=== PATIENT | female | born 1965 | race Caucasian/White ===

== ENCOUNTER 2023-03-15 10:53 | Outpatient (OUT) | payer BC, SELFPAY ==
[2023-03-15 11:34] LABS: INR 2.97; Prothrombin Time 29.6 sec (9.0-11.6)
== END 2023-03-15 10:54 ==
LOC: LAB 10:59
PROVIDERS: PCP Internal Medicine; Visit Provider Internal Medicine
DX: M32.9 Systemic lupus erythematosus, unspecified (principal); Z79.01 Long term (current) use of anticoagulants
CPT/HCPCS: 36415; 85610

== ENCOUNTER 2023-06-10 02:16 | Emergency (ER) | payer BC, SELFPAY ==
[2023-06-10 02:18] VITALS: BP 150/87; PULSE 87; RESP 18; TEMP 36.7; O2SAT 99; BMI 34.3
--- NOTE | 2023-06-10 02:46 | CT_ITS ---
The [address] [address] Patient Name: DANIEL COLE MRN: [id number] date: 1965 Sex: F Assigned Patient Location: ER Current Patient Location: ER Accession/Order Number: [id number] Exam Date: 06/10/2023 02:56 Report Date: 06/10/2023 03:19 At the request of: MICHELLE STEPHEN Procedure: CT abdomen pelvis wo con EXAM: CT abdomen pelvis wo con HISTORY: abdominal pain COMPARISON: CT abdomen and pelvis examination dated 08/27/2022. TECHNIQUE: Noncontrast axial CT images through the abdomen and pelvis were obtained with coronal and sagittal reformats. Dose reduction techniques were achieved by using automated exposure control and/or adjustment of mA and/or kV according to patient size and/or use of iterative reconstruction technique. FINDINGS: The visualized portions of the lung bases are clear. Abdomen: Please note that the sensitivity for detection of focal lesions or vascular disease is markedly reduced without intravenous contrast. The liver and spleen are unremarkable. There is no intra or extrahepatic biliary duct dilatation. The gallbladder is unremarkable. The pancreas, adrenal glands, and kidney are unremarkable. The appendix is not seen. There is no mesenteric or retroperitoneal lymphadenopathy. There is diverticulosis with inflammatory changes about the distal descending colon. Surgical clips are seen within the retroperitoneum. Pelvis: The bladder and rectum are unremarkable. There is no iliac or inguinal lymphadenopathy. Surgical clips are seen within the pelvis. The patient is status post hysterectomy. Bone windows show no aggressive osseous lesions. CT/CT abdomen pelvis wo con IMPRESSION: 1. Acute diverticulitis of the distal descending colon. 2. Status post hysterectomy and suspected appendectomy as the appendix is not seen. Electronically authenticated by: Nataliia HERCULES Date: 06/10/2023 03:19
[2023-06-10 02:54] LABS: Basophils Absolute Auto 0.1 10^3/uL (0.0-0.1); Basophils Percent Auto 0.5 % (0.2-2.0); Eosinophils Absolute Auto 0.2 10^3/uL (0.0-0.7); Eosinophils Percent Auto 1.9 % (0.9-7.0); Hematocrit 36.5 % (36.0-48.0); Hemoglobin 11.8 g/dL (12.0-16.0); Immature Granulocytes Abs Auto 0.02 10^3/uL (0.00-0.03); Immature Granulocytes Pct Auto 0.2 % (0.0-0.5); Lymphocytes Absolute Auto 2.4 10^3/uL (1.2-3.8); Lymphocytes Percent Auto 25.2 % (20.5-60.0); Mean Corpuscular HGB Conc 32.3 g/dL (29.9-35.2); Mean Corpuscular Hemoglobin 28.7 pg (26.7-34.0); Mean Corpuscular Volume 88.8 fL (81.0-99.0); Mean Platelet Volume 11.8 fL (9.5-13.5); Monocytes Absolute Auto 0.6 10^3/uL (0.3-0.8); Monocytes Percent Auto 6.3 % (1.7-12.0); Neutrophils Absolute Auto 6.3 10^3/uL (1.4-6.5); Neutrophils Percent Auto 65.9 % (43.0-75.0); Platelet Count 196 10^3/uL (150-450); Red Blood Count 4.11 10^6/uL (4.20-5.40); Red Cell Distribution Width 14.8 % (11.0-15.0); White Blood Count 9.5 10^3/uL (4.0-11.0)
[2023-06-10 03:10] LABS: Alanine Aminotransferase 26 U/L (14-59); Albumin Globulin Ratio 0.9; Albumin Level 3.4 g/dL (3.4-5.0); Alkaline Phosphatase 105 U/L (46-116); Anion Gap 11.9; Aspartate Amino Transferase 15 U/L (15-37); BUN Creatinine Ratio 18.9; Bilirubin Total 0.2 mg/dL (0.2-1.0); Calcium 8.2 mg/dL (8.5-10.1); Chloride 106 mmol/L (98-107); Estimated GFR (African America >60 (>=60); Estimated GFR (Non-African Ame >60 (>=60); Globulin 3.9 g/dL; Glucose 112 mg/dL (74-106); Potassium 3.9 mmol/L (3.5-5.1); Sodium 141 mmol/L (136-145); Total Protein 7.3 g/dL (6.4-8.2)
[2023-06-10] MEDS: KETOROLAC TROMETHAMINE 30 MG/ML VIAL IVP (03:17)
[2023-06-10 03:38] LABS: Bilirubin Urine NEGATIVE (NEGATIVE); Blood Urine TRACE-I (NEGATIVE); Clarity Urine CLEAR (CLEAR); Color Urine LT. YELLOW (YELLOW); Glucose Urine UA NEGATIVE (NEGATIVE); Ketones Urine NEGATIVE (NEGATIVE); Leukocyte Esterase Urine NEGATIVE (NEGATIVE); Nitrite Urine NEGATIVE (NEGATIVE); Protein Urine NEGATIVE (NEG/TRACE); Urobilinogen Urine 0.2 EU/dL (0.2-1.0)
[2023-06-10 03:41] LABS: Urine Microscopic Indicated YES
[2023-06-10 03:45] LABS: Bacteria Urine TRACE #/HPF (NONE SEEN); Crystals Seen? None Seen #/HPF (None Seen); Mucus Urine NONE SEEN (NONE SEEN); RBC Urine 0-2 #/HPF (0-2); Squamous Epithelial Cell Urine MODERATE #/LPF (NONE/RARE); WBC Urine NONE SEEN #/HPF (NONE SEEN)
[2023-06-10 03:46] LABS: Cast Seen? NONE SEEN #/LPF (NONE SEEN); Urine Culture Indicated NO
--- NOTE | 2023-06-10 03:53 | ED_ITS ---
HPI - Abdominal Pain General Chief Complaint: Abdominal Pain Stated Complaint: left side pain Time Seen by Provider: 06/10/23 02:23 Source: patient Mode of arrival: walk-in Limitations: no limitations History of Present Illness HPI narrative: Patient with history of Crohn's disease present with left sided abdominal and flank pain that began a couple of days ago but dramatically worsened about an hour before arrival. Pain was initially mild and achy before becoming moderate and sharp tonight. No blood in urine or stool. No fever or chills. She takes coumadin daily and gets her levels checked regularly here at [facility]. She gets Entyvio infusions every 8 weeks. Related Data Home Medications Medication Instructions Recorded Confirmed doxepin 50 mg capsule mg 06/10/23 lisinopril 20 mg tablet mg 06/10/23 simvastatin 40 mg tablet mg 06/10/23 vedolizumab 300 mg intravenous IV .q 8 weeks 06/10/23 solution (Entyvio) warfarin 5 mg tablet mg 06/10/23 Previous Rx's Medication Instructions Recorded ciprofloxacin HCl 500 mg tablet 500 mg PO BID #14 tabs 06/10/23 (Cipro) metronidazole 500 mg tablet 500 mg PO TID 7 days #21 tabs 06/10/23 tramadol 50 mg tablet 50 mg PO Q6H PRN pain #20 tabs 06/10/23 Allergies Allergy/AdvReac Type Severity Reaction Status Date / Time codeine Allergy Mild Verified 06/10/23 02:23 Sulfa (Sulfonamide AdvReac Verified 06/10/23 02:23 Antibiotics) [facility] Social History Smoking status: Never smoker Exam Narrative Exam Narrative: Nurses notes and vital signs reviewed and patient is not hypoxic. afebrile General: Well-appearing and in no apparent distress. Skin: Warm, dry, no pallor noted. No rash. Head: Normocephalic, atraumatic. Eye: Pupils are equal, round and EOMI. No scleral icterus. Cardiovascular: Regular Rate and Rhythm without murmur, gallop or rub. Respiratory: No accessory muscle use or respiratory distress. Lungs are clear to auscultation, no wheezing, rales or rhonchi Back: No CVA tenderness Musculoskeletal: normal ROM GI: Abdomen is soft, non-distended. Normal bowel sounds. No masses appreciated. LLQ tenderness to palpation. No rebound, guarding, or rigidity noted. Neurological: A&O x4. No cranial nerve dysfunction observed. No truncal ataxia. Moves all extremities. Sensation intact. Psychiatric: Cooperative and interactive. Normal mood and affect. Constitutional Vital Signs, click to edit/add: Last Vital Signs Temp 98.1 F 06/10/23 02:18 Pulse 87 06/10/23 02:18 Resp 18 06/10/23 02:18 BP 150/87 H 06/10/23 02:18 Pulse Ox 99 06/10/23 02:18 O2 Del Method Room Air 06/10/23 02:48 Course Vital Signs Vital signs: Vital Signs Temperature 98.1 F 06/10/23 02:18 Pulse Rate 87 06/10/23 02:18 Respiratory Rate 18 06/10/23 02:18 Blood Pressure 150/87 H 06/10/23 02:18 Pulse Oximetry 99 06/10/23 02:18 Oxygen Delivery Method Room Air 06/10/23 02:18 Temperature 98.1 F 06/10/23 02:18 Pulse Rate 87 06/10/23 02:18 Respiratory Rate 18 06/10/23 02:18 Blood Pressure 150/87 H 06/10/23 02:18 Pulse Oximetry 99 06/10/23 02:18 Oxygen Delivery Method Room Air 06/10/23 02:48 MDM - Abdominal Pain MDM Narrative Medical decision making narrative: Peripheral IV established and blood drawn and sent for testing. Patient was ordered to receive NS IVF and given IV Toradol for pain. She was sent for CT abd/pelvis. Normal CBC including WBC. Unremarkable CMP and negative UA. CT revealed acute diverticulitis, per radiologist. Patient informed of results and diagnosis and treatment discussed. Her pain was decreased after ED treatment. She was prescribed cipro and flagyl. INR obtained to establish baseline and she will need to get INR recheck early next week as Cipro and Flagyl affect INR levels. She was made aware of that. Additionally she was prescribed Ultram for pain - she said that she tolerated that well. Patient instructed to return for GI bleeding, worsening abdominal pain, any new worrisome symptoms. Lab Data Attestation: I reviewed the patient's lab results. Labs: Lab Results 06/10/23 06/10/23 Range/Units 02:35 03:30 WBC 9.5 (4.0-11.0) 10^3/uL RBC 4.11 L (4.20-5.40) 10^6/uL Hgb 11.8 L (12.0-16.0) g/dL Hct 36.5 (36.0-48.0) % MCV 88.8 (81.0-99.0) fL MCH 28.7 (26.7-34.0) pg MCHC 32.3 (29.9-35.2) g/dL RDW 14.8 (11.0-15.0) % Plt Count 196 (150-450) 10^3/uL MPV 11.8 (9.5-13.5) fL Neut % (Auto) 65.9 (43.0-75.0) % Lymph % (Auto) 25.2 (20.5-60.0) % [place] % (Auto) 6.3 (1.7-12.0) % Eos % (Auto) 1.9 (0.9-7.0) % Baso % (Auto) 0.5 (0.2-2.0) % Neut # (Auto) 6.3 (1.4-6.5) 10^3/uL Lymph # (Auto) 2.4 (1.2-3.8) 10^3/uL [place] # (Auto) 0.6 (0.3-0.8) 10^3/uL Eos # (Auto) 0.2 (0.0-0.7) 10^3/uL Baso # (Auto) 0.1 (0.0-0.1) 10^3/uL Abs Immat Gran (auto) 0.02 (0.00-0.03) 10^3/uL Imm/Tot Granulo (auto) 0.2 (0.0-0.5) % Sodium 141 (136-145) mmol/L Potassium 3.9 (3.5-5.1) mmol/L Chloride 106 (98-107) mmol/L Carbon Dioxide 27.0 (21.0-32.0) mmol/L Anion Gap 11.9 BUN 18.0 (7.0-18.0) mg/dL Creatinine 0.95 (0.55-1.02) mg/dL Est GFR ( Amer) >60 (>=60) Est GFR (Non-Af Amer) >60 (>=60) BUN/Creatinine Ratio 18.9 Glucose 112 H (74-106) mg/dL Calcium 8.2 L (8.5-10.1) mg/dL Total Bilirubin 0.2 (0.2-1.0) mg/dL AST 15 (15-37) U/L ALT 26 (14-59) U/L Alkaline Phosphatase 105 (46-116) U/L Total Protein 7.3 (6.4-8.2) g/dL Albumin 3.4 (3.4-5.0) g/dL Globulin 3.9 g/dL Albumin/Globulin Ratio 0.9 Urine Color Lt. yellow (YELLOW) Urine Clarity Clear (CLEAR) Urine pH 6.0 (5.0-9.0) Ur Specific [place] 1.010 (1.005-1.025) Urine Protein Negative (NEG/TRACE) mg/dL Urine Glucose (UA) Negative (NEGATIVE) mg/dL Urine Ketones Negative (NEGATIVE) mg/dL Urine Occult Blood Trace-i (NEGATIVE) Urine Nitrite Negative (NEGATIVE) Urine Bilirubin Negative (NEGATIVE) Urine Urobilinogen 0.2 (0.2-1.0) EU/dL Ur Leukocyte Esterase Negative (NEGATIVE) Urine RBC 0-2 (0-2) #/HPF Urine WBC None seen (NONE SEEN) #/HPF Ur Squamous Epith Cells Moderate A (NONE/RARE) #/LPF Urine Crystals None seen (None Seen) #/HPF Urine Bacteria Trace A (NONE SEEN) #/HPF Urine Casts None seen (NONE SEEN) #/LPF Urine Mucus None seen (NONE SEEN) Ur Culture Indicated? No Imaging Data CT scan - abdomen: Attestation: I have reviewed the pertinent imaging results. Radiologist's impression: Patient Name: DANIEL COLE MRN: [id number] date: 1965 Sex: F Assigned Patient Location: ER Current Patient Location: ER Accession/Order Number: [id number] Exam Date: 06/10/2023 02:56 Report Date: 06/10/2023 03:19 At the request of: MICHELLE STEPHEN Procedure: CT abdomen pelvis wo con EXAM: CT abdomen pelvis wo con HISTORY: abdominal pain COMPARISON: CT abdomen and pelvis examination dated 08/27/2022. TECHNIQUE: Noncontrast axial CT images through the abdomen and pelvis were obtained with coronal and sagittal reformats. Dose reduction techniques were achieved by using automated exposure control and/or adjustment of mA and/or kV according to patient size and/or use of iterative reconstruction technique. FINDINGS: The visualized portions of the lung bases are clear. Abdomen: Please note that the sensitivity for detection of focal lesions or vascular disease is markedly reduced without intravenous contrast. The liver and spleen are unremarkable. There is no intra or extrahepatic biliary duct dilatation. The gallbladder is unremarkable. The pancreas, adrenal glands, and kidney are unremarkable. The appendix is not seen. There is no mesenteric or retroperitoneal lymphadenopathy. There is diverticulosis with inflammatory changes about the distal descending colon. Surgical clips are seen within the retroperitoneum. Pelvis: The bladder and rectum are unremarkable. There is no iliac or inguinal lymphadenopathy. Surgical clips are seen within the pelvis. The patient is status post hysterectomy. Bone windows show no aggressive osseous lesions. IMPRESSION: 1. Acute diverticulitis of the distal descending colon. 2. Status post hysterectomy and suspected appendectomy as the appendix is not seen. Electronically authenticated by: Nataliia HERCULES Date: 06/10/2023 03:19 Discharge Plan Discharge Chief Complaint: Abdominal Pain Clinical Impression: Diverticulitis Patient Disposition: Home, Self-Care Time of Disposition Decision: 03:56 Prescriptions / Home Meds: New ciprofloxacin HCl [Cipro] 500 mg tablet 500 mg PO BID Qty: 14 0RF metronidazole 500 mg tablet 500 mg PO TID 7 Days Qty: 21 0RF tramadol 50 mg tablet 50 mg PO Q6H PRN (Reason: pain) Qty: 20 0RF No Action doxepin 50 mg capsule lisinopril 20 mg tablet simvastatin 40 mg tablet warfarin 5 mg tablet Entyvio 300 mg recon soln IV .q 8 weeks Instructions: Diverticulitis (ED) Additional Instructions: The antibiotics can affect your coumadin (warfarin) use - it is important to see your PCP and have your coumadin level checked next week. Stand Alone Forms: Portal Instructions Referrals: ANA MARIANO [Primary Care Provider] - 1 week
[2023-06-10 04:44] LABS: INR 2.37; Prothrombin Time 23.9 sec (9.0-11.6)
[2023-06-10 04:46] LABS: Partial Thromboplastin Time 50.9 sec (22.3-36.2)
== END 2023-06-10 04:25 | disposition home or self-care (01) ==
PROVIDERS: Emergency Provider Emergency Medicine; PCP Internal Medicine
DX: K57.32 Diverticulitis of large intestine without perforation or abscess without bleeding (principal); Z79.01 Long term (current) use of anticoagulants; Z79.899 Other long term (current) drug therapy
CPT/HCPCS: 36415; 74176; 80053; 81001; 85025; 85610; 85730; 96374; 99285

== ENCOUNTER 2023-06-15 09:55 | Outpatient (OUT) | payer BC, SELFPAY ==
[2023-06-15 10:41] LABS: INR 2.47; Prothrombin Time 24.9 sec (9.0-11.6)
== END 2023-06-15 09:56 | disposition home or self-care (01) ==
LOC: LAB 09:56
PROVIDERS: PCP Internal Medicine; Visit Provider Internal Medicine
DX: M32.9 Systemic lupus erythematosus, unspecified (principal); Z79.01 Long term (current) use of anticoagulants
CPT/HCPCS: 36415; 85610

== ENCOUNTER 2023-10-06 13:30 | Outpatient (OUT) | payer BC, SELFPAY ==
[2023-10-06 14:28] LABS: Prothrombin Time 27.1 sec (9.0-11.6)
== END 2023-10-06 13:31 | disposition home or self-care (01) ==
LOC: LAB 13:30
PROVIDERS: PCP Internal Medicine
DX: M32.9 Systemic lupus erythematosus, unspecified (principal); Z79.01 Long term (current) use of anticoagulants
CPT/HCPCS: 36415; 85610

== ENCOUNTER 2023-12-12 12:17 | Outpatient (OUT) | payer BC, SELFPAY ==
[2023-12-12 12:50] LABS: Prothrombin Time 26.1 sec (9.0-11.6)
== END 2023-12-12 12:18 | disposition home or self-care (01) ==
LOC: LAB 12:18
PROVIDERS: PCP Internal Medicine; Visit Provider Internal Medicine
DX: M32.9 Systemic lupus erythematosus, unspecified (principal); Z79.01 Long term (current) use of anticoagulants
CPT/HCPCS: 36415; 85610

== ENCOUNTER 2024-02-13 10:31 | Outpatient (OUT) | payer BC, SELFPAY ==
[2024-02-13 11:06] LABS: INR 2.06; Prothrombin Time 20.3 sec (9.0-11.6)
== END 2024-02-13 10:32 | disposition home or self-care (01) ==
LOC: LAB 10:32
PROVIDERS: PCP Internal Medicine; Visit Provider Internal Medicine
DX: M32.9 Systemic lupus erythematosus, unspecified (principal); Z79.01 Long term (current) use of anticoagulants
CPT/HCPCS: 36415; 85610

== ENCOUNTER 2024-02-14 10:50 | Emergency (ER) | payer BC, SELFPAY ==
[2024-02-14 10:52] VITALS: BP 154/94; PULSE 80; TEMP 36.6; O2SAT 97; BMI 34.3
--- NOTE | 2024-02-14 11:02 | XR_ITS ---
The [address] [address] Patient Name: DANIEL COLE MRN: [id number] date: 1965 Sex: F Assigned Patient Location: ER Current Patient Location: ER Accession/Order Number: [id number] Exam Date: 02/14/2024 11:42 Report Date: 02/14/2024 12:11 At the request of: RIA ROSE Procedure: XR forearm RT 2V PROCEDURE: XR elbow RT min 3V, XR forearm RT 2V HISTORY: injury c/o pain COMPARISON: None. FINDINGS: BONES:No fracture, acute abnormality, or significant arthropathy. SOFT TISSUES:No visible soft tissue swelling. EFFUSION:None visible. OTHER: Negative. XR/XR forearm RT 2V IMPRESSION: 1. No acute bone abnormality or significant degenerative changes. Electronically authenticated by: KITTY GUNTER Date: 02/14/2024 12:11
--- NOTE | 2024-02-14 11:02 | XR_ITS ---
The [address] [address] Patient Name: DANIEL COLE MRN: [id number] date: 1965 Sex: F Assigned Patient Location: ER Current Patient Location: ER Accession/Order Number: [id number] Exam Date: 02/14/2024 11:42 Report Date: 02/14/2024 12:11 At the request of: RIA ROSE Procedure: XR elbow RT min 3V PROCEDURE: XR elbow RT min 3V, XR forearm RT 2V HISTORY: injury c/o pain COMPARISON: None. FINDINGS: BONES:No fracture, acute abnormality, or significant arthropathy. SOFT TISSUES:No visible soft tissue swelling. EFFUSION:None visible. OTHER: Negative. XR/XR elbow RT min 3V IMPRESSION: 1. No acute bone abnormality or significant degenerative changes. Electronically authenticated by: KITTY GUNTER Date: 02/14/2024 12:11
--- NOTE | 2024-02-14 13:34 | ED.UPPEXIN1 ---
HPI HPI - Extremity Injury (Upper) General Chief Complaint: Extremity Injury, Upper Stated Complaint: R ARM PAIN Time Seen by Provider: 02/14/24 13:22 Source: patient Mode of arrival: walk-in Limitations: no limitations History of Present Illness HPI narrative: 58-year-old female presents to the emergency department for pain in her right elbow. 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 She points to the lateral epicondyle to indicate the area of pain. It hurts more to move her elbow. She is right-handed. The pain is moderate. Related Data Home Medications ?Medication ?Instructions ?Recorded ?Confirmed doxepin 50 mg capsule mg 06/10/23 lisinopril 20 mg tablet mg 06/10/23 simvastatin 40 mg tablet mg 06/10/23 vedolizumab 300 mg intravenous IV .q 8 weeks 06/10/23 solution (Entyvio) warfarin 5 mg tablet mg 06/10/23 Previous Rx's ?Medication ?Instructions ?Recorded ciprofloxacin HCl 500 mg tablet 500 mg PO BID #14 tabs 06/10/23 (Cipro) metronidazole 500 mg tablet 500 mg PO TID 7 days #21 tabs 06/10/23 tramadol 50 mg tablet 50 mg PO Q6H PRN pain #20 tabs 06/10/23 tramadol 50 mg tablet 50 mg PO Q6H PRN pain 5 days #20 02/14/24 tabs Allergies Allergy/AdvReac Type Severity Reaction Status Date / Time codeine Allergy Mild Verified 06/10/23 02:23 Sulfa (Sulfonamide AdvReac Verified 06/10/23 02:23 Antibiotics) Opioid HPI Opioid Management Most Recent Pain and Opioid Data: Last Pain Scale 5 02/14/24 10:52 Review of Systems ROS Narrative A ten point review of systems is negative except as noted above. PFSH PFSH Social History Smoking status: Never smoker Exam Narrative Exam Narrative: Nurses note and vital signs reviewed and patient is not hypoxic. General: The patient appears well and in no apparent distress. Patient is resting comfortably on cart. Skin: Warm, dry, no pallor noted. There is no rash noted. Head: Normocephalic, atraumatic Eye: Normal conjunctiva, no drainage Ears, Nose, Mouth, and Throat: oral mucosa is moist. Nares patent. Cardiovascular: Regular Rate and Rhythm Respiratory: Patient is in no distress, no accessory muscle use Back: non-tender, GI: Soft and nontender Musculoskeletal: The right wrist and shoulder are nontender and have good range of motion. The right elbow is not swollen or erythematous or bruised. She has tenderness over the lateral epicondyle only. Neurological: A&O, normal speech Psychiatric: Cooperative Constitutional Vital Signs, click to edit/add: Last Vital Signs Temp 97.8 F 02/14/24 10:52 Pulse 80 02/14/24 10:52 Resp 20 02/14/24 10:52 BP 154/94 H 02/14/24 10:52 Pulse Ox 97 02/14/24 10:52 O2 Del Method Room Air 02/14/24 10:52 Course Vital Signs Vital signs: Vital Signs Temperature 97.8 F 02/14/24 10:52 Pulse Rate 80 02/14/24 10:52 Respiratory Rate 20 02/14/24 10:52 Blood Pressure 154/94 H 02/14/24 10:52 Pulse Oximetry 97 02/14/24 10:52 Oxygen Delivery Method Room Air 02/14/24 10:52 Temperature 97.8 F 02/14/24 10:52 Pulse Rate 80 02/14/24 10:52 Respiratory Rate 20 02/14/24 10:52 Blood Pressure 154/94 H 02/14/24 10:52 Pulse Oximetry 97 02/14/24 10:52 Oxygen Delivery Method Room Air 02/14/24 10:52 MDM - Extremity Injury (Upper) MDM Narrative Medical decision making narrative: My clinical impression is that she has lateral epicondylitis. Jairon wrap and sling applied, application of these were checked by me and found to be appropriate, she is neurovascularly intact. She was referred to orthopedics. Treatment diagnosis and follow-up were discussed with the patient. Differential Diagnosis Differential diagnosis: Likely other (Elbow sprain, elbow strain, fracture) Imaging Data Elbow and forearm x-rays: Radiologist's impression: ITS Impressions Elbow X-Ray 02/14/24 11:02 IMPRESSION: 1. No acute bone abnormality or significant degenerative changes. Electronically authenticated by: SANJEEV GUNTER Date: 02/14/2024 12:11 Forearm X-Ray 02/14/24 11:02 IMPRESSION: 1. No acute bone abnormality or significant degenerative changes. Electronically authenticated by: SANJEEV GUNTER Date: 02/14/2024 12:11 Discharge Plan Discharge Stand Alone Forms: Portal Instructions Chief Complaint: Extremity Injury, Upper Clinical Impression: Epicondylitis, lateral Patient Disposition: Home, Self-Care Time of Disposition Decision: 13:27 Condition: Good Mode of Transportation: Private Vehicle Prescriptions / Home Meds: New tramadol 50 mg tablet 50 mg PO Q6H PRN (Reason: pain) 5 Days Qty: 20 0RF No Action doxepin 50 mg capsule lisinopril 20 mg tablet simvastatin 40 mg tablet warfarin 5 mg tablet Entyvio 300 mg recon soln IV .q 8 weeks ciprofloxacin HCl [Cipro] 500 mg tablet 500 mg PO BID Qty: 14 0RF metronidazole 500 mg tablet 500 mg PO TID 7 Days Qty: 21 0RF tramadol 50 mg tablet 50 mg PO Q6H PRN (Reason: pain) Qty: 20 0RF Print Language: Sierra Leonean Instructions: Tennis Elbow (ED) Referrals: ANA MARIANO [Primary Care Provider] - 1 week Sanjeev Nolan MD [Physician] - 1 week
== END 2024-02-14 13:47 | disposition home or self-care (01) ==
PROVIDERS: Emergency Provider Emergency Medicine; PCP Internal Medicine
DX: M77.11 Lateral epicondylitis, right elbow (principal); Z79.01 Long term (current) use of anticoagulants; Z79.899 Other long term (current) drug therapy
CPT/HCPCS: 73080; 73090; 99284

== ENCOUNTER 2024-03-13 11:43 | Outpatient (OUT) | payer BC, SELFPAY ==
[2024-03-13 12:51] LABS: INR 2.31; Prothrombin Time 22.5 sec (9.0-11.6)
== END 2024-03-13 11:44 | disposition home or self-care (01) ==
LOC: LAB 11:45
PROVIDERS: PCP Internal Medicine; Visit Provider Internal Medicine
DX: M32.9 Systemic lupus erythematosus, unspecified (principal); Z79.01 Long term (current) use of anticoagulants
CPT/HCPCS: 36415; 85610

== ENCOUNTER 2024-04-19 10:41 | Outpatient (OUT) | payer BC, SELFPAY ==
[2024-04-19 11:14] LABS: INR 2.86; Prothrombin Time 27.3 sec (9.0-11.6)
== END 2024-04-19 10:42 | disposition home or self-care (01) ==
LOC: LAB 10:42
PROVIDERS: PCP Internal Medicine; Visit Provider Internal Medicine
DX: M32.9 Systemic lupus erythematosus, unspecified (principal); Z79.01 Long term (current) use of anticoagulants
CPT/HCPCS: 36415; 85610

== ENCOUNTER 2024-05-22 14:25 | Emergency (ER) | payer BC, SELFPAY ==
[2024-05-22 14:32] VITALS: BP 131/58; PULSE 93; TEMP 36.9; O2SAT 98; BMI 34.3
[2024-05-22 14:40] VITALS: O2SAT 97
[2024-05-22 14:53] LABS: Basophils Absolute Auto 0.1 10^3/uL (0.0-0.1); Basophils Percent Auto 0.5 % (0.2-2.0); Eosinophils Absolute Auto 0.1 10^3/uL (0.0-0.7); Hematocrit 37.3 % (36.0-48.0); Hemoglobin 12.5 g/dL (12.0-16.0); Immature Granulocytes Abs Auto 0.03 10^3/uL (0.00-0.03); Immature Granulocytes Pct Auto 0.3 % (0.0-0.5); Lymphocytes Absolute Auto 2.9 10^3/uL (1.2-3.8); Lymphocytes Percent Auto 25.1 % (20.5-60.0); Mean Corpuscular HGB Conc 33.5 g/dL (29.9-35.2); Mean Corpuscular Hemoglobin 29.1 pg (26.7-34.0); Mean Corpuscular Volume 86.9 fL (81.0-99.0); Mean Platelet Volume 12.1 fL (9.5-13.5); Monocytes Absolute Auto 0.7 10^3/uL (0.3-0.8); Neutrophils Absolute Auto 7.7 10^3/uL (1.4-6.5); Neutrophils Percent Auto 67.1 % (43.0-75.0); Platelet Count 215 10^3/uL (150-450); Red Blood Count 4.29 10^6/uL (4.20-5.40); Red Cell Distribution Width 14.3 % (11.0-15.0); White Blood Count 11.5 10^3/uL (4.0-11.0)
[2024-05-22] MEDS: PIPERACILLIN SODIUM/TAZOBACTAM 3.375 GM in 0.9 % SODIUM CHLORIDE 50 ML IV (14:54)
[2024-05-22] MEDS: 0.9 % SODIUM CHLORIDE 1,000 ML 999 ML IV (14:54)
[2024-05-22 15:00] VITALS: BP 124/76; O2SAT 97
[2024-05-22 15:08] LABS: Alanine Aminotransferase 21 U/L (14-59); Albumin Globulin Ratio 0.9; Albumin Level 3.5 g/dL (3.4-5.0); Alkaline Phosphatase 129 U/L (46-116); Anion Gap 13.1; Aspartate Amino Transferase 14 U/L (15-37); BUN Creatinine Ratio 14.1; Bilirubin Total 0.5 mg/dL (0.2-1.0); Calcium 9.3 mg/dL (8.5-10.1); Carbon Dioxide 27.9 mmol/L (21.0-32.0); Chloride 101 mmol/L (98-107); Estimated GFR (African America >60 (>=60); Estimated GFR (Non-African Ame >60 (>=60); Glucose 85 mg/dL (74-106); Sodium 138 mmol/L (136-145); Total Protein 7.5 g/dL (6.4-8.2)
--- NOTE | 2024-05-22 15:08 | ED_ITS ---
HPI - Abdominal Pain General Chief Complaint: Abdominal Pain Stated Complaint: ABDOMINAL PAIN Time Seen by Provider: 05/22/24 14:27 Source: patient Mode of arrival: walk-in Limitations: no limitations History of Present Illness HPI narrative: Patient presents to the ED complaining of left lower quadrant abdominal pain. She said it started last night and she had a lot of trouble sleeping throughout the night. She does report a history of Crohn's disease and diverticulitis. Nausea, no vomiting. No blood in the stool. No diarrhea or constipation. No fevers. She states that she sees a GI doctor in [place] and she goes about every year. No history of kidney stones no flank pain. Related Data Home Medications ?Medication ?Instructions ?Recorded ?Confirmed doxepin 50 mg capsule 100 mg PO BEDTIME 06/10/23 05/22/24 lisinopril 20 mg tablet 20 mg PO DAILY 06/10/23 05/22/24 simvastatin 40 mg tablet 40 mg PO DAILY 06/10/23 05/22/24 vedolizumab 300 mg intravenous IV .q 8 weeks 06/10/23 solution (Entyvio) warfarin 5 mg tablet 2.5 mg PO DAILY 06/10/23 05/22/24 Previous Rx's ?Medication ?Instructions ?Recorded amoxicillin 875 mg-potassium 1 tab PO BID 10 days #20 tabs 05/22/24 clavulanate 125 mg tablet tramadol 50 mg tablet 50 mg PO Q8H PRN pain #14 tabs 05/22/24 Allergies Allergy/AdvReac Type Severity Reaction Status Date / Time codeine Allergy Mild Verified 06/10/23 02:23 Sulfa (Sulfonamide AdvReac Verified 06/10/23 02:23 Antibiotics) Review of Systems ROS Status of ROS 10 or more systems reviewed and unremark able except as noted in h istory and below PFSH PFSH Social History Smoking status: Never smoker Exam Narrative Exam Narrative: Time Seen: [] Vital Signs: [Per nurse's notes.] General: [Alert] Skin: [Warm, dry, no rash.] Head: [Normocephalic, atraumatic.] Neck: [Supple, trachea midline.] Eye: [Pupils are equal, round and reactive to light, extraocular movements are intact, normal conjunctiva.] Ears, nose, mouth and throat: oral mucosa moist. Cardiovascular: [Regular rate and rhythm, no murmur.] Respiratory: [Lungs are clear to auscultation, respirations are non-labored, breath sounds are equal.] Chest wall: [No tenderness, no deformity.] Gastrointestinal: [Soft, Tender to palpation in the left lower quadrant. No peritoneal signs no rebound no guarding, non distended, normal bowel sounds.] MSK: 5 out of 5 muscle strength x 4 extremities no calf pain or edema Lymphatics: [No lymphadenopathy.] Psychiatric: [Cooperative, appropriate mood & affect.] Neurological: [Alert and oriented to person, place, time, and situation, no focal neurological deficit observed.] Constitutional Vital Signs, click to edit/add: Last Vital Signs Temp 98.4 F 05/22/24 14:32 Pulse 93 H 05/22/24 14:32 Resp 18 05/22/24 14:32 BP 120/71 05/22/24 15:30 Pulse Ox 98 05/22/24 15:30 O2 Del Method Room Air 05/22/24 14:32 Course Vital Signs Vital signs: Vital Signs Temperature 98.4 F 05/22/24 14:32 Pulse Rate 93 H 05/22/24 14:32 Respiratory Rate 18 05/22/24 14:32 Blood Pressure 131/58 05/22/24 14:32 Pulse Oximetry 98 05/22/24 14:32 Oxygen Delivery Method Room Air 05/22/24 14:32 Temperature 98.4 F 05/22/24 14:32 Pulse Rate 93 H 05/22/24 14:32 Respiratory Rate 18 05/22/24 14:32 Blood Pressure 120/71 05/22/24 15:30 Pulse Oximetry 98 05/22/24 15:30 Oxygen Delivery Method Room Air 05/22/24 14:32 MDM - Abdominal Pain MDM Narrative Medical decision making narrative: Patient is labs are relatively nonacute. Vital signs stable. History of diverticulitis and Crohn's. She is on warfarin therefore I prescribed her Augmentin. She was given Zosyn here in ED. She is feeling better after Toradol and Zofran. She does request some pain medication at home and states tramadol works well for her. Return to ED if worsening symptoms otherwise follow-up outpatient with your primary doctor and GI doctor. Patient is comfortable care plan for home Differential Diagnosis Differential diagnosis: Likely abdominal pain, constipation, diverticulitis, gastroenteritis and small bowel obstruction Medical Records Attestation: I reviewed the patient's medical records. Lab Data Attestation: I reviewed the patient's lab results. Labs: Lab Results 05/22/24 Range/Units 14:37 WBC 11.5 H (4.0-11.0) 10^3/uL RBC 4.29 (4.20-5.40) 10^6/uL Hgb 12.5 (12.0-16.0) g/dL Hct 37.3 (36.0-48.0) % MCV 86.9 (81.0-99.0) fL MCH 29.1 (26.7-34.0) pg MCHC 33.5 (29.9-35.2) g/dL RDW 14.3 (11.0-15.0) % Plt Count 215 (150-450) 10^3/uL MPV 12.1 (9.5-13.5) fL Neut % (Auto) 67.1 (43.0-75.0) % Lymph % (Auto) 25.1 (20.5-60.0) % [place] % (Auto) 6.0 (1.7-12.0) % Eos % (Auto) 1.0 (0.9-7.0) % Baso % (Auto) 0.5 (0.2-2.0) % Neut # (Auto) 7.7 H (1.4-6.5) 10^3/uL Lymph # (Auto) 2.9 (1.2-3.8) 10^3/uL [place] # (Auto) 0.7 (0.3-0.8) 10^3/uL Eos # (Auto) 0.1 (0.0-0.7) 10^3/uL Baso # (Auto) 0.1 (0.0-0.1) 10^3/uL Abs Immat Gran (auto) 0.03 (0.00-0.03) 10^3/uL Imm/Tot Granulo (auto) 0.3 (0.0-0.5) % Sodium 138 (136-145) mmol/L Potassium 4.0 (3.5-5.1) mmol/L Chloride 101 (98-107) mmol/L Carbon Dioxide 27.9 (21.0-32.0) mmol/L Anion Gap 13.1 BUN 12.0 (7.0-18.0) mg/dL Creatinine 0.85 (0.55-1.02) mg/dL Est GFR ( Amer) >60 (>=60) Est GFR (Non-Af Amer) >60 (>=60) BUN/Creatinine Ratio 14.1 Glucose 85 (74-106) mg/dL Calcium 9.3 (8.5-10.1) mg/dL Total Bilirubin 0.5 (0.2-1.0) mg/dL AST 14 L (15-37) U/L ALT 21 (14-59) U/L Alkaline Phosphatase 129 H (46-116) U/L Total Protein 7.5 (6.4-8.2) g/dL Albumin 3.5 (3.4-5.0) g/dL Globulin 4.0 g/dL Albumin/Globulin Ratio 0.9 Discharge Plan Discharge Stand Alone Forms: Work/School Release, Portal Instructions Chief Complaint: Abdominal Pain Clinical Impression: Diverticulitis Patient Disposition: Home, Self-Care Time of Disposition Decision: 16:18 Condition: Good Mode of Transportation: Private Vehicle Prescriptions / Home Meds: New amoxicillin-pot clavulanate 875-125 mg tablet 1 tab PO BID 10 Days Qty: 20 0RF tramadol 50 mg tablet 50 mg PO Q8H PRN (Reason: pain) Qty: 14 0RF No Action doxepin 50 mg capsule 100 mg PO BEDTIME lisinopril 20 mg tablet 20 mg PO DAILY simvastatin 40 mg tablet 40 mg PO DAILY warfarin 5 mg tablet 2.5 mg PO DAILY Entyvio 300 mg recon soln IV .q 8 weeks Print Language: Turkish Instructions: Diverticulitis (ED) Referrals: ANA MARIANO [Primary Care Provider] - 1 week Discharge Date/Time: 05/22/24 16:37
[2024-05-22 15:10] VITALS: O2SAT 97
[2024-05-22 15:20] VITALS: O2SAT 97
[2024-05-22 15:30] VITALS: BP 120/71; O2SAT 98
[2024-05-22] MEDS: KETOROLAC TROMETHAMINE 30 MG/ML VIAL 15 MG IVP (15:32)
[2024-05-22] MEDS: ONDANSETRON PF 4 MG/2 ML VIAL IV (15:32)
== END 2024-05-22 16:37 | disposition home or self-care (01) ==
PROVIDERS: Emergency Provider Emergency Medicine; PCP Internal Medicine
DX: K57.92 Diverticulitis of intestine, part unspecified, without perforation or abscess without bleeding (principal); Z79.01 Long term (current) use of anticoagulants; K50.90 Crohn's disease, unspecified, without complications
CPT/HCPCS: 36415; 80053; 85025; 96365; 96375; 99284; J1885; J2405; J2543

== ENCOUNTER 2024-06-05 10:28 | Outpatient (OUT) | payer BC, SELFPAY ==
[2024-06-05 11:15] LABS: INR 2.71
== END 2024-06-05 10:29 | disposition home or self-care (01) ==
PROVIDERS: PCP Internal Medicine; Visit Provider Internal Medicine
DX: M32.9 Systemic lupus erythematosus, unspecified (principal); Z79.01 Long term (current) use of anticoagulants
CPT/HCPCS: 36415; 85610

== ENCOUNTER 2024-08-09 11:18 | Outpatient (OUT) | payer BC, SELFPAY ==
[2024-08-09 11:51] LABS: Prothrombin Time 24.2 sec (9.0-11.6)
== END 2024-08-09 11:19 | disposition home or self-care (01) ==
LOC: LAB 11:19
PROVIDERS: PCP Internal Medicine; Visit Provider Internal Medicine
DX: M32.9 Systemic lupus erythematosus, unspecified (principal); Z79.01 Long term (current) use of anticoagulants
CPT/HCPCS: 36415; 85610

== ENCOUNTER 2024-10-22 11:43 | Outpatient (OUT) | payer BC, SELFPAY ==
[2024-10-22 12:27] LABS: INR 2.57; Prothrombin Time 24.8 sec (9.0-11.6)
== END 2024-10-22 11:44 | disposition home or self-care (01) ==
LOC: LAB 11:45
PROVIDERS: PCP Internal Medicine; Visit Provider Internal Medicine
DX: M32.9 Systemic lupus erythematosus, unspecified (principal); Z79.01 Long term (current) use of anticoagulants
CPT/HCPCS: 36415; 85610

== ENCOUNTER 2025-01-10 11:38 | Outpatient (OUT) | payer BC, SELFPAY ==
--- OUTSIDE RECORDS SUMMARY | 2025-01-10 11:48 | XMS_ITS | CCD ---
Author Organization [facility] ([facility] Care Team Providers Care Centrifugal Supervisor Name Role Phone Lelia Lr Primary Care Physician Unavailab le Ray, Lelia Wasserman Unavailable Unavailable Gustavo Aaron Primary Care Physician Unavaila ble Ray, Lelia Wasserman Primary Care Physician Unavailab le Ray, Lelia Wasserman Primary Care Physician Unavailab le Ray, Lelia Wasserman Primary Care Physician Unavailab le Ray, Lelia Wasserman Primary Care Physician Unavailab le Ray, Lelia Wasserman Primary Care Physician Unavailab le Ray, Lelia Wasserman Primary Care Physician Unavailab le Ray, Lelia Wasserman Primary Care Physician Unavailab le Ray, Lelia Wasserman Primary Care Physician Unavailab le Ray, Lelia Wasserman Primary Care Physician Unavailab le Ray, Lelia Wasserman Primary Care Physician Unavailab le Ray, Lelia Wasserman Unavailable Unavailable Ray, Lelia Wasserman Primary Care Physician Unavailab le Ray, Lelia Wasserman Primary Care Physician Unavailab le Ray, Lelia Wasserman Primary Care Physician Unavailab le Ray, Lelia Wasserman Primary Care Physician Unavailab le Ray, Lelia Wasserman Primary Care Physician Unavailab le Gianna Membreno Unavailable Lelia Lr Primary Care Physician Unavailab le Ray, Lelia Wasserman Primary Care Physician Unavailab le Unavailable Primary Care Provider Unavailabl e Unavailable Primary Care Provider Unavailabl e Unavailable Primary Care Provider Unavailabl e Nae Angulo Unavailable Javier TADEO, Joseph Silva Attending Red Lr MD, Lelia Hoyt Primary Care Unavailab Anupam TADEO, Joseph Silva Attending Red Lr MD, Lelia Hoyt Consulting Unavailab dafne Lr MD, Lelia Hoyt Primary Care Unavailab Jose Carlos Dominguez Consulting Winsome Lr MD, Lelia Hoyt Primary Care Unavailab Anupam TADEO, Joseph Silva Attending Red Lr MD, Lelia Hoyt Consulting Unavailab Anupam TADEO, Joseph Silva Attending Red Lr MD, Lelia Hoyt Primary Care Unavailab le Be TADEO, Lelia Hoyt Primary Care Unavailab Anupam TADEO, Joseph Silva Attending Red garza [facility] Consulting Unavailable MISC, DR RALPH Admitting Unavailable MISC, DR RALPH Attending Unavailable MISC, DR RALPH Consulting Unavailable MISC, DR RALPH Primary Care Unavailable RAY, DR LELIA Topete Admitting Unavailable MISC, DR RALPH Primary Care Unavailable RAY, DR LELIA Topete Attending Unavailable RAY, DR LELIA Topete Consulting Unavailable RAY, DR LELIA Topete Admitting Unavailable MISC, DR RALPH Primary Care Unavailable RAY, DR LELIA Topete Attending Unavailable RAY, DR LELIA Topete Consulting Unavailable RAY, DR LELIA Topete Admitting Unavailable MISC, DR RALPH Primary Care Unavailable RAY, DR LELIA Topete Attending Unavailable RAY, DR LELIA Topete Consulting Unavailable RAY, DR LELIA Topete Admitting Unavailable MISC, DR RALPH Primary Care Unavailable RAY, DR LELIA Topete Attending Unavailable RAY, DR LELIA Topete Consulting Unavailable MISC, DR RALPH Primary Care Unavailable NAM, YANIV Admitting Unavailable NAM, YANIV Attending Unavailable NAM, YANIV Consulting Unavailable AGJOHN Consulting Unavailable MISC, DR RALPH Primary Care Unavailable MISC, DR RALPH Admitting Unavailable MISC, DR RALPH Attending Unavailable MISC, DR RALPH Consulting Unavailable MISC, DR RALPH Admitting Unavailable MISC, DR RALPH Attending Unavailable MISC, DR RALPH Consulting Unavailable MISC, DR RALPH Primary Care Unavailable RayLelia Primary Care Physician Unavailab le RayLelia Primary Care Physician Unavailab le Ray, Lelia Wasserman Primary Care Physician Unavailab le ACHKAR, SAE REED Referring Unavailable ACHKAR, SAE REED Referring Unavailable ACHKAR, SAE REED Referring Unavailable ACHKAR, SAE REED Attending Unavailable ACHKAR, SAE REED Referring Unavailable ACHKAR, SAE REED Attending Unavailable ACHKAR, SAE REED Referring Unavailable ACHKAR, SAE REED Referring Unavailable RayLelia Primary Care Physician Unavailab le Unavailable Primary Care Provider Unavailabl e Ray, Lelia Wasserman Primary Care Physician Unavailab le Ray, Lelia Wasserman Primary Care Physician Unavailab le Allergies Allergy Classification Reported Allergen(s) Allergy Type Date of Onset Reaction(s) Facility Opioid Agonists (8 sources) Codeine; Translations: [Codeine Phosphate] Drug Allergy [facility] Sulfonamides (antibiotic) (8 sources) Sulfonamides (Antibiotic) Drug Allergy [place] [facility] (20 sources) Codeine; Translations: [Codeine Phosphate] Drug Allergy [place] [facility]X (20 sources) Sulfonamides (Antibiotic) Allergy to substance (disorder) [facility]ine[facility] (17 sources) Codeine; Translations: [codeine] Drug Allergy 04-24-20 13 Mental Status Change, Unknown, Vomiting [facility] (2 sources) Sulfacetamide / Sulfur Drug Allergy Unknown Accumulate Other (14 sources) Sulfonamides (Antibiotic); Translations: [SULFA (SULFONAMIDE ANTIBIOTICS)] Drug Allergy 04-24-20 13 Unknown [facility] (1 source) Sulfonamides (Antibiotic); Translations: [sulfa drugs] Propensity to adverse reactions to drug (disorder) [facility] (1 source) Codeine Drug Allergy 04-24-20 13 [facility] (1 source) Sulfonamides (Antibiotic) Drug allergy (disorder) 04-24-20 13 [facility] Medications Current Medications Medication Drug Class(es) Dates Sig (Normalized) Sig (Original) amoxicillin 500 mg oral capsule (20 sources) Penicillin-class Antibacterial Start: 07-29-2021 take 1 capsule by mouth every eight hours Amoxicillin 500 MG 1 capsule Orally tid for 10 day(s) Jul, Active End: 12-13-2017 take 1 tablet by mouth every twelve hours amoxicillin 875 mg oral tablet 12/13/2017 take 1 tablet (875 mg) by oral route every 12 hours take 1 tablet by inez th every twelve hours amoxicillin oral take 1 tablet by mouth every 12 hours budesonide 3 mg delayed release oral capsule (11 sources) Corticosteroid Start: 11-01-2022 End: 11-27-2022 budesonide, enteric coated (ENTOCORT EC) 3 mg 24 hr capsule Indications: Ileitis TAKE 2 CAPS DAILY FOR 1 MONTH, THEN 1 CAP DAILY FOR 1 MONTH 90 capsule 0 11/27/2022 Active Comment on above: Take 3 caps (9 mg) p o every day for 1 month, then 2 caps po daily for 1 month, then 1 cap po daily for 1 month TAKE 2 CAPS DAILY FO R 1 MONTH, THEN 1 CAP DAILY FOR 1 MONTH cholecalciferol, vitamin D3, (VITAMIN D3 ORAL) (13 sources) cholecalciferol, vitamin D3, (VITAMIN D3 ORAL) Take by mouth. 0 Active Comment on above: Take by mouth. cyanocobalamin, vitamin B-12, (VITAMIN B-12 ORAL) (13 sources) cyanocobalamin, vitamin B-12, (VITAMIN B-12 ORAL) Take by mouth. 0 Active Comment on above: Take by mouth. hydrocortisone 10 mg/ml / neomycin 3.5 mg/ml / polymyxin b [id number] unt/ml otic solution (1 source) Aminoglycoside Antibacterial, Polymyxin-class Antibacterial, Corticosteroid Start: 07-29-2021 Veokvpie-Wlppqppwl-W C 1 % 3 drops right ear Three times a day Jul, Active mv-min/iron/folic/calci um/vitK (WOMEN'S MULTIVITAMIN ORAL) (13 sources) mv-min/iron/foli c/ca lcium/vitK (WOMEN'S MULTIVITAMIN ORAL) Take by mouth. 0 Active Comment on above: Take by mouth. Completed/Discontinued Medications Medication Drug Class(es) Dates Sig (Normalized) Sig (Original) [id number] 200 actuat albuterol 0.09 mg/actuat metered dose inhaler (20 sources) beta2-Adrenergic Agonist Start: 09-11-2024 take 1 puff(s) by inhalation every six hours as needed albuterol sulfate HFA 90 mcg/actuation aerosol inhaler 09/11/2024 inhale 1 puff (90 mcg) by inhalation route every 6 hours as needed Start: 11-06-2020 take 1 puff(s) by in halation every six hours as needed ProAir HFA 90 mcg/actuation inhalation HFA aerosol inhaler 11/06/2020 inhale 1 puff (90 mcg) by inhalation route every 6 hours as needed Start: 11-06-2020 take 1 puff(s) by in halation every six hours as needed ProAir HFA 90 mcg/actuation inhalation HFA aerosol inhaler 11/06/2020 inhale 1 puff (90 mcg) by inhalation route every 6 hours as needed Start: 01-30-2020 take 1 puff(s) by in halation every six hours as needed ProAir HFA 90 mcg/actuation inhalation HFA aerosol inhaler 01/30/2020 inhale 1 puff (90 mcg) by inhalation route every 6 hours as needed Start: 11-08-2018 take 1 puff(s) by in halation every six hours as needed ProAir HFA 90 mcg/actuation inhalation HFA aerosol inhaler 11/08/2018 inhale 1 puff (90 mcg) by inhalation route every 6 hours as needed Start: 11-08-2018 take 1 puff(s) by in halation every six hours as needed ProAir HFA 90 mcg/actuation inhalation HFA aerosol inhaler 11/08/2018 inhale 1 puff (90 mcg) by inhalation route every 6 hours as needed amoxicillin 875 mg / clavulanate 125 mg oral tablet (20 sources) Penicillin-class Antibacterial take 1 tablet by mouth every twelve hours Augmentin 875-125 mg oral tablet take 1 tablet by oral route every 12 hours ciprofloxacin 500 mg oral tablet (20 sources) Quinolone Antimicrobial Start: 12-21-19 End: 12-28-19 take 1 tablet by mouth twice daily Cipro 500 mg tablet 12/21/2023 2023 take 1 tablet (500 mg) by oral route 2 times per day for 7 days Start: 12-26-2017 End: 10-16-2021 take 1 tablet by mouth twice daily Cipro 500 mg tablet 10/09/2021 10/16/2021 take 1 tablet (500 mg) by oral route 2 times per day for 7 days doxepin hydrochloride 50 mg oral capsule (20 sources) Tricyclic Antidepressant Start: 09-11-2024 take 2 capsules by mouth once daily at bedtime doxepin 50 mg capsule 09/11/2024 TAKE 2 CAPSULES BY MOUTH EVERY DAY AT BEDTIME Start: 08-20-2024 take 2 capsules by m outh once daily at bedtime doxepin 50 mg capsule 08/20/2024 TAKE 2 CAPSULES BY MOUTH EVERY DAY AT BEDTIME Start: 08-08-2023 take 2 capsules by m outh once daily at bedtime doxepin 50 mg capsule 08/08/2023 TAKE 2 CAPSULES BY MOUTH EVERY DAY AT BEDTIME Start: 05-02-2023 take 2 capsules by m outh once daily at bedtime doxepin 50 mg capsule 05/02/2023 TAKE 2 CAPSULES BY MOUTH EVERY DAY AT BEDTIME Start: 01-31-2023 take 2 capsules by m outh once daily at bedtime doxepin 50 mg capsule 01/31/2023 TAKE 2 CAPSULES BY MOUTH EVERY DAY AT BEDTIME Start: 05-01-2022 doxepin capsul e 50 mg Start: 01-26-2021 End: 01-27-2023 take 2 capsules by mouth once daily at bedtime doxepin 50 mg capsule 02/01/2022 01/27/2023 TAKE 2 CAPSULES BY MOUTH EVERY DAY AT BEDTIME Start: 11-06-2020 take 2 capsules by m outh at bedtime doxepin 50 mg oral capsule 11/06/2020 TAKE 2 CAPSULES BY MOUTH AT BEDTIME Start: 01-30-2020 take 2 capsules by m outh at bedtime doxepin 50 mg oral capsule 01/30/2020 TAKE 2 CAPSULES BY MOUTH AT BEDTIME Start: 11-08-2018 take 2 capsules by m outh at bedtime doxepin 50 mg oral capsule 11/08/2018 TAKE 2 CAPSULES BY MOUTH AT BEDTIME Doxepin HCl Acti ve 1 ml enoxaparin sodium 100 mg/ml prefilled syringe (20 sources) Low Molecular Weight Heparin Start: 06-11-2022 End: 05-17-2023 inject 1 mL by subcutaneous injection every twelve hours enoxaparin 100 mg/mL subcutaneous syringe 06/11/2022 05/17/2023 inject 1 milliliter (100 mg) by subcutaneous route every 12 hours Start: 05-18-2022 inject 1 mL by subcu taneous injection every twelve hours enoxaparin 100 mg/mL subcutaneous syringe 05/18/2022 inject 1 milliliter (100 mg) by subcutaneous route every 12 hours Start: 07-29-2021 End: 09-04-2021 enoxaparin 100 mg/mL subcuta neous syringe 07/29/2021 09/04/2021 Inject 1 syringe (100mg) twice daily into abdomen. Follow instructions provided by [facility] ergocalciferol 1.25 mg oral capsule (20 sources) Provitamin D2 Compound End: 08-20-2015 take 1 capsule by mouth every week Vitamin D2 50,000 unit oral capsule 08/20/2015 take 1 capsule (50,000 unit) by oral route once weekly fluticasone propionate 0.05 mg/actuat metered dose nasal spray (20 sources) Corticosteroid End: 12-13-2017 take 1 spray(s) nasal route once daily as needed fluticasone 50 mcg/actuation nasal spray,suspension 12/13/2017 spray 1 spray (50 mcg) in each nostril by intranasal route once daily prn hydroxychloroquine sulfate 200 mg oral tablet (20 sources) Antimalarial, Antirheumatic Agent Start: 08-19-2014 End: 10-25-2016 take 1 tablet by mouth once daily Plaquenil 200 mg oral tablet 08/19/2014 10/25/2016 take 1 tablet by oral route daily lisinopril 20 mg oral tablet (20 sources) Angiotensin Converting Enzyme Inhibitor Start: 09-11-2024 take 1 tablet by mouth once daily lisinopril 20 mg tablet 09/11/2024 TAKE 1 TABLET BY MOUTH EVERY DAY DIRECTED Start: 11-10-2023 take 1 tablet by inez once daily lisinopril 20 mg tablet 11/10/2023 TAKE 1 TABLET BY MOUTH EVERY DAY DIRECTED Start: 10-11-2022 End: 10-06-2023 take 1 tablet by mouth once daily lisinopril 20 mg tablet 10/11/2022 10/06/2023 TAKE 1 TABLET BY MOUTH EVERY DAY DIRECTED Start: 11-25-2021 LISINOPRIL ORA L Start: 09-04-2021 End: 09-04-2021 take 1 tablet by mouth once daily lisinopril 20 mg tablet 09/04/2021 09/04/2021 TAKE 1 TABLET BY MOUTH EVERY DAY DIRECTED Start: 09-04-2021 End: 09-04-2021 take 1 tablet by mouth once daily lisinopril 20 mg tablet 09/04/2021 09/04/2021 TAKE 1 TABLET BY MOUTH EVERY DAY DIRECTED Start: 09-04-2021 End: 09-04-2021 take 1 tablet by mouth once daily lisinopril 20 mg tablet 09/04/2021 09/04/2021 TAKE 1 TABLET BY MOUTH EVERY DAY DIRECTED Start: 09-04-2021 End: 09-04-2021 take 1 tablet by mouth once daily lisinopril 20 mg tablet 09/04/2021 09/04/2021 TAKE 1 TABLET BY MOUTH EVERY DAY DIRECTED Start: 09-04-2021 End: 09-04-2021 take 1 tablet by mouth once daily lisinopril 20 mg tablet 09/04/2021 09/04/2021 TAKE 1 TABLET BY MOUTH EVERY DAY DIRECTED Start: 09-04-2021 End: 09-04-2021 take 1 tablet by mouth once daily lisinopril 20 mg tablet 09/04/2021 09/04/2021 TAKE 1 TABLET BY MOUTH EVERY DAY DIRECTED Start: 09-04-2021 End: 09-04-2021 take 1 tablet by mouth once daily lisinopril 20 mg tablet 09/04/2021 09/04/2021 TAKE 1 TABLET BY MOUTH EVERY DAY DIRECTED Start: 09-04-2021 End: 09-04-2021 take 1 tablet by mouth once daily lisinopril 20 mg tablet 09/04/2021 09/04/2021 TAKE 1 TABLET BY MOUTH EVERY DAY DIRECTED Start: 09-04-2021 End: 09-04-2021 take 1 tablet by mouth once daily lisinopril 20 mg tablet 09/04/2021 09/04/2021 TAKE 1 TABLET BY MOUTH EVERY DAY DIRECTED Start: 09-04-2021 End: 09-04-2021 take 1 tablet by mouth once daily lisinopril 20 mg tablet 09/04/2021 09/04/2021 TAKE 1 TABLET BY MOUTH EVERY DAY DIRECTED Start: 09-04-2021 End: 09-04-2021 take 1 tablet by mouth once daily lisinopril 20 mg tablet 09/04/2021 09/04/2021 TAKE 1 TABLET BY MOUTH EVERY DAY DIRECTED Start: 09-04-2021 End: 09-04-2021 take 1 tablet by mouth once daily lisinopril 20 mg tablet 09/04/2021 09/04/2021 TAKE 1 TABLET BY MOUTH EVERY DAY DIRECTED Start: 09-04-2021 End: 09-04-2021 take 1 tablet by mouth once daily lisinopril 20 mg tablet 09/04/2021 09/04/2021 TAKE 1 TABLET BY MOUTH EVERY DAY DIRECTED Start: 09-04-2021 End: 09-04-2021 take 1 tablet by mouth once daily lisinopril 20 mg tablet 09/04/2021 09/04/2021 TAKE 1 TABLET BY MOUTH EVERY DAY DIRECTED Start: 09-04-2021 End: 09-04-2021 take 1 tablet by mouth once daily lisinopril 20 mg tablet 09/04/2021 09/04/2021 TAKE 1 TABLET BY MOUTH EVERY DAY DIRECTED Start: 09-04-2021 End: 09-04-2021 take 1 tablet by mouth once daily lisinopril 20 mg tablet 09/04/2021 09/04/2021 TAKE 1 TABLET BY MOUTH EVERY DAY DIRECTED Start: 09-04-2021 End: 09-04-2021 take 1 tablet by mouth once daily lisinopril 20 mg tablet 09/04/2021 09/04/2021 TAKE 1 TABLET BY MOUTH EVERY DAY DIRECTED Start: 09-04-2021 End: 09-04-2021 take 1 tablet by mouth once daily lisinopril 20 mg tablet 09/04/2021 09/04/2021 TAKE 1 TABLET BY MOUTH EVERY DAY DIRECTED Start: 09-04-2021 End: 09-04-2021 take 1 tablet by mouth once daily lisinopril 20 mg tablet 09/04/2021 09/04/2021 TAKE 1 TABLET BY MOUTH EVERY DAY DIRECTED Start: 09-04-2021 End: 09-04-2021 take 1 tablet by mouth once daily lisinopril 20 mg tablet 09/04/2021 09/04/2021 TAKE 1 TABLET BY MOUTH EVERY DAY DIRECTED Start: 09-04-2021 End: 09-04-2021 take 1 tablet by mouth once daily lisinopril 20 mg tablet 09/04/2021 09/04/2021 TAKE 1 TABLET BY MOUTH EVERY DAY DIRECTED Start: 09-04-2021 End: 09-04-2021 take 1 tablet by mouth once daily lisinopril 20 mg tablet 09/04/2021 09/04/2021 TAKE 1 TABLET BY MOUTH EVERY DAY DIRECTED Start: 09-04-2021 End: 09-04-2021 take 1 tablet by mouth once daily lisinopril 20 mg tablet 09/04/2021 09/04/2021 TAKE 1 TABLET BY MOUTH EVERY DAY DIRECTED Start: 09-04-2021 End: 09-04-2021 take 1 tablet by mouth once daily lisinopril 20 mg tablet 09/04/2021 09/04/2021 TAKE 1 TABLET BY MOUTH EVERY DAY DIRECTED Start: 09-04-2021 End: 09-04-2021 take 1 tablet by mouth once daily lisinopril 20 mg tablet 09/04/2021 09/04/2021 TAKE 1 TABLET BY MOUTH EVERY DAY DIRECTED Start: 09-04-2021 End: 09-04-2021 take 1 tablet by mouth once daily lisinopril 20 mg tablet 09/04/2021 09/04/2021 TAKE 1 TABLET BY MOUTH EVERY DAY DIRECTED Start: 08-05-2021 take 1 tablet by inez th once daily lisinopril 20 mg tablet 08/05/2021 take 1 tablet (20 mg) by oral route once daily Lisinopril Activ e methylPREDNISolone 4 mg oral tablet (20 sources) Corticosteroid take 1 tablet by mouth once daily at mealtime methylprednisolone 4 mg oral tablet take 1 tablet (4 mg) by oral route once daily with food metroNIDAZOLE 500 mg oral tablet (20 sources) Nitroimidazole Antimicrobial Start : 10-09 End: 10-16 take 1 capsule by mouth three times daily Flagyl 375 mg capsule 10/09/2021 10/16/2021 take 1 capsule by oral route 3 times a day for 7 days Start: 12-26-2017 End: 04-12-2022 take 1 tablet by mouth three times daily metronidazole 500 mg tablet 10/14/2021 04/12/2022 take 1 tablet (500 mg) by oral route 3 times per day take 1 tablet by inez th twice daily metronidazole 500 mg oral tablet take 1 tablet (500 mg) by oral route 2 times per day take 1 tablet by inez th every six hours metronidazole 250 mg oral tablet take 1 tablet by oral route every 6 hours ondansetron 4 mg disintegrating oral tablet (20 sources) Serotonin-3 Receptor Antagonist take 1 tablet by mouth every six hours as needed ondansetron 4 mg oral tablet,disintegrating dissolve 1 tablet by oral route every 6 hours as needed perflutren lipid microspheres 1.3 mL in NaCl (PF) 0.9% 10 mL injection (DEFINITY) (5 sources) Start: 022 End: 023 perflutren lipid microspheres 1.3 mL in NaCl (PF) 0.9% 10 mL injection (DEFINITY) Start: 05-03-2022 End: 08-02-2023 perflutren lipid microsphere s 1.3 mL in NaCl (PF) 0.9% 10 mL injection (DEFINITY) predniSONE 20 mg oral tablet (20 sources) Start: 04-15-2022 End: 04-20-2022 take 1 mg by mouth once daily prednisone 20 mg tablet 04/15/2022 04/20/2022 take 1 mg/kg by oral route once daily for 5 days Start: 03-11-2017 take 4 tablets by mo [facility] once daily, then take 3 tablets by mouth once daily, then take 2 tablets by mouth once daily, then take 1 tablet by mouth once daily prednisone 10 mg oral tablet 03/11/2017 take 4 tablets daily for 3 days, then 3 tablets daily for 3 days, then 2 tablets daily for 3 days, and 1 tablet daily for 3 days simvastatin 40 mg oral tablet (20 sources) HMG-CoA Reductase Inhibitor Start: 09-11-2024 take 1 tablet by mouth once daily simvastatin 40 mg tablet 09/11/2024 TAKE 1 TABLET BY MOUTH EVERY DAY Start: 08-20-2024 take 1 tablet by inez once daily simvastatin 40 mg tablet 08/20/2024 TAKE 1 TABLET BY MOUTH EVERY DAY Start: 08-08-2023 take 1 tablet by inez once daily simvastatin 40 mg tablet 08/08/2023 TAKE 1 TABLET BY MOUTH EVERY DAY Start: 01-26-2021 End: 01-27-2023 take 1 tablet by mouth once daily simvastatin 40 mg tablet 08/08/2023 TAKE 1 TABLET BY MOUTH EVERY DAY Start: 11-06-2020 take 1 tablet by inez once daily simvastatin 40 mg oral tablet 11/06/2020 TAKE 1 TABLET BY MOUTH ONCE A DAY Start: 01-30-2020 take 1 tablet by inez once daily simvastatin 40 mg oral tablet 01/30/2020 TAKE 1 TABLET BY MOUTH ONCE A DAY Start: 11-08-2018 take 1 tablet by inez once daily simvastatin 40 mg oral tablet 11/08/2018 TAKE 1 TABLET BY MOUTH ONCE A DAY Zocor Active 125 ml sodium chloride 9 mg/ml prefilled syringe (5 sources) Start: 05-03-2022 End: 08-02-2023 sodium chloride 0.9 % (flush) 10 mL (BD POSIFLUSH) traMADol hydrochloride 50 mg oral tablet (20 sources) Opioid Agonist Start: 10-25-2016 End: 12-13-2017 take 1 tablet by mouth twice daily as needed tramadol 50 mg Oral tablet 10/25/2016 12/13/2017 take 1 tablet by oral route 2 times a day as needed vedolizumab 300 mg injection (19 sources) Integrin Receptor Antagonist End: 09-11-2024 Entyvio 300 mg intravenous solution 09/11/2024 infuse 300 mg over 30 minute(s) by intravenous route every 8 weeks warfarin sodium 5 mg oral tablet (20 sources) Vitamin K Antagonist Start: 09-11-2024 take 0.5-1 tablets by mouth once daily WARFARIN SODIUM 5 MG TABLET 09/11/2024 TAKE 1/2-1 TABLET BY MOUTH ONCE A DAY DIRECTED INSTRUCTED PER DR. LR Start: 08-08-2023 take 0.5-1 tablets b y mouth once daily WARFARIN SODIUM 5 MG TABLET 08/08/2023 TAKE 1/2-1 TABLET BY MOUTH ONCE A DAY DIRECTED INSTRUCTED PER DR. LR Start: 01-26-2004 End: 01-27-2023 take 0.5-1 tablets by mouth once daily WARFARIN SODIUM 5 MG TABLET 02/01/2022 01/27/2023 TAKE 1/2-1 TABLET BY MOUTH ONCE A DAY DIRECTED INSTRUCTED PER DR. LR Warfarin Sodium Active Coumadin Active Comment on above: Take by mouth. Problems Active Problems Problem Classification Problem Date Documented Date Episodic/Chronic Cancer of ovary (20 sources) Malignant neoplasm of ovary; Translations: [Ovary Neoplasm, Malignant] Chronic Coagulation and hemorrhagic disorders (20 sources) Other and unspecified coagulation defects; Translations: [Primary hypercoagulable state] Onset: 05-23-2014 Chronic Disorders of lipid metabolism (20 sources) Other and unspecified hyperlipidemia; Translations: [Hyperlipidemia] Onset: 09-12-2013 Chronic Diverticulosis and diverticulitis (20 sources) Diverticulitis of colon (without mention of hemorrhage); Translations: [Diverticulitis] Onset: 04-24-2013 06-30-2022 Chronic Essential hypertension (20 sources) Hypertensive disorder; Translations: [Unspecified essential hypertension] Onset: 08-05-2021 Chronic Other aftercare (20 sources) 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; Translations: [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 CURRNT USE ANTICOAGULANTS] Onset: 07-14-2015 Episodic Other aftercare (1 source) Long-term current use of anticoagulant; Translations: [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] Episodic Other circulatory disease (1 source) History of cerebrovascular accident; Translations: [Personal history of transient ischemic attack (TIA), and cerebral infarction without residual deficits] Episodic Other inflammatory condition of skin (1 source) Discoid lupus erythematosus; Translations: [DISCOID LUPUS ERYTHEMATOSUS] Onset: 08-30-2022 Chronic Other non-traumatic joint disorders (1 source) Multiple joint pain; Translations: [Pain in unspecified joint] Episodic Regional enteritis and ulcerative colitis (20 sources) Crohn's disease of small intestine; Translations: [Crohn's disease of small intestine without complications] Onset: 02-17-2023 Chronic Residual codes; unclassified (1 source) H/O: anticoagulant therapy; Translations: [Personal history of other drug therapy] Episodic Systemic lupus erythematosus and connective tissue disorders (20 sources) Systemic lupus erythematosus; Translations: [Systemic lupus erythematosus] Onset: 05-10-2013 Chronic Transient cerebral ischemia (12 sources) Transient cerebral ischemia; Translations: [Transient cerebral ischemic attack, unspecified] Onset: 06-30-2022 06-30-2022 Chronic Past or Other Problems Problem Classification Problem Date Documented Date Episodic/Chronic Abdominal pain (20 sources) Abdominal pain, unspecified site; Translations: [Unspecified abdominal pain] Onset: 11-08-2018 Episodic Cancer of ovary (13 sources) History of malignant neoplasm of ovary; Translations: [Personal history of malignant neoplasm of ovary] Onset: 06-30-2022 06-30-2022 Episodic Fluid and electrolyte disorders (20 sources) Hypopotassemia; Translations: [Hypokalemia] Onset: 08-14-2018 Episodic Genitourinary symptoms and ill-defined conditions (20 sources) Hematuria, unspecified; Translations: [Blood in urine] Onset: 11-03-2020 Episodic Malaise and fatigue (20 sources) Other fatigue Onset: 04-12-2022 Episodic Noninfectious gastroenteritis (4 sources) Ileitis; Translations: [Noninfective gastroenteritis and colitis, unspecified] Onset: 11-01-2022 Episodic Other aftercare (20 sources) Long-term (current) use of anticoagulants Onset: 05-23-2014 Episodic Other aftercare (20 sources) Encounter for therapeutic drug level monitoring Onset: 01-17-2017 Episodic Other aftercare (1 source) 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; Translations: [OTH USP CURRENT DRUG THERAPY] Onset: 08-30-2022 Episodic Other circulatory disease (1 source) Elevated blood-pressure reading, without diagnosis of hypertension Onset: 07-29-2021 Resolved: 07-29-2021 Episodic Other ear and sense organ disorders (1 source) Unspecified acute noninfective otitis externa, right ear Onset: 07-29-2021 Resolved: 07-29-2021 Episodic Other lower respiratory disease (20 sources) Shortness of breath Onset: 03-09-2017 Episodic Other lower respiratory disease (20 sources) Wheezing Onset: 03-11-2017 Episodic Other lower respiratory disease (20 sources) Shortness of breath Onset: 03-09-2017 Episodic Other lower respiratory disease (20 sources) Wheezing Onset: 03-11-2017 Episodic Other non-traumatic joint disorders (20 sources) Pain in unspecified joint Onset: 04-12-2022 Episodic Other screening for suspected conditions (not mental disorders or infectious disease) (20 sources) Unspecified abnormal finding in specimens from other organs, systems and tissues Onset: 10-27-2016 Episodic Otitis media and related conditions (1 source) Otitis media, unspecified, right ear Onset: 07-29-2021 Resolved: 07-29-2021 Episodic Residual codes; unclassified (20 sources) Other abnormal clinical findings Onset: 10-27-2016 Episodic Unclassified (1 source) ref_[id number]_xbvdF llness_name_55 Onset: 05-30-2015 Unclassified (1 source) ref_[id number] [id number]_metkS llness_name_57 Onset: 06-20-2015 Unclassified (1 source) ref_[id number] [id number]_skgrB llness_name_53 Onset: 05-02-2015 Unclassified (1 source) ref_[id number] [id number]_cvswX llness_name_51 Onset: 04-07-2015 Unclassified (1 source) ref_[id number] [id number]_ywisF llness_name_49 Onset: 03-07-2015 Unclassified (1 source) ref_[id number] 3bdbc1cb4ebc0ad_pastI llness_name_55 Onset: 05-30-2015 Unclassified (1 source) ref_[id number] 3bdbc1cb4ebc0ad_pastI llness_name_57 Onset: 06-20-2015 Unclassified (1 source) ref_[id number] 3bdbc1cb4ebc0ad_pastI llness_name_53 Onset: 05-02-2015 Unclassified (1 source) ref_[id number] 3bdbc1cb4ebc0ad_pastI llness_name_51 Onset: 04-07-2015 Unclassified (1 source) ref_[id number] 3bdbc1cb4ebc0ad_pastI llness_name_49 Onset: 03-07-2015 Unclassified (1 source) ref_53d2dbb4647f4d4a9 85bfde8bb875303_pastI llness_name_55 Onset: 05-30-2015 Unclassified (1 source) ref_53d2dbb4647f4d4a9 85bfde8bb875303_pastI llness_name_57 Onset: 06-20-2015 Unclassified (1 source) ref_53d2dbb4647f4d4a9 85bfde8bb875303_pastI llness_name_53 Onset: 05-02-2015 Unclassified (1 source) ref_53d2dbb4647f4d4a9 85bfde8bb875303_pastI llness_name_51 Onset: 04-07-2015 Unclassified (1 source) ref_53d2dbb4647f4d4a9 85bfde8bb875303_pastI llness_name_49 Onset: 03-07-2015 Unclassified (1 source) ref_6af157b27de547c09 87979a0c12cb342_pastI llness_name_55 Onset: 05-30-2015 Unclassified (1 source) ref_6af157b27de547c09 87979a0c12cb342_pastI llness_name_57 Onset: 06-20-2015 Unclassified (1 source) ref_6af157b27de547c09 87979a0c12cb342_pastI llness_name_53 Onset: 05-02-2015 Unclassified (1 source) ref_6af157b27de547c09 87979a0c12cb342_pastI llness_name_51 Onset: 04-07-2015 Unclassified (1 source) ref_6af157b27de547c09 87979a0c12cb342_pastI llness_name_49 Onset: 03-07-2015 Unclassified (1 source) ref_c582aca2f796436ab 219b5725bab66a9_pastI llness_name_55 Onset: 05-30-2015 Unclassified (1 source) ref_c582aca2f796436ab 219b5725bab66a9_pastI llness_name_57 Onset: 06-20-2015 Unclassified (1 source) ref_c582aca2f796436ab 219b5725bab66a9_pastI llness_name_53 Onset: 05-02-2015 Unclassified (1 source) ref_c582aca2f796436ab 219b5725bab66a9_pastI llness_name_51 Onset: 04-07-2015 Unclassified (1 source) ref_c582aca2f796436ab 219b5725bab66a9_pastI llness_name_49 Onset: 03-07-2015 Unclassified (1 source) ref_b43a27b6b84a4a01b 5c068598eb9184d_pastI llness_name_55 Onset: 05-30-2015 Unclassified (1 source) ref_b43a27b6b84a4a01b 5c068598eb9184d_pastI llness_name_57 Onset: 06-20-2015 Unclassified (1 source) ref_b43a27b6b84a4a01b 5c068598eb9184d_pastI llness_name_53 Onset: 05-02-2015 Unclassified (1 source) ref_b43a27b6b84a4a01b 5c068598eb9184d_pastI llness_name_51 Onset: 04-07-2015 Unclassified (1 source) ref_b43a27b6b84a4a01b 5c068598eb9184d_pastI llness_name_49 Onset: 03-07-2015 Unclassified (1 source) ref_ec9ece6195ff422a9 04f05cc9eb89a04_pastI llness_name_55 Onset: 05-30-2015 Unclassified (1 source) ref_ec9ece6195ff422a9 04f05cc9eb89a04_pastI llness_name_57 Onset: 06-20-2015 Unclassified (1 source) ref_ec9ece6195ff422a9 04f05cc9eb89a04_pastI llness_name_53 Onset: 05-02-2015 Unclassified (1 source) ref_ec9ece6195ff422a9 04f05cc9eb89a04_pastI llness_name_51 Onset: 04-07-2015 Unclassified (1 source) ref_ec9ece6195ff422a9 04f05cc9eb89a04_pastI llness_name_49 Onset: 03-07-2015 Unclassified (1 source) ref_3eb2de8fa345493fb mg770f0119x112h_kpkdC llness_name_55 Onset: 05-30-2015 Unclassified (1 source) ref_3eb2de8fa345493fb wj428w1380l121v_niwaJ llness_name_57 Onset: 06-20-2015 Unclassified (1 source) ref_3eb2de8fa345493fb fm816s4504y496k_jgqfF llness_name_53 Onset: 05-02-2015 Unclassified (1 source) ref_3eb2de8fa345493fb xt366g2777h595p_gmztP llness_name_51 Onset: 04-07-2015 Unclassified (1 source) ref_3eb2de8fa345493fb rq049c9764e985q_kpcgN llness_name_49 Onset: 03-07-2015 Unclassified (1 source) ref_85bd4bd9582f47ad9 qca09g9u2326vk4_orovL llness_name_57 Onset: 06-20-2015 Unclassified (1 source) ref_85bd4bd9582f47ad9 trr67f6m0287np9_vftsI llness_name_55 Onset: 05-30-2015 Unclassified (1 source) ref_85bd4bd9582f47ad9 ftb64t3u1236ub4_kbqgZ llness_name_53 Onset: 05-02-2015 Unclassified (1 source) ref_85bd4bd9582f47ad9 hnc67k7w5053iq0_keuuA llness_name_51 Onset: 04-07-2015 Unclassified (1 source) ref_85bd4bd9582f47ad9 kxo62f0t4259ex5_vfmuA llness_name_49 Onset: 03-07-2015 Unclassified (1 source) ref_20f30d0879df423fa e0cc4e7b86a72cd_pastI llness_name_57 Onset: 06-20-2015 Unclassified (1 source) ref_20f30d0879df423fa e0cc4e7b86a72cd_pastI llness_name_55 Onset: 05-30-2015 Unclassified (1 source) ref_20f30d0879df423fa e0cc4e7b86a72cd_pastI llness_name_53 Onset: 05-02-2015 Unclassified (1 source) ref_20f30d0879df423fa e0cc4e7b86a72cd_pastI llness_name_51 Onset: 04-07-2015 Unclassified (1 source) ref_20f30d0879df423fa e0cc4e7b86a72cd_pastI llness_name_49 Onset: 03-07-2015 Unclassified (1 source) ref_0f94d6d03e9f4ad8a ac2db2290b721fa_pastI llness_name_57 Onset: 06-20-2015 Unclassified (1 source) ref_0f94d6d03e9f4ad8a ac2db2290b721fa_pastI llness_name_55 Onset: 05-30-2015 Unclassified (1 source) ref_0f94d6d03e9f4ad8a ac2db2290b721fa_pastI llness_name_53 Onset: 05-02-2015 Unclassified (1 source) ref_0f94d6d03e9f4ad8a ac2db2290b721fa_pastI llness_name_51 Onset: 04-07-2015 Unclassified (1 source) ref_0f94d6d03e9f4ad8a ac2db2290b721fa_pastI llness_name_49 Onset: 03-07-2015 Unclassified (1 source) ref_463d8525eac44569a aa6c57f385cd603_pastI llness_name_49 Onset: 03-07-2015 Unclassified (1 source) ref_463d8525eac44569a aa6c57f385cd603_pastI llness_name_51 Onset: 04-07-2015 Unclassified (1 source) ref_463d8525eac44569a aa6c57f385cd603_pastI llness_name_53 Onset: 05-02-2015 Unclassified (1 source) ref_463d8525eac44569a aa6c57f385cd603_pastI llness_name_55 Onset: 05-30-2015 Unclassified (1 source) ref_463d8525eac44569a aa6c57f385cd603_pastI llness_name_57 Onset: 06-20-2015 Unclassified (1 source) ref_9225d1b925584cb69 31c52ee909e9f6d_pastI llness_name_49 Onset: 03-07-2015 Unclassified (1 source) ref_9225d1b925584cb69 31c52ee909e9f6d_pastI llness_name_51 Onset: 04-07-2015 Unclassified (1 source) ref_9225d1b925584cb69 31c52ee909e9f6d_pastI llness_name_53 Onset: 05-02-2015 Unclassified (1 source) ref_9225d1b925584cb69 31c52ee909e9f6d_pastI llness_name_55 Onset: 05-30-2015 Unclassified (1 source) ref_9225d1b925584cb69 31c52ee909e9f6d_pastI llness_name_57 Onset: 06-20-2015 Unclassified (1 source) ref_32f1b60c7ac745289 1bc45aa4c22a791_pastI llness_name_49 Onset: 03-07-2015 Unclassified (1 source) ref_32f1b60c7ac745289 1bc45aa4c22a791_pastI llness_name_51 Onset: 04-07-2015 Unclassified (1 source) ref_32f1b60c7ac745289 1bc45aa4c22a791_pastI llness_name_53 Onset: 05-02-2015 Unclassified (1 source) ref_32f1b60c7ac745289 1bc45aa4c22a791_pastI llness_name_55 Onset: 05-30-2015 Unclassified (1 source) ref_32f1b60c7ac745289 1bc45aa4c22a791_pastI llness_name_57 Onset: 06-20-2015 Unclassified (1 source) ref_9ca7e74c01fd41d6b 34b0c39db02ca8f_pastI llness_name_49 Onset: 03-07-2015 Unclassified (1 source) ref_9ca7e74c01fd41d6b 34b0c39db02ca8f_pastI llness_name_51 Onset: 04-07-2015 Unclassified (1 source) ref_9ca7e74c01fd41d6b 34b0c39db02ca8f_pastI llness_name_53 Onset: 05-02-2015 Unclassified (1 source) ref_9ca7e74c01fd41d6b 34b0c39db02ca8f_pastI llness_name_55 Onset: 05-30-2015 Unclassified (1 source) ref_9ca7e74c01fd41d6b 34b0c39db02ca8f_pastI llness_name_57 Onset: 06-20-2015 Unclassified (1 source) ref_18bc8302826a40e7a 9ea4344e8fa6084_pastI llness_name_49 Onset: 03-07-2015 Unclassified (1 source) ref_18bc8302826a40e7a 9ea4344e8fa6084_pastI llness_name_51 Onset: 04-07-2015 Unclassified (1 source) ref_18bc8302826a40e7a 9ea4344e8fa6084_pastI llness_name_53 Onset: 05-02-2015 Unclassified (1 source) ref_18bc8302826a40e7a 9ea4344e8fa6084_pastI llness_name_55 Onset: 05-30-2015 Unclassified (1 source) ref_18bc8302826a40e7a 9ea4344e8fa6084_pastI llness_name_57 Onset: 06-20-2015 Unclassified (1 source) ref_395876229b674e6ea 814658630baf2f1_pastI llness_name_49 Onset: 03-07-2015 Unclassified (1 source) ref_395876229b674e6ea 814658630baf2f1_pastI llness_name_51 Onset: 04-07-2015 Unclassified (1 source) ref_395876229b674e6ea 814658630baf2f1_pastI llness_name_53 Onset: 05-02-2015 Unclassified (1 source) ref_395876229b674e6ea 814658630baf2f1_pastI llness_name_55 Onset: 05-30-2015 Unclassified (1 source) ref_395876229b674e6ea 814658630baf2f1_pastI llness_name_57 Onset: 06-20-2015 Unclassified (1 source) ref_f68af41df8434cf0a 9fad95b944deff2_pastI llness_name_49 Onset: 03-07-2015 Unclassified (1 source) ref_f68af41df8434cf0a 9fad95b944deff2_pastI llness_name_51 Onset: 04-07-2015 Unclassified (1 source) ref_f68af41df8434cf0a 9fad95b944deff2_pastI llness_name_53 Onset: 05-02-2015 Unclassified (1 source) ref_f68af41df8434cf0a 9fad95b944deff2_pastI llness_name_55 Onset: 05-30-2015 Unclassified (1 source) ref_f68af41df8434cf0a 9fad95b944deff2_pastI llness_name_57 Onset: 06-20-2015 Unclassified (1 source) ref_7be6f7d5fce646408 04743e98b7892e3_pastI llness_name_49 Onset: 03-07-2015 Unclassified (1 source) ref_7be6f7d5fce646408 04743e98b7892e3_pastI llness_name_51 Onset: 04-07-2015 Unclassified (1 source) ref_7be6f7d5fce646408 04743e98b7892e3_pastI llness_name_53 Onset: 05-02-2015 Unclassified (1 source) ref_7be6f7d5fce646408 04743e98b7892e3_pastI llness_name_55 Onset: 05-30-2015 Unclassified (1 source) ref_7be6f7d5fce646408 04743e98b7892e3_pastI llness_name_57 Onset: 06-20-2015 Unclassified (1 source) ref_40861b59641e48908 17565f587511e53_pastI llness_name_49 Onset: 03-07-2015 Unclassified (1 source) ref_40861b59641e48908 17565f587511e53_pastI llness_name_51 Onset: 04-07-2015 Unclassified (1 source) ref_40861b59641e48908 17565f587511e53_pastI llness_name_53 Onset: 05-02-2015 Unclassified (1 source) ref_40861b59641e48908 17565f587511e53_pastI llness_name_55 Onset: 05-30-2015 Unclassified (1 source) ref_40861b59641e48908 17565f587511e53_pastI llness_name_57 Onset: 06-20-2015 Unclassified (1 source) ref_4677084306934003a 9eaab6a0075efb0_pastI llness_name_49 Onset: 03-07-2015 Unclassified (1 source) ref_4677084306934003a 9eaab6a0075efb0_pastI llness_name_51 Onset: 04-07-2015 Unclassified (1 source) ref_4677084306934003a 9eaab6a0075efb0_pastI llness_name_53 Onset: 05-02-2015 Unclassified (1 source) ref_4677084306934003a 9eaab6a0075efb0_pastI llness_name_55 Onset: 05-30-2015 Unclassified (1 source) ref_4677084306934003a 9eaab6a0075efb0_pastI llness_name_57 Onset: 06-20-2015 Unclassified (1 source) ref_9203dc37d9bf4b21a b4ef36095f25666_pastI llness_name_49 Onset: 03-07-2015 Unclassified (1 source) ref_9203dc37d9bf4b21a b4ef36095f25666_pastI llness_name_51 Onset: 04-07-2015 Unclassified (1 source) ref_9203dc37d9bf4b21a b4ef36095f25666_pastI llness_name_53 Onset: 05-02-2015 Unclassified (1 source) ref_9203dc37d9bf4b21a b4ef36095f25666_pastI llness_name_55 Onset: 05-30-2015 Unclassified (1 source) ref_9203dc37d9bf4b21a b4ef36095f25666_pastI llness_name_57 Onset: 06-20-2015 Unclassified (1 source) ref_5c586010fc8042ccb 41e6128dede3b53_pastI llness_name_49 Onset: 03-07-2015 Unclassified (1 source) ref_5c586010fc8042ccb 41e6128dede3b53_pastI llness_name_51 Onset: 04-07-2015 Unclassified (1 source) ref_5c586010fc8042ccb 41e6128dede3b53_pastI llness_name_53 Onset: 05-02-2015 Unclassified (1 source) ref_5c586010fc8042ccb 41e6128dede3b53_pastI llness_name_55 Onset: 05-30-2015 Unclassified (1 source) ref_5c586010fc8042ccb 41e6128dede3b53_pastI llness_name_57 Onset: 06-20-2015 Unclassified (1 source) ref_9e4c4928454c46a0b 5029699fc244497_pastI llness_name_50 Onset: 03-07-2015 Unclassified (1 source) ref_9e4c4928454c46a0b 5029699fc244497_pastI llness_name_52 Onset: 04-07-2015 Unclassified (1 source) ref_9e4c4928454c46a0b 5029699fc244497_pastI llness_name_54 Onset: 05-02-2015 Unclassified (1 source) ref_9e4c4928454c46a0b 5029699fc244497_pastI llness_name_56 Onset: 05-30-2015 Unclassified (1 source) ref_9e4c4928454c46a0b 5029699fc244497_pastI llness_name_58 Onset: 06-20-2015 Unclassified (1 source) ref_b72d880a574f4037b 2530a11576325ae_pastI llness_name_50 Onset: 03-07-2015 Unclassified (1 source) ref_b72d880a574f4037b 2530a11576325ae_pastI llness_name_52 Onset: 04-07-2015 Unclassified (1 source) ref_b72d880a574f4037b 2530a11576325ae_pastI llness_name_54 Onset: 05-02-2015 Unclassified (1 source) ref_b72d880a574f4037b 2530a11576325ae_pastI llness_name_56 Onset: 05-30-2015 Unclassified (1 source) ref_b72d880a574f4037b 2530a11576325ae_pastI llness_name_58 Onset: 06-20-2015 Unclassified (1 source) ref_2acffbd538a04811a r40481s1r574489_utfiG llness_name_50 Onset: 03-07-2015 Unclassified (1 source) ref_2acffbd538a04811a a38854w0s713465_cakrP llness_name_52 Onset: 04-07-2015 Unclassified (1 source) ref_2acffbd538a04811a j26321v1r592513_nnprK llness_name_54 Onset: 05-02-2015 Unclassified (1 source) ref_2acffbd538a04811a l74076s2j573194_zcnqY llness_name_56 Onset: 05-30-2015 Unclassified (1 source) ref_2acffbd538a04811a t41723x2f784449_ffpdH llness_name_58 Onset: 06-20-2015 Unclassified (1 source) ref_73284c65bbc0499f9 4707bf30f766803_pastI llness_name_50 Onset: 03-07-2015 Unclassified (1 source) ref_73284c65bbc0499f9 4707bf30f766803_pastI llness_name_52 Onset: 04-07-2015 Unclassified (1 source) ref_73284c65bbc0499f9 4707bf30f766803_pastI llness_name_54 Onset: 05-02-2015 Unclassified (1 source) ref_73284c65bbc0499f9 4707bf30f766803_pastI llness_name_56 Onset: 05-30-2015 Unclassified (1 source) ref_73284c65bbc0499f9 4707bf30f766803_pastI llness_name_58 Onset: 06-20-2015 Unclassified (1 source) ref_d48f5202196d42fea 7ad43a82f535f93_pastI llness_name_50 Onset: 03-07-2015 Unclassified (1 source) ref_d48f5202196d42fea 7ad43a82f535f93_pastI llness_name_52 Onset: 04-07-2015 Unclassified (1 source) ref_d48f5202196d42fea 7ad43a82f535f93_pastI llness_name_54 Onset: 05-02-2015 Unclassified (1 source) ref_d48f5202196d42fea 7ad43a82f535f93_pastI llness_name_56 Onset: 05-30-2015 Unclassified (1 source) ref_d48f5202196d42fea 7ad43a82f535f93_pastI llness_name_58 Onset: 06-20-2015 Unclassified (1 source) ref_2ea08cb1e66e4cf79 d8fd316b818740b_pastI llness_name_50 Onset: 03-07-2015 Unclassified (1 source) ref_2ea08cb1e66e4cf79 d8fd316b818740b_pastI llness_name_52 Onset: 04-07-2015 Unclassified (1 source) ref_2ea08cb1e66e4cf79 d8fd316b818740b_pastI llness_name_54 Onset: 05-02-2015 Unclassified (1 source) ref_2ea08cb1e66e4cf79 d8fd316b818740b_pastI llness_name_56 Onset: 05-30-2015 Unclassified (1 source) ref_2ea08cb1e66e4cf79 d8fd316b818740b_pastI llness_name_58 Onset: 06-20-2015 Unclassified (1 source) ref_[id number] 235efa5a17a0099_pastI llness_name_50 Onset: 03-07-2015 Unclassified (1 source) ref_[id number] 235efa5a17a0099_pastI llness_name_52 Onset: 04-07-2015 Unclassified (1 source) ref_[id number] 235efa5a17a0099_pastI llness_name_54 Onset: 05-02-2015 Unclassified (1 source) ref_[id number] 235efa5a17a0099_pastI llness_name_56 Onset: 05-30-2015 Unclassified (1 source) ref_[id number] 235efa5a17a0099_pastI llness_name_58 Onset: 06-20-2015 Unclassified (1 source) ref_80ba483ea18f40b6b 812f18a52efb2ca_pastI llness_name_50 Onset: 03-07-2015 Unclassified (1 source) ref_80ba483ea18f40b6b 812f18a52efb2ca_pastI llness_name_52 Onset: 04-07-2015 Unclassified (1 source) ref_80ba483ea18f40b6b 812f18a52efb2ca_pastI llness_name_54 Onset: 05-02-2015 Unclassified (1 source) ref_80ba483ea18f40b6b 812f18a52efb2ca_pastI llness_name_56 Onset: 05-30-2015 Unclassified (1 source) ref_80ba483ea18f40b6b 812f18a52efb2ca_pastI llness_name_58 Onset: 06-20-2015 Unclassified (1 source) ref_86757f6b430e49c59 [id number]_eypjN llness_name_50 Onset: 03-07-2015 Unclassified (1 source) ref_86757f6b430e49c59 [id number]_euimQ llness_name_52 Onset: 04-07-2015 Unclassified (1 source) ref_86757f6b430e49c59 k76656f04717t69_yrsbA llness_name_54 Onset: 05-02-2015 Unclassified (1 source) ref_86757f6b430e49c59 r34825z07364l45_cckmJ llness_name_56 Onset: 05-30-2015 Unclassified (1 source) ref_86757f6b430e49c59 l82210c96659e90_kcjiK llness_name_58 Onset: 06-20-2015 Unclassified (1 source) ref_a719a089cbdb4c7da 67680403134cac9_pastI llness_name_50 Onset: 03-07-2015 Unclassified (1 source) ref_a719a089cbdb4c7da 67680403134cac9_pastI llness_name_52 Onset: 04-07-2015 Unclassified (1 source) ref_a719a089cbdb4c7da 67680403134cac9_pastI llness_name_54 Onset: 05-02-2015 Unclassified (1 source) ref_a719a089cbdb4c7da 67680403134cac9_pastI llness_name_56 Onset: 05-30-2015 Unclassified (1 source) ref_a719a089cbdb4c7da 67680403134cac9_pastI llness_name_58 Onset: 06-20-2015 Unclassified (1 source) ref_81083adc4fd74a898 ffdb8d6581f6242_pastI llness_name_50 Onset: 03-07-2015 Unclassified (1 source) ref_81083adc4fd74a898 ffdb8d6581f6242_pastI llness_name_52 Onset: 04-07-2015 Unclassified (1 source) ref_81083adc4fd74a898 ffdb8d6581f6242_pastI llness_name_54 Onset: 05-02-2015 Unclassified (1 source) ref_81083adc4fd74a898 ffdb8d6581f6242_pastI llness_name_56 Onset: 05-30-2015 Unclassified (1 source) ref_81083adc4fd74a898 ffdb8d6581f6242_pastI llness_name_58 Onset: 06-20-2015 Unclassified (1 source) ref_ea214c436dd841ffb kp278qi2y6069uy_usxbB llness_name_50 Onset: 03-07-2015 Unclassified (1 source) ref_[id number] [id number]_onwsR llness_name_52 Onset: 04-07-2015 Unclassified (1 source) ref_[id number] [id number]_hxskC llness_name_54 Onset: 05-02-2015 Unclassified (1 source) ref_[id number] [id number]_dsinJ llness_name_56 Onset: 05-30-2015 Unclassified (1 source) ref_[id number] [id number]_obshD llness_name_58 Onset: 06-20-2015 Unclassified (1 source) ref_[id number]_pastI llness_name_50 Onset: 03-07-2015 Unclassified (1 source) ref_[id number] 360f61f4964b234_pastI llness_name_52 Onset: 04-07-2015 Unclassified (1 source) ref_[id number] 360f61f4964b234_pastI llness_name_54 Onset: 05-02-2015 Unclassified (1 source) ref_[id number] 360f61f4964b234_pastI llness_name_56 Onset: 05-30-2015 Unclassified (1 source) ref_[id number] 360f61f4964b234_pastI llness_name_58 Onset: 06-20-2015 Unclassified (1 source) ref_[id number]_pastI llness_name_50 Onset: 03-07-2015 Unclassified (1 source) ref_[id number]_pastI llness_name_52 Onset: 04-07-2015 Unclassified (1 source) ref_[id number] [id number]_pastI llness_name_54 Onset: 05-02-2015 Unclassified (1 source) ref_[id number] bf0fd64374ab600_pastI llness_name_56 Onset: 05-30-2015 Unclassified (1 source) ref_[id number] bf0fd64374ab600_pastI llness_name_58 Onset: 06-20-2015 Unclassified (1 source) ref_[id number]_uztoY llness_name_50 Onset: 03-07-2015 Unclassified (1 source) ref_[id number]_reiyY llness_name_52 Onset: 04-07-2015 Unclassified (1 source) ref_[id number] [id number]_bamiF llness_name_54 Onset: 05-02-2015 Unclassified (1 source) ref_[id number] [id number]_qwahP llness_name_56 Onset: 05-30-2015 Unclassified (1 source) ref_[id number] [id number]_htyuT llness_name_58 Onset: 06-20-2015 Unclassified (1 source) ref_[id number] 8caac1ddc10f8c1_pastI llness_name_50 Onset: 03-07-2015 Unclassified (1 source) ref_[id number] 8caac1ddc10f8c1_pastI llness_name_52 Onset: 04-07-2015 Unclassified (1 source) ref_[id number] 8caac1ddc10f8c1_pastI llness_name_54 Onset: 05-02-2015 Unclassified (1 source) ref_[id number] 8caac1ddc10f8c1_pastI llness_name_56 Onset: 05-30-2015 Unclassified (1 source) ref_[id number] 8caac1ddc10f8c1_pastI llness_name_58 Onset: 06-20-2015 Unclassified (1 source) ref_[id number]_pastI llness_name_50 Onset: 03-07-2015 Unclassified (1 source) ref_[id number] 77a1daf34d28f77_pastI llness_name_52 Onset: 04-07-2015 Unclassified (1 source) ref_[id number] 77a1daf34d28f77_pastI llness_name_54 Onset: 05-02-2015 Unclassified (1 source) ref_[id number] 77a1daf34d28f77_pastI llness_name_56 Onset: 05-30-2015 Unclassified (1 source) ref_[id number] 77a1daf34d28f77_pastI llness_name_58 Onset: 06-20-2015 Unclassified (1 source) ref_[id number] f2f3f523fc286c7_pastI llness_name_50 Onset: 03-07-2015 Unclassified (1 source) ref_[id number] f2f3f523fc286c7_pastI llness_name_52 Onset: 04-07-2015 Unclassified (1 source) ref_[id number] f2f3f523fc286c7_pastI llness_name_54 Onset: 05-02-2015 Unclassified (1 source) ref_[id number] f2f3f523fc286c7_pastI llness_name_56 Onset: 05-30-2015 Unclassified (1 source) ref_[id number] f2f3f523fc286c7_pastI llness_name_58 Onset: 06-20-2015 Unclassified (1 source) ref_[id number] 1794af2f1a5a7d1_pastI llness_name_50 Onset: 03-07-2015 Unclassified (1 source) ref_[id number] 1794af2f1a5a7d1_pastI llness_name_52 Onset: 04-07-2015 Unclassified (1 source) ref_[id number] 1794af2f1a5a7d1_pastI llness_name_54 Onset: 05-02-2015 Unclassified (1 source) ref_[id number] 1794af2f1a5a7d1_pastI llness_name_56 Onset: 05-30-2015 Unclassified (1 source) ref_[id number] 1794af2f1a5a7d1_pastI llness_name_58 Onset: 06-20-2015 Unclassified (1 source) ref_[id number]_lwzsZ llness_name_50 Onset: 03-07-2015 Unclassified (1 source) ref_[id number]_kkbdW llness_name_52 Onset: 04-07-2015 Unclassified (1 source) ref_[id number]_htwjI llness_name_54 Onset: 05-02-2015 Unclassified (1 source) ref_[id number]_qheiZ llness_name_56 Onset: 05-30-2015 Unclassified (1 source) ref_[id number] [id number]_oaexC llness_name_58 Onset: 06-20-2015 Unclassified (1 source) ref_[id number]_pastI llness_name_50 Onset: 03-07-2015 Unclassified (1 source) ref_[id number] 1b5970ed84f10c5_pastI llness_name_52 Onset: 04-07-2015 Unclassified (1 source) ref_[id number]_pastI llness_name_54 Onset: 05-02-2015 Unclassified (1 source) ref_[id number]_pastI llness_name_56 Onset: 05-30-2015 Unclassified (1 source) ref_[id number] 1b5970ed84f10c5_pastI llness_name_58 Onset: 06-20-2015 Unclassified (1 source) ref_69ab11fbb15540b19 439c3210927e8ff_pastI llness_name_50 Onset: 03-07-2015 Unclassified (1 source) ref_69ab11fbb15540b19 439c3210927e8ff_pastI llness_name_52 Onset: 04-07-2015 Unclassified (1 source) ref_69ab11fbb15540b19 439c3210927e8ff_pastI llness_name_54 Onset: 05-02-2015 Unclassified (1 source) ref_69ab11fbb15540b19 439c3210927e8ff_pastI llness_name_56 Onset: 05-30-2015 Unclassified (1 source) ref_69ab11fbb15540b19 439c3210927e8ff_pastI llness_name_58 Onset: 06-20-2015 Unclassified (1 source) ref_9ce8a30d64d84ec19 6d319a0d8d0fd7b_pastI llness_name_50 Onset: 03-07-2015 Unclassified (1 source) ref_9ce8a30d64d84ec19 6d319a0d8d0fd7b_pastI llness_name_52 Onset: 04-07-2015 Unclassified (1 source) ref_9ce8a30d64d84ec19 6d319a0d8d0fd7b_pastI llness_name_54 Onset: 05-02-2015 Unclassified (1 source) ref_9ce8a30d64d84ec19 6d319a0d8d0fd7b_pastI llness_name_56 Onset: 05-30-2015 Unclassified (1 source) ref_9ce8a30d64d84ec19 6d319a0d8d0fd7b_pastI llness_name_58 Onset: 06-20-2015 Unclassified (1 source) ref_64c3a32f910044f1a 5194df1380e579a_pastI llness_name_50 Onset: 03-07-2015 Unclassified (1 source) ref_64c3a32f910044f1a 5194df1380e579a_pastI llness_name_52 Onset: 04-07-2015 Unclassified (1 source) ref_64c3a32f910044f1a 5194df1380e579a_pastI llness_name_54 Onset: 05-02-2015 Unclassified (1 source) ref_64c3a32f910044f1a 5194df1380e579a_pastI llness_name_56 Onset: 05-30-2015 Unclassified (1 source) ref_64c3a32f910044f1a 5194df1380e579a_pastI llness_name_58 Onset: 06-20-2015 Unclassified (1 source) ref_aa59fa4306ea411d8 5d6feddb5410ea6_pastI llness_name_50 Onset: 03-07-2015 Unclassified (1 source) ref_aa59fa4306ea411d8 5d6feddb5410ea6_pastI llness_name_52 Onset: 04-07-2015 Unclassified (1 source) ref_aa59fa4306ea411d8 5d6feddb5410ea6_pastI llness_name_54 Onset: 05-02-2015 Unclassified (1 source) ref_aa59fa4306ea411d8 5d6feddb5410ea6_pastI llness_name_56 Onset: 05-30-2015 Unclassified (1 source) ref_aa59fa4306ea411d8 5d6feddb5410ea6_pastI llness_name_58 Onset: 06-20-2015 Unclassified (1 source) ref_[id number] 18021ba82f4376b_pastI llness_name_50 Onset: 03-07-2015 Unclassified (1 source) ref_c053e91556284ec38 18021ba82f4376b_pastI llness_name_52 Onset: 04-07-2015 Unclassified (1 source) ref_c053e91556284ec38 18021ba82f4376b_pastI llness_name_54 Onset: 05-02-2015 Unclassified (1 source) ref_c053e91556284ec38 18021ba82f4376b_pastI llness_name_56 Onset: 05-30-2015 Unclassified (1 source) ref_c053e91556284ec38 18021ba82f4376b_pastI llness_name_58 Onset: 06-20-2015 Unclassified (1 source) ref_093379af36a746e09 7685357d5015954_pastI llness_name_50 Onset: 03-07-2015 Unclassified (1 source) ref_093379af36a746e09 7685357d5015954_pastI llness_name_52 Onset: 04-07-2015 Unclassified (1 source) ref_093379af36a746e09 7685357d5015954_pastI llness_name_54 Onset: 05-02-2015 Unclassified (1 source) ref_093379af36a746e09 7685357d5015954_pastI llness_name_56 Onset: 05-30-2015 Unclassified (1 source) ref_093379af36a746e09 7685357d5015954_pastI llness_name_58 Onset: 06-20-2015 Unclassified (1 source) ref_1bd0b6d465d345a0a 12ccf18ee1bedc3_pastI llness_name_50 Onset: 03-07-2015 Unclassified (1 source) ref_1bd0b6d465d345a0a 12ccf18ee1bedc3_pastI llness_name_52 Onset: 04-07-2015 Unclassified (1 source) ref_1bd0b6d465d345a0a 12ccf18ee1bedc3_pastI llness_name_54 Onset: 05-02-2015 Unclassified (1 source) ref_1bd0b6d465d345a0a 12ccf18ee1bedc3_pastI llness_name_56 Onset: 05-30-2015 Unclassified (1 source) ref_1bd0b6d465d345a0a 12ccf18ee1bedc3_pastI llness_name_58 Onset: 06-20-2015 Unclassified (1 source) ref_d1f007226ebe4193b d9f3dfdc8b486db_pastI llness_name_50 Onset: 03-07-2015 Unclassified (1 source) ref_d1f007226ebe4193b d9f3dfdc8b486db_pastI llness_name_52 Onset: 04-07-2015 Unclassified (1 source) ref_d1f007226ebe4193b d9f3dfdc8b486db_pastI llness_name_54 Onset: 05-02-2015 Unclassified (1 source) ref_d1f007226ebe4193b d9f3dfdc8b486db_pastI llness_name_56 Onset: 05-30-2015 Unclassified (1 source) ref_d1f007226ebe4193b d9f3dfdc8b486db_pastI llness_name_58 Onset: 06-20-2015 Unclassified (1 source) ref_c18b67ce9b3e4fe19 e7ee4a4ff7935d6_pastI llness_name_50 Onset: 03-07-2015 Unclassified (1 source) ref_c18b67ce9b3e4fe19 e7ee4a4ff7935d6_pastI llness_name_52 Onset: 04-07-2015 Unclassified (1 source) ref_c18b67ce9b3e4fe19 e7ee4a4ff7935d6_pastI llness_name_54 Onset: 05-02-2015 Unclassified (1 source) ref_c18b67ce9b3e4fe19 e7ee4a4ff7935d6_pastI llness_name_56 Onset: 05-30-2015 Unclassified (1 source) ref_c18b67ce9b3e4fe19 e7ee4a4ff7935d6_pastI llness_name_58 Onset: 06-20-2015 Unclassified (1 source) ref_84a519f48ff643d9b 7ac0fd52765f0d0_pastI llness_name_50 Onset: 03-07-2015 Unclassified (1 source) ref_84a519f48ff643d9b 7ac0fd52765f0d0_pastI llness_name_52 Onset: 04-07-2015 Unclassified (1 source) ref_84a519f48ff643d9b 7ac0fd52765f0d0_pastI llness_name_54 Onset: 05-02-2015 Unclassified (1 source) ref_84a519f48ff643d9b 7ac0fd52765f0d0_pastI llness_name_56 Onset: 05-30-2015 Unclassified (1 source) ref_84a519f48ff643d9b 7ac0fd52765f0d0_pastI llness_name_58 Onset: 06-20-2015 Unclassified (1 source) ref_a7db2d3dc8df4b688 14be420ca7bad06_pastI llness_name_50 Onset: 03-07-2015 Unclassified (1 source) ref_a7db2d3dc8df4b688 14be420ca7bad06_pastI llness_name_52 Onset: 04-07-2015 Unclassified (1 source) ref_a7db2d3dc8df4b688 14be420ca7bad06_pastI llness_name_54 Onset: 05-02-2015 Unclassified (1 source) ref_a7db2d3dc8df4b688 14be420ca7bad06_pastI llness_name_56 Onset: 05-30-2015 Unclassified (1 source) ref_a7db2d3dc8df4b688 14be420ca7bad06_pastI llness_name_58 Onset: 06-20-2015 Unclassified (1 source) ref_39ad25b8520c496ca bts152ywte6p20j_zoqgD llness_name_50 Onset: 03-07-2015 Unclassified (1 source) ref_39ad25b8520c496ca qkg550pijq9b55l_ifyxP llness_name_52 Onset: 04-07-2015 Unclassified (1 source) ref_39ad25b8520c496ca sfd884wbgr0z09p_mihvG llness_name_54 Onset: 05-02-2015 Unclassified (1 source) ref_39ad25b8520c496ca mwu232bjgz8t94l_xwyvF llness_name_56 Onset: 05-30-2015 Unclassified (1 source) ref_39ad25b8520c496ca ttd828gzgj9j72a_qmqoI llness_name_58 Onset: 06-20-2015 Unclassified (1 source) ref_7f0859dd023a4d36b 4c64144f4e8e458_pastI llness_name_50 Onset: 03-07-2015 Unclassified (1 source) ref_7f0859dd023a4d36b 4c64144f4e8e458_pastI llness_name_52 Onset: 04-07-2015 Unclassified (1 source) ref_7f0859dd023a4d36b 4c64144f4e8e458_pastI llness_name_54 Onset: 05-02-2015 Unclassified (1 source) ref_7f0859dd023a4d36b 4c64144f4e8e458_pastI llness_name_56 Onset: 05-30-2015 Unclassified (1 source) ref_7f0859dd023a4d36b 4c64144f4e8e458_pastI llness_name_58 Onset: 06-20-2015 Unclassified (1 source) ref_15cb8e8110f543358 u297hb4n160191x_awgiU llness_name_50 Onset: 03-07-2015 Unclassified (1 source) ref_15cb8e8110f543358 p506ah0y112321o_yykfH llness_name_52 Onset: 04-07-2015 Unclassified (1 source) ref_15cb8e8110f543358 s437vn3h212443f_sxwdY llness_name_54 Onset: 05-02-2015 Unclassified (1 source) ref_15cb8e8110f543358 i193am6q771035p_pxdrL llness_name_56 Onset: 05-30-2015 Unclassified (1 source) ref_15cb8e8110f543358 e394qd5z129529r_ndodW llness_name_58 Onset: 06-20-2015 Unclassified (1 source) ref_7b953843bc36411b8 1720d8d0cbdfced_pastI llness_name_51 Onset: 03-07-2015 Unclassified (1 source) ref_7b953843bc36411b8 1720d8d0cbdfced_pastI llness_name_53 Onset: 04-07-2015 Unclassified (1 source) ref_7b953843bc36411b8 1720d8d0cbdfced_pastI llness_name_55 Onset: 05-02-2015 Unclassified (1 source) ref_7b953843bc36411b8 1720d8d0cbdfced_pastI llness_name_57 Onset: 05-30-2015 Unclassified (1 source) ref_7b953843bc36411b8 1720d8d0cbdfced_pastI llness_name_59 Onset: 06-20-2015 Unclassified (1 source) ref_831ae9dca6c64f40a 4b42112edfcf0e8_pastI llness_name_51 Onset: 03-07-2015 Unclassified (1 source) ref_831ae9dca6c64f40a 4b42112edfcf0e8_pastI llness_name_53 Onset: 04-07-2015 Unclassified (1 source) ref_831ae9dca6c64f40a 4b42112edfcf0e8_pastI llness_name_55 Onset: 05-02-2015 Unclassified (1 source) ref_831ae9dca6c64f40a 4b42112edfcf0e8_pastI llness_name_57 Onset: 05-30-2015 Unclassified (1 source) ref_831ae9dca6c64f40a 4b42112edfcf0e8_pastI llness_name_59 Onset: 06-20-2015 Unclassified (1 source) ref_7187d281befb48328 q05ty3w46956597_tpodF llness_name_51 Onset: 03-07-2015 Unclassified (1 source) ref_7187d281befb48328 h54cf0o80441750_yoluI llness_name_53 Onset: 04-07-2015 Unclassified (1 source) ref_7187d281befb48328 o68su2m40521146_rsirH llness_name_55 Onset: 05-02-2015 Unclassified (1 source) ref_7187d281befb48328 o40nf2c40002706_iddaQ llness_name_57 Onset: 05-30-2015 Unclassified (1 source) ref_7187d281befb48328 w83uj3t46936111_vaffD llness_name_59 Onset: 06-20-2015 Unclassified (1 source) ref_3e92c357b7f9435ab 37fa126747a887b_pastI llness_name_51 Onset: 03-07-2015 Unclassified (1 source) ref_3e92c357b7f9435ab 37fa126747a887b_pastI llness_name_53 Onset: 04-07-2015 Unclassified (1 source) ref_3e92c357b7f9435ab 37fa126747a887b_pastI llness_name_55 Onset: 05-02-2015 Unclassified (1 source) ref_3e92c357b7f9435ab 37fa126747a887b_pastI llness_name_57 Onset: 05-30-2015 Unclassified (1 source) ref_3e92c357b7f9435ab 37fa126747a887b_pastI llness_name_59 Onset: 06-20-2015 Unclassified (1 source) ref_460203838bc04708a 4e07316ae0f88d3_pastI llness_name_51 Onset: 03-07-2015 Unclassified (1 source) ref_460203838bc04708a 4e07316ae0f88d3_pastI llness_name_53 Onset: 04-07-2015 Unclassified (1 source) ref_460203838bc04708a 4e07316ae0f88d3_pastI llness_name_55 Onset: 05-02-2015 Unclassified (1 source) ref_460203838bc04708a 4e07316ae0f88d3_pastI llness_name_57 Onset: 05-30-2015 Unclassified (1 source) ref_460203838bc04708a 4e07316ae0f88d3_pastI llness_name_59 Onset: 06-20-2015 Unclassified (1 source) ref_215369de9a8b4ef89 2baed51c1e284dc_pastI llness_name_51 Onset: 03-07-2015 Unclassified (1 source) ref_215369de9a8b4ef89 2baed51c1e284dc_pastI llness_name_53 Onset: 04-07-2015 Unclassified (1 source) ref_215369de9a8b4ef89 2baed51c1e284dc_pastI llness_name_55 Onset: 05-02-2015 Unclassified (1 source) ref_215369de9a8b4ef89 2baed51c1e284dc_pastI llness_name_57 Onset: 05-30-2015 Unclassified (1 source) ref_215369de9a8b4ef89 2baed51c1e284dc_pastI llness_name_59 Onset: 06-20-2015 Unclassified (1 source) ref_9b32f9f4c746432ca 1336508cd886676_pastI llness_name_51 Onset: 03-07-2015 Unclassified (1 source) ref_9b32f9f4c746432ca 1336508cd886676_pastI llness_name_53 Onset: 04-07-2015 Unclassified (1 source) ref_9b32f9f4c746432ca 1336508cd886676_pastI llness_name_55 Onset: 05-02-2015 Unclassified (1 source) ref_9b32f9f4c746432ca 1336508cd886676_pastI llness_name_57 Onset: 05-30-2015 Unclassified (1 source) ref_9b32f9f4c746432ca 1336508cd886676_pastI llness_name_59 Onset: 06-20-2015 Unclassified (1 source) ref_50a28555bb654ae89 e7f6e1c30ee8b33_pastI llness_name_51 Onset: 03-07-2015 Unclassified (1 source) ref_50a28555bb654ae89 e7f6e1c30ee8b33_pastI llness_name_53 Onset: 04-07-2015 Unclassified (1 source) ref_50a28555bb654ae89 e7f6e1c30ee8b33_pastI llness_name_55 Onset: 05-02-2015 Unclassified (1 source) ref_50a28555bb654ae89 e7f6e1c30ee8b33_pastI llness_name_57 Onset: 05-30-2015 Unclassified (1 source) ref_50a28555bb654ae89 e7f6e1c30ee8b33_pastI llness_name_59 Onset: 06-20-2015 Unclassified (1 source) ref_73fa514ccd7041278 z0326lh5fli0hmv_vomdK llness_name_51 Onset: 03-07-2015 Unclassified (1 source) ref_73fa514ccd7041278 x3419ut1crj4nfy_blhxB llness_name_53 Onset: 04-07-2015 Unclassified (1 source) ref_73fa514ccd7041278 y0246uv0rfo0csm_eculE llness_name_55 Onset: 05-02-2015 Unclassified (1 source) ref_73fa514ccd7041278 f0495xq3wsp4usy_rrniM llness_name_57 Onset: 05-30-2015 Unclassified (1 source) ref_73fa514ccd7041278 c0889xn4qrx8cfv_cexhF llness_name_59 Onset: 06-20-2015 Unclassified (1 source) ref_7ea42181d49a4e668 423f12c8088dcec_pastI llness_name_51 Onset: 03-07-2015 Unclassified (1 source) ref_7ea42181d49a4e668 423f12c8088dcec_pastI llness_name_53 Onset: 04-07-2015 Unclassified (1 source) ref_7ea42181d49a4e668 423f12c8088dcec_pastI llness_name_55 Onset: 05-02-2015 Unclassified (1 source) ref_7ea42181d49a4e668 423f12c8088dcec_pastI llness_name_57 Onset: 05-30-2015 Unclassified (1 source) ref_7ea42181d49a4e668 423f12c8088dcec_pastI llness_name_59 Onset: 06-20-2015 Unclassified (1 source) ref_957d298a50774920b fa044h40v800l10_rsviE llness_name_51 Onset: 03-07-2015 Unclassified (1 source) ref_957d298a50774920b bw977p31c671f87_tvpvP llness_name_53 Onset: 04-07-2015 Unclassified (1 source) ref_957d298a50774920b om233l52y747l60_vrseF llness_name_55 Onset: 05-02-2015 Unclassified (1 source) ref_957d298a50774920b xo001n46x057f07_mudtW llness_name_57 Onset: 05-30-2015 Unclassified (1 source) ref_957d298a50774920b xg482z82u958f98_aquoT llness_name_59 Onset: 06-20-2015 Unclassified (1 source) ref_e756887712db4f628 r95793j0341pqp6_paymD llness_name_51 Onset: 03-07-2015 Unclassified (1 source) ref_e756887712db4f628 w58028l6222dji7_uyvoC llness_name_53 Onset: 04-07-2015 Unclassified (1 source) ref_e756887712db4f628 y25542x5859wvu7_atjrH llness_name_55 Onset: 05-02-2015 Unclassified (1 source) ref_e756887712db4f628 p98126a3010omg1_mezfH llness_name_57 Onset: 05-30-2015 Unclassified (1 source) ref_e756887712db4f628 d47198s8933mwp3_xlnnC llness_name_59 Onset: 06-20-2015 Unclassified (1 source) ref_1a9002ca3a914a088 026cc3e62fdc310_pastI llness_name_51 Onset: 03-07-2015 Unclassified (1 source) ref_1a9002ca3a914a088 026cc3e62fdc310_pastI llness_name_53 Onset: 04-07-2015 Unclassified (1 source) ref_1a9002ca3a914a088 026cc3e62fdc310_pastI llness_name_55 Onset: 05-02-2015 Unclassified (1 source) ref_1a9002ca3a914a088 026cc3e62fdc310_pastI llness_name_57 Onset: 05-30-2015 Unclassified (1 source) ref_1a9002ca3a914a088 026cc3e62fdc310_pastI llness_name_59 Onset: 06-20-2015 Unclassified (1 source) ref_32cd1e7b8e4843458 rx5559jgkzx6eu0_msgoT llness_name_51 Onset: 03-07-2015 Unclassified (1 source) ref_32cd1e7b8e4843458 qi6026ftvfq1ex3_gdwbK llness_name_53 Onset: 04-07-2015 Unclassified (1 source) ref_32cd1e7b8e4843458 qh5152koddl4nu3_qgwbM llness_name_55 Onset: 05-02-2015 Unclassified (1 source) ref_32cd1e7b8e4843458 qd3310zkdag5hd7_zarzJ llness_name_57 Onset: 05-30-2015 Unclassified (1 source) ref_32cd1e7b8e4843458 ug6919plxts2jq3_frofX llness_name_59 Onset: 06-20-2015 Unclassified (1 source) ref_47ecf13ae0f24783a gu147gc2798kzn8_hoezX llness_name_51 Onset: 03-07-2015 Unclassified (1 source) ref_47ecf13ae0f24783a pc099qx6999swu9_swxoD llness_name_53 Onset: 04-07-2015 Unclassified (1 source) ref_47ecf13ae0f24783a rk662vs0934qul7_cvhrG llness_name_55 Onset: 05-02-2015 Unclassified (1 source) ref_47ecf13ae0f24783a fd950bn5922edb9_jcuoF llness_name_57 Onset: 05-30-2015 Unclassified (1 source) ref_47ecf13ae0f24783a ri160pk6707bnl6_snquI llness_name_59 Onset: 06-20-2015 Unclassified (1 source) ref_754c7f357c964abdb mq18s2563eqy86k_csbgC llness_name_50 Onset: 03-07-2015 Unclassified (1 source) ref_754c7f357c964abdb es58s4347fyt65n_bsnbT llness_name_52 Onset: 04-07-2015 Unclassified (1 source) ref_754c7f357c964abdb wz25a3263edh12j_kpkzB llness_name_54 Onset: 05-02-2015 Unclassified (1 source) ref_754c7f357c964abdb ot23d2641kqj18z_ixirQ llness_name_56 Onset: 05-30-2015 Unclassified (1 source) ref_754c7f357c964abdb vz24q1008wub64g_qapbC llness_name_58 Onset: 06-20-2015 Unclassified (1 source) ref_5219f3fb00f042e88 950116cc13cc651_pastI llness_name_50 Onset: 03-07-2015 Unclassified (1 source) ref_5219f3fb00f042e88 950116cc13cc651_pastI llness_name_52 Onset: 04-07-2015 Unclassified (1 source) ref_5219f3fb00f042e88 950116cc13cc651_pastI llness_name_54 Onset: 05-02-2015 Unclassified (1 source) ref_5219f3fb00f042e88 950116cc13cc651_pastI llness_name_56 Onset: 05-30-2015 Unclassified (1 source) ref_5219f3fb00f042e88 950116cc13cc651_pastI llness_name_58 Onset: 06-20-2015 Unclassified (1 source) ref_054445c22b2f48e1a 3452bbdc263aae1_pastI llness_name_50 Onset: 03-07-2015 Unclassified (1 source) ref_054445c22b2f48e1a 3452bbdc263aae1_pastI llness_name_52 Onset: 04-07-2015 Unclassified (1 source) ref_054445c22b2f48e1a 3452bbdc263aae1_pastI llness_name_54 Onset: 05-02-2015 Unclassified (1 source) ref_054445c22b2f48e1a 3452bbdc263aae1_pastI llness_name_56 Onset: 05-30-2015 Unclassified (1 source) ref_054445c22b2f48e1a 3452bbdc263aae1_pastI llness_name_58 Onset: 06-20-2015 Unclassified (1 source) ref_67879d8adef54bb19 88fd89581bc60c5_pastI llness_name_50 Onset: 03-07-2015 Unclassified (1 source) ref_67879d8adef54bb19 88fd89581bc60c5_pastI llness_name_52 Onset: 04-07-2015 Unclassified (1 source) ref_67879d8adef54bb19 88fd89581bc60c5_pastI llness_name_54 Onset: 05-02-2015 Unclassified (1 source) ref_67879d8adef54bb19 88fd89581bc60c5_pastI llness_name_56 Onset: 05-30-2015 Unclassified (1 source) ref_67879d8adef54bb19 88fd89581bc60c5_pastI llness_name_58 Onset: 06-20-2015 Results Test Name Value Interpretation Reference Range Facility Laboratory - Chemistry and C hemistry - challengeon 09-11-2024 Albumin [Mass/Vol] 4.0 g/dL Invalid Interpretation Code 3.7-5.0 [facility] Albumin/Globulin [Mass ratio] 1.3 {ratio} Invalid Interpretation Code 1.0-2.4 [facility] ALP [Catalytic activity/Vol] 124.0 U/L Invalid Interpretation Code 31-155 [facility] ALT [Catalytic activity/Vol] 13.0 U/L Invalid Interpretation Code 0-50 [facility] Anion gap [Moles/Vol] 14 mmol/L Invalid Interpretation Code 10-20 [facility] AST [Catalytic activity/Vol] 15.0 U/L Invalid Interpretation Code 0-40 [facility] Bilirubin [Mass/Vol] 0.40 mg/dL Invalid Interpretation Code 0.0-1.0 [facility] Bilirubin Ql (U) Negative Invalid Interpretation Code Negative [facility] Calcium [Mass/Vol] 8.90 mg/dL Invalid Interpretation Code 8.5-10.8 [facility] Chloride [Moles/Vol] 103.0 mmol/L Invalid Interpretation Code 100-112 [facility] Cholesterol [Mass/Vol] 200.0 mg/dL Invalid Interpretation Code 0-200 [facility] Cholesterol in HDL [Mass/Vol] 40.0 mg/dL Invalid Interpretation Code 50-100 [facility] Cholesterol in LDL [Mass/Vol] 99.0 mg/dL Invalid Interpretation Code 0-130 [facility] Cholesterol in VLDL [Mass/Vol] 61.0 mg/dL Invalid Interpretation Code 0-39 [facility] Cholesterol.total/ Cholesterol in HDL [Mass ratio] 5 {ratio} Invalid Interpretation Code [facility] CO2 [Moles/Vol] 28.0 mmol/L Invalid Interpretation Code 23-30 [facility] Creatinine [Mass/Vol] 0.80 mg/dL Invalid Interpretation Code 0.5-1.5 [facility] Glucose [Mass/Vol] 95.0 mg/dL Invalid Interpretation Code 80-117 [facility] Ketones Ql (U) Negative Invalid Interpretation Code Negative [facility] pH (U) 6 [pH] Invalid Interpretation Code 5.0-9.0 [facility] Potassium [Moles/Vol] 4.30 mmol/L Invalid Interpretation Code 3.5-5.3 [facility] Protein [Mass/Vol] 7.20 g/dL Invalid Interpretation Code 6.3-7.9 [facility] Sodium [Moles/Vol] 141.0 mmol/L Invalid Interpretation Code 135-148 [facility] Specific gravity (U) [Rel density] 1.010 Invalid Interpretation Code 1.003-1.030 [facility] Triglyceride [Mass/Vol] 304.0 mg/dL Invalid Interpretation Code 30-150 [facility] Urea nitrogen [Mass/Vol] 14.0 mg/dL Invalid Interpretation Code 7-25 [facility] Urea nitrogen/Creatinin e [Mass ratio] 18 mg/mg Invalid Interpretation Code 6-20 [facility] Urobilinogen (U) [Mass/Vol] normal Invalid Interpretation Code normal [facility] [facility] Laboratory - Cytologyon 08-26 Cytology report Cyto stain.thin prep Doc (Cvx/Vag) Total Hysterectomy Invalid Interpretation Code 21 - 64 [facility] Laboratory - Hematology and Cell countson 09-11-2024 Erythrocyte distribution width (RBC) [Ratio] 14.10 % Invalid Interpretation Code 11.5-15.5 [employer] [facility] Hematocrit (Bld) [Volume fraction] 39.10 % Invalid Interpretation Code 35.7-47.1 [employer] [facility] Hemoglobin (Bld) [Mass/Vol] 12.60 g/dL Invalid Interpretation Code 11.9-15.7 [employer] [facility] Hemoglobin Ql (U) Trace Invalid Interpretation Code Negative [employer] [facility] MCH (RBC) [Entitic mass] 28.40 pg Invalid Interpretation Code 23.2-33.3 [employer] [facility] MCHC (RBC) [Mass/Vol] 32.20 g/dL Invalid Interpretation Code 32.0-36.0 [employer] [facility] MCV (RBC) [Entitic vol] 88.10 fL Invalid Interpretation Code 83.4-101.4 [employer] [facility] Platelet mean volume (Bld) [Entitic vol] 11.70 fL Invalid Interpretation Code 8.3-11.5 [employer] [facility] Platelets (Bld) [#/Vol] 190.0 10*3/uL Invalid Interpretation Code 150-400 [employer] [facility] RBC (Bld) [#/Vol] 4.440 10*6/uL Invalid Interpretation Code 3.72-5.24 [employer] WBC (Bld) [#/Vol] 5.90 10*3/uL Invalid Interpretation Code 3.9-10.3 [facility] Clarity (U) clear Invalid Interpretation Code Clear [employer] [facility] Collection time (Varun) [Date/time] 9:05 am Invalid Interpretation Code [employer] [facility] Color (U) yellow Invalid Interpretation Code yellow [facility] Laboratory - Urinalysison Glucose Test strip (U) [Mass/Vol] Negative Invalid Interpretation Code Negative [employer] [facility] Leukocyte esterase Test strip Ql (U) 2+ Invalid Interpretation Code Negative [employer] [facility] Nitrite Ql (U) Negative Invalid Interpretation Code Negative [employer] [facility] Protein Ql (U) Negative Invalid Interpretation Code Negative [employer] [facility] No Panel Informationon 09-11 86 Invalid Interpretation Code [employer] [facility] 5-10 Invalid Interpretation Code 0-4 [employer] [facility] 0-4 Invalid Interpretation Code 0-4 [facility] 1+ Invalid Interpretation Code trace [employer] [facility] No Panel Informationon 12-01 Tobacco smoking status Non-Smoker Invalid Interpretation Code [employer] [facility] NURSING PROGon 08-02-2023 NURSING PROG HNO ID: [id number] Author: Natasha Walker RN Service: ? Author Type: Registered Nurse Type: Nursing Progress Note Filed: 08/02/2023 11:37 AM Note Text: AMBULATORY PATIENT EDUCATION NOTE TOPIC: entyvio READINESS TO LEARN INSTRUCTION PROVIDED TO: Patient, readness to learn accessed prior to procedure COGNITIVE ABILITY: Alert and oriented PTED MOTIVATION TO LEARN: Interested FAMILY SUPPORT: Moderate - Family present but overwhelmed IPATIENT LEARNS BEST BY: Individual Instruction FACTORS AFFECTING LEARNING: None PHYSICAL LIMITATIONS AFFECTING LEARNING: None LEARNING RESPONSE METHOD OF INSTRUCTION: Individual instruction PATIENT / FAMILY RESPONSE: Verbalizes understanding of: WORSENING CONDITION-Signs and symptoms of a worsening condition that warrant a call to the physician FOLLOW-UP PLAN: Patient instructed to call with any further issues Electronically Signed By: Natasha Walker RN Kimberly Cavazos Reason for therapy: IBD Ordering Physician: Supervising/Billing Physician: Pre-Medications Administered: No Medications Administered: Entyvio (See NOV) Dose #: 4 Start: 1049 AM / Stop: 1127AM Fevers in last 7 days: No / Rash: No Infusion tolerated well? Yes IV: See avatar Vital Signs: See Flow sheets Additional Notes if applicable: N/A Electronically Signed By: Natasha Walker RN [facility] NURSING PROGon 06-08-2023 NURSING PROG HNO ID: [id number] Author: Ria Reese RN Service: ? Author Type: Registered Nurse Type: Nursing Progress Note Filed: 06/08/2023 11:44 AM Note Text: AMBULATORY PATIENT EDUCATION NOTE TOPIC: IEntyvio READINESS TO LEARN INSTRUCTION PROVIDED TO: Patient, readness to learn accessed prior to procedure COGNITIVE ABILITY: Alert and oriented PTED MOTIVATION TO LEARN: Interested FAMILY SUPPORT: High - Very involved in pt care IPATIENT LEARNS BEST BY: Individual Instruction Verbal Instruction FACTORS AFFECTING LEARNING: None PHYSICAL LIMITATIONS AFFECTING LEARNING: None LEARNING RESPONSE METHOD OF INSTRUCTION: Individual instruction PATIENT / FAMILY RESPONSE: Verbalizes understanding of: WORSENING CONDITION-Signs and symptoms of a worsening condition that warrant a call to the physician FOLLOW-UP PLAN: Complete - No need for follow-up Electronically Signed By: Ria Reese RN [facility] NURSING PROG HNO ID: [id number] Author: Ria Reese RN Service: ? Author Type: Registered Nurse Type: Nursing Progress Note Filed: 06/08/2023 11:44 AM Note Text: Kimberly Cavazos Reason for therapy: IBD Ordering Physician: Darryl Supervising/Billing Physician: Cookie Pre-Medications Administered: No Medications Administered: Entyvio (See NOV) Dose #: 4 Start: 1056AM / Stop: 1130AM Fevers in last 7 days: No / Rash: No Infusion tolerated well? Yes IV: See avatar Vital Signs: See Flow sheets Additional Notes if applicable: N/A Electronically Signed By: Ria Reese RN [facility] - Chemistry and C hemistry - challengeon 05-17-2023 Albumin [Mass/Vol] 4.40 g/dL Invalid Interpretation Code 3.7-5.0 [employer] [facility] Albumin/Globulin [Mass ratio] 1.4 {ratio} Invalid Interpretation Code 1.0-2.4 [employer] [facility] ALP [Catalytic activity/Vol] 121.0 U/L Invalid Interpretation Code 31-155 [employer] [facility] ALT [Catalytic activity/Vol] 13.0 U/L Invalid Interpretation Code 0-50 [employer] [facility] Anion gap [Moles/Vol] 11 mmol/L Invalid Interpretation Code 10-20 [employer] [facility] AST [Catalytic activity/Vol] 14.0 U/L Invalid Interpretation Code 0-40 [employer] [facility] Bilirubin [Mass/Vol] 0.30 mg/dL Invalid Interpretation Code 0.0-1.0 [employer] [facility] Bilirubin Ql (U) Negative Invalid Interpretation Code Negative [employer] [facility] Calcium [Mass/Vol] 9.50 mg/dL Invalid Interpretation Code 8.5-10.8 [employer] [facility] Chloride [Moles/Vol] 105.0 mmol/L Invalid Interpretation Code 100-112 [employer] [facility] Cholesterol [Mass/Vol] 199.0 mg/dL Invalid Interpretation Code 0-200 [employer] [facility] Cholesterol in HDL [Mass/Vol] 38.0 mg/dL Invalid Interpretation Code 50-100 [employer] [facility] Cholesterol in LDL [Mass/Vol] 102.0 mg/dL Invalid Interpretation Code 0-130 [employer] [facility] Cholesterol in VLDL [Mass/Vol] 59.0 mg/dL Invalid Interpretation Code 0-39 [employer] Cholesterol.total/ Cholesterol in HDL [Mass ratio] 5 {ratio} Invalid Interpretation Code [employer] CO2 [Moles/Vol] 28.0 mmol/L Invalid Interpretation Code 23-30 [employer] Creatinine [Mass/Vol] 0.80 mg/dL Invalid Interpretation Code 0.5-1.5 [employer] Glucose [Mass/Vol] 103.0 mg/dL Invalid Interpretation Code 80-117 [employer] Ketones Ql (U) Negative Invalid Interpretation Code Negative [employer] pH (U) 6 [pH] Invalid Interpretation Code 5.0-9.0 [employer] Potassium [Moles/Vol] 4.40 mmol/L Invalid Interpretation Code 3.5-5.3 [employer] Protein [Mass/Vol] 7.60 g/dL Invalid Interpretation Code 6.3-7.9 [employer] Sodium [Moles/Vol] 140.0 mmol/L Invalid Interpretation Code 135-148 [employer] Specific gravity (U) [Rel density] 1.010 Invalid Interpretation Code 1.003-1.030 [employer] Triglyceride [Mass/Vol] 293.0 mg/dL Invalid Interpretation Code 30-150 [employer] [facility] Urea nitrogen [Mass/Vol] 18.0 mg/dL Invalid Interpretation Code 7-25 [employer] Urea nitrogen/Creatinin e [Mass ratio] 23 mg/mg Invalid Interpretation Code 6-20 [employer] [facility] Urobilinogen (U) [Mass/Vol] normal Invalid Interpretation Code normal [facility] Laboratory - Hematology and Cell countson 05-17-2023 Erythrocyte distribution width (RBC) [Ratio] 14.40 % Invalid Interpretation Code 11.5-15.5 [place] [employer] Hematocrit (Bld) [Volume fraction] 37.90 % Invalid Interpretation Code 35.7-47.1 [employer] Hemoglobin (Bld) [Mass/Vol] 12.20 g/dL Invalid Interpretation Code 11.9-15.7 [employer] Hemoglobin Ql (U) Negative Invalid Interpretation Code Negative [place] [employer] [facility] MCH (RBC) [Entitic mass] 27.70 pg Invalid Interpretation Code 23.2-33.3 [employer] MCHC (RBC) [Mass/Vol] 32.20 g/dL Invalid Interpretation Code 32.0-36.0 [employer] MCV (RBC) [Entitic vol] 86.10 fL Invalid Interpretation Code 83.4-101.4 [employer] Platelet mean volume (Bld) [Entitic vol] 11.60 fL Invalid Interpretation Code 8.3-11.5 [employer] Platelets (Bld) [#/Vol] 205.0 10*3/uL Invalid Interpretation Code 150-400 [employer] RBC (Bld) [#/Vol] 4.40 10*6/uL Invalid Interpretation Code 3.72-5.24 [employer] WBC (Bld) [#/Vol] 6.20 10*3/uL Invalid Interpretation Code 3.9-10.3 [employer] Laboratory - Specimen inform ationon 05-17-2023 Clarity (U) Clear Invalid Interpretation Code Clear [employer] [facility] Collection time (Varun) [Date/time] 10:30 am Invalid Interpretation Code [employer] [facility] Color (U) yellow Invalid Interpretation Code yellow [employer] [facility] Laboratory - Urinalysison Glucose Test strip (U) [Mass/Vol] Negative Invalid Interpretation Code Negative [employer] [facility] Leukocyte esterase Test strip Ql (U) Negative Invalid Interpretation Code Negative [employer] [facility] Nitrite Ql (U) Negative Invalid Interpretation Code Negative [employer] [facility] Protein Ql (U) Negative Invalid Interpretation Code Negative [employer] [facility] No Panel Informationon 05-17 87 Invalid Interpretation Code [employer] [facility] No Panel Informationon 05-02 Tobacco smoking status Non-Smoker Invalid Interpretation Code [employer] [facility] NURSING PROGon 04-13-2023 NURSING PROG HNO ID: [id number] Author: Ranjana Espinoza RN Service: ? Author Type: Registered Nurse Type: Nursing Progress Note Filed: 04/13/2023 11:24 AM Note Text: AMBULATORY PATIENT EDUCATION NOTE TOPIC: entyvio READINESS TO LEARN INSTRUCTION PROVIDED TO: Patient, readness to learn accessed prior to procedure COGNITIVE ABILITY: Alert and oriented PTED MOTIVATION TO LEARN: Interested FAMILY SUPPORT: Unable to assess - Family not present IPATIENT LEARNS BEST BY: Individual Instruction FACTORS AFFECTING LEARNING: None PHYSICAL LIMITATIONS AFFECTING LEARNING: None LEARNING RESPONSE METHOD OF INSTRUCTION: Individual instruction PATIENT / FAMILY RESPONSE: Verbalizes understanding of: WORSENING CONDITION-Signs and symptoms of a worsening condition that warrant a call to the physician FOLLOW-UP PLAN: Patient instructed to call with any further issues Electronically Signed By: Ranjana Espinoza RN Kimberly Cavazos Reason for therapy: IBD Ordering Physician: darryl Supervising/Billing Physician: achkar Pre-Medications Administered: No Medications Administered: Entyvio (See MAR) Dose #: 3 Start: 1025AM / Stop: 1104AM Fevers in last 7 days: No / Rash: No Infusion tolerated well? Yes IV: See avatar Vital Signs: See Flow sheets Additional Notes if applicable: N/A Electronically Signed By: Ranjana Espinoza RN [facility] NURSING PROGon 03-30-2023 NURSING PROG HNO ID: [id number] Author: Ann Cobos RN Service: ? Author Type: Registered Nurse Type: Nursing Progress Note Filed: 03/30/2023 3:37 PM Note Text: AMBULATORY PATIENT EDUCATION NOTE TOPIC: Entyvio infusion READINESS TO LEARN INSTRUCTION PROVIDED TO: Patient, readness to learn accessed prior to procedure COGNITIVE ABILITY: Alert and oriented PTED MOTIVATION TO LEARN: Interested FAMILY SUPPORT: Unable to assess - Family not present IPATIENT LEARNS BEST BY: Individual Instruction Verbal Instruction FACTORS AFFECTING LEARNING: None PHYSICAL LIMITATIONS AFFECTING LEARNING: None LEARNING RESPONSE METHOD OF INSTRUCTION: Individual instruction PATIENT / FAMILY RESPONSE: Verbalizes understanding of: WORSENING CONDITION-Signs and symptoms of a worsening condition that warrant a call to the physician FOLLOW-UP PLAN: Patient instructed to call with any further issues Recommend - Recommend continued instruction and follow up as directed Electronically Signed By: Ann Cobos RN Kimberly Cavazos Reason for therapy: IBD Ordering Physician: Dr. Sae Craven Supervising/Billing Physician: Dr. Idris Gary Pre-Medications Administered: No Medications Administered: Entyvio (See MAR) Dose #: 2 Start: 1341 PM / Stop: 1421 PM Fevers in last 7 days: No / Rash: No Infusion tolerated well? Yes IV: See avatar Vital Signs: See Flow sheets Additional Notes if applicable: N/A Electronically Signed By: Ann Cobos RN [facility] PROGon 03-14-2023 NURSING PROG HNO ID: [id number] Author: Verito Wright RN Service: ? Author Type: Registered Nurse Type: Nursing Progress Note Filed: 03/14/2023 8:35 AM Note Text: AMBULATORY PATIENT EDUCATION NOTE TOPIC: Entyvio READINESS TO LEARN INSTRUCTION PROVIDED TO: Patient, readness to learn accessed prior to procedure COGNITIVE ABILITY: Alert and oriented PTED MOTIVATION TO LEARN: Eager FAMILY SUPPORT: High - Very involved in pt care IPATIENT LEARNS BEST BY: Individual Instruction FACTORS AFFECTING LEARNING: None PHYSICAL LIMITATIONS AFFECTING LEARNING: None LEARNING RESPONSE METHOD OF INSTRUCTION: Individual instruction PATIENT / FAMILY RESPONSE: Verbalizes understanding of: WORSENING CONDITION-Signs and symptoms of a worsening condition that warrant a call to the physician FOLLOW-UP PLAN: Patient instructed to call with any further issues Electronically Signed By: Verito Wright RN Normal [facility] NURSING PROG HNO ID: [id number] Author: Verito Wright RN Service: ? Author Type: Registered Nurse Type: Nursing Progress Note Filed: 03/14/2023 8:34 AM Note Text: Kimberly Cavazos Reason for therapy: IBD Ordering Physician: Darryl Supervising/Billing Physician: Darryl Pre-Medications Administered: No Medications Administered: Entyvio (See MAR) Dose #: 1 Start: 0756AM / Stop: 0834 AM Fevers in last 7 days: No / Rash: No Infusion tolerated well? Yes IV: See avatar Vital Signs: See Flow sheets Additional Notes if applicable: N/A Electronically Signed By: Verito Wright RN Normal [facility] Calprotectin (Stl) [Mass/Mas s]on 02-24-2023 CALPROTECTIN, FECAL INTERP Elevated Abnormal Normal [facility] Comment on above: Order Comment: Speci men Type: STOOL SPECIMEN Ordering Facility: [facility] Address: [address] [place] [id number] Result Comment: On 2022, [facility] [employer] implemented a new fecal calprotectin method, the [employer] Calprotectin assay. For assistance with interpretation of results in patients undergoing serial monitoring, contact Client Services at [phone] or [phone] to discuss options, preferably within 7 days of issuing this report. Interpretation: <50.0 ug/g: Normal 50.0 ug/g - 120.0 ug/g: Borderline elevated. Re-evaluation in 4-6 weeks is recommended if clinically indicated. >120.0 ug/g: Elevated Performed By: #### 3 8445-3 #### [facility] CLIA [id number] [address] [place] [address] [place] CALPROTECTIN, FECAL QUANTITATIVE 319 ug/g High <50 [facility] Comment on above: Order Comment: Speci men Type: STOOL SPECIMEN Ordering Facility: [facility] Address: [address] [address] Performed By: #### 3 8445-3 #### [facility] CLIA [id number] [place] 25(OH)D3 SerPl-mCncon 2022 25-hydroxyvitamin D3 [Mass/Vol] 27.4 ng/mL Low 31.0-80.0 [facility] Comment on above: Order Comment: Speci men Type: BLOOD SPECIMENOrdering Facility: [facility] Address: [address] [place] [address] Result Comment: Clas sification of 25 [place] Vitamin D status: Deficiency/Insufficiency: < or = 30 ng/ml. Sufficiency/Optimal Levels: 31-80 ng/mL Toxicity: > 100 ng/mL. Test performed by chemiluminescent immunoassay. Performed By: #### 1 989-3 ####[facility] [id number] [address] BLOOD TB SCREENon 02-22-2023 M. tuberculosis tuberculin stim IFN-g Ql (Bld) Negative Normal [facility] Comment on above: Order Comment: Speci men Type: BLOOD SPECIMENOrdering Facility: [facility] Address: [address] Performed By: #### I NFTBP ####[facility] [id number] [place] [address] [place] MITOGEN MINUS NIL >9.20 Normal >=0.50 [facility] Comment on above: Order Comment: Speci men Type: BLOOD SPECIMENOrdering Facility: [facility] Address: [address] Performed By: #### I NFTBP ####[facility] [id number] [address] TB GAMMA INTERPRETATION Infection with M. tuberculosis complex is unlikely. If latent tuberculosis infection is highly suspected, a negative result does not rule out the infection. Specimens from immunocompromised patients and those <5 years of age may show false negative results. In case of a contact investigation, please repeat 8-12 weeks after a known exposure. Normal [facility] Comment on above: Order Comment: Speci men Type: BLOOD SPECIMENOrdering Facility: [facility] Address: [address] [place] [address] Performed By: #### I NFTBP ####[facility] [id number] [address] TB NIL 0.80 IU/mL Normal <=8.00 [facility] Comment on above: Order Comment: Speci men Type: BLOOD SPECIMENOrdering Facility: [facility] Address: [address] [place] [address] Performed By: #### I NFTBP ####[facility] [id number] [address] TB1 AG MINUS NIL 0.10 IU/mL Normal <0.35 [facility] Comment on above: Order Comment: Speci men Type: BLOOD SPECIMENOrdering Facility: [facility] Address: [address] Performed By: #### I NFTBP ####[facility] [id number] [address] TB2 AG MINUS NIL 0.17 IU/mL Normal <0.35 [facility] Comment on above: Order Comment: Speci men Type: BLOOD SPECIMENOrdering Facility: [facility] Address: [address] [place] [address] Performed By: #### I NFTBP ####[facility]IA [id number] [facility] [id number] [place] CBC panel Auto (Bld)on 02-22 Erythrocyte distribution width (RBC) [Ratio] 14.6 % Normal 11.5-15.0 [facility] Comment on above: Order Comment: Speci men Type: BLOOD SPECIMENOrdering Facility: [facility] Address: [address] [place] [address] Performed By: #### 5 8410-2 ####[facility] [id number] [place] [address] Hematocrit (Bld) [Volume fraction] 38.4 % Normal 36.0-46.0 [facility] Comment on above: Order Comment: Speci men Type: BLOOD SPECIMENOrdering Facility: [facility] Address: [address] [place] [address] Performed By: #### 5 8410-2 ####[facility] LABIA [id number] [place] [address] Hemoglobin (Bld) [Mass/Vol] 12.4 g/dL Normal 11.5-15.5 [facility] Comment on above: Order Comment: Speci men Type: BLOOD SPECIMENOrdering Facility: [facility] Address: [address] [place] [address] Performed By: #### 5 8410-2 ####[facility]CLIA [id number] [place] [address] MCH (RBC) [Entitic mass] 28.4 pg Normal 26.0-34.0 [facility] Comment on above: Order Comment: Speci men Type: BLOOD SPECIMENOrdering Facility: [facility] Address: [address] [place] [address] Performed By: #### 5 8410-2 ####[facility] LABIA [id number] [place] [address] MCHC (RBC) [Mass/Vol] 32.3 g/dL Normal 30.5-36.0 [facility] Comment on above: Order Comment: Speci men Type: BLOOD SPECIMENOrdering Facility: [facility] Address: [address] [place] [address] Performed By: #### 5 8410-2 ####[facility]CLIA [id number] [place] [address] MCV (RBC) [Entitic vol] 88.1 fL Normal 80.0-100.0 [facility] Comment on above: Order Comment: Speci men Type: BLOOD SPECIMENOrdering Facility: [facility] Address: [address] [place] [address] Performed By: #### 5 8410-2 ####[facility] [id number] [place] [address] Nucleated RBC (Bld) [#/Vol] 10*3/uL Normal <0.01 [facility] Comment on above: Order Comment: Speci men Type: BLOOD SPECIMENOrdering Facility: [facility] Address: [address] [place] [address] Performed By: #### 5 8410-2 ####[facility] LABCLIA [id number] [place] [address] Platelet mean volume (Bld) [Entitic vol] 12.2 fL Normal 9.0-12.7 [facility] Comment on above: Order Comment: Speci men Type: BLOOD SPECIMENOrdering Facility: [facility] Address: [address] [place] [address] Performed By: #### 5 8410-2 ####[facility] LABIA [id number] [place] [address] Platelets (Bld) [#/Vol] 196 10*3/uL Normal 150-400 [facility] Comment on above: Order Comment: Speci men Type: BLOOD SPECIMENOrdering Facility: [facility] Address: [address] [place] [address] Performed By: #### 5 8410-2 ####[facility] LABCLIA [id number] [place] [address] RBC (Bld) [#/Vol] 4.36 10*6/uL Normal 3.90-5.20 [facility] Comment on above: Order Comment: Speci men Type: BLOOD SPECIMENOrdering Facility: [facility] Address: [address] [address] Performed By: #### 5 8410-2 ####[facility] LABCLIA [id number] [place] [address] WBC (Bld) [#/Vol] 10.43 10*3/uL Normal 3.70-11.00 [facility] Comment on above: Order Comment: Speci men Type: BLOOD SPECIMENOrdering Facility: [facility] Address: [address] [place] [address] Performed By: #### 5 8410-2 ####[facility] LABIA [id number] [place] [address] Comprehensive metabolic 2000 panelon 02-22-2023 Albumin [Mass/Vol] 4.2 g/dL Normal 3.9-4.9 [facility] Comment on above: Order Comment: Speci men Type: BLOOD SPECIMENOrdering Facility: [facility] Address: [address] [place] [address] Performed By: #### 2 4323-8 ####[facility]CLIA [id number] [place] [address] ALP [Catalytic activity/Vol] 125 U/L High 34-123 [facility] Comment on above: Order Comment: Speci men Type: BLOOD SPECIMENOrdering Facility: [facility] Address: [address] [address] Performed By: #### 2 4323-8 ####[facility]CLIA [id number] [place] [address] ALT [Catalytic activity/Vol] 13 U/L Normal 7-38 [facility] Comment on above: Order Comment: Speci men Type: BLOOD SPECIMENOrdering Facility: [facility] Address: [address] [address] Performed By: #### 2 4323-8 ####[facility]CLIA [id number] [place] [address] Anion gap [Moles/Vol] 12 mmol/L Normal 9-18 [facility] Comment on above: Order Comment: Speci men Type: BLOOD SPECIMENOrdering Facility: [facility] Address: [address] [place] [address] Performed By: #### 2 4323-8 ####[facility]CLIA [id number] [place] [address] AST [Catalytic activity/Vol] 15 U/L Normal 13-35 [facility] Comment on above: Order Comment: Speci men Type: BLOOD SPECIMENOrdering Facility: [facility] Address: [address] [address] Performed By: #### 2 4323-8 ####[facility] LABCLIA [id number] [place] [address] Bilirubin [Mass/Vol] 0.3 mg/dL Normal 0.2-1.3 [facility] Comment on above: Order Comment: Speci men Type: BLOOD SPECIMENOrdering Facility: [facility] Address: [address] [address] Performed By: #### 2 4323-8 ####[facility]CLIA [id number] [place] [address] Calcium [Mass/Vol] 9.5 mg/dL Normal 8.5-10.2 [facility] Comment on above: Order Comment: Speci men Type: BLOOD SPECIMENOrdering Facility: [facility] Address: [address] [place] [address] Performed By: #### 2 4323-8 ####[facility]CL[facility] [id number] [place] [address] Chloride [Moles/Vol] 104 mmol/L Normal 97-105 [facility] Comment on above: Order Comment: Speci men Type: BLOOD SPECIMENOrdering Facility: [facility] Address: [address] [place] [address] Performed By: #### 2 4323-8 ####[facility]CL[facility] [id number] [place] [address] CO2 [Moles/Vol] 24 mmol/L Normal 22-30 [facility] Comment on above: Order Comment: Speci men Type: BLOOD SPECIMENOrdering Facility: [facility] Address: [address] [place] [address] Performed By: #### 2 4323-8 ####[facility] [id number] [place] [address] Creatinine [Mass/Vol] 0.82 mg/dL Normal 0.58-0.96 [facility] Comment on above: Order Comment: Speci men Type: BLOOD SPECIMENOrdering Facility: [facility] Address: [address] [place] [address] Performed By: #### 2 4323-8 ####[facility]CL[facility] [id number] [place] [address] ESTIMATED GLOMERULAR FILTRATION RATE 85 mL/min/1.73m??? Normal >=60 [facility] Comment on above: Order Comment: Speci men Type: BLOOD SPECIMENOrdering Facility: [facility] Address: [address] [place] [address] Result Comment: Jemma mated Glomerular Filtration Rate (eGFR) is calculated using the 2020 CKD-EPI creatinine equation. This equation utilizes serum creatinine, sex, and age as parameters. The creatinine assay has traceable calibration to isotope dilution-mass spectrometry. Refer to KDIGO guidelines for clinical interpretation. In patients with unstable renal function, e.g. those with acute kidney injury, the eGFR may not accurately reflect actual GFR. Performed By: #### 2 4323-8 ####[facility] [id number] [place] [address] Glucose [Mass/Vol] 106 mg/dL High 74-99 [facility] Comment on above: Order Comment: Speci men Type: BLOOD SPECIMENOrdering Facility: [facility] Address: [address] [place] [address] Result Comment: The [place] [employer] (ADA) provides guidance for cutoff values for fasting glucose and random glucose. The ADA defines fasting as no caloric intake for at least 8 hours. Fasting plasma glucose results between 100 to 125 mg/dL indicate increased risk for diabetes (prediabetes). Fasting plasma glucose results greater than or equal to 126 mg/dL meet the criteria for diagnosis of diabetes. In the absence of unequivocal hyperglycemia, results should be confirmed by repeat testing. In a patient with classic symptoms of hyperglycemia or hyperglycemic crisis, random plasma glucose results greater than or equal to 200 mg/dL meet the criteria for diagnosis of diabetes. Reference: Standards of Medical Care in Diabetes 2016, [place] [employer]. Diabetes Care. 2016.39(Suppl 1). Performed By: #### 2 4323-8 ####[facility] [id number] [place] [address] Potassium [Moles/Vol] 4.2 mmol/L Normal 3.7-5.1 [facility] Comment on above: Order Comment: Speci men Type: BLOOD SPECIMENOrdering Facility: [facility] Address: [address] [place] [address] Performed By: #### 2 4323-8 ####[facility] [id number] [place] [address] Protein [Mass/Vol] 7.4 g/dL Normal 6.3-8.0 [facility] Comment on above: Order Comment: Speci men Type: BLOOD SPECIMENOrdering Facility: [facility] Address: [address] [place] [address] Performed By: #### 2 4323-8 ####[facility] [id number] [place] [address] Sodium [Moles/Vol] 140 mmol/L Normal 136-144 [facility] Comment on above: Order Comment: Speci men Type: BLOOD SPECIMENOrdering Facility: [facility] Address: [address] [place] [address] Performed By: #### 2 4323-8 ####[facility] LABCLIA [id number] [place] [id number] Urea nitrogen [Mass/Vol] 15 mg/dL Normal 7-21 [facility] Comment on above: Order Comment: Speci men Type: BLOOD SPECIMENOrdering Facility: [facility] Address: [address] [place] [address] Performed By: #### 2 4323-8 ####[facility] LABCLIA [id number] [place] [address] PROTIMEon 02-22-2023 INR Coag (PPP) [Relative time] 3.01 {INR} Normal [facility] Comment on above: Performed By: #### P T #### [facility] [address] [address] [address] Kvng Chan INR GUIDELINES SEE BELOW Normal [facility] Comment on above: Result Comment: LIAN RED INR: 2.0 - 3.0 CONDITIONS NOT LISTED BELOW 2.5 - 3.5 FOR PROSTHETIC HEART VALVE REPLACEMENT 2.5 - 3.5 RECURRENT THROMBOSIS Performed By: #### P T #### [facility] [address] [address] [address] Kvng Chan PT Coag (PPP) [Time] 30.0 s Critically high 9.0-11.6 [facility] Comment on above: Performed By: #### P T #### [facility] [address] [address] [address] Kvng Chan Addendum Reporton 12-20-2022 Addendum Report Missing Attachment Chartable Reference Lab Reports Can be viewed in source system Addendum Discussion [facility], #[id number], Date Reported: 12/20/2022 Final Diagnosis: A. Terminal ileum biopsy: - Chronic, severely active enteritis; no granulomas or dysplasia. B. Ascending colon, biopsy: - Colonic mucosa with no significant pathologic abnormality. C. Descending colon, biopsy: - Colonic mucosa with no significant pathologic abnormality. [id number] IONAL [id number] IONAL [id number] TIONAL [id number] TIONAL [id number] IONAL [id number] IONAL [id number] IONAL Mason Burdick MD PhD (Electronically signed by) Verified: 12/20/22 14:22 ADD Non-Pathologist Requested Consult Comment by Dr. Mason Burdick: The above consultation report was reviewed, and there are no major discrepancies. Normal [facility] Comment on above: Performed By: #### A R #### [facility] (DEFAULT) [address] [place] [address] OUTSIDE SURG PATH SLIDE REVI EWon 12-16-2022 CASE REPORT Normal [facility] Comment on above: Order Comment: Specjose angel nagel Type: SLIDE Ordering Facility: [facility] Review Address: , , Result Comment: Surg ical Pathology Report Case: [id number] Authorizing Provider: Sae Craven MD Collected: 12/16/2022 09:06 AM Ordering Location: [facility] Received: 12/16/2022 09:07 AM Pathologist: Ramon Locke MD Specimen: SLIDE(S), 6 SLIDES, [id number] Performed By: #### L [id number] #### [facility] CLIA [id number] [address] [place] [address] [place] FINAL DIAGNOSIS Normal [facility] Comment on above: Order Comment: Thee nagel Type: SLIDE Ordering Facility: [facility] Review Address: , , Result Comment: A. T erminal ileum, biopsy: - Chronic, severely active enteritis; no granulomas or dysplasia. B. Ascending colon, biopsy: - Colonic mucosa with no significant pathologic abnormality. C. Descending colon, biopsy: - Colonic mucosa with no significant pathologic abnormality. Performed By: #### L [id number] #### [facility] CLIA [id number] [address] [place] [address] OF [facility] FINAL PERFORMING LAB Normal [facility] Comment on above: Order Comment: Speci men Type: SLIDE Ordering Facility: [facility] Review Address: , , Result Comment: Diag nostic interpretation performed at [facility], [address] [place] [address] CLIA# [id number] Mold Checker: Isaiah Hall M.D. Performed By: #### L [id number] #### [facility] CLIA [id number] [address] [place] [address] PROTIMEon 11-24-2022 INR Coag (PPP) [Relative time] 2.30 {INR} Normal [facility] Comment on above: Performed By: #### U RCX #### [facility] [address] [place] [address] Dr. Kvng Chan INR GUIDELINES SEE BELOW Normal [facility] Comment on above: Result Comment: LIAN RED INR: 2.0 - 3.0 CONDITIONS NOT LISTED BELOW 2.5 - 3.5 FOR PROSTHETIC HEART VALVE REPLACEMENT 2.5 - 3.5 RECURRENT THROMBOSIS Performed By: #### U RCX #### [facility] [address] [address] [address] Kvng Chan PT Coag (PPP) [Time] 23.3 s Critically high 9.0-11.6 [facility] Comment on above: Performed By: #### U RCX #### [facility] [address] [place] [address] Dr. Kvng Chan Laboratory - Chemistry and C hemistry - challengeon 11-05-2022 Calprotectin (Stl) [Mass/Mass] 173.5 mg/kg High 0 - 50 mg/kg [facility] Calprotectin Stl-mCnton 02-0 Calprotectin (Stl) [Mass/Mass] 173.5 mg/kg High 0-50 [facility] Comment on above: Order Comment: Speci men Type: STOOL SPECIMENOrdering Facility: [facility] Address: [address] [place] [address] Result Comment: INTE RPRETIVE INFORMATION: Calprotectin, Fecal <50.0 mg/kg : Normal 50.0-120.0 mg/kg: Borderline. Test should be re-evaluated in 4-6 wks. >120.0 mg/kg: Abnormal Performed By: #### 3 8445-3 ####[facility] LABCLIA [id number] [address] [place] 25(OH)D3 SerPl-mCncon 2022 25-hydroxyvitamin D3 [Mass/Vol] 20.5 ng/mL Low 31.0-80.0 [facility] Comment on above: Order Comment: Speci men Type: BLOOD SPECIMENOrdering Facility: [facility] Address: [address] [place] [address] Result Comment: Clas sification of 25 [place] Vitamin D status: Deficiency/Insufficiency: < or = 30 ng/ml. Sufficiency/Optimal Levels: 31-80 ng/mL Toxicity: > 100 ng/mL. Test performed by chemiluminescent immunoassay. Performed By: #### 1 989-3 ####[facility] LABCLIA [id number] [place] [address] [place] CBC panel Auto (Bld)on 11-01 Erythrocyte distribution width (RBC) [Ratio] 14.3 % 11.5 - 15.0 % [facility] Hematocrit (Bld) [Volume fraction] 39.1 % 36.0 - 46.0 % [facility] Hemoglobin (Bld) [Mass/Vol] 12.6 g/dL 11.5 - 15.5 g/dL [facility] MCH (RBC) [Entitic mass] 28.6 pg 26.0 - 34.0 pg [facility] MCHC (RBC) [Mass/Vol] 32.2 g/dL 30.5 - 36.0 g/dL [facility] MCV (RBC) [Entitic vol] 88.9 fL 80.0 - 100.0 fL [facility] Nucleated RBC (Bld) [#/Vol] <0.01 k/uL [facility] Platelet mean volume (Bld) [Entitic vol] 12.8 fL High 9.0 - 12.7 fL [facility] Platelets (Bld) [#/Vol] 233 10*3/uL 150 - 400 k/uL [facility] RBC (Bld) [#/Vol] 4.40 10*6/uL 3.90 - 5.2 0 m/uL [facility] WBC (Bld) [#/Vol] 6.56 10*3/uL 3.70 - 11. 00 k/uL [facility] Erythrocyte distribution width (RBC) [Ratio] 14.3 % Normal 11.5-15.0 [facility] Comment on above: Order Comment: Speci men Type: BLOOD SPECIMENOrdering Facility: [facility] Address: [address] [place] [address] Performed By: #### 5 8410-2 ####[facility] [id number] [place] [address] [place] [facility] Hematocrit (Bld) [Volume fraction] 39.1 % Normal 36.0-46.0 [facility] Comment on above: Order Comment: Speci men Type: BLOOD SPECIMENOrdering Facility: [facility] Address: [address] [place] [address] Performed By: #### 5 8410-2 ####[facility] LABIA [id number] [place] [address] [place] Hemoglobin (Bld) [Mass/Vol] 12.6 g/dL Normal 11.5-15.5 [facility] Comment on above: Order Comment: Speci men Type: BLOOD SPECIMENOrdering Facility: [facility] Address: [address] [place] [address] Performed By: #### 5 8410-2 ####[facility] LABIA [id number] [address] MCH (RBC) [Entitic mass] 28.6 pg Normal 26.0-34.0 [facility] Comment on above: Order Comment: Speci men Type: BLOOD SPECIMENOrdering Facility: [facility] Address: [address] [place] [address] Performed By: #### 5 8410-2 ####[facility] LABIA [id number] [address] STATES [facility] MCHC (RBC) [Mass/Vol] 32.2 g/dL Normal 30.5-36.0 [facility] Comment on above: Order Comment: Speci men Type: BLOOD SPECIMENOrdering Facility: [facility] Address: [address] [place] [address] Performed By: #### 5 8410-2 ####[facility] LABCLIA [id number] [address] [place] MCV (RBC) [Entitic vol] 88.9 fL Normal 80.0-100.0 [facility] Comment on above: Order Comment: Speci men Type: BLOOD SPECIMENOrdering Facility: [facility] Address: [address] [place] [address] Performed By: #### 5 8410-2 ####[facility] LABIA [id number] [address] [place] Nucleated RBC (Bld) [#/Vol] 10*3/uL Normal <0.01 [facility] Comment on above: Order Comment: Speci men Type: BLOOD SPECIMENOrdering Facility: [facility] Address: [address] [place], [place] [address] Performed By: #### 5 8410-2 ####[facility] LABCLIA [id number] [address] [place] Platelet mean volume (Bld) [Entitic vol] 12.8 fL High 9.0-12.7 [facility] Comment on above: Order Comment: Speci men Type: BLOOD SPECIMENOrdering Facility: [facility] Address: [address] [place], [place] [address] Performed By: #### 5 8410-2 ####[facility] LABIA [id number] [place] [address] [place] Platelets (Bld) [#/Vol] 233 10*3/uL Normal 150-400 [facility] Comment on above: Order Comment: Speci men Type: BLOOD SPECIMENOrdering Facility: [facility] Address: [address] [place], [place] [address] Performed By: #### 5 8410-2 ####[facility] LABIA [id number] [place] [address] [place] RBC (Bld) [#/Vol] 4.40 10*6/uL Normal 3.90-5.20 [facility] Comment on above: Order Comment: Speci men Type: BLOOD SPECIMENOrdering Facility: [facility] Address: [address] [place], [place] [address] Performed By: #### 5 8410-2 ####[facility] LABIA [id number] [address] [place] WBC (Bld) [#/Vol] 6.56 10*3/uL Normal 3.70-11.00 [facility] Comment on above: Order Comment: Speci men Type: BLOOD SPECIMENOrdering Facility: [facility] Address: [address] [place], [place] [address] Performed By: #### 5 8410-2 ####[facility] LABIA [id number] [place] [address] [place] Hepatic function 2000 panelo n 11-01-2022 Albumin [Mass/Vol] 4.4 g/dL 3.9 - 4.9 g/dL [facility] ALP [Catalytic activity/Vol] 120 U/L 34 - 123 U/L [facility] ALT [Catalytic activity/Vol] 17 U/L 7 - 38 U/L [facility] AST [Catalytic activity/Vol] 19 U/L 13 - 35 U/L [facility] Bilirubin [Mass/Vol] 0.3 mg/dL 0.2 - 1.3 mg/dL [facility] Bilirubin.conjugat ed [Mass/Vol] <0.2 mg/dL [facility] Protein [Mass/Vol] 7.5 g/dL 6.3 - 8.0 g/dL [facility] Albumin [Mass/Vol] 4.4 g/dL Normal 3.9-4.9 [facility] Comment on above: Order Comment: Speci men Type: BLOOD SPECIMENOrdering Facility: [facility] Address: [address] [place] [address] Performed By: #### 2 4323, 2132-05 ####[facility] LABCLIA [id number] [place] [address] [place] ALP [Catalytic activity/Vol] 120 U/L Normal 34-123 [facility] Comment on above: Order Comment: Speci men Type: BLOOD SPECIMENOrdering Facility: [facility] Address: [address] [place] [address] Performed By: #### 2 43253, 2132-05 ####[facility] LABCLIA [id number] [address] [place] ALT [Catalytic activity/Vol] 17 U/L Normal 7-38 [facility] Comment on above: Order Comment: Speci men Type: BLOOD SPECIMENOrdering Facility: [facility] Address: [address] Performed By: #### 2 4325-3, 2132-05 ####[facility] LABCLIA [id number] [place] [address] [place] AST [Catalytic activity/Vol] 19 U/L Normal 13-35 [facility] Comment on above: Order Comment: Speci men Type: BLOOD SPECIMENOrdering Facility: [facility] Address: [address] [place], [place] [address] Performed By: #### 2 4325-3, 2132-05 ####[facility] LABIA [id number] [place] [address] [place] Bilirubin [Mass/Vol] 0.3 mg/dL Normal 0.2-1.3 [facility] Comment on above: Order Comment: Speci men Type: BLOOD SPECIMENOrdering Facility: [facility] Address: [address] [place], [place] [address] Performed By: #### 2 4325-3, 2132-05 ####[facility] LABIA [id number] [address] [place] Bilirubin.conjugat ed [Mass/Vol] mg/dL Normal <0.2 [facility] Comment on above: Order Comment: Speci men Type: BLOOD SPECIMENOrdering Facility: [facility] Address: [address] [place] [address] Performed By: #### 2 4323, 2132-05 ####[facility] LABIA [id number] [place] [address] [place] Protein [Mass/Vol] 7.5 g/dL Normal 6.3-8.0 [facility] Comment on above: Order Comment: Speci men Type: BLOOD SPECIMENOrdering Facility: [facility] Address: [address] [place], [place] [address] Performed By: #### 2 43253, 2132-05 ####[facility] LABIA [id number] [place] [address] [place] Laboratory - Chemistry and C hemistry - challengeon 11-01-2022 25-hydroxyvitamin D3 [Mass/Vol] 20.5 ng/mL Low 31.0 - 80.0 ng/mL [facility] Cobalamin (Vitamin B12) [Mass/Vol] 380 pg/mL 232 - 1,245 pg/mL [facility] Vit B12 SerPl-mCncon 023 Cobalamin (Vitamin B12) [Mass/Vol] 380 pg/mL Normal 232-1245 [facility] Comment on above: Order Comment: Speci men Type: BLOOD SPECIMENOrdering Facility: [facility] Address: [address] [id number] Performed By: #### 2 4325-3, 2132-9 ####[facility] LABCLIA [id number] [facility] [id number] PROTIMEon 10-07-2022 INR Coag (PPP) [Relative time] 2.49 {INR} Normal [facility] Comment on above: Performed By: #### P T #### [facility] [address] [address] [address] Kvng Chan INR GUIDELINES SEE BELOW Normal [facility] Comment on above: Result Comment: LIAN RED INR: 2.0 - 3.0 CONDITIONS NOT LISTED BELOW 2.5 - 3.5 FOR PROSTHETIC HEART VALVE REPLACEMENT 2.5 - 3.5 RECURRENT THROMBOSIS Performed By: #### P T #### [facility] [address] [address] [address] Kvng Chan PT Coag (PPP) [Time] 25.1 s Critically high 9.0-11.6 [facility] Comment on above: Performed By: #### P T #### [facility] [address] [address] [address] Kvng Chan CULTURE URINEon 08-30-2022 CULTURE URINE Isolate 1 Staphylococcus haemolyticus 40,000 cfu/ml of ORGANISM 1 Staphylococcus haemolyticus ANTIBIOTIC M.I.C RX STATUS Beta-Lactamase Pos POS F Cefoxitin Screen Pos POS F Benzylpenicillin >=0.5 R F Gentamicin <=0.5 S F Ciprofloxacin <=0.5 S F Levofloxacin <=0.12 S F Inducible Clindamycin Resistance Neg NEG F Quinupristin/Dalfopri stin <=0.25 S F Linezolid 2 S F Vancomycin <=0.5 S F Tetracycline <=1 S F Nitrofurantoin <=16 S F Rifampicin <=0.5 S F Trimethoprim/Sulfamet hoxazole <=10 S F Oxacillin >=4 R F Normal [facility] Comment on above: Performed By: #### U RCX #### [facility] [address] [place] [address] Dr. Kvng Chan CBC AUTO DIFFon 08-27-2022 BASO # 0.1 103/ul Normal 0.0-0.1 [facility] Comment on above: Performed By: #### C BC #### [facility] [address] [place] [address] Dr. Kvng Chan Basophils/100 WBC (Bld) 0.6 % Normal 0.2-2.0 [facility] Comment on above: Performed By: #### C BC #### [facility] [address] [place] [address] Dr. Kvng Chan EO # 0.1 103/ul Normal 0.0-0.7 [facility] Comment on above: Performed By: #### C BC #### [facility] [address] [place] [address] Dr. Kvng Chan Eosinophils/100 WBC (Bld) 1.2 % Normal 0.9-7.0 [facility] Comment on above: Performed By: #### C BC #### [facility] [address] [place] [address] Dr. Kvng Chan Erythrocyte distribution width (RBC) [Ratio] 14.1 % Normal 11.0-15.0 [facility] Comment on above: Performed By: #### C BC #### [facility] [address] [place] [address] Dr. Kvng Chan Hematocrit (Bld) [Volume fraction] 37.0 % Normal 36.0-48.0 [facility] Comment on above: Performed By: #### C BC #### [facility] [address] [place] [address] Dr. Kvng Chan Hemoglobin (Bld) [Mass/Vol] 12.3 g/dL Normal 12.0-16.0 [facility] Comment on above: Performed By: #### C BC #### [facility] [address] [place] [address] Dr. Kvng Chan IG # 0.05 10e3/ul Critically high 0.00-0.03 [facility] Comment on above: Performed By: #### C BC #### [facility] [address] [place] [address] Dr. Kvng Chan IG % 0.4 % Normal 0.0-0.5 [facility] Comment on above: Performed By: #### C BC #### [facility] [address] [place] [address] Dr. Kvng Chan LYMPH # 2.8 103/ul Normal 1.2-3.8 [facility] Comment on above: Performed By: #### C BC #### [facility] [address] [place] [address] Dr. Kvng Chan Lymphocytes/100 WBC (Bld) 23.0 % Normal 20.5-60.0 [facility] Comment on above: Performed By: #### C BC #### [facility] [address] [place] [address] Dr. Kvng Chan MANUAL DIFF REQ NO Normal [facility] Comment on above: Performed By: #### C BC #### [facility] [address] [place] [address] Dr. Kvng Chan MCH (RBC) [Entitic mass] 28.6 pg Normal 26.7-34.0 [facility] Comment on above: Performed By: #### C BC #### [facility] [address] [place] [address] Dr. Kvng Chan MCHC (RBC) [Mass/Vol] 33.2 g/dL Normal 29.9-35.2 [facility] Comment on above: Performed By: #### C BC #### [facility] [address] [place] [address] Dr. Kvng Chan MCV (RBC) [Entitic vol] 86.0 fL Normal 81.0-99.0 [facility] Comment on above: Performed By: #### C BC #### [facility] [address] [place] [address] Dr. Kvng Chan MONO # 0.8 103/ul Normal 0.3-0.8 [facility] Comment on above: Performed By: #### C BC #### [facility] [address] [place] [address] Dr. Kvng Chan Monocytes/100 WBC (Bld) 6.7 % Normal 1.7-12.0 [facility] Comment on above: Performed By: #### C BC #### [facility] [address] [place] [address] Dr. Kvng Chan NEUT # 8.1 103/ul Critically high 1.4-6.5 [facility] Comment on above: Performed By: #### C BC #### [facility] [address] [place] [address] Dr. Kvng Chan Neutrophils/100 WBC (Bld) 68.1 % Normal 43.0-75.0 [facility] Comment on above: Performed By: #### C BC #### [facility] [address] [place] [address] Dr. Kvng Chan Platelet mean volume (Bld) [Entitic vol] 11.6 fL Normal 9.5-13.5 [facility] Comment on above: Performed By: #### C BC #### [facility] [address] [place] [address] Dr. Kvng Chan PLT 239 103/ul Normal 150-450 [facility] Comment on above: Performed By: #### C BC #### [facility] [address] [place] [address] Dr. Kvng Chan RBC 4.30 106/ul Normal 4.20-5.40 [facility] Comment on above: Performed By: #### C BC #### [facility] [address] [place] [address] Dr. Kvng Chan WBC 11.9 103/ul Critically high 4.0-11.0 [facility] Comment on above: Performed By: #### C BC #### [facility] [address] [place] [address] ABD/PELV W CONon 08-27-[address] ABD/PELV W CON Indication: Hematuria. Lower abdominal pain. Comparison: 11/24/2020 exam. Procedure: Axial images were made from the diaphragms through the symphysis pubis. No oral contrast was given prior to scanning. 100 mL Omnipaque 300 Intravenous contrast was given. Dose reduction techniques were achieved by using automated exposure control and/or adjustment of mA and/or kV according to patient size and/or use of iterative reconstruction technique. Findings: Liver/Biliary System: No liver masses. No intra or extrahepatic biliary dilatation. No gallstones or cholecystitis. Pancreas/Spleen: No pancreatic masses are seen. Pancreatic duct is not dilated. No evidence of acute pancreatitis. No splenomegaly or splenic lesions. Kidneys/Adrenals: No renal or ureteral stones are seen. No hydronephrosis or hydroureter bilaterally. Normal symmetrical nephrograms. No renal masses. No adrenal masses. Aorta/Vessels: No evidence of aortic aneurysm. Patent IVC, renal veins, hepatic veins and portal venous system. Bowel/Fluid/Nodes: No evidence of bowel obstruction. Colonic diverticulosis with no evidence of diverticulitis. Terminal ileum shows enhancing mucosal wall which suggests terminal ileitis (axial LOC: 306). No ascites or fluid collections. Stable 2.5 cm mesenteric lymph node in upper pelvis, probably benign (axial LOC: 255). Lung bases: Clear. Other findings: No aggressive osseous lesions are seen. Pelvis: No pelvic masses or adenopathy. No free fluid seen in the pelvis. Status post hysterectomy. Bladder is unremarkable. Other Findings: No aggressive osseous lesions are seen. Impression: 1. Terminal ileum shows enhancing mucosal wall which suggests terminal ileitis. No bowel dilatation. 2. Colonic diverticulosis with no evidence of diverticulitis. 3. No renal, ureteral or bladder stones or masses. No hydronephrosis or hydroureter bilaterally. Electronically authenticated by: JOHN LUONG Date: 2022-08-27 21:54 Normal [facility] ER URINE PROFILEon 2 Bilirubin Ql (U) Negative Normal NEGATIVE [facility] Comment on above: Performed By: #### U RCX #### [facility] [address] [place] [address] Dr. Kvng Chan Clarity (U) CLEAR Normal CLEAR [facility] Comment on above: Performed By: #### U RCX #### [facility] [address] [place] [address] [address] Kvng Chan Color (U) LT. YELLOW Normal YELLOW [facility] Comment on above: Performed By: #### U RCX #### [facility] [address] [place] [address] Dr. Kvng ZUNIGA A micrscopic examination will be performed if indicated. Normal [facility] Comment on above: Performed By: #### U RCX #### [facility] [address] [place] [address] [address] Kvng Chan Ketones Ql (U) Negative Normal NEGATIVE [facility] Comment on above: Performed By: #### U RCX #### [facility] [address] [place] [address] Dr. Kvng Chan LEUKOCYTES TRACE Abnormal NEGATIVE [facility] Comment on above: Performed By: #### U RCX #### [facility] [address] [place] [address] Dr. Kvng Chan SPEC GRAVITY 1.020 Normal 1.005-<=1.025 [facility] Comment on above: Performed By: #### U RCX #### [facility] [address] [place] [address] Dr. Kvng Chan UA PROTEIN TRACE Normal NEGATIVE/ TRACE [facility] Comment on above: Performed By: #### U RCX #### [facility] [address] [place] [address] Dr. Kvng Chan UR MICRO IND INDICATED Normal [facility] Comment on above: Performed By: #### U RCX #### [facility] [address] [place] [address] Dr. Kvng Chan Urobilinogen Qn (U) 0.2 {Sue'U}/dL Normal 0.2 - 1.0 [facility] Comment on above: Performed By: #### U RCX #### [facility] [address] [place] [address] Dr. Kvng Chan PROF CHEM 8 (BAS METB)on Anion gap [Moles/Vol] 9.8 mmol/L Normal [facility] Comment on above: Performed By: #### B MP #### [facility] [address] [place] [address] [address] Kvng Chan Calcium [Mass/Vol] 8.8 mg/dL Normal 8.5-10.1 [facility] Comment on above: Performed By: #### B MP #### [facility] [address] [place] [address] [address] Kvng Chan Chloride [Moles/Vol] 102 mmol/L Normal 98-107 [facility] Comment on above: Performed By: #### B MP #### [facility] [address] [place] [address] [address] Kvng Chan CO2 [Moles/Vol] 28.8 mmol/L Normal 21.0-32.0 [facility] Comment on above: Performed By: #### B MP #### [facility] [address] [place] [address] [address] Kvng Chan Creatinine [Mass/Vol] 0.77 mg/dL Normal 0.55-1.02 [facility] Comment on above: Performed By: #### B MP #### [facility] [address] [place] [address] [address] Kvng Chan EGFR-AF BAHRAINI >60 Normal >=60 [facility] Comment on above: Performed By: #### B MP #### [facility] [address] [place] [address] [address] Kvng Chan EGFR-NON AF BAHRAINI >60 Normal >=60 [facility] Comment on above: Performed By: #### B MP #### [facility] [address] [place] [address] [address] Kvng Chan Glucose [Mass/Vol] 96 mg/dL Normal 74-106 [facility] Comment on above: Performed By: #### B MP #### [facility] [address] [place] [address] [address] Kvng Chan Potassium [Moles/Vol] 3.6 mmol/L Normal 3.5-5.1 [facility] Comment on above: Performed By: #### B MP #### [facility] [address] [place] [address] Dr. Kvng Chan Sodium [Moles/Vol] 137 mmol/L Normal 136-145 [facility] Comment on above: Performed By: #### B MP #### [facility] [address] [place] [address] Dr. Kvng Chan Urea nitrogen [Mass/Vol] 16.0 mg/dL Normal 7.0-18.0 [facility] Comment on above: Performed By: #### B MP #### [facility] [address] [place] [address] Dr. Kvng Chan Urea nitrogen/Creatinin e [Mass ratio] 20.8 mg/mg Normal [facility] Comment on above: Performed By: #### B MP #### [facility] [address] [place] [address] Dr. Kvng Chan PROTIMEon 08-27-2022 INR Coag (PPP) [Relative time] 2.68 {INR} Normal [facility] Comment on above: Performed By: #### P T #### [facility] [address] [place] [address] Dr. Kvng Chan INR GUIDELINES SEE BELOW Normal [facility] Comment on above: Result Comment: LIAN RED INR: 2.0 - 3.0 CONDITIONS NOT LISTED BELOW 2.5 - 3.5 FOR PROSTHETIC HEART VALVE REPLACEMENT 2.5 - 3.5 RECURRENT THROMBOSIS Performed By: #### P T #### [facility] [address] [place] [address] Dr. Kvng Chan PT Coag (PPP) [Time] 27.1 s Critically high 9.0-11.6 [facility] Comment on above: Performed By: #### P T #### [facility] [address] [place] [address] Dr. Kvng Chan URINE MICROSCOPIC ONLYon BACTERIA TRACE Abnormal NONE SEEN [facility] Comment on above: Performed By: #### U RCX #### [facility] [address] [place] [address] Dr. Kvng Chan Bacteria identified Cx Nom (U) INDICATED Normal [facility] Comment on above: Performed By: #### U RCX #### [facility] [address] [place] [address] Dr. Kvng Chan CAST NONE SEEN Normal NONE SEEN [facility] Comment on above: Performed By: #### U RCX #### [facility] [address] [place] [address] Dr. Kvng Chan Crystals LM Nom (Urine sed) NONE SEEN Normal NONE SEEN [facility] Comment on above: Performed By: #### U RCX #### [facility] [address] [place] [address] Dr. Kvng Chan Epithelial cells LM Ql (Urine sed) RARE Normal NONE SEEN /RARE [facility] Comment on above: Performed By: #### U RCX #### [facility] [address] [place] [address] Dr. Kvng Chan MUCOUS NONE SEEN Normal NONE SEEN [facility] Comment on above: Performed By: #### U RCX #### [facility] [address] [place] [address] Dr. Kvng Chan RBC 20-50 Abnormal 0-2 [facility] Comment on above: Performed By: #### U RCX #### [facility] [address] [place] [address] Dr. Kvng Chan WBC 2-5 Abnormal NONE SEEN [facility] Comment on above: Performed By: #### U RCX #### [facility] [address] [place] [address] Dr. Kvng Chan Urinalysis - AUTOMATEDon Glucose Ql (U) Negative Normal NEGATIVE [employer] Other Comment on above: Performed By: #### U RCX #### [facility] [address] [place] [address] Dr. Kvng Chan Hemoglobin Ql (U) Large Abnormal NEGATIVE [employer] Other Comment on above: Performed By: #### U RCX #### [facility] [address] [place] [address] Dr. Kvng Chan Nitrite Ql (U) Negative Normal NEGATIVE [employer] Other Comment on above: Performed By: #### U RCX #### [facility] [address] [place] [address] [address] Kvng Chan pH (U) 5.5 [pH] Normal 5-9 [employer] Other Comment on above: Performed By: #### U RCX #### [facility] [address] [place] [address] [address] Kvng Chan Appearance (U) cloudy [employer] Other Bilirubin Ql (U) [employer] Other Color (U) red [employer] Other Ketones Ql (U) Trace [employer] Other Leukocyte esterase Test strip Ql (U) Negative [employer] Other Protein Ql (U) 100 [employer] Other Specific gravity (U) [Rel density] 1.030 [employer] Other Urobilinogen (U) [Mass/Vol] 0.20 mg/dL [employer] Other Urinalysis - AUTOMATED [employer] Other PROTIMEon 07-30-2022 INR Coag (PPP) [Relative time] 3.11 {INR} Normal [facility] Comment on above: Performed By: #### P T #### [facility] [address] [place] [address] Dr. Kvng Chan INR GUIDELINES SEE BELOW Normal [facility] Comment on above: Result Comment: LIAN RED INR: 2.0 - 3.0 CONDITIONS NOT LISTED BELOW 2.5 - 3.5 FOR PROSTHETIC HEART VALVE REPLACEMENT 2.5 - 3.5 RECURRENT THROMBOSIS Performed By: #### P T #### [facility] [address] [place] [address] [address] Kvng Chan PT Coag (PPP) [Time] 31.2 s Critically high 9.0-11.6 [facility] Comment on above: Performed By: #### P T #### [facility] [id number] Kvng Chan CT Abdomen Pelvis Enterograp hy w/ IV Conon 07-01-2022 CT Abdomen Pelvis Enterography w/ IV Con CT ENTEROGRAPHY: CLINICAL INFORMATION: Chronic abdominal pain. Diarrhea. Evaluate for Crohn's disease. COMPARISON: 06/01/2022 TECHNIQUE: Contiguous axial scans of 5.0 mm slice thicknesses were obtained through the abdomen and pelvis. This CT study was performed using one or more of the following dose reduction techniques: automated exposure control, adjustment of the mA and/or kV according to patient's size and/or use of iterative reconstruction technique. Sagittal and coronal reformatted images were created and reviewed. Intravenous contrast: Omnipaque 350, 150 mL intravenously. Oral contrast: Routine Enterography protocol. Findings: TECHNICAL QUALITY Image quality: Satisfactory. Small bowel distention: Adequate. BOWEL Bowel wall thickening: Absent. Fluid levels: Air-fluid levels are scattered throughout the small bowel and colon. Scattered lesions: None present. Vascularity: Normal. Enhancement: normal. Fistula: None. Abscess: None. OTHER FINDINGS Lymph nodes: Normal. Stomach: Distended with fluid left normal. Colon: Diverticula in the transverse, descending, and sigmoid. Liver: Unremarkable. Gallbladder: Normal. Pancreas: Normal. Spleen: Normal. Adrenal glands: Normal. Kidneys: Normal. Vascular structures: Unremarkable. Lung bases: Unremarkable. Abdominal wall: Small soft tissue nodules in the subcutaneous fat most likely from subcutaneous injections. Bones: Unremarkable. Other: Metallic surgical clip posterior to the urinary bladder probably related to previous hysterectomy. Phleboliths in the pelvis. CONCLUSIONS: 1. Scattered air-fluid levels in the small and large bowel. 2. No abnormal dilated segments of small bowel. 3. No strictures or fistulas. 4. Diverticulosis. 5. Other nonacute findings detailed above. Final Dictated by: South Patino MD Dictated DT/TM: 07.01.2022 7:19 am Signed by: South Patino MD Signed (Electronic Signature): 07.01.2022 7:33 am (If Report Is Signed, Electronically Signed in Other Vendor System) Normal [facility] PROTIMEon 06-15-2022 INR Coag (PPP) [Relative time] 3.19 {INR} Normal [facility] Comment on above: Performed By: #### P T #### [facility] [address] [place] [address] Dr. Kvng Chan INR GUIDELINES SEE BELOW Normal [facility] Comment on above: Result Comment: LIAN RED INR: 2.0 - 3.0 CONDITIONS NOT LISTED BELOW 2.5 - 3.5 FOR PROSTHETIC HEART VALVE REPLACEMENT 2.5 - 3.5 RECURRENT THROMBOSIS Performed By: #### P T #### [facility] [address] [place] [address] Dr. Kvng Chan PT Coag (PPP) [Time] 31.9 s Critically high 9.0-11.6 [facility] Comment on above: Performed By: #### P T #### [facility] [address] [place] [address] Dr. Kvng Chan PROTIMEon 06-11-2022 INR Coag (PPP) [Relative time] 1.71 {INR} Normal [facility] Comment on above: Performed By: #### P T #### [facility] [address] [place] [address] Dr. Kvng Chan INR GUIDELINES SEE BELOW Normal [facility] Comment on above: Result Comment: LIAN RED INR: 2.0 - 3.0 CONDITIONS NOT LISTED BELOW 2.5 - 3.5 FOR PROSTHETIC HEART VALVE REPLACEMENT 2.5 - 3.5 RECURRENT THROMBOSIS Performed By: #### P T #### [facility] [address] [place] [address] Dr. Kvng Chan PT Coag (PPP) [Time] 17.8 s Critically high 9.0-11.6 [facility] Comment on above: Performed By: #### P T #### [facility] [address] [place] [address] Dr. Kvng Chan No Panel Informationon 06-09 Colonoscopy Invalid Interpretation Code [facility] No Panel Informationon 06-07 Colonoscopy Invalid Interpretation Code [facility] .eGFRon 06-01-2022 GFR/1.73 sq M.predicted MDRD (S/P/Bld) [Vol rate/Area] mL/min/{1.73_m2} Normal >=60 [facility] Comment on above: Order Comment: Order added by Discern Rule. Result Comment: [facility] have implemented the eGFR calculation approach that does not have a coefficient for race and that conforms to the NKF-ASN Task Force Recommendations. Stages of Chronic Kidney Disease GFR Stage 3a Mild to moderate loss of kidney function 59 to 45 Stage 3b Moderate to severe loss of kidney function 44 to 33 Stage 4 Severe loss of kidney function 29 to 15 Stage 5 Kidney failure Less than 15 GFR calculated using the CKD-Epi Creatinine Equation (2020): eGFR = 142 X min(SCr/?, 1)? X max(SCr /?, 1)-1.200 X 0.9938Age X 1.012 [if female] Abbreviations/Units: eGFR (estimated glomerular filtration rate) = mL/min/1.73 m2 SCr (standardized serum creatinine) = mg/dL ? = 0.7 (females) or 0.9 (males) ? = -0.241 (females) or -0.302 (males) min = indicates the minimum of SCr/? or 1 max = indicates the maximum of SCr/? or 1 Age = years Performed By: #### E GFR #### [facility] [address] [place] [address] POC Creatinine Von 2 POC Crea iStat Venous 0.7 mg/dL Normal 0.6-1.3 [facility] Comment on above: Performed By: #### C [id number] #### [facility] [address] [place] [address] C-REACTIVE PROTEIN (CRP)on 0 05-03-2022 CRP [Mass/Vol] 1.5 mg/dL High <0.9 mg/dL [facility] C3 COMPLEMENT [facility] 05-03-20 22 Complement C3 [Mass/Vol] 172 mg/dL High 86 - 166 mg/dL [facility] C4 COMPLEMENT [facility] 05-03-20 22 Complement C4 [Mass/Vol] 40 mg/dL 13 - 46 mg/dL [facility] CBC W Auto Differential pane l (Bld)on 05-03-2022 Abs Immature Gran 0.03 k/uL <0.10 k/uL [facility] Basophils (Bld) [#/Vol] 0.04 10*3/uL <0.11 k/uL [facility] Basophils/100 WBC (Bld) 0.5 % [facility] Differential cell count method Nom (Bld) Auto [facility] Eosinophils (Bld) [#/Vol] 0.07 10*3/uL <0.46 k/uL [facility] Eosinophils/100 WBC (Bld) 0.8 % [facility] Erythrocyte distribution width (RBC) [Ratio] 14.1 % 11.5 - 15.0 % [facility] Hematocrit (Bld) [Volume fraction] 40.1 % 36.0 - 46.0 % [facility] Hemoglobin (Bld) [Mass/Vol] 12.7 g/dL 11.5 - 15.5 g/dL [facility] Immature Gran % 0.3 % [facility] Lymphocytes (Bld) [#/Vol] 1.77 10*3/uL 1.00 - 4.00 k/uL [facility] Lymphocytes/100 WBC (Bld) 20.5 % [facility] MCH (RBC) [Entitic mass] 28.3 pg 26.0 - 34.0 pg [facility] MCHC (RBC) [Mass/Vol] 31.7 g/dL 30.5 - 36.0 g/dL [facility] MCV (RBC) [Entitic vol] 89.5 fL 80.0 - 100.0 fL [facility] Monocytes (Bld) [#/Vol] 0.32 10*3/uL <0.87 k/uL [facility] Monocytes/100 WBC (Bld) 3.7 % [facility] Neutrophils (Bld) [#/Vol] 6.42 10*3/uL 1.45 - 7.50 k/uL [facility] Neutrophils/100 WBC (Bld) 74.2 % [facility] Nucleated RBC (Bld) [#/Vol] <0.01 k/uL [facility] Nucleated RBC/100 WBC (Bld) [Ratio] 0.0 /100 WBC [facility] Platelet mean volume (Bld) [Entitic vol] 12.4 fL 9.0 - 12.7 fL [facility] Platelets (Bld) [#/Vol] 218 10*3/uL 150 - 400 k/uL [facility] RBC (Bld) [#/Vol] 4.48 10*6/uL 3.90 - 5.2 0 m/uL [facility] WBC (Bld) [#/Vol] 8.65 10*3/uL 3.70 - 11. 00 k/uL [facility] Comprehensive metabolic 2000 panelon 05-03-2022 Albumin [Mass/Vol] 4.4 g/dL 3.9 - 4.9 g/dL [facility] ALP [Catalytic activity/Vol] 116 U/L 34 - 123 U/L [facility] ALT [Catalytic activity/Vol] 17 U/L 7 - 38 U/L [facility] Anion gap [Moles/Vol] 11 mmol/L 9 - 18 mmol/L [facility] AST [Catalytic activity/Vol] 19 U/L 13 - 35 U/L [facility] Bilirubin [Mass/Vol] 0.3 mg/dL 0.2 - 1.3 mg/dL [facility] Calcium [Mass/Vol] 9.7 mg/dL 8.5 - 10. 2 mg/dL [facility] Chloride [Moles/Vol] 105 mmol/L 97 - 105 mmol/L [facility] CO2 [Moles/Vol] 25 mmol/L 22 - 30 mmol/L [facility] Creatinine [Mass/Vol] 0.80 mg/dL 0.58 - 0.96 mg/dL [facility] Estimated Glomerular Filtration Rate 88 mL/min/1.73m >=60 mL/min/1.73m [facility] Glucose [Mass/Vol] 99 mg/dL 74 - 99 mg/dL [facility] Potassium [Moles/Vol] 4.6 mmol/L 3.7 - 5.1 mmol/L [facility] Protein [Mass/Vol] 7.5 g/dL 6.3 - 8.0 g/dL [facility] Sodium [Moles/Vol] 141 mmol/L 136 - 144 mmol/L [facility] Urea nitrogen [Mass/Vol] 11 mg/dL 7 - 21 mg/dL [facility] RHEUMATOID FACTOR BLon 05-03 Rheumatoid factor Qn 13 [IU]/mL <16 IU/mL [facility] XR HAND GENERAL 3V PA/LAT/OB L BILATERALon 05-03-2022 [facility] Laboratory - Chemistry and C hemistry - challengeon 04-12-2022 25-hydroxyvitamin D3 [Mass/Vol] 20.9 ng/mL Invalid Interpretation Code 30.0-100.0 [facility] Albumin [Mass/Vol] 4.30 g/dL Invalid Interpretation Code 3.7-5.0 [facility] Albumin/Globulin [Mass ratio] 1.3 {ratio} Invalid Interpretation Code 1.0-2.4 [facility] ALP [Catalytic activity/Vol] 136.0 U/L Invalid Interpretation Code 31-155 [employer] [facility] ALT [Catalytic activity/Vol] 15.0 U/L Invalid Interpretation Code 0-50 [employer] [facility] Anion gap [Moles/Vol] 12 mmol/L Invalid Interpretation Code 10-20 [facility] [facility] AST [Catalytic activity/Vol] 16.0 U/L Invalid Interpretation Code 0-40 [facility] Bilirubin [Mass/Vol] 0.30 mg/dL Invalid Interpretation Code 0.0-1.0 [facility] Bilirubin Ql (U) Negative Invalid Interpretation Code Negative [facility] [facility] Calcium [Mass/Vol] 9.70 mg/dL Invalid Interpretation Code 8.5-10.8 [facility] Chloride [Moles/Vol] 104.0 mmol/L Invalid Interpretation Code 100-112 [employer] [facility] Cholesterol [Mass/Vol] 219.0 mg/dL Invalid Interpretation Code 0-200 [facility] [facility] Cholesterol in HDL [Mass/Vol] 42.0 mg/dL Invalid Interpretation Code 50-100 [facility] Cholesterol in LDL [Mass/Vol] 111.0 mg/dL Invalid Interpretation Code 0-130 [facility] Cholesterol in VLDL [Mass/Vol] 66.0 mg/dL Invalid Interpretation Code 0-39 [facility] Cholesterol.total/ Cholesterol in HDL [Mass ratio] 5 {ratio} Invalid Interpretation Code [facility] CO2 [Moles/Vol] 28.0 mmol/L Invalid Interpretation Code 23-30 [facility] Creatinine [Mass/Vol] 0.80 mg/dL Invalid Interpretation Code 0.5-1.5 [facility] GFR/1.73 sq M.predicted among non-blacks MDRD (S/P/Bld) [Vol rate/Area] 75 mL/min/{1.73_m2} Invalid Interpretation Code [facility] Glucose [Mass/Vol] 90.0 mg/dL Invalid Interpretation Code 80-117 [facility] Ketones Ql (U) Negative Invalid Interpretation Code Negative [facility] pH (U) 6 [pH] Invalid Interpretation Code 5.0-9.0 [facility] Potassium [Moles/Vol] 4.30 mmol/L Invalid Interpretation Code 3.5-5.3 [employer] [facility] Protein [Mass/Vol] 7.60 g/dL Invalid Interpretation Code 6.3-7.9 [facility] [facility] Sodium [Moles/Vol] 140.0 mmol/L Invalid Interpretation Code 135-148 [employer] [facility] Specific gravity (U) [Rel density] 1.010 Invalid Interpretation Code 1.003-1.030 [facility] Triglyceride [Mass/Vol] 328.0 mg/dL Invalid Interpretation Code 30-150 [facility] TSH Qn 1.29 m[IU]/L Invalid Interpretation Code 0.50-4.00 [facility] Urea nitrogen [Mass/Vol] 14.0 mg/dL Invalid Interpretation Code 7-25 [facility] Urea nitrogen/Creatinin e [Mass ratio] 18 mg/mg Invalid Interpretation Code 6-20 [facility] Urobilinogen (U) [Mass/Vol] normal Invalid Interpretation Code normal [facility] - Hematology and Cell countson 04-12-2022 Erythrocyte distribution width (RBC) [Ratio] 13.80 % Invalid Interpretation Code 11.5-15.5 [facility] Hematocrit (Bld) [Volume fraction] 41.40 % Invalid Interpretation Code 35.7-47.1 [facility] Hemoglobin (Bld) [Mass/Vol] 13.30 g/dL Invalid Interpretation Code 11.9-15.7 [facility] Hemoglobin Ql (U) Negative Invalid Interpretation Code Negative [facility] MCH (RBC) [Entitic mass] 28.40 pg Invalid Interpretation Code 23.2-33.3 [employer] [facility] MCHC (RBC) [Mass/Vol] 32.10 g/dL Invalid Interpretation Code 32.0-36.0 [facility] MCV (RBC) [Entitic vol] 88.50 fL Invalid Interpretation Code 83.4-101.4 [facility] [facility] Platelet mean volume (Bld) [Entitic vol] 11.30 fL Invalid Interpretation Code 8.3-11.5 [facility] [facility] Platelets (Bld) [#/Vol] 244.0 10*3/uL Invalid Interpretation Code 150-400 [facility] [facility] RBC (Bld) [#/Vol] 4.680 10*6/uL Invalid Interpretation Code 3.72-5.24 [facility] WBC (Bld) [#/Vol] 8.70 10*3/uL Invalid Interpretation Code 3.9-10.3 [facility] Laboratory - Specimen inform ationon 04-12-2022 Clarity (U) clear Invalid Interpretation Code Clear [facility] Collection time (Varun) [Date/time] 3:35 pm Invalid Interpretation Code [facility] [facility] Color (U) yellow Invalid Interpretation Code yellow [facility] Laboratory - Urinalysison Glucose Test strip (U) [Mass/Vol] Negative Invalid Interpretation Code Negative [employer] [facility] Leukocyte esterase Test strip Ql (U) Negative Invalid Interpretation Code Negative [facility] [facility] Nitrite Ql (U) Negative Invalid Interpretation Code Negative [facility] [facility] Protein Ql (U) Negative Invalid Interpretation Code Negative [employer] [facility] No Panel Informationon 04-12 386 Invalid Interpretation Code 243-911 [facility] 14.0 Invalid Interpretation Code >5.4 [employer] 45.0 mm/h Invalid Interpretation Code 0-30 [facility] 2.3 Invalid Interpretation Code 0.9-1.2 [facility] 24.5 Invalid Interpretation Code 9.1-12.0 [facility] PROTIMEon 03-08-2022 INR Coag (PPP) [Relative time] 2.59 {INR} Normal [facility] Comment on above: Performed By: #### P T #### [facility] [address] [place] [address] Dr. Kvng Chan INR GUIDELINES SEE BELOW Normal [facility] Comment on above: Result Comment: LIAN RED INR: 2.0 - 3.0 CONDITIONS NOT LISTED BELOW 2.5 - 3.5 FOR PROSTHETIC HEART VALVE REPLACEMENT 2.5 - 3.5 RECURRENT THROMBOSIS Performed By: #### P T #### [facility] [address] [place] [address] Dr. Kvng Chan PT Coag (PPP) [Time] 26.3 s Critically high 9.0-11.6 [facility] Comment on above: Performed By: #### P T #### [facility] [address] [place] [address] Dr. Kvng Chan No Panel Informationon 09-04 25.7 Invalid Interpretation Code 9.4-12.1 [facility] 2.7 Invalid Interpretation Code <=3.5 [facility] Mani 08-10-2021 L - -------- Specimen: [id number] Received: 08/10/21 Status: RK Castaneda Num: [id number] Spec Type: Surgical Subm Dr: Brian Jasso,DO Tissues: A Lipoma (BACK MASS) Procedures: HE Stain/5, Gross/Micro L3 -------- Patient Age/Sex Location Account Attending Physician -------- Kimberly Cavazos 55/F [place] [id number] Brian Jasso DO -------- SPEC NUM: [id number] RECD: 08/10/21 STATUS: RK CASTANEDA NUM: [id number] TR: 08/10/21- [facility] DR: Brian Jasso DO ENTERED: 08/10/21 [facility] DR: ELIU TYPE: Surgical DEPT: S ENTERED BY: [id number] RECV BY: [id number] ORDERED: HE Stain/5, Gross/Micro L3 ORDERED: HE Stain/5, Gross/Micro L3 Pathological Diagnosis Soft tissue mass, back, excision: - Lobulated mature adipose tissue, consistent with lipoma. Clinical Information Back mass Gross Description Received in formalin labeled with the patient's name, number and back mass is a 66.6 g, 10.3 x 6.6 x 2.4 cm yellow lobulated adipose tissue fragment (inked blue). Sectioning reveals predominantly yellow, lobulated to smooth cut surfaces with intervening jessica-pink, hyperemic fat. Night Monitor sections are submitted in five cassettes labeled A1-A5. (SM/YJ) Microscopic Description Five glass slides with H E stained material have been examined. The microscopic findings support the above pathologic diagnosis. CPT Codes 99320 -------- -------- Specimen: [id number] Received: 08/10/21 Status: RK Castaneda Num: [id number] Spec Type: Surgical Subm Dr: Brian Jasso DO Tissues: A Lipoma (BACK MASS) Procedures: HE Stain/5, Gross/Micro L3 -------- Patient: Kimberly Cavazos [place] [id number] (Continued) -------- Signed (signature on file) Krish Naranjo MD 08/11/21 1405 Normal [facility] COVID[place]19 [facility] [place] SARS-CoV-2 (COVID-19) RNA HAROON+probe Ql (Unsp spec) Negative Normal Negative [facility] Comment on above: Order Comment: Healt hcare Worker?: N Result Comment: Testing for SARS-CoV-2 by RT-PCR This test was developed and its performance characteristics determined by [employer] and validated at the [facility]. This test has not been FDA cleared or approved. This test has been authorized by FDA under an Emergency Use Authorization (EUA). This test has been validated in accordance with the FDA's Guidance Document (Policy for Diagnostics Testing in Laboratories Certified to Perform High Complexity Testing under CLIA prior to Emergency Use Authorization for Coronavirus Disease-2019 during the Public Health Emergency) issued on December 27, 2019. This test is only authorized for the duration of time the declaration that circumstances exist justifying the authorization of the emergency use of in vitro diagnostic tests for detection of SARS-CoV-2 virus and/or diagnosis of COVID-19 infection under section 564(b)(1) of the Act, 21 U.S.C. 360bbb-3(b)(1), unless the authorization is terminated or revoked sooner. PERFORMED BY: [place] [address] PATHOLOGIST SALESPERSON M[employer] HATS YA GARCIA M.D. Performed By: #### C OVID 19 [facility] [place] [place] #### [address] [address] [facility] Basic Metabolic Panelon Calcium [Mass/Vol] 8.8 mg/dL Normal 8.2-10.[address] [facility] Comment on above: Result Comment: PERF ORMED BY: [address] [address] PATHOLOGIST SALESPERSON [employer] YA GARCIA M.D. Performed By: #### B MP, CBC #### [facility] [address] Chloride [Moles/Vol] 104 mmol/L Normal 95-114 [facility] Comment on above: Performed By: #### B MP, CBC #### [facility] [address] CO2 [Moles/Vol] 29.0 mmol/L Normal 22.0-30.0 [facility] Comment on above: Performed By: #### B MP, CBC #### [address] Creatinine [Mass/Vol] 0.70 mg/dL Normal 0.44-1.03 [facility] Comment on above: Performed By: #### B MP, CBC #### [address] Estimated GFR ( Denae > 60 Normal [facility] Comment on above: Result Comment: GFR estimated reference range: According to KDOQI guidelines, <60 ml/min/1.73m2 is sufficient to diagnose a patient with chronic kidney disease. Performed By: #### B MP, CBC #### [address] Estimated GFR (Non- Am > 60 [facility] Comment on above: Performed By: #### B MP, CBC #### [address] Glucose [Mass/Vol] 92 mg/dL Normal 70-[address] [facility] Comment on above: Result Comment: [place] om Glucose Reference Range is dependent on time and content of last meal. Glucose of more than 200 mg/dL in a nonstressed, ambulatory subject supports the diagnosis of Diabetes Mellitus. ADA recommended reference range Performed By: #### B MP, CBC #### [facility] [address] [place] [address] [place] Potassium [Moles/Vol] 3.7 mmol/L Normal 3.5-5.1 [facility] Comment on above: Performed By: #### B MP, CBC #### [place] [address] [place] Sodium [Moles/Vol] 141 mmol/L Normal 136-[address] [facility] Comment on above: Performed By: #### B MP, CBC #### [facility] [address] Urea nitrogen [Mass/Vol] 8 mg/dL Low 06-18 [facility] Comment on above: Performed By: #### B MP, CBC #### [facility] [address] Complete Blood Count Auto Di ffon 07-28-2021 Basophils (Bld) [#/Vol] 0.0 10*3/uL Normal 0.0-0.2 [facility] Comment on above: Result Comment: PERF ORMED BY: [place] [address] PATHOLOGIST SALESPERSON [employer] YA GARCIA M.D. Performed By: #### B MP, CBC #### [address] Basophils/100 WBC (Bld) 0.7 % Normal . [facility] Comment on above: Performed By: #### B MP, CBC #### [facility] [address] Eosinophils (Bld) [#/Vol] 0.1 10*3/uL Normal 0.0-0.45 [facility] Comment on above: Performed By: #### B MP, CBC #### [address] Eosinophils/100 WBC (Bld) 2.2 % Normal . [facility] Comment on above: Performed By: #### B MP, CBC #### [facility] [address] Erythrocyte distribution width (RBC) [Ratio] 14.9 % Normal 11.9-15.3 [facility] Comment on above: Performed By: #### B MP, CBC #### [address] Hematocrit (Bld) [Volume fraction] 39.5 % Normal 34.0-46.4 [facility] Comment on above: Performed By: #### B MP, CBC #### [facility] [address] Hemoglobin (Bld) [Mass/Vol] 13.1 g/dL Normal 11.8-15.4 [facility] Comment on above: Performed By: #### B MP, CBC #### [facility] [address] Lymphocytes (Bld) [#/Vol] 1.5 10*3/uL Normal 1.00-4.8 [facility] Comment on above: Performed By: #### B MP, CBC #### [facility] [address] Lymphocytes/100 WBC (Bld) 26.5 % Normal . [facility] Comment on above: Performed By: #### B MP, CBC #### [address] MCH (RBC) [Entitic mass] 28.3 pg Normal 24.7-34.3 [facility] Comment on above: Performed By: #### B MP, CBC #### [address] MCV (RBC) [Entitic vol] 85.3 fL Normal 80-100 [facility] Comment on above: Performed By: #### B MP, CBC #### [address] Mean Corpuscular HGB Conc 33.2 g/dL Normal 32.0-35.0 [facility] Comment on above: Performed By: #### B MP, CBC #### [place] [address] [place] Monocytes (Bld) [#/Vol] 0.3 10*3/uL Normal 0.0-0.8 [facility] Comment on above: Performed By: #### B MP, CBC #### [place] [address] [place] Monocytes/100 WBC (Bld) 5.5 % Normal . [facility] Comment on above: Performed By: #### B MP, CBC #### [facility] [address] [place] [id number] [place] Neutrophils (Bld) [#/Vol] 3.7 10*3/uL Normal 1.8-7.7 [facility] Comment on above: Performed By: #### B MP, CBC #### [facility] [address] [place] [id number] [place] Neutrophils/100 WBC (Bld) 65.1 % Normal . [facility] Comment on above: Performed By: #### B MP, CBC #### [facility] [address] [place] [address] [place] Nucleated RBC/100 WBC (Bld) [Ratio] 0.1 % Normal 0-0.5 [facility] Comment on above: Performed By: #### B MP, CBC #### [facility] [address] [place] [address] [place] Platelet mean volume (Bld) [Entitic vol] 10.4 fL Normal 6.3-10.7 [facility] Comment on above: Performed By: #### B MP, CBC #### [facility] [address] [place] [address] [place] Platelets (Bld) [#/Vol] 202 10*3/uL Normal 150-450 [facility] Comment on above: Performed By: #### B MP, CBC #### [facility] [address] [place] [address] [place] RBC (Bld) [#/Vol] 4.63 10*6/uL Normal 3.60-5.00 [facility] Comment on above: Performed By: #### B MP, CBC #### [facility] [address] [place] [address] [place] WBC (Bld) [#/Vol] 5.7 10*3/uL Normal 4.5-11.[address] [facility] Comment on above: Performed By: #### B MP, CBC #### [facility] [address] [place] [phone] [place] ECG 12 lead ECGon 07-28-2021 ECG 12 lead ECG [facility] [place] [address] [place] [address] Electrocardiograph Report Signed Patient: Kimberly Cavazos MR#: [id number] [birth year] : 1965 Acct:[id number] Age/Sex: 55 / F ADM Date: 07/28/21 Loc: PS Room: Type: [facility] Attending Dr: Brian Jasso DO Ordering Provider: Brian Jasso DO Date of Service: 07/28/2111/16/854 ECG/ECG 12 lead ECG: surgery 08/10/21 Copies to: Test Reason : Blood Pressure : / mmHG Vent. Rate : 083 BPM Atrial Rate : 083 BPM P-R Int : 154 ms QRS Dur : 110 ms QT Int : 442 ms P-R-T Axes : 051 022 025 degrees QTc Int : 519 ms Normal sinus rhythm Incomplete right bundle branch block Prolonged QT Abnormal ECG No previous ECGs available Confirmed by REX WORKMAN MD ([id number]) on 07/28/2021 11:13:23 AM Referred By: MARLEN Electronically Signed By:REX WORKMAN MD Transcribed By: MUS Signed By Rex Workman MD 1 09/27/20 1113 [facility]acon 11-06-2020 Cholesterol [Mass/Vol] 190.0 mg/dL Invalid Interpretation Code 0-200 [employer] [facility] Cholesterol in HDL [Mass/Vol] 45.0 mg/dL Invalid Interpretation Code 50-100 [employer] [facility] Cholesterol in LDL [Mass/Vol] 103.0 mg/dL Invalid Interpretation Code 0-130 [employer] [facility] Triglyceride [Mass/Vol] 210.0 mg/dL Invalid Interpretation Code 30-150 [employer] [facility] Hematologyon 11-06-2020 Basophils (Bld) [#/Vol] 0.0 10*3/uL Invalid Interpretation Code 0.0-0.1 [employer] Basophils/100 WBC (Bld) 0.30 % Invalid Interpretation Code 0.0-1.0 [facility] Eosinophils (Bld) [#/Vol] 0.10 10*3/uL Invalid Interpretation Code 0.0-0.5 [employer] Eosinophils/100 WBC (Bld) 1.90 % Invalid Interpretation Code 0.0-7.0 [employer] Hematocrit (Bld) [Volume fraction] 40.90 % Invalid Interpretation Code 35.7-47.1 [employer] Hemoglobin (Bld) [Mass/Vol] 13.10 g/dL Invalid Interpretation Code 11.9-15.7 [employer] Lymphocytes (Bld) [#/Vol] 1.90 10*3/uL Invalid Interpretation Code 0.9-3.1 [employer] Lymphocytes/100 WBC (Bld) 29.10 % Invalid Interpretation Code 15.0-46.0 [employer] MCH (RBC) [Entitic mass] 27.90 pg Invalid Interpretation Code 23.2-33.3 [employer] MCV (RBC) [Entitic vol] 87.0 fL Invalid Interpretation Code 83.4-101.4 [employer] Monocytes (Bld) [#/Vol] 0.30 10*3/uL Invalid Interpretation Code 0.3-1.0 [employer] Monocytes/100 WBC (Bld) 5.30 % Invalid Interpretation Code 4.0-12.0 [employer] Neutrophils (Bld) [#/Vol] 4.10 10*3/uL Invalid Interpretation Code 1.8-7.9 [employer] Neutrophils/100 WBC (Bld) 63.20 % Invalid Interpretation Code 43.0-76.0 [employer] Platelets (Bld) [#/Vol] 231.0 10*3/uL Invalid Interpretation Code 150-400 [employer] RBC (Bld) [#/Vol] 4.70 10*6/uL Invalid Interpretation Code 3.72-5.24 [employer] WBC (Bld) [#/Vol] 6.50 10*3/uL Invalid Interpretation Code 3.9-10.3 [facility] Laboratory - Chemistry and C hemistry - challengeon 11-06-2020 Albumin/Globulin [Mass ratio] 1.2 {ratio} Invalid Interpretation Code 1.0-2.4 [employer] Bilirubin Ql (U) Negative Invalid Interpretation Code Negative [employer] Cholesterol.total/ Cholesterol in HDL [Mass ratio] 4 {ratio} Invalid Interpretation Code [facility] Ketones Ql (U) Negative Invalid Interpretation Code Negative [facility] Urobilinogen (U) [Mass/Vol] normal Invalid Interpretation Code normal [facility] Laboratory - Hematology and Cell countson 11-06-2020 Hemoglobin Ql (U) Negative Invalid Interpretation Code Negative [facility] Laboratory - Urinalysison Glucose Test strip (U) [Mass/Vol] Negative Invalid Interpretation Code Negative [facility] Leukocyte esterase Test strip Ql (U) Negative Invalid Interpretation Code Negative [employer] Nitrite Ql (U) Negative Invalid Interpretation Code Negative [employer] Protein Ql (U) Negative Invalid Interpretation Code Negative [facility] Metabolic Panelon 11-06-2020 Albumin [Mass/Vol] 4.20 g/dL Invalid Interpretation Code 3.7-4.5 [employer] ALP [Catalytic activity/Vol] 132.0 U/L Invalid Interpretation Code 31-155 [employer] [facility] ALT [Catalytic activity/Vol] 15.0 U/L Invalid Interpretation Code 0-50 [employer] [facility] Anion gap [Moles/Vol] 14 mmol/L Invalid Interpretation Code 10-20 [employer] [facility] AST [Catalytic activity/Vol] 16.0 U/L Invalid Interpretation Code 0-40 [employer] [facility] Bilirubin [Mass/Vol] 0.40 mg/dL Invalid Interpretation Code 0.0-1.0 [employer] Calcium [Mass/Vol] 9.60 mg/dL Invalid Interpretation Code 8.5-10.8 [employer] [facility] Chloride [Moles/Vol] 104.0 mmol/L Invalid Interpretation Code 100-112 [employer] [facility] CO2 [Moles/Vol] 29.0 mmol/L Invalid Interpretation Code 23-30 [employer] [facility] Creatinine [Mass/Vol] 0.70 mg/dL Invalid Interpretation Code 0.5-1.5 [employer] [facility] GFR/1.73 sq M predicted among non-blacks MDRD (S/P/Bld) [Vol rate/Area] 88 mL/min/{1.73_m2} Invalid Interpretation Code [employer] Glucose [Mass/Vol] 98.0 mg/dL Invalid Interpretation Code 80-117 [employer] Potassium [Moles/Vol] 4.20 mmol/L Invalid Interpretation Code 3.5-5.3 [employer] Protein [Mass/Vol] 7.70 g/dL Invalid Interpretation Code 6.3-7.9 [facility] Sodium [Moles/Vol] 143.0 mmol/L Invalid Interpretation Code 135-148 [facility] Urea nitrogen [Mass/Vol] 12.0 mg/dL Invalid Interpretation Code 7-25 [facility] Urea nitrogen/Creatinin e [Mass ratio] 17 mg/mg Invalid Interpretation Code 6-20 [facility] Otheron 11-06-2020 Albumin/Globulin [Mass ratio] 1.2 (calc) 1.0-2.4 [facility] Bilirubin Ql (U) Negative Negative [facility] Cholesterol in VLDL [Mass/Vol] 42.0 mg/dL Invalid Interpretation Code 0-39 [facility] Cholesterol.total/ Cholesterol in HDL [Mass ratio] 4 (calc) [facility] Collection time (Varun) [Date/time] 1005 Invalid Interpretation Code [facility] Erythrocyte distribution width (RBC) [Ratio] 14.40 % Invalid Interpretation Code 11.5-15.5 [facility] Glucose Test strip (U) [Mass/Vol] Negative Negative [facility] Hemoglobin Ql (U) Negative Negative [facility] Immature granulocytes (Bld) [#/Vol] 0.010 10*3/uL Invalid Interpretation Code 0.00-0.06 [facility] Immature granulocytes/100 WBC (Bld) 0.20 % Invalid Interpretation Code 0.0-0.5 [employer] [facility] MCHC (RBC) [Mass/Vol] 32.0 g/dL Invalid Interpretation Code 32.0-36.0 [employer] [facility] Nitrite Ql (U) Negative Negative [employer] [facility] pH (U) 7 [pH] Invalid Interpretation Code 5.0-9.0 [employer] [facility] Platelet mean volume (Bld) [Entitic vol] 12.10 fL Invalid Interpretation Code 8.3-11.5 [employer] Protein Ql (U) Negative Negative [employer] [facility] Urobilinogen Test strip (U) [Mass/Vol] normal normal [employer] [facility] Urinalysison 11-06-2020 Clarity (U) Clear Invalid Interpretation Code Clear [employer] [facility] Color (U) yellow Invalid Interpretation Code yellow [employer] Ketones Ql (U) Negative Negative [employer] [facility] Leukocyte esterase Test strip Ql (U) Negative Negative [employer] [facility] Specific gravity (U) [Rel density] 1.010 Invalid Interpretation Code 1.003-1.030 [employer] [facility] Cardiacon 01-30-2020 Cholesterol [Mass/Vol] 245.0 mg/dL Invalid Interpretation Code 0-200 [employer] [facility] Cholesterol in HDL [Mass/Vol] 44.0 mg/dL Invalid Interpretation Code 50-100 [employer] [facility] Cholesterol in LDL [Mass/Vol] 144.0 mg/dL Invalid Interpretation Code 0-130 [employer] [facility] Triglyceride [Mass/Vol] 286.0 mg/dL Invalid Interpretation Code 30-150 [facility] Hematologyon 01-30-2020 Hematocrit (Bld) [Volume fraction] 40.20 % Invalid Interpretation Code 35.7-47.1 [facility] Hemoglobin (Bld) [Mass/Vol] 13.20 g/dL Invalid Interpretation Code 11.9-15.7 [facility] MCH (RBC) [Entitic mass] 28.10 pg Invalid Interpretation Code 23.2-33.3 [employer] MCV (RBC) [Entitic vol] 85.50 fL Invalid Interpretation Code 83.4-101.4 [employer] Platelets (Bld) [#/Vol] 242.0 10*3/uL Invalid Interpretation Code 150-400 [employer] RBC (Bld) [#/Vol] 4.70 10*6/uL Invalid Interpretation Code 3.72-5.24 [employer] WBC (Bld) [#/Vol] 5.60 10*3/uL Invalid Interpretation Code 3.9-10.3 [facility] Laboratory - Chemistry and C hemistry - challengeon 01-30-2020 Bilirubin Ql (U) Negative Invalid Interpretation Code Negative [facility] Ketones Ql (U) Negative Invalid Interpretation Code Negative [employer] Urobilinogen (U) [Mass/Vol] normal Invalid Interpretation Code normal [facility] Laboratory - Hematology and Cell countson 01-30-2020 Hemoglobin Ql (U) Negative Invalid Interpretation Code Negative [facility] Laboratory - Urinalysison Glucose Test strip (U) [Mass/Vol] Negative Invalid Interpretation Code Negative [employer] Leukocyte esterase Test strip Ql (U) Negative Invalid Interpretation Code Negative [employer] Nitrite Ql (U) Negative Invalid Interpretation Code Negative [employer] Protein Ql (U) Negative Invalid Interpretation Code Negative [employer] [facility] Metabolic Panelon 01-30-2020 Albumin [Mass/Vol] 4.20 g/dL Invalid Interpretation Code 3.7-4.5 [employer] ALP [Catalytic activity/Vol] 122.0 U/L Invalid Interpretation Code 31-155 [employer] [facility] ALT [Catalytic activity/Vol] 13.0 U/L Invalid Interpretation Code 0-50 [employer] [facility] Anion gap [Moles/Vol] 16 mmol/L Invalid Interpretation Code 10-20 [employer] [facility] AST [Catalytic activity/Vol] 14.0 U/L Invalid Interpretation Code 0-40 [employer] [facility] Bilirubin [Mass/Vol] 0.30 mg/dL Invalid Interpretation Code 0.0-1.0 [employer] [facility] Calcium [Mass/Vol] 9.0 mg/dL Invalid Interpretation Code 8.5-10.8 [employer] Chloride [Moles/Vol] 103.0 mmol/L Invalid Interpretation Code 100-112 [employer] [facility] CO2 [Moles/Vol] 28.0 mmol/L Invalid Interpretation Code 23-30 [employer] [facility] Creatinine [Mass/Vol] 0.70 mg/dL Invalid Interpretation Code 0.5-1.5 [employer] [facility] GFR/1.73 sq M predicted among non-blacks MDRD (S/P/Bld) [Vol rate/Area] 88 mL/min/{1.73_m2} Invalid Interpretation Code [facility] Glucose [Mass/Vol] 101.0 mg/dL Invalid Interpretation Code 80-117 [facility] Potassium [Moles/Vol] 3.80 mmol/L Invalid Interpretation Code 3.5-5.3 [facility] Protein [Mass/Vol] 7.90 g/dL Invalid Interpretation Code 6.3-7.9 [facility] Sodium [Moles/Vol] 143.0 mmol/L Invalid Interpretation Code 135-148 [facility] Urea nitrogen [Mass/Vol] 13.0 mg/dL Invalid Interpretation Code 7-25 [facility] Urea nitrogen/Creatinin e [Mass ratio] 19 mg/mg Invalid Interpretation Code 6-20 [facility] Otheron 01-30-2020 Albumin/Globulin [Mass ratio] 1.1 {ratio} Invalid Interpretation Code 1.0-2.4 [facility] Bilirubin Ql (U) Negative Negative [facility] Cholesterol in VLDL [Mass/Vol] 57.0 mg/dL Invalid Interpretation Code 0-39 [facility] Cholesterol.total/ Cholesterol in HDL [Mass ratio] 6 {ratio} Invalid Interpretation Code [facility] Collection time (Varun) [Date/time] 9:20 am Invalid Interpretation Code [facility] Erythrocyte distribution width (RBC) [Ratio] 14.40 % Invalid Interpretation Code 11.5-15.5 [facility] Glucose Test strip (U) [Mass/Vol] Negative Negative [facility] Hemoglobin Ql (U) Negative Negative [employer] MCHC (RBC) [Mass/Vol] 32.80 g/dL Invalid Interpretation Code 32.0-36.0 [facility] Nitrite Ql (U) Negative Negative [facility] pH (U) 6 [pH] Invalid Interpretation Code 5.0-9.0 [employer] Platelet mean volume (Bld) [Entitic vol] 11.60 fL Invalid Interpretation Code 8.3-11.5 [employer] [facility] Protein Ql (U) Negative Negative [facility] Urobilinogen Test strip (U) [Mass/Vol] normal normal [facility] Urinalysison 01-30-2020 Clarity (U) Clear Invalid Interpretation Code Clear [facility] Color (U) yellow Invalid Interpretation Code yellow [employer] Ketones Ql (U) Negative Negative [facility] Leukocyte esterase Test strip Ql (U) Negative Negative [employer] [facility] Specific gravity (U) [Rel density] 1.005 Invalid Interpretation Code 1.003-1.030 [facility] Cardiacon 11-08-2018 Cholesterol in HDL mass conc 45.0 mg/dL Invalid Interpretation Code 50-100 [employer] [facility] Cholesterol in LDL mass conc 83.0 mg/dL Invalid Interpretation Code 0-130 [employer] [facility] Cholesterol mass conc 184.0 mg/dL Invalid Interpretation Code 0-200 [employer] [facility] Triglyceride mass conc 281.0 mg/dL Invalid Interpretation Code 30-150 [employer] [facility] Hematologyon 11-08-2018 INR Coag RelTime (Bld) 2.8 {INR} 0.8-1.2 [employer] [facility] Metabolic Panelon 11-08-2018 Albumin mass conc 4.20 g/dL Invalid Interpretation Code 3.7-4.5 [employer] ALP enzyme act/vol 127.0 U/L Invalid Interpretation Code 31-155 [employer] [facility] ALT enzyme act/vol 14.0 U/L Invalid Interpretation Code 0-50 [employer] [facility] Anion gap molar conc 17 mmol/L Invalid Interpretation Code 10-20 [employer] [facility] AST enzyme act/vol 15.0 U/L Invalid Interpretation Code 0-40 [employer] [facility] Bilirubin mass conc 0.30 mg/dL Invalid Interpretation Code 0.0-1.0 [employer] [facility] Calcium mass conc 9.40 mg/dL Invalid Interpretation Code 8.5-10.8 [employer] [facility] Chloride molar conc 103 mmol/L Invalid Interpretation Code 100-112 [employer] CO2 molar conc 27 mmol/L Invalid Interpretation Code 23-30 [employer] [facility] Creatinine mass conc 0.70 mg/dL Invalid Interpretation Code 0.5-1.5 [employer] GFR/1.73 sq M predicted among non-blacks MDRD vol rate/area (S/P/Bld) 88 mL/min/{1.73_m2} Invalid Interpretation Code [employer] [facility] Glucose mass conc 85.0 mg/dL Invalid Interpretation Code 80-117 [employer] [facility] Potassium molar conc 4.4 mmol/L Invalid Interpretation Code 3.5-5.3 [facility] Protein mass conc 28.0 g/dL 9.1-12.0 [facility] Protein mass conc 8.0 g/dL Invalid Interpretation Code 6.3-7.9 [facility] Sodium molar conc 143 mmol/L Invalid Interpretation Code 135-148 [facility] Urea nitrogen mass conc 13.0 mg/dL Invalid Interpretation Code 7-25 [facility] Urea nitrogen/Creatinin e mass ratio 19 mg/mg Invalid Interpretation Code 6-20 [facility] No Panel Informationon 11-08 2.8 Invalid Interpretation Code 0.8-1.2 [facility] Otheron 11-08-2018 Albumin/Globulin mass ratio 1.1 {ratio} Invalid Interpretation Code 1.0-2.4 [facility] Cholesterol in VLDL mass conc 56.0 mg/dL Invalid Interpretation Code 0-39 [facility] Cholesterol.total/ Cholesterol in HDL mass ratio 4 {ratio} Invalid Interpretation Code [facility] 28.0 Invalid Interpretation Code 9.1-12.0 [facility] Metabolic Panelon 08-30-2018 Anion gap molar conc 14 mmol/L Invalid Interpretation Code 10-20 [facility] Calcium mass conc 9.70 mg/dL Invalid Interpretation Code 8.5-10.8 [facility] Chloride molar conc 102 mmol/L Invalid Interpretation Code 100-112 [facility] CO2 molar conc 30 mmol/L Invalid Interpretation Code 23-30 [employer] [facility] Creatinine mass conc 0.70 mg/dL Invalid Interpretation Code 0.5-1.5 [employer] [facility] GFR/1.73 sq M predicted among non-blacks MDRD vol rate/area (S/P/Bld) 88 mL/min/{1.73_m2} Invalid Interpretation Code [employer] [facility] Glucose mass conc 92.0 mg/dL Invalid Interpretation Code 80-117 [employer] [facility] Potassium molar conc 4.1 mmol/L Invalid Interpretation Code 3.5-5.3 [employer] [facility] Sodium molar conc 142 mmol/L Invalid Interpretation Code 135-148 [employer] [facility] Urea nitrogen mass conc 8.0 mg/dL Invalid Interpretation Code 7-25 [employer] [facility] Urea nitrogen/Creatinin e mass ratio 11 mg/mg Invalid Interpretation Code 6-20 [employer] [facility] 12-13-2017 Cholesterol in HDL mass conc 44.0 mg/dL Invalid Interpretation Code 50-100 [employer] [facility] Cholesterol in LDL mass conc 142.0 mg/dL Invalid Interpretation Code 0-130 [employer] [facility] Cholesterol mass conc 237.0 mg/dL Invalid Interpretation Code 0-200 [employer] [facility] Triglyceride mass conc 257.0 mg/dL Invalid Interpretation Code 30-150 [employer] [facility] Hematologyon 12-13-2017 INR Coag RelTime (Bld) 2.1 {INR} 0.8-1.2 [employer] [facility] Metabolic Panelon 12-13-2017 Albumin mass conc 4.40 g/dL Invalid Interpretation Code 3.7-4.5 [employer] [facility] ALP enzyme act/vol 90.0 U/L Invalid Interpretation Code 31-155 [facility] ALT enzyme act/vol 18.0 U/L Invalid Interpretation Code 0-50 [facility] Anion gap molar conc 18 mmol/L Invalid Interpretation Code 10-20 [facility] AST enzyme act/vol 15.0 U/L Invalid Interpretation Code 0-40 [facility] Bilirubin mass conc 0.30 mg/dL Invalid Interpretation Code 0.0-1.0 [facility] Calcium mass conc 9.40 mg/dL Invalid Interpretation Code 8.5-10.8 [facility] Chloride molar conc 103 mmol/L Invalid Interpretation Code 100-112 [facility] CO2 molar conc 27 mmol/L Invalid Interpretation Code 23-30 [facility] Creatinine mass conc 0.60 mg/dL Invalid Interpretation Code 0.5-1.5 [facility] GFR/1.73 sq M predicted among non-blacks MDRD vol rate/area (S/P/Bld) 106 mL/min/{1.73_m2} Invalid Interpretation Code [facility] Glucose mass conc 98.0 mg/dL Invalid Interpretation Code 80-117 [facility] Potassium molar conc 4.4 mmol/L Invalid Interpretation Code 3.5-5.3 [facility] Protein mass conc 7.90 g/dL Invalid Interpretation Code 6.3-7.9 [facility] Protein mass conc 20.7 g/dL 9.1-12.0 [facility] Sodium molar conc 144 mmol/L Invalid Interpretation Code 135-148 [employer] [facility] Urea nitrogen mass conc 17.0 mg/dL Invalid Interpretation Code 7-25 [employer] [facility] Urea nitrogen/Creatinin e mass ratio 28 mg/mg Invalid Interpretation Code 6-20 [employer] [facility] No Panel Informationon 12-13 2.1 Invalid Interpretation Code 0.8-1.2 [employer] [facility] Otheron 12-13-2017 Albumin/Globulin mass ratio 1.3 {ratio} Invalid Interpretation Code 1.0-2.4 [employer] [facility] Cholesterol in VLDL mass conc 51.0 mg/dL Invalid Interpretation Code 0-39 [employer] [facility] Cholesterol.total/ Cholesterol in HDL mass ratio 5 {ratio} Invalid Interpretation Code [employer] [facility] 20.7 Invalid Interpretation Code 9.1-12.0 [employer] [facility] Hematologyon 03-09-2017 Basophils #/vol (Bld) 0.10 10*3/uL Invalid Interpretation Code 0.0-0.1 [employer] [facility] Basophils/100 WBC (Bld) 0.60 % Invalid Interpretation Code 0.0-1.0 [employer] [facility] Eosinophils #/vol (Bld) 0.10 10*3/uL Invalid Interpretation Code 0.0-0.5 [employer] [facility] Eosinophils/100 WBC (Bld) 0.50 % Invalid Interpretation Code 0.0-7.0 [employer] [facility] Hematocrit Volume Fraction (Bld) 39.20 % Invalid Interpretation Code 35.7-47.1 [employer] [facility] Hemoglobin mass conc (Bld) 13.30 g/dL Invalid Interpretation Code 11.9-15.7 [facility] INR Coag RelTime (Bld) 2.8 {INR} 0.8-1.2 [facility] Lymphocytes #/vol (Bld) 2.80 10*3/uL Invalid Interpretation Code 0.9-3.1 [facility] Lymphocytes/100 WBC (Bld) 21.30 % Invalid Interpretation Code 15.0-46.0 [facility] MCH Entitic mass (RBC) 28.10 pg Invalid Interpretation Code 23.2-33.3 [facility] MCV Entitic volume (RBC) 82.70 fL Invalid Interpretation Code 82.0-98.4 [facility] Monocytes #/vol (Bld) 0.60 10*3/uL Invalid Interpretation Code 0.3-1.0 [facility] Monocytes/100 WBC (Bld) 4.70 % Invalid Interpretation Code 4.0-12.0 [facility] Neutrophils #/vol (Bld) 9.50 10*3/uL Invalid Interpretation Code 1.8-7.9 [facility] Neutrophils/100 WBC (Bld) 72.90 % Invalid Interpretation Code 43.0-76.0 [facility] Platelets #/vol (Bld) 228.0 10*3/uL Invalid Interpretation Code 150-400 [facility] RBC #/vol (Bld) 4.740 10*6/uL Invalid Interpretation Code 3.72-5.24 [facility] WBC #/vol (Bld) 13.10 10*3/uL Invalid Interpretation Code 3.9-10.3 [facility] Metabolic Panelon 03-09-2017 Albumin mass conc 4.10 g/dL Invalid Interpretation Code 3.7-4.5 [facility] ALP enzyme act/vol 115.0 U/L Invalid Interpretation Code 31-155 [employer] [facility] ALT enzyme act/vol 26.0 U/L Invalid Interpretation Code 0-50 [employer] [facility] Anion gap molar conc 15 mmol/L Invalid Interpretation Code 10-20 [employer] [facility] AST enzyme act/vol 23.0 U/L Invalid Interpretation Code 0-40 [facility] Bilirubin mass conc 0.20 mg/dL Invalid Interpretation Code 0.0-1.0 [employer] [facility] Calcium mass conc 9.20 mg/dL Invalid Interpretation Code 8.5-10.8 [employer] [facility] Chloride molar conc 101 mmol/L Invalid Interpretation Code 100-112 [employer] [facility] CO2 molar conc 31 mmol/L Invalid Interpretation Code 23-30 [employer] [facility] Creatinine mass conc 0.80 mg/dL Invalid Interpretation Code 0.5-1.5 [employer] [facility] GFR/1.73 sq M predicted among non-blacks MDRD vol rate/area (S/P/Bld) 76 mL/min/{1.73_m2} Invalid Interpretation Code [employer] [facility] Glucose mass conc 90.0 mg/dL Invalid Interpretation Code 80-117 [employer] [facility] Potassium molar conc 3.5 mmol/L Invalid Interpretation Code 3.5-5.3 [employer] [facility] Protein mass conc 28.7 g/dL 9.1-12.0 [facility] Protein mass conc 7.70 g/dL Invalid Interpretation Code 6.3-7.9 [facility] Sodium molar conc 143 mmol/L Invalid Interpretation Code 135-148 [facility] Urea nitrogen mass conc 23.0 mg/dL Invalid Interpretation Code 7-25 [facility] Urea nitrogen/Creatinin e mass ratio 29 mg/mg Invalid Interpretation Code 6-20 [facility] No Panel Informationon 03-09 2.8 Invalid Interpretation Code 0.8-1.2 [facility] Otheron 03-09-2017 Albumin/Globulin mass ratio 1.1 {ratio} Invalid Interpretation Code 1.0-2.4 [facility] Erythrocyte distribution width Ratio (RBC) 14.30 % Invalid Interpretation Code 11.5-15.5 [facility] MCHC mass conc (RBC) 34.0 g/dL Invalid Interpretation Code 32.0-36.0 [facility] Platelet mean volume Entitic volume (Bld) 9.80 fL Invalid Interpretation Code 7.4-10.4 [facility] 28.7 Invalid Interpretation Code 9.1-12.0 [facility] 10-25-2016 Cholesterol in HDL mass conc 49.0 mg/dL Invalid Interpretation Code 50-100 [employer] [facility] Cholesterol in LDL mass conc 180.0 mg/dL Invalid Interpretation Code 0-130 [facility] Cholesterol mass conc 275.0 mg/dL Invalid Interpretation Code 0-200 [employer] [facility] Triglyceride mass conc 229.0 mg/dL Invalid Interpretation Code 30-150 [employer] [facility] Hematologyon 10-25-2016 INR Coag RelTime (Bld) 2.0 {INR} 0.8-1.2 [employer] [facility] Metabolic Panelon 10-25-2016 Albumin mass conc 4.20 g/dL Invalid Interpretation Code 3.7-4.5 [employer] [facility] ALP enzyme act/vol 121.0 U/L Invalid Interpretation Code 31-155 [employer] [facility] ALT enzyme act/vol 14.0 U/L Invalid Interpretation Code 0-50 [employer] [facility] Anion gap molar conc 16 mmol/L Invalid Interpretation Code 10-20 [employer] [facility] AST enzyme act/vol 15.0 U/L Invalid Interpretation Code 0-40 [employer] [facility] Bilirubin mass conc 0.40 mg/dL Invalid Interpretation Code 0.0-1.0 [employer] [facility] Calcium mass conc 9.60 mg/dL Invalid Interpretation Code 8.5-10.8 [employer] [facility] Chloride molar conc 99 mmol/L Invalid Interpretation Code 100-112 [employer] [facility] CO2 molar conc 29 mmol/L Invalid Interpretation Code 23-30 [employer] [facility] Creatinine mass conc 0.60 mg/dL Invalid Interpretation Code 0.5-1.5 [employer] [facility] GFR/1.73 sq M predicted among non-blacks MDRD vol rate/area (S/P/Bld) 106 mL/min/{1.73_m2} Invalid Interpretation Code [employer] [facility] Glucose mass conc 99.0 mg/dL Invalid Interpretation Code 80-117 [employer] [facility] Potassium molar conc 4.1 mmol/L Invalid Interpretation Code 3.5-5.3 [facility] Protein mass conc 20.6 g/dL 9.1-12.0 [facility] Protein mass conc 7.90 g/dL Invalid Interpretation Code 6.3-7.9 [facility] Sodium molar conc 140 mmol/L Invalid Interpretation Code 135-148 [facility] Urea nitrogen mass conc 11.0 mg/dL Invalid Interpretation Code 7-25 [facility] Urea nitrogen/Creatinin e mass ratio 18 mg/mg Invalid Interpretation Code 6-20 [facility] No Panel Informationon 10-25 2.0 Invalid Interpretation Code 0.8-1.2 [facility] Otheron 10-25-2016 Albumin/Globulin mass ratio 1.1 {ratio} Invalid Interpretation Code 1.0-2.4 [facility] Cholesterol in VLDL mass conc 46.0 mg/dL Invalid Interpretation Code 0-39 [facility] Cholesterol.total/ Cholesterol in HDL mass ratio 6 {ratio} Invalid Interpretation Code [facility] 20.6 Invalid Interpretation Code 9.1-12.0 [facility] 08-20-2015 Cholesterol in HDL mass conc 49.0 mg/dL Invalid Interpretation Code 50-100 [facility] Cholesterol in LDL mass conc 60.0 mg/dL Invalid Interpretation Code 0-130 [facility] Cholesterol mass conc 157.0 mg/dL Invalid Interpretation Code 0-200 [employer] [facility] Triglyceride mass conc 239.0 mg/dL Invalid Interpretation Code 30-150 [facility] Metabolic Panelon 08-20-2015 Albumin mass conc 4.20 g/dL Invalid Interpretation Code 3.7-4.5 [facility] ALP enzyme act/vol 109.0 U/L Invalid Interpretation Code 31-155 [employer] [facility] ALT enzyme act/vol 13.0 U/L Invalid Interpretation Code 0-50 [employer] [facility] Anion gap molar conc 14 mmol/L Invalid Interpretation Code 10-20 [employer] [facility] AST enzyme act/vol 17.0 U/L Invalid Interpretation Code 0-40 [employer] [facility] Bilirubin mass conc 0.20 mg/dL Invalid Interpretation Code 0.0-1.0 [employer] [facility] Calcium mass conc 8.90 mg/dL Invalid Interpretation Code 8.5-10.8 [employer] [facility] Chloride molar conc 104 mmol/L Invalid Interpretation Code 100-112 [employer] [facility] CO2 molar conc 29 mmol/L Invalid Interpretation Code 23-30 [employer] [facility] Creatinine mass conc 0.70 mg/dL Invalid Interpretation Code 0.5-1.5 [employer] [facility] GFR/1.73 sq M predicted among non-blacks MDRD vol rate/area (S/P/Bld) 89 mL/min/{1.73_m2} Invalid Interpretation Code [employer] [facility] Glucose mass conc 100.0 mg/dL Invalid Interpretation Code 80-117 [employer] [facility] Potassium molar conc 4.1 mmol/L Invalid Interpretation Code 3.5-5.3 [employer] [facility] Protein mass conc 7.60 g/dL Invalid Interpretation Code 6.3-7.9 [facility] Sodium molar conc 143 mmol/L Invalid Interpretation Code 135-148 [facility] Urea nitrogen mass conc 12.0 mg/dL Invalid Interpretation Code 7-25 [facility] Urea nitrogen/Creatinin e mass ratio 17 mg/mg Invalid Interpretation Code 6-20 [facility] Otheron 08-20-2015 Albumin/Globulin mass ratio 1.2 {ratio} Invalid Interpretation Code 1.0-2.4 [facility] Cholesterol in VLDL mass conc 48.0 mg/dL Invalid Interpretation Code 0-39 [facility] Cholesterol.total/ Cholesterol in HDL mass ratio 3 {ratio} Invalid Interpretation Code [facility] Thyroidon 08-20-2015 Thyrotropin Qn 2.05 m[IU]/L Invalid Interpretation Code 0.50-4.00 [facility] Hematologyon 11-20-2014 INR Coag RelTime (PPP) 1.9 {INR} Invalid Interpretation Code 0.8-1.2 [facility] Prothrombin time (PT) Coag time (PPP) 15.70 s Invalid Interpretation Code 10.2-12.2 [facility] Otheron 11-20-2014 1mg daily Invalid Interpretation Code [employer] [facility] 08-19-2014 Cholesterol in HDL mass conc 70.0 mg/dL Invalid Interpretation Code 50-100 [facility] Cholesterol in LDL mass conc 63.0 mg/dL Invalid Interpretation Code 0-130 [facility] Cholesterol mass conc 162.0 mg/dL Invalid Interpretation Code 0-200 [employer] [facility] Triglyceride mass conc 147.0 mg/dL Invalid Interpretation Code 30-150 [employer] [facility] Metabolic Panelon 08-19-2014 Albumin mass conc 4.40 g/dL Invalid Interpretation Code 3.7-4.5 [employer] [facility] ALP enzyme act/vol 96.0 U/L Invalid Interpretation Code 31-155 [employer] [facility] ALT enzyme act/vol 13.0 U/L Invalid Interpretation Code 0-50 [employer] [facility] Anion gap molar conc 15 mmol/L Invalid Interpretation Code 10-20 [employer] [facility] AST enzyme act/vol 18.0 U/L Invalid Interpretation Code 0-40 [employer] [facility] Bilirubin mass conc 0.30 mg/dL Invalid Interpretation Code 0.0-1.0 [employer] [facility] Calcium mass conc 9.60 mg/dL Invalid Interpretation Code 8.5-10.8 [employer] [facility] Chloride molar conc 103 mmol/L Invalid Interpretation Code 100-112 [employer] [facility] CO2 molar conc 29 mmol/L Invalid Interpretation Code 23-30 [employer] [facility] Creatinine mass conc 0.80 mg/dL Invalid Interpretation Code 0.5-1.5 [employer] [facility] GFR/1.73 sq M predicted among non-blacks MDRD vol rate/area (S/P/Bld) 77 mL/min/{1.73_m2} Invalid Interpretation Code [employer] [facility] Glucose mass conc 89.0 mg/dL Invalid Interpretation Code 80-117 [employer] [facility] Potassium molar conc 4.3 mmol/L Invalid Interpretation Code 3.5-5.3 [employer] [facility] Protein mass conc 8.10 g/dL Invalid Interpretation Code 6.3-7.9 [employer] [facility] Sodium molar conc 143 mmol/L Invalid Interpretation Code 135-148 [employer] [facility] Urea nitrogen mass conc 10.0 mg/dL Invalid Interpretation Code 7-25 [employer] [facility] Urea nitrogen/Creatinin e mass ratio 13 mg/mg Invalid Interpretation Code 6-20 [employer] [facility] Otheron 08-19-2014 Albumin/Globulin mass ratio 1.2 {ratio} Invalid Interpretation Code 1.0-2.4 [employer] [facility] Cholesterol in VLDL mass conc 29.0 mg/dL Invalid Interpretation Code 0-39 [employer] [facility] Cholesterol.total/ Cholesterol in HDL mass ratio 2 {ratio} Invalid Interpretation Code [employer] [facility] Thyroidon 08-19-2014 Thyrotropin Qn 1.01 m[IU]/L Invalid Interpretation Code 0.50-4.00 [employer] [facility] Hematologyon 07-09-2013 INR Coag RelTime (PPP) 2.02 {INR} Invalid Interpretation Code [employer] [facility] Otheron 07-09-2013 4 weeks Invalid Interpretation Code [employer] [facility] Continue present dose Invalid Interpretation Code [employer] [facility] Hematologyon 05-23-2013 INR Coag RelTime (PPP) 3.31 {INR} Invalid Interpretation Code [employer] [facility] Otheron 05-23-2013 3 weeks Invalid Interpretation Code [employer] [facility] Continue present dose Invalid Interpretation Code [employer] [facility] Hematologyon 05-10-2013 Basophils #/vol (Bld) 0.0 10*3/uL Invalid Interpretation Code 0.0-0.1 [facility] Basophils/100 WBC (Bld) 1.0 % Invalid Interpretation Code 0.2-1.0 [facility] Eosinophils #/vol (Bld) 0.10 10*3/uL Invalid Interpretation Code 0.0-0.2 [facility] Eosinophils/100 WBC (Bld) 2.20 % Invalid Interpretation Code 0.9-2.9 [facility] Hematocrit Volume Fraction (Bld) 34.80 % Invalid Interpretation Code 35.7-47.1 [facility] Hemoglobin mass conc (Bld) 12.0 g/dL Invalid Interpretation Code 11.9-15.7 [facility] INR Coag RelTime (PPP) 2.8 {INR} Invalid Interpretation Code 0.8-1.2 [facility] Lymphocytes #/vol (Bld) 1.20 10*3/uL Invalid Interpretation Code 1.3-2.9 [facility] Lymphocytes/100 WBC (Bld) 27.0 % Invalid Interpretation Code 20.5-45.5 [facility] MCH Entitic mass (RBC) 29.60 pg Invalid Interpretation Code 23.2-33.3 [employer] [facility] MCV Entitic volume (RBC) 85.80 fL Invalid Interpretation Code 82.0-98.4 [employer] [facility] Monocytes #/vol (Bld) 0.30 10*3/uL Invalid Interpretation Code 0.3-0.8 [employer] [facility] Monocytes/100 WBC (Bld) 7.40 % Invalid Interpretation Code 5.5-11.7 [employer] [facility] Neutrophils #/vol (Bld) 3.0 10*3/uL Invalid Interpretation Code 2.2-4.8 [employer] [facility] Neutrophils/100 WBC (Bld) 62.40 % Invalid Interpretation Code 43.0-65.0 [employer] [facility] Platelets #/vol (Bld) 198.0 10*3/uL Invalid Interpretation Code 139-350 [employer] [facility] Prothrombin time (PT) Coag time (PPP) 19.60 s Invalid Interpretation Code 10.2-12.2 [facility] RBC #/vol (Bld) 4.060 10*6/uL Invalid Interpretation Code 3.72-5.24 [employer] [facility] WBC #/vol (Bld) 4.60 10*3/uL Invalid Interpretation Code 3.9-10.3 [employer] [facility] Metabolic Panelon 05-10-2013 Albumin mass conc 4.10 g/dL Invalid Interpretation Code 3.7-4.5 [employer] [facility] ALP enzyme act/vol 73.0 U/L Invalid Interpretation Code 31-155 [employer] [facility] ALT enzyme act/vol 18.0 U/L Invalid Interpretation Code 0-50 [employer] [facility] Anion gap molar conc 13 mmol/L Invalid Interpretation Code 10-20 [employer] [facility] AST enzyme act/vol 24.0 U/L Invalid Interpretation Code 0-40 [employer] [facility] Bilirubin mass conc 0.20 mg/dL Invalid Interpretation Code 0.0-1.0 [employer] [facility] Calcium mass conc 9.0 mg/dL Invalid Interpretation Code 8.5-10.8 [employer] [facility] Chloride molar conc 102 mmol/L Invalid Interpretation Code 100-112 [employer] [facility] CO2 molar conc 29 mmol/L Invalid Interpretation Code 23-30 [employer] [facility] Creatinine mass conc 0.60 mg/dL Invalid Interpretation Code 0.5-1.5 [facility] GFR/1.73 sq M predicted among non-blacks MDRD vol rate/area (S/P/Bld) 108 mL/min/{1.73_m2} Invalid Interpretation Code [employer] [facility] Glucose mass conc 92.0 mg/dL Invalid Interpretation Code 80-117 [employer] [facility] Potassium molar conc 3.7 mmol/L Invalid Interpretation Code 3.5-5.3 [employer] [facility] Protein mass conc 7.40 g/dL Invalid Interpretation Code 6.3-7.9 [employer] [facility] Sodium molar conc 140 mmol/L Invalid Interpretation Code 135-148 [employer] [facility] Urea nitrogen mass conc 10.0 mg/dL Invalid Interpretation Code 7-25 [employer] [facility] Urea nitrogen/Creatinin e mass ratio 17 mg/mg Invalid Interpretation Code 6-20 [employer] [facility] Otheron 05-10-2013 Continue present dose Invalid Interpretation Code [employer] [facility] 2 weeks Invalid Interpretation Code [employer] [facility] Albumin/Globulin mass ratio 1.2 {ratio} Invalid Interpretation Code 1.0-2.4 [employer] [facility] Erythrocyte distribution width Ratio (RBC) 13.90 % Invalid Interpretation Code 11.5-15.5 [employer] [facility] MCHC mass conc (RBC) 34.50 g/dL Invalid Interpretation Code 32.0-36.0 [employer] [facility] Platelet mean volume Entitic volume (Bld) 11.0 fL Invalid Interpretation Code 7.4-10.4 [employer] [facility] 2.5 mg daily Invalid Interpretation Code [employer] [facility] Vital Signs Date Time Vital Sign Value Performing Clinician Facility 09-11-2024 10:58-0500 Body height 161.29 cm Lelia Lr [facility] 09-11-2024 10:58-0500 Body mass index (BMI) [Ratio] 35.57 kg/m2 [facility] 09-11-2024 10:58-0500 Body surface area Derived from formula 2.04 m2 [facility] 09-11-2024 10:58-0500 Body weight 92.53 kg Lelia Be [facility] 09-11-2024 10:58-0500 Diastolic blood pressure 74 mm[Hg] [facility] 09-11-2024 10:58-0500 Heart rate 80 /min [facility] 09-11-2024 10:58-0500 Systolic blood pressure 118 mm[Hg] [facility] 08-02-2023 11:20-0500 Diastolic blood pressure 82 mm[Hg] Nurse 4 Work Phone: [facility] 08-02-2023 11:20-0500 Heart rate 89 /min Nurse 4 Work Phone: [facility] 08-02-2023 11:20-0500 SaO2% (BldA) [Mass fraction] 95 % Nurse 4 Work Phone: [facility] 08-02-2023 11:20-0500 Systolic blood pressure 141 mm[Hg] Nurse 4 Work Phone: [facility] 08-02-2023 10:20-0500 Body temperature 98.1 [degF] Nurse 4 Work Phone: [facility] 08-02-2023 10:20-0500 Respiratory rate 18 /min Nurse 4 Work Phone: [facility] 06-08-2023 11:40-0400 Heart rate 92 /min Nurse 4 Work Phone: [facility] 06-08-2023 11:40-0400 SaO2% (BldA) [Mass fraction] 97 % Nurse 4 Work Phone: [facility] 06-08-2023 11:30-0400 Diastolic blood pressure 76 mm[Hg] Nurse 4 Work Phone: [facility] 06-08-2023 11:30-0400 Systolic blood pressure 133 mm[Hg] Nurse 4 Work Phone: [facility] 06-08-2023 10:40-0400 Respiratory rate 16 /min Nurse 4 Work Phone: [facility] 06-08-2023 10:00-0400 Body temperature 97.9 [degF] Nurse 4 Work Phone: [facility] 05-17-2023 12:18-0400 Body height 162.56 cm [facility] 05-17-2023 12:18-0400 Body mass index (BMI) [Ratio] 36.73 kg[facility]m2 [facility] 05-17-2023 12:18-0400 Body surface area Derived from formula 2.09 m2 [facility] 05-17-2023 12:18-0400 Body weight 97.07 kg [facility] 05-17-2023 12:18-0400 Diastolic blood pressure 82 mm[Hg] [facility] 05-17-2023 12:18-0400 Heart rate 82 /min [facility] 05-17-2023 12:18-0400 Systolic blood pressure 128 mm[Hg] [facility] 04-13-2023 11:00-0400 Diastolic blood pressure 70 mm[Hg] Nurse 1 Work Phone: [facility] 04-13-2023 11:00-0400 Heart rate 84 /min Nurse 1 Work Phone: [facility] 04-13-2023 11:00-0400 Respiratory rate 16 /min Nurse 1 Work Phone: [facility] 04-13-2023 11:00-0400 SaO2% (BldA) [Mass fraction] 97 % Nurse 1 Work Phone: [facility] 04-13-2023 11:00-0400 Systolic blood pressure 126 mm[Hg] Nurse 1 Work Phone: [facility] 04-13-2023 09:40-0400 Body temperature 97.9 [degF] Nurse 1 Work Phone: [facility] 03-30-2023 14:20-0400 Diastolic blood pressure 73 mm[Hg] Nurse 3 Work Phone: [facility] 03-30-2023 14:20-0400 Heart rate 83 /min Nurse 3 Work Phone: [facility] 03-30-2023 14:20-0400 Respiratory rate 16 /min Nurse 3 Work Phone: [facility] 03-30-2023 14:20-0400 SaO2% (BldA) [Mass fraction] 97 % Nurse 3 Work Phone: [facility] 03-30-2023 14:20-0400 Systolic blood pressure 125 mm[Hg] Nurse 3 Work Phone: [facility] 03-30-2023 13:10-0400 Body temperature 97.9 [degF] Nurse 3 Work Phone: [facility] 03-14-2023 08:40-0400 Diastolic blood pressure 79 mm[Hg] Nurse 1 Work Phone: [facility] 03-14-2023 08:40-0400 Heart rate 79 /min Nurse 1 Work Phone: [facility] 03-14-2023 08:40-0400 Respiratory rate 16 /min Nurse 1 Work Phone: [facility] 03-14-2023 08:40-0400 SaO2% (BldA) [Mass fraction] 99 % Nurse 1 Work Phone: [facility] 03-14-2023 08:40-0400 Systolic blood pressure 138 mm[Hg] Nurse 1 Work Phone: [facility] 03-14-2023 07:50-0400 Body temperature 98.4 [degF] Nurse 1 Work Phone: [facility] 11-01-2022 08:28-0500 Body height 162.6 cm Sae Craven MD Work Phone: [facility] 11-01-2022 08:28-0500 Body temperature 96.69 [degF] Sae Craven MD Work Phone: [facility] 11-01-2022 08:28-0500 Body weight 96.16 kg Sae Craven MD Work Phone: [facility] 11-01-2022 08:28-0500 Diastolic blood pressure 83 mm[Hg] Sae Craven MD Work Phone: [facility] 11-01-2022 08:28-0500 Heart rate 89 /min Sae Craven MD Work Phone: [facility] 11-01-2022 08:28-0500 SaO2% (BldA) [Mass fraction] 99 % Sae Craven MD Work Phone: [facility] 11-01-2022 08:28-0500 Systolic blood pressure 143 mm[Hg] Sae Craven MD Work Phone: [facility] 08-27-2022 19:40-0500 Body height 162.56 cm Nae Angulo Other [employer] Other 08-27-2022 19:40-0500 Body mass index (BMI) [Ratio] 34.33 kg/m2 Nae Angulo Other [facility] Other 08-27-2022 19:40-0500 Body temperature 97.6 [degF] Nae Angulo Other [facility] Other 08-27-2022 19:40-0500 Body weight 90.72 kg Nae Angulo Other [facility] Other 08-27-2022 19:40-0500 Respiratory rate 18 /min Nae Angulo Other [facility] Other 08-27-2022 19:40-0500 SaO2% (BldA) [Mass fraction] 96 % Nae Angulo Other [facility] Other 06-30-2022 13:00-0400 Body weight 92.99 kg Bandar Eddy MD Work Phone: [facility] 06-30-2022 13:00-0400 Diastolic blood pressure 72 mm[Hg] Bandar Eddy MD Work Phone: [facility] 06-30-2022 13:00-0400 Heart rate 84 /min Bandar Eddy MD Work Phone: [facility] 06-30-2022 13:00-0400 Systolic blood pressure 147 mm[Hg] Bandar Eddy MD Work Phone: [facility] 05-03-2022 12:02-0400 Body height 162.6 cm Kelsie Zuniga MD Work Phone: [facility] 05-03-2022 12:02-0400 Body temperature 98.01 [degF] Kelsie Zuniga MD Work Phone: [facility] 05-03-2022 12:02-0400 Body weight 92.99 kg Kelsie Zuniga MD Work Phone: [facility] 05-03-2022 12:02-0400 Diastolic blood pressure 87 mm[Hg] Kelsie Zuniga MD Work Phone: [facility] 05-03-2022 12:02-0400 Heart rate 97 /min Kelsie Zuniga MD Work Phone: [facility] 05-03-2022 12:02-0400 Systolic blood pressure 136 mm[Hg] Kelsie Zuniga MD Work Phone: [facility] 04-12-2022 16:57-0400 Body height 162.81 cm [facility] 04-12-2022 16:57-0400 Body mass index (BMI) [Ratio] 35.59 kg/m2 [facility] 04-12-2022 16:57-0400 Body surface area Derived from formula 2.07 m2 [facility] 04-12-2022 16:57-0400 Body weight 94.35 kg [facility] 04-12-2022 16:57-0400 Diastolic blood pressure 84 mm[Hg] [facility] 04-12-2022 16:57-0400 Heart rate 68 /min Lelia Be [employer] [facility] 04-12-2022 16:57-0400 Systolic blood pressure 142 mm[Hg] [facility] 09-04-2021 16:40-0500 Body height 163.83 cm [facility] 09-04-2021 16:40-0500 Body mass index (BMI) [Ratio] 35.24 kg/m2 [facility] 09-04-2021 16:40-0500 Body surface area Derived from formula 2.07 m2 [facility] 09-04-2021 16:40-0500 Body weight 94.58 kg [facility] 09-04-2021 16:40-0500 Diastolic blood pressure 88 mm[Hg] [facility] 09-04-2021 16:40-0500 Heart rate 84 /min [facility] 09-04-2021 16:40-0500 Systolic blood pressure 140 mm[Hg] [facility] 08-05-2021 17:12-0500 Body height 163.83 cm [facility] 08-05-2021 17:12-0500 Body mass index (BMI) [Ratio] 35.57 kg/m2 [facility] 08-05-2021 17:12-0500 Body surface area Derived from formula 2.08 m2 [facility] 11-10-2021 17:12-0500 Body weight 95.48 kg [facility] 08-05-2021 17:12-0500 Diastolic blood pressure 110 mm[Hg] [facility] 08-05-2021 17:12-0500 Heart rate 96 /min [facility] 08-05-2021 17:12-0500 Systolic blood pressure 168 mm[Hg] [facility] 07-29-2021 19:10-0400 Body height 162.56 cm Gianna Temi Other [facility] Other 07-29-2021 19:10-0400 Body mass index (BMI) [Ratio] 36.56 kg/m2 Gianna Temi Other [facility] Other 07-29-2021 19:10-0400 Body temperature 97.7 [degF] Gianna Temi Other [facility] Other 07-29-2021 19:10-0400 Body weight 96.62 kg Gianna Sommersmond Other [facility] Other 07-29-2021 19:10-0400 Diastolic blood pressure 88 mm[Hg] Gianna Temi Other [facility] Other 07-29-2021 19:10-0400 Respiratory rate 18 /min Gianna Temi Other [facility] Other 07-29-2021 19:10-0400 SaO2% (BldA) [Mass fraction] 99 % Gianna Temi Other [facility] Other 07-29-2021 19:10-0400 Systolic blood pressure 160 mm[Hg] Gianna Membreno Other [facility] Other 11-06-2020 11:26-0500 BMI (Body Mass Index) 35.74 kg/m2 [facility] 11-06-2020 11:050 Body weight 95.94 kg [facility] 11-06-2020 11:26-0500 BP Diastolic 80 mm[Hg] [facility] 11-06-2020 11:26-0500 BP Systolic 130 mm[Hg] [facility] 11-06-2020 11:260500 BSA (Body Surface Area) 2.09 m2 [facility] 11-06-2020 11:260500 Height 163.83 cm [facility] 11-06-2020 11:26-0500 Pulse (Heart Rate) 92 /min Lelia Be Hyatthard Jaqueline [employer] 01-30-2020 11:29-0400 BMI (Body Mass Index) 34.67 kg/m2 [facility] 01-30-2020 11:29-0400 Body Temperature 97.7 [degF] [employer] 01-30-2020 11:29-0400 Body weight 91.63 kg [facility] 01-30-2020 11:29-0400 BP Diastolic 84 mm[Hg] [facility] 01-30-2020 11:29-0400 BP Systolic 122 mm[Hg] Lelia [facility] 01-30-2020 11:290400 BSA (Body Surface Area) 2.03 m2 Lelia [employer] 01-30-2020 11:290400 Height 162.56 cm Lelia [employer] 01-30-2020 11:290400 Pulse (Heart Rate) 80 /min Lelia Parsons [employer] 11-08-2018 10:46-0500 BMI (Body Mass Index) 33.81 kg/m2 Lelia [employer] 11-08-2018 10:46-0500 Body weight 90.04 kg Lelia [employer] 11-08-2018 10:46-0500 BP Diastolic 94 mm[Hg] Lelia Be [employer] [facility] 11-08-2018 10:46-0500 BP Systolic 144 mm[Hg] Lelia [employer] 11-08-2018 10:46-0500 BSA (Body Surface Area) 2.02 m2 Lelia [employer] 11-08-2018 10:46-0500 Height 163.19 cm Lelia Lr [employer] [facility] 11-08-2018 10:46-0500 Pulse (Heart Rate) 84 /min Lelia Parsons [employer] 11-08-2018 10:46-0500 Weight 90.04 kg Lelia Lr [employer] [facility] 12-13-2017 11:48-0400 BMI (Body Mass Index) 31.1 kg/m2 Lelia Be [employer] [facility] 12-13-2017 11:48-0400 Body Temperature 98.6 [degF] Lelia Hyatthard Melinda romero [facility] 12-13-2017 11:48-0400 Body weight 83.46 kg Lelia Brito [employer] 12-13-2017 11:48-0400 BP Diastolic 80 mm[Hg] [facility] [employer] 12-13-2017 11:48-0400 BP Systolic 144 mm[Hg] [facility] 12-13-2017 11:48-0400 BSA (Body Surface Area) 1.95 m2 [facility] 12-13-2017 11:48-0400 Height 163.83 cm [facility] 12-13-2017 11:48-0400 Pulse (Heart Rate) 80 /min Lelia Hyatthard Jaqueline askew [facility] 12-13-2017 11:48-0400 Weight 83.46 kg [facility] 03-11-2017 11:55-0400 BMI (Body Mass Index) 34.74 kg/m2 [facility] 03-11-2017 11:55-0400 Body weight 92.53 kg [facility] 03-11-2017 11:55-0400 BP Diastolic 82 mm[Hg] [facility] 03-11-2017 11:55-0400 BP Systolic 140 mm[Hg] [facility] 03-11-2017 11:55-0400 BSA (Body Surface Area) 2.05 m2 [facility] 03-11-2017 11:55-0400 Height 163.19 cm Lelia [employer] 03-11-2017 11:55-0400 Pulse (Heart Rate) 80 /min Lelia Parsons [employer] 03-11-2017 11:55-0400 Weight 92.53 kg Lelia [employer] 03-09-2017 17:15-0400 BMI (Body Mass Index) 34.74 kg/m2 Lelia Lr [employer] [facility] 03-09-2017 17:15-0400 Body weight 92.53 kg Lelia Lr [employer] [facility] 03-09-2017 17:15-0400 BP Diastolic 84 mm[Hg] Lelia Be [employer] 03-09-2017 17:15-0400 BP Systolic 130 mm[Hg] Lelia Be [employer] [facility] 03-09-2017 17:15-0400 BSA (Body Surface Area) 2.05 m2 Lelia Be [employer] [facility] 03-09-2017 17:15-0400 Height 163.19 cm Lelia Lr [employer] [facility] 03-09-2017 17:15-0400 Pulse (Heart Rate) 72 /min Lelia Parsons [employer] 03-09-2017 17:15-0400 Weight 92.53 kg [facility] 10-25-2016 12:21-0500 BMI (Body Mass Index) 35.26 kg/m2 [employer] 10-25-2016 12:21-0500 Body weight 93.9 kg [facility] 10-25-2016 12:21-0500 BP Diastolic 76 mm[Hg] Lelia Brito [employer] 10-25-2016 12:21-0500 BP Systolic 134 mm[Hg] Lelia Brito [employer] 10-25-2016 12:21-0500 BSA (Body Surface Area) 2.06 m2 Lelia Brito [employer] 10-25-2016 12:21-0500 Height 163.19 cm Lelia [employer] 10-25-2016 12:21-0500 Pulse (Heart Rate) 76 /min Lelia [employer] 10-25-2016 12:21-0500 Weight 93.9 kg Lelia [employer] 08-20-2015 10:49-0500 BMI (Body Mass Index) 21.01 kg/m2 Lelia [employer] 08-20-2015 10:49-0500 Body Temperature 98.2 [degF] Lelia Brito Lawrence [employer] 08-20-2015 10:49-0500 Body weight 54.66 kg Lelia [employer] 08-20-2015 10:49-0500 BP Diastolic 88 mm[Hg] Lelia Be [employer] 08-20-2015 10:49-0500 BP Systolic 126 mm[Hg] [facility] 08-20-2015 10:49-0500 BSA (Body Surface Area) 1.56 m2 [employer] [employer] 08-20-2015 10:49-0500 Height 161.29 cm [facility] 08-20-2015 10:49-0500 Pulse (Heart Rate) 82 /min Lelia Parsons [employer] 08-20-2015 10:49-0500 Weight 54.66 kg Lelia [employer] 11-20-2014 12:38-0500 BMI (Body Mass Index) 33.18 kg/m2 Lelia [employer] 11-20-2014 12:38-0500 Body weight 86.33 kg Lelia [employer] 11-20-2014 12:38-0500 BP Diastolic 70 mm[Hg] Lelia [employer] 11-20-2014 12:38-0500 BP Systolic 128 mm[Hg] Lelia [employer] 11-20-2014 12:38-0500 BSA (Body Surface Area) 1.97 m2 Lelia [employer] 11-20-2014 12:38-0500 Height 161.29 cm Lelia [employer] 11-20-2014 12:38-0500 Pulse (Heart Rate) 100 /min Lelia Parsons [employer] 11-20-2014 12:38-0500 Weight 86.33 kg Lelia Be [employer] [facility] 08-19-2014 13:24-0500 BMI (Body Mass Index) 34.7 kg/m2 Lelia Be [employer] [facility] 08-19-2014 13:24-0500 Body weight 90.27 kg Lelia Be [employer] [facility] 08-19-2014 13:24-0500 BP Diastolic 70 mm[Hg] [facility] 08-19-2014 13:24-0500 BP Systolic 132 mm[Hg] [facility] 08-19-2014 13:24-0500 BSA (Body Surface Area) 2.01 m2 Lelia Be [employer] [facility] 08-19-2014 13:24-0500 Height 161.29 cm [facility] 08-19-2014 13:24-0500 Pulse (Heart Rate) 72 /min Lelia Be [facility] 08-19-2014 13:24-0500 Weight 90.27 kg [facility] 05-10-2013 13:53-0400 BMI (Body Mass Index) 33.83 kg/m2 [facility] 05-10-2013 13:53-0400 Body weight 88 kg [facility] 05-10-2013 13:53-0400 BP Diastolic 62 mm[Hg] [facility] 05-10-2013 13:53-0400 BP Systolic 130 mm[Hg] [facility] 05-10-2013 13:53-0400 BSA (Body Surface Area) 1.99 m2 [facility] 05-10-2013 13:53-0400 Height 161.29 cm [facility] 05-10-2013 13:53-0400 Pulse (Heart Rate) 76 /min Lelia Be [facility] 05-10-2013 13:53-0400 Weight 88 kg Lelia Ray [employer] [facility] Encounters Encounter Date Encounter Type Care Provider Facility Start: 09-11-2024 Patient encounter procedure Lelia Brito [facility] Start: 09-11-2024 Office Services Lelia Lr Other [facility] Start: 09-11-2024 Periodic preventive med est patient 40-64yrs Lelia Lr Other [facility] Start: 09-03-2024 Encounter for genera l adult medical examination without abnormal findings Lelia Lr [employer] [facility] Start: 02-18-2024 E-mail encounter fro m caregiver Sae Craven MD Work Phone: Gastroenterology Start: 02-18-2024 Follow-up encounter Sae Craven MD Work Phone: Gastroenterology Comment on above: Follow up needed Start: 12-21-2023 Office outpatient vi sit 15 minutes Lelia Lr Other [facility] Start: 08-02-2023 End: 08-02-2023 ambulatory SAE CRAVEN Facility:[facility] Start: 08-02-2023 End: 08-02-2023 Subsequent hospital visit by physician Nurse Gi Proc 4 Work Phone: Gastroenterology Start: 07-01-2023 Telephone encounter Ann Marie del valle RN Gastroenterology Comment on above: FMLA Paperwork Start: 06-08-2023 End: 06-08-2023 ambulatory SAE CRAVEN Facility:[facility] Start: 06-08-2023 End: 06-08-2023 Subsequent hospital visit by physician Nurse Gi Proc 4 Work Phone: Gastroenterology Start: 05-17-2023 Patient encounter procedure Lelia [facility] Start: 05-17-2023 Lab Lelia Lr Other [facility] Start: 05-17-2023 Periodic preventive med est patient 40-64yrs Lelia Lr Other [facility] Start: 04-13-2023 End: 04-13-2023 ambulatory SAE CRAVEN Facility:[facility] Start: 04-13-2023 End: 04-13-2023 Subsequent hospital visit by physician Nurse Gi Proc 1 Work Phone: Gastroenterology Start: 03-30-2023 End: 03-30-2023 ambulatory SAE CRAVEN Facility:[facility] Start: 03-30-2023 End: 03-30-2023 Subsequent hospital visit by physician Nurse Gi Proc 3 Work Phone: Gastroenterology Start: 03-14-2023 End: 03-14-2023 ambulatory SAE CRAVEN Facility:[facility] Start: 03-14-2023 End: 03-14-2023 Subsequent hospital visit by physician Nurse Gi Proc 1 Work Phone: Gastroenterology Start: 02-24-2023 End: 02-24-2023 ambulatory SAE CRAVEN Facility:[facility] Start: 02-22-2023 End: 02-23-[address] LELIA LR Facility:[facility] Start: 02-17-2023 Office Services Lelia Lr Other [facility] Office Start: 02-17-2023 End: 02-17-2023 ambulatory SAE CRAVEN Facility:[facility] Start: 02-03-2023 Encounter for genera l adult medical examination without abnormal findings Lelia Lr [facility] Start: 11-26-2022 Refill Sae kaur MD Work Phone: Gastroenterology Comment on above: Refill Request Start: 11-24-2022 End: 11-25-[address] LELIA LR Facility:[facility] Start: 11-04-2022 End: 11-04-2022 ambulatory SAE CRAVEN Facility:[facility] Start: 11-01-2022 End: 11-02-2022 ambulatory SAE CRAVEN Facility:[facility] Start: 11-01-2022 End: 11-01-2022 ambulatory SAE CRAVEN Facility:[facility] Start: 11-01-2022 End: 11-01-2022 Patient encounter procedure Sae Craven MD Work Phone: Gastroenterology Comment on above: Ileitis (Primary Dx) Start: 10-29-2022 Telephone encounter Ann Marie del valle RN Gastroenterology Comment on above: [employer] - [facility] ther Start: 10-07-2022 End: 10-08-[address] DOCTOR TORRES Facility:[facility] Start: 08-27-2022 End: 08-28-[address] DOCTOR TORRES [facility] Other Start: 08-27-2022 Office outpatient vi sit 15 minutes Nae [facility] Start: 07-30-2022 End: 07-31-[address] DOCTOR TORRES Facility:[facility] Start: 06-30-2022 End: 06-30-2022 Patient encounter procedure Bandar Eddy MD Work Phone: Vascular Medicine Comment on above: Antiphospholipid syn drome (HCC) (Primary Dx); History of arterial ischemic stroke; Anticoagulant long-term use Start: 06-23-2022 End: 06-24-2022 ambulatory Lelia Lr MD Facility:[facility] Start: 06-15-2022 End: 06-16-[address] DOCTOR TORRES Facility:[facility] Start: 06-11-2022 End: 06-12-[address] LELIA LR Facility:[facility] Start: 06-07-2022 End: 06-08-2022 ambulatory Lelia Lr MD Facility:[facility] Start: 06-01-2022 End: 06-02-2022 ambulatory Joseph Herrera MD Facility:[facility] Start: 05-12-2022 End: 05-13-2022 ambulatory Joseph Herrera MD Facility:[facility] Start: 05-03-2022 End: 05-03-2022 Patient encounter procedure Kelsie Zuniga MD Work Phone: Rheumatology Comment on above: Pain in joint, multi ple sites (Primary Dx); History of Coumadin therapy Start: 04-12-2022 Patient encounter procedure Lelia Lr [employer] [facility] Start: 04-12-2022 Periodic preventive med est patient 40-64yrs Lelia Lr Other [facility] Office Start: 03-08-2022 Office Services Lelia Lr Other [facility] Office Start: 03-08-2022 End: 03-09-[address] LELIA LR Facility: Start: 10-09-2021 Office outpatient vi sit 15 minutes Lelia Lr Other [facility] Office Start: 09-04-2021 Encounter for genera l adult medical examination without abnormal findings Lelia Lr [employer] [facility] Start: 09-04-2021 Office outpatient vi sit 15 minutes Lelia Lr Other [facility] Office Start: 08-05-2021 Office outpatient vi sit 15 minutes Lelia Lr Other [facility] Office Start: 07-29-2021 End: 07-29-2021 ambulatory Gianna Membreno Other [facility] Other Start: 07-29-2021 Office outpatient vi sit 15 minutes Gianna Membreno [facility] Start: 11-06-2020 Office outpatient vi sit 15 minutes Lelia Lr Other [facility] Office Start: 01-30-2020 Encounter for genera l adult medical examination without abnormal findings Lelia Lr [employer] [facility] Start: 01-30-2020 Routine general medi susana examination at a health care facility Lelia Lr [employer] [facility] Start: 01-30-2020 Patient encounter procedure Lelia Lr [employer] Start: 01-30-2020 Lab Lelia Lr Other [facility] Office Start: 01-30-2020 Periodic preventive med est patient 40-64yrs Lelia Wasserman Ray Other [facility] Start: 01-21-2020 Encounter for genera l adult medical examination without abnormal findings Lelia Lr [employer] Start: 01-21-2020 Routine general medi susana examination at a health care facility Lelia Lr [employer] Start: 12-05-2019 Office Services Lelia J Ray Other [facility] Start: 11-20-2019 Office Services Lelia J Ray Other [facility] Start: 10-29-2019 Office Services Lelia J Ray Other [facility] Start: 09-27-2019 Office Services Lelia J Ray Other [facility] Start: 08-22-2019 Office Services Gustavo paula Other [facility] Start: 05-24-2019 Office Services Lelia J Ray Other [facility] Start: 04-26-2019 Office Services Lelia J Ray Other [facility] Start: 04-12-2019 Office Services Lelia J Ray Other [facility] Start: 03-19-2019 Office Services Lelia J Ray Other [facility] Start: 02-16-2019 Office Services Carolee Leroy Other [facility] Start: 01-03-2019 Office Services Lelia J Ray Other [facility] Start: 12-20-2018 Office Services Lelia J Ray Other [facility] Start: 11-09-2018 Office Services Lelia J Ray Other [facility] Start: 11-08-2018 Office outpatient vi sit 15 minutes Lelia J Ray Other [facility] Start: 10-11-2018 Office Services Lelia J Ray Other [facility] Start: 08-30-2018 Lab Lelia Wasserman Ray Other [facility] Start: 08-14-2018 Office Services Lelia Wasserman Ray Other [facility] Start: 07-24-2018 Office Services Lelia J Ray Other [facility] Start: 06-26-2018 Office Services Lelia Wasserman Ray Other [facility] Start: 05-31-2018 Office Services Lelia Wasserman Ray Other [facility] Start: 05-16-2018 Office Services Lelia Wasserman Ray Other [facility] Start: 04-11-2018 Office Services Lelia Wsaserman Ray Other [facility] Office Start: 02-02-2018 Office Services Lelia Lux Ray Other [facility] Start: 01-11-2018 Office Services Lelia Wasserman Ray Other [facility] Office Start: 12-13-2017 Office outpatient vi sit 15 minutes Lelia Wasserman Ray Other [facility] Office Start: 10-17-2017 Office Services Lelia Wasserman Ray Other [facility] Office Start: 03-11-2017 Office outpatient vi sit 15 minutes Lelia Wasserman Ray Other [facility] Office Start: 03-11-2017 Office Services Lelia Wasserman Ray Other [facility] Office Start: 03-09-2017 Office outpatient vi sit 15 minutes Lelia Wasserman Ray Other [facility] Office Start: 10-25-2016 Office outpatient vi sit 15 minutes Lelia J Ray Other [facility] Office Start: 08-20-2015 [facility] Start: 08-20-2015 Periodic preventive med est patient 40-64yrs Lelia Wasserman Ray Other [facility] Office Start: 08-20-2015 Office Services Lelia Wasserman Ray Other [facility] Office Start: 11-20-2014 Office outpatient vi sit 15 minutes Lelia J Ray Other [facility] Office Start: 08-19-2014 Office Services Lelia J Ray Other [facility] Office Start: 05-23-2014 Office Services Lelia J Ray Other [facility] Office Start: 05-10-2013 Office Services Lelia J Ray Other [facility] Office Start: 09-15-2012 Office Services Lelia J Ray Other [facility] Office Procedures Date Procedure Procedure Detail Performing Clinician Start: 10-22-2024 Prothrombin time Lelia Ray Start: 09-11-2024 Comprehensive metabolic panel Lelia Ray Start: 09-11-2024 Erythrocyte mean corpuscular volume determination Lelia Ray Start: 09-11-2024 Lipid panel Lelia Ray Start: 09-11-2024 Urinalysis, automated Lelia Ray Start: 10-06-2023 Prothrombin time Lelia Ray Start: 05-17-2023 Comprehensive metabolic panel Lelia Ray Start: 05-17-2023 Erythrocyte mean corpuscular volume determination Lelia Ray Start: 05-17-2023 Lipid panel Lelia Ray Start: 05-17-2023 Most recent diastolic blood pressure < 80 mm hg Lelia Ray Start: 05-17-2023 Most recent systolic blood pressure <130 mm hg Lelia Ray Start: 05-17-2023 Urinalysis, automated Lelia Ray Start: 11-04-2022 Assay of calprotectin fecal Sae shah MD Work Phone: Start: 04-29-2022 Adult depression screening assessment Kelsie Zuniga MD Work Phone: Start: 04-12-2022 Comprehensive metabolic panel Lelia Ray Start: 04-12-2022 Docrev cur meds by lj clin Lelia Ray Start: 04-12-2022 Erythrocyte mean corpuscular volume determination Lelia Ray Start: 04-12-2022 Erythrocyte sedimentation rate, non-automated Lelia Ray Start: 04-12-2022 Lipid panel Lelia Ray Start: 04-12-2022 Prothrombin time Lelia Ray Start: 04-12-2022 Thyroid stimulating hormone measurement Lelia Ray Start: 04-12-2022 Urinalysis, automated Lelia Ray Start: 04-12-2022 Vitamin B12 and Folate Lelia Ray Start: 04-12-2022 Vitamin D, 25-hydroxy measurement Lelia Ray Start: 04-05-2022 Comprehensive metabolic panel Lelia Ray Start: 04-05-2022 Erythrocyte mean corpuscular volume determination Lelia Ray Start: 04-05-2022 Lipid panel Lleia Ray Start: 04-05-2022 Urinalysis, automated Lelia Ray Start: 03-08-2022 Prothrombin time Lelia Ray Start: 03-05-2022 Comprehensive metabolic panel Lelia Ray Start: 03-05-2022 Lipid panel Lelia Ray Start: 09-04-2021 Docrev cur meds by elig clin Lelia Ray Start: 09-04-2021 Prothrombin time Lelia Ray Start: 08-17-2021 Prothrombin time Lelia Ray Start: 08-13-2021 Prothrombin time Lelia Ray Start: 08-05-2021 Docrev cur meds by thonyg clin Lelia Ray Start: 02-24-2021 Prothrombin time Lelia Ray Start: 01-29-2021 Comprehensive metabolic panel Lelia Ray Start: 01-29-2021 Erythrocyte mean corpuscular volume determination Lelia Ray Start: 01-29-2021 Lipid panel Lelia Ray Start: 01-29-2021 Urinalysis, automated Lelia Ray Start: 11-08-2020 Ct abdomen & pelvis w/o contrst 1/> body re Lelia Ray Start: 11-06-2020 Blood count complete auto&auto difrntl wbc Lelia Ray Start: 11-06-2020 Complete blood count Lelia Ray Start: 11-06-2020 Comprehensive metabolic panel Lelia Ray Start: 11-06-2020 Doc meds verified w/pt or re Lelia Ray Start: 11-06-2020 Lipid panel Lelia Ray Start: 11-06-2020 Lipid panel Lelia Ray Start: 11-06-2020 Urinalysis, automated Lelia Ray Start: 11-06-2020 Urnls dip stick/tablet rgnt auto w/o microscopy Lelia Ray Start: 11-06-2020 Ct abdomen & pelvis w/o contrst 1/> body re Lelia Ray Start: 11-03-2020 Culture bacterial quanttative colony count urine Lelia Ray Start: 11-03-2020 Urinalysis Lelia Ray Start: 03-05-2020 Prothrombin time Lelia Ray Start: 01-30-2020 Blood count complete automated Lelia Ra y Start: 01-30-2020 Comprehensive metabolic panel Lelia Ray Start: 01-30-2020 Doc meds verified w/pt or re Lelia Ray Start: 01-30-2020 Erythrocyte mean corpuscular volume determination Lelia Ray Start: 01-30-2020 Lipid panel Lelia Ray Start: 01-30-2020 Lipid panel Lelia Ray Start: 01-30-2020 Urinalysis, automated Lelia Ray Start: 01-30-2020 Urnls dip stick/tablet rgnt auto w/o microscopy Lelia Ray Start: 11-08-2019 Comprehensive metabolic panel Lelia Ray Start: 11-08-2019 Lipid panel Lelia Ray Start: 11-08-2019 Lipid panel Lelia Ray Start: 02-26-2019 Prothrombin time Lelia Ray Start: 02-26-2019 Prothrombin time Lelia Ray Start: 11-08-2018 Comprehensive metabolic panel Lelia Ray Start: 11-08-2018 Doc meds verified w/pt or re Lelia Ray Start: 11-08-2018 Lipid panel Lelia Ray Start: 11-08-2018 Lipid panel Lelia Ray Start: 11-08-2018 Prothrombin time Lelia Ray Start: 11-08-2018 Prothrombin time Lelia Ray Start: 08-30-2018 Basic metabolic panel calcium total Lelia Ray Start: 06-15-2018 Alanine aminotransferase measurement Lelia Ray Start: 06-15-2018 Aspartate aminotransferase measurement Lelia Ray Start: 06-15-2018 Basic metabolic panel calcium ionized Lelia Ray Start: 06-15-2018 Blood chemistry Lelia Ray Start: 06-15-2018 Lipid panel Lelia Ray Start: 06-15-2018 Lipid panel Lelia Ray Start: 06-15-2018 Transferase alanine amino alt sgpt Lelia Ray Start: 06-15-2018 Transferase aspartate amino ast sgot Lelia Ray Start: 02-24-2018 Prothrombin time Lelia Ray Start: 02-24-2018 Prothrombin time Lelia Ray Start: 12-13-2017 Comprehensive metabolic panel Lelia Ray Start: 12-13-2017 Doc meds verified w/pt or re Lelia Ray Start: 12-13-2017 Lipid panel Lelia Ray Start: 12-13-2017 Lipid panel Lelia Ray Start: 12-13-2017 Prothrombin time Lelia Ray Start: 12-13-2017 Prothrombin time Lelia Ray Start: 10-25-2017 Comprehensive metabolic panel Lelia Ray Start: 10-25-2017 Lipid panel Lelia Ray Start: 10-25-2017 Lipid panel Lelia Ray Start: 03-11-2017 Brncdilat rspse spmtry pre&post-brncdilat admn Lelia Ray Start: 03-11-2017 Methylprednisolone 80 MG inj Lelia Ray Start: 03-11-2017 Therapeutic prophylactic/dx injection subq/im Lelia Ray Start: 03-11-2017 Triamcinolone acet inj NOS Lelia Ray Start: 03-09-2017 Blood count complete auto&auto difrntl wbc Leila Ray Start: 03-09-2017 Complete blood count Lelia Ray Start: 03-09-2017 Comprehensive metabolic panel Lelia Ray Start: 03-09-2017 End: 03-09-2017 Ct angiography chest w/contrast/noncontrast Lelia Ray Start: 03-09-2017 CT angiography of chest with contrast Lelia Ray Start: 03-09-2017 Prothrombin time Lelia Ray Start: 03-09-2017 Prothrombin time Lelia Ray Start: 01-27-2017 Lipid panel Lelia Ray Start: 01-27-2017 Lipid panel Lelia Ray Start: 01-17-2017 Prothrombin time Lelia Ray Start: 01-17-2017 Prothrombin time Lelia Ray Start: 10-25-2016 Comprehensive metabolic panel Lelia Ray Start: 10-25-2016 Lipid panel Lelia Ray Start: 10-25-2016 Lipid panel Lelia Ray Start: 10-25-2016 Prothrombin time Lelia Ray Start: 10-25-2016 Prothrombin time Lelia Ray Start: 08-20-2016 Assay of thyroid stimulating hormone tsh Lelia Ray Start: 08-20-2016 Blood count complete automated Lelia Ra y Start: 08-20-2016 Comprehensive metabolic panel Lelia Ray Start: 08-20-2016 Erythrocyte mean corpuscular volume determination Lelia Ray Start: 08-20-2016 Lipid panel Lelia Ray Start: 08-20-2016 Lipid panel Lelia Ray Start: 08-20-2016 Thyroid stimulating hormone measurement Lelia Ray Start: 12-15-2015 Prothrombin time Lelia Ray Start: 12-15-2015 Prothrombin time Lelia Ray Start: 08-19-2015 Assay of thyroid stimulating hormone tsh Ellia Ray Start: 08-19-2015 Comprehensive metabolic panel Lelia Ray Start: 08-19-2015 Lipid panel Lelia Ray Start: 08-19-2015 Lipid panel Lelia Ray Start: 08-19-2015 Thyroid stimulating hormone measurement Lelia Ray Start: 12-16-2014 Prothrombin time Lelia Ray Start: 12-16-2014 Prothrombin time Lelia Ray Start: 11-20-2014 Doc meds verified w/pt or re Lelia Ray Start: 11-20-2014 Flu immunize order/admin Lelia Ray Start: 11-20-2014 Prothrombin time Lelia Ray Start: 11-20-2014 Prothrombin time Lelia Ray Start: 11-20-2014 TOBACCO NON-USER Lelia Ray Start: 08-19-2014 Assay of thyroid stimulating hormone tsh Lelia Ray Start: 08-19-2014 Combined hepatitis A and B vaccination Lelia Ray Start: 08-19-2014 Comprehensive metabolic panel Lelia Ray Start: 08-19-2014 Lipid panel Lelia Ray Start: 08-19-2014 Lipid panel Lelia Ray Start: 08-19-2014 Thyroid stimulating hormone measurement Lelia Ray Start: 05-07-2014 Coumadin Flow Sheet Lelia Ray Start: 09-21-2013 Assay of thyroid stimulating hormone tsh Lelia Ray Start: 09-21-2013 Blood count complete automated Lelia Ra y Start: 09-21-2013 Calculation of international normalized ratio Lelia Ray Start: 09-21-2013 Comprehensive metabolic panel Lelia Ray Start: 09-21-2013 Erythrocyte mean corpuscular volume determination Lelia Ray Start: 09-21-2013 Lipid panel Lelia Ray Start: 09-21-2013 Lipid panel Lelia Ray Start: 09-21-2013 Prothrombin time Lelia Ray Start: 09-21-2013 Thyroid stimulating hormone measurement Lelia Ray Start: 05-10-2013 Blood count complete auto&auto difrntl wbc Lelia Ray Start: 05-10-2013 Calculation of international normalized ratio Lelia Ray Start: 05-10-2013 Complete blood count Lelia Ray Start: 05-10-2013 Comprehensive metabolic panel Lelia Ray Start: 05-10-2013 Prothrombin time Lelia Ray Plan of Treatment Date Care Activity Detail Author Start: 2027 HEPATITIS B (1 of 3 - Risk 3-dose series) HEPATITIS B (1 of 3 - Risk 3-dose series) [facility] Start: 2027 Hepatitis B Vaccine (1 of 3 - Risk 3-dose series) Hepatitis B Vaccine (1 of 3 - Risk 3-dose series) [facility] Start: 02-22-2026 DIABETES SCREEN DIABETES SCREEN [facility] Start: 02-22-2026 Diabetes Screening Diabetes Screenin g [facility] Start: 09-11-2025 Blood count complete automated CBC & PLATELET COUNT; AUTOMATED [employer] [facility] Start: 09-11-2025 Comprehensive metabo lic panel CMP [employer] [facility] Start: 09-11-2025 Lipid panel Lipid panel [employer] [facility] Start: 09-11-2025 Urnls dip stick/tabl et rgnt auto w/o microscopy Urinalysis auto [employer] [facility] Start: 05-03-2025 DIABETES SCREEN DIABETES SCREEN [facility] Start: 10-22-2024 Prothrombin time PROTIME/INR [[id number] ] [employer] [facility] Start: 09-11-2024 Blood count complete automated CBC and PLATELET COUNT; AUTOMATED [employer] [facility] Start: 09-11-2024 Comprehensive metabo lic panel Comprehensive metabolic panel [employer] [facility] Start: 09-11-2024 Lipid panel Lipid panel [employer] [facility] Start: 09-11-2024 Urnls dip stick/tabl et rgnt auto w/o microscopy UA [employer] [facility] Start: 05-27-2024 Influenza vaccination Influenz a Vaccine (Season Ended) [facility] Start: 02-18-2024 End: 05-19-2024 CBC panel - Blood by Automated count COMPLETE BLOOD COUNT Lab Routine Crohn's disease of small intestine without complication (HCC) Expected: 02/18/2024, Expires: 05/19/2024 [facility] Comment on above: Expected: 02/18/2024 , Expires: 05/19/2024 Start: 02-18-2024 End: 05-19-2024 Comprehensive metabolic 2000 panel - Serum or Plasma COMPREHENSIVE METABOLIC PANEL Lab Routine Crohn's disease of small intestine without complication (HCC) Expected: 02/18/2024, Expires: 05/19/2024 [facility] Work Phone: Comment on above: Expected: 02/18/2024 , Expires: 05/19/2024 Start: 09-26-2023 Behavioral Health Screening Behavioral Health Screening [facility] Start: 05-27-2023 Covid-19 Vaccine () Covid-19 Vaccine () [facility] Start: 05-27-2023 Influenza vaccination [facility] Start: 05-17-2023 Blood count complete automated CBC & PLATELET COUNT; AUTOMATED [employer] [facility] Start: 05-17-2023 Comprehensive metabo lic panel [facility] [employer] [facility] Start: 05-17-2023 Lipid panel Lipid panel [employer] [facility] Start: 05-17-2023 Urnls dip stick/tabl et rgnt auto w/o microscopy Urinalysis auto [employer] [facility] Start: 04-29-2023 Adult depression [facility] assessment DEPRESSION SCREENING [facility] Start: 04-14-2023 Shingrix Vaccine (2 of 2) Evans grix Vaccine (2 of 2) [facility] Start: 02-03-2023 Blood count complete automated CBC & PLATELET COUNT; AUTOMATED [employer] [facility] Start: 02-03-2023 Comprehensive metabo lic panel [facility] [employer] [facility] Start: 02-03-2023 Lipid panel Lipid panel [employer] [facility] Start: 02-03-2023 Urnls dip stick/tabl et rgnt auto w/o microscopy Urinalysis auto [employer] [facility] Start: 09-26-2022 DEPRESSION ASSESSMENT DEPRESSION ASS ESSMENT [facility] Start: 05-27-2022 Influenza vaccination INFLUENZA (#1) [facility] Start: 05-03-2022 End: 07-03-2022 CARRIE BY IFA WITH REFLEX [facility] Work Phone: Comment on above: Expected: 05/03/2022 , Expires: 07/03/2022 Start: 05-03-2022 End: 07-03-2022 BLOOD TB SCREEN [facility] Work Phone: Comment on above: Expected: 05/03/2022 , Expires: 07/03/2022 Start: 05-03-2022 End: 07-03-2022 Chronic hepatitis differentiation between hepatitis B and C virus panel - Serum or Plasma [facility] Work Phone: Comment on above: Expected: 05/03/2022 , Expires: 07/03/2022 Start: 05-03-2022 End: 07-03-2022 Cyclic citrullinated peptide IgG Ab [Units/volume] in Serum or Plasma [facility] Work Phone: Comment on above: Expected: 05/03/2022 , Expires: 07/03/2022 Start: 05-03-2022 End: 07-03-2022 Erythrocyte sedimentation rate [facility] Work Phone: Comment on above: Expected: 05/03/2022 , Expires: 07/03/2022 Start: 05-03-2022 End: 07-03-[address] [facility] Work Phone: Comment on above: Expected: 05/03/2022 , Expires: 07/03/2022 Start: 04-12-2022 25 hydroxy includes fractions if performed Vitamin d 25 hydroxy panel [employer] [facility] Start: 04-12-2022 Assay of thyroid stimulating hormone tsh TSH [employer] [facility] Start: 04-12-2022 Blood count complete automated CBC & PLATELET COUNT; AUTOMATED [facility] Start: 04-12-2022 Comprehensive metabo lic panel CMP [facility] Start: 04-12-2022 Lipid panel Lipid panel [facility] Start: 04-12-2022 Prothrombin time Protime [facility] [employer] [facility] Start: 04-12-2022 Sedimentation rate r bc non-automated ESR non-auto [facility] [employer] [facility] Start: 04-12-2022 Urnls dip stick/tabl et rgnt auto w/o microscopy Urinalysis auto [facility] [employer] [facility] Start: 04-05-2022 Blood count complete automated CBC & PLATELET COUNT; AUTOMATED [facility] [employer] [facility] Start: 04-05-2022 Comprehensive metabo lic panel Comprehensive metabolic panel [facility] [employer] [facility] Start: 04-05-2022 Lipid panel Lipid panel [facility] Start: 04-05-2022 Urnls dip stick/tabl et rgnt auto w/o microscopy UA [facility] Start: 03-08-2022 Prothrombin time PROTIME/INR [[id number] ] [facility] Start: 03-05-2022 Blood count complete automated CBC & PLATELET COUNT; AUTOMATED [facility] Start: 03-05-2022 Comprehensive metabo lic panel [facility] Start: 03-05-2022 Lipid panel Lipid panel [facility] Start: 03-05-2022 Urnls dip stick/tabl et rgnt auto w/o microscopy [facility] Start: 01-13-2022 COVID-19 VACCINE (4 - Booster for Pfizer series) COVID-19 VACCINE (4 - Booster for Pfizer series) [facility] Start: 11-09-2021 COVID-19 VACCINE (4 - Booster for Pfizer series) COVID-19 VACCINE (4 - Booster for Pfizer series) [facility] Start: 11-09-2021 COVID-19 VACCINE (4 - Pfizer series) COVID-19 VACCINE (4 - Pfizer series) [facility] Start: 09-26-2021 DEPRESSION ASSESSMENT DEPRESSION ASS ESSMENT [facility] Start: 09-04-2021 Prothrombin time PROTIME/INR [[id number] ] [employer] [facility] Start: 08-17-2021 Prothrombin time PROTIME/INR [[id number] ] [employer] [facility] Start: 08-13-2021 Prothrombin time PROTIME/INR [[id number] ] [employer] [facility] Start: 02-24-2021 Prothrombin time PROTIME/INR [[id number] ] [employer] [facility] Start: 01-29-2021 Blood count complete automated CBC & PLATELET COUNT; AUTOMATED [employer] Start: 01-29-2021 Comprehensive metabo lic panel Comprehensive metabolic panel [facility] Start: 01-29-2021 Lipid panel Lipid panel [employer] Start: 01-29-2021 Urnls dip stick/tabl et rgnt auto w/o microscopy UA [employer] [facility] Start: 11-08-2020 CT abdomen and pelvis; with and w/o contrast [employer] Start: 11-06-2020 Blood count complete auto&auto difrntl wbc CBC, PLATELET, DIFFERENTIAL, AUTOMATED [employer] Start: 11-06-2020 Comprehensive metabo lic panel Comprehensive metabolic panel [employer] Start: 11-06-2020 Lipid panel Lipid panel [employer] Start: 11-06-2020 Urnls dip stick/tabl et rgnt auto w/o microscopy Urinalysis auto [employer] [facility] Start: 11-03-2020 Culture bacterial quanttative colony count urine UA + culture [employer] Start: 03-05-2020 Prothrombin time PROTIME/INR [[id number] ] [employer] [facility] Start: 03-05-2020 PT Coag (PPP) [Time] PROTIME/INR [[id number]] [employer] [facility] Start: 01-30-2020 Blood count complete automated CBC & PLATELET COUNT; AUTOMATED [employer] Start: 01-30-2020 Comprehensive metabo lic panel CMP [employer] [facility] Start: 01-30-2020 Lipid panel Lipid panel [employer] Start: 01-30-2020 Urnls dip stick/tabl et rgnt auto w/o microscopy Urinalysis auto [employer] Start: 11-08-2019 Comprehensive metabo lic panel Comp [employer] [facility] Start: 11-08-2019 Lipid panel Lipid panel [employer] [facility] Start: 02-26-2019 Prothrombin time (PT ) Coag time (PPP) PROTIME/INR [[id number]] [employer] [facility] Start: 06-15-2018 ALT enzyme act/vol SGPT/ALT [facility] Start: 09-20-2018 Basic metabolic pane l calcium ionized CHEM 8 PANEL [employer] [facility] Start: 06-15-2018 Lipid panel Lipid profile [employer] [facility] Start: 06-15-2018 Protein mass conc Lipid profile [facility] Start: 06-15-2018 Transferase aspartat e amino ast sgot SGOT/AST [employer] [facility] Start: 02-24-2018 Prothrombin time (PT ) Coag time (PPP) PROTIME/INR [[id number]] [employer] [facility] Start: 12-27-2017 SHINGRIX VACCINE (1 of 2) EVANS GRIX VACCINE (1 of 2) [facility] Start: 12-02-2014 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 [facility] Start: 09-16-2014 Hepatitis A Vaccine (2 of 3 - Hep A Twinrix risk 3-dose series) Hepatitis A Vaccine (2 of 3 - Hep A Twinrix risk 3-dose series) [facility] Start: 09-16-2014 Hepatitis B Vaccine (2 of 3 - Hep B Twinrix risk 3-dose series) Hepatitis B Vaccine (2 of 3 - Hep B Twinrix risk 3-dose series) [facility] Start: 12-27-2012 COLOGUARD (FIT-DNA) COLOGUARD (FIT-D NA) [facility] Start: 12-27-2012 Colonoscopy COLONOSCOPY [facility] Start: 12-27-2012 COLORECTAL CANCER SCREENING COLORECTAL CANCER SCREENING [facility] Start: 12-27-[address] COLONOGRAPHY [facility] Start: 12-27-2012 DIABETES SCREEN DIABETES SCREEN [facility] Start: 12-27-2012 FECAL OCCULT BLOOD FECAL OCCULT BLOO D [facility] Start: 12-27-2012 Lipid 1996 panel - S smiley or Plasma Lipid Screening [facility] Start: 12-27-2012 Lipid panel Lipid Screening [facility] Start: 12-27-2012 LIPID SCREEN LIPID SCREEN [facility] Start: 12-27-2012 Screening for malign ant neoplasm of colon [facility] Start: 12-27-2012 SIGMOIDOSCOPY SIGMOIDOSCOPY [facility] Start: 2007 Mammography [facility] Start: 2007 Screening for malign ant neoplasm of breast Mammogram Screening [facility] Start: 12-27-1997 HPV TESTING HPV TESTING [facility] Start: 12-27-1997 Screening for malign ant neoplasm of cervix HPV Testing [facility] Start: 12-27-1988 PAP TESTING PAP TESTING [facility] Start: 12-27-1988 Screening for malign ant neoplasm of cervix Pap Testing [facility] Start: 12-27-1986 HEPATITIS A (1 of 2 - Risk 2-dose series) HEPATITIS A (1 of 2 - Risk 2-dose series) [facility] Start: 12-27-1986 Hepatitis A Vaccine (1 of 2 - Risk 2-dose series) Hepatitis A Vaccine (1 of 2 - Risk 2-dose series) [facility] Start: 12-27-1986 Urine microalbumin profile [facility] Start: 12-27-1985 HEPATITIS C SCREENING HEPATITIS C SC REENING [facility] Start: 12-27-1985 HIV SCREENING HIV SCREENING [facility] Start: 12-27-1985 HIV screening HIV Screening [facility] Start: 12-27-1985 MMR (1 of 2 - Risk 2 -dose series) MMR (1 of 2 - Risk 2-dose series) [facility] Start: 12-27-1985 MMR Vaccine (1 of 2 - Risk 2-dose series) MMR Vaccine (1 of 2 - Risk 2-dose series) [facility] Start: 12-27-1977 Meningococcal B Vacc ine: Consider Based On Risk (1 of 4 - Increased Risk) Meningococcal B Vaccine: Consider Based On Risk (1 of 4 - Increased Risk) [facility] Start: 12-27-1977 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: 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 based on risk (1 of 4 - Increased Risk Bexsero 2-dose series) 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: Consider based on risk (1 of 4 - Increased Risk Bexsero 2-dose series) [facility] Start: 12-27-1977 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: 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 based 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 (1 of 4 - Increased Risk) 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: Consider based on risk (1 of 4 - Increased Risk) [facility] Start: 12-27-1968 HEPATITIS A (1 of 2 - Risk 2-dose series) HEPATITIS A (1 of 2 - Risk 2-dose series) [facility] Start: 1967 HEPATITIS B (1 of 3 - 3-dose series) HEPATITIS B (1 of 3 - 3-dose series) [facility] End: 05-03-2023 CBC W Auto Differential panel - Blood CBC + DIFF Lab Routine Pain in joint, multiple sites History of Coumadin therapy Every 3 months for 24 Occurrences starting 05/03/2022 until 05/03/2023, 1 completed [facility] Work Phone: Comment on above: Every 3 months for 2 4 Occurrences starting 05/03/2022 until 05/03/2023, 1 completed End: 05-03-2023 Complement C3 [Mass/volume] in Serum or Plasma C3 COMPLEMENT BLD Lab Routine Pain in joint, multiple sites History of Coumadin therapy Every 3 months for 24 Occurrences starting 05/03/2022 until 05/03/2023, 1 completed [facility] Work Phone: Comment on above: Every 3 months for 2 4 Occurrences starting 05/03/2022 until 05/03/2023, 1 completed End: 05-03-2023 Complement C4 [Mass/volume] in Serum or Plasma C4 COMPLEMENT BLD Lab Routine Pain in joint, multiple sites History of Coumadin therapy Every 3 months for 24 Occurrences starting 05/03/2022 until 05/03/2023, 1 completed [facility] Work Phone: Comment on above: Every 3 months for 2 4 Occurrences starting 05/03/2022 until 05/03/2023, 1 completed End: 02-16-2023 Comprehensive metabolic 2000 panel - Serum or Plasma COMP METABOLIC PANEL Lab Routine Pain in joint, multiple sites History of Coumadin therapy 24 Occurrences starting 05/03/2022 until 02/16/2023, 1 completed [facility] Work Phone: Comment on above: 24 Occurrences start ing 05/03/2022 until 02/16/2023, 1 completed End: 05-03-2023 DNA double strand Ab [Units/volume] in Serum by Immunoassay DNA AB DS + CONF BLD Lab Routine Pain in joint, multiple sites History of Coumadin therapy Every 3 months for 24 Occurrences starting 05/03/2022 until 05/03/2023 [facility] Work Phone: Comment on above: Every 3 months for 2 4 Occurrences starting 05/03/2022 until 05/03/2023 DNA double strand Ab [Units/volume] in Serum by Immunoassay DNA AB DS + CONF BLD Lab Routine Pain in joint, multiple sites History of Coumadin therapy 05/03/2022 2:03 PM EDT [facility] Work Phone: End: 05-03-2023 Echocardiography ECHO Cardiology Routine Pain in joint, multiple sites History of Coumadin therapy 1 Occurrences starting 05/03/2022 until 05/03/2023 [facility] Work Phone: Comment on above: 1 Occurrences starti ng 05/03/2022 until 05/03/2023 End: 06-02-2023 Radiologic exam chest 2 views XR CHEST 2V FRONTAL/LAT Radiology Routine Pain in joint, multiple sites History of Coumadin therapy 1 Occurrences starting 05/03/2022 until 06/02/2023 [facility] Work Phone: Comment on above: 1 Occurrences starti ng 05/03/2022 until 06/02/2023 End: 05-03-2023 Urinalysis complete panel - Urine URINALYSIS, WITH MICROSCOPIC Lab Routine Pain in joint, multiple sites History of Coumadin therapy Every 3 months for 24 Occurrences starting 05/03/2022 until 05/03/2023 [facility] Work Phone: Comment on above: Every 3 months for 2 4 Occurrences starting 05/03/2022 until 05/03/2023 Urinalysis complete panel - Urine URINALYSIS, WITH MICROSCOPIC Lab Routine Pain in joint, multiple sites History of Coumadin therapy 05/03/2022 2:03 PM EDT [facility] Work Phone: abdominal pain, ?need colonoscopy [facility] Immunizations Immunization Date Immunization Notes Care Provider Jeronimo [facility] 02-17-2023 pneumococcal polysaccharide vaccine, 23 valent [facility] 02-17-2023 zoster vaccine recombinant [facility] 09-14-2021 COVID-19, Pfizer, 30mcg/0.3ml [facility] 01-06-2021 COVID-19, Pfizer, 30mcg/0.3ml [facility] 12-15-2020 COVID-19, Pfizer, 30mcg/0.3ml [facility] 08-20-2015 influenza, seasonal, injectable; Translations: [FLU VACCINE 3 YRS & > IM] [facility] 08-20-2015 IMMUNIZATION ADMIN; Translations: [IMMUNIZATION ADMIN] [facility] 08-20-2015 influenza virus vacc ine, unspecified formulation Nurse 4 Work Phone: [facility] 08-19-2014 hepatitis A and hepatitis B vaccine; Translations: [IMMUNIZATION ADMIN] [facility] 08-19-2014 influenza virus vacc ine, unspecified formulation; Translations: [FLU VACCINE 3 YRS & > IM] [facility] 08-19-2014 influenza, seasonal, injectable; Translations: [FLU VACCINE 3 YRS & > IM] [facility] Payers Date Payer Category Payer Unknown [id number] 2019 Unknown [id number] 2. [id number] 1967 Unknown [id number] 2.16. [id number] 1967 Unknown [id number] 2.16. [id number] 1967 Unknown [id number] 2.16. [id number] 1967 Unknown [id number] 2.16 [id number] 1967 Unknown [id number] 2. [id number] 1967 Unknown [id number] 2. [id number] 1967 Unknown [id number] 2.16.84 [id number] 1967 Unknown [id number] 2.16.84 [id number] 1967 Unknown [id number] 2.16.84 0.1.295734.3.579.2.593 1967 Unknown [id number] 2.16.84 [id number] 1967 Unknown [id number] 2.16.84 [id number] 1967 Unknown [id number] 2.16.84 [id number] 1967 Unknown [id number] 2.16.84 [id number] 1967 Unknown [id number] .16.84 [id number] 1959 Unknown [id number] . [id number] Unknown [id number] Unknown [id number] Social History Date Type Detail Facility Start: Unknown if ever smoked [employer] [facility] Start: Never smoker [facility] Start: 1 cup a day [employer] [facility] Start: 1 beer a week [employer] [facility] Start: 11-01-2022 End: 02-17-2023 Sex Assigned At [facility] Start: 05-03-2022 Tobacco use and exposure Smokeless tobacco non-user [facility] Start: 1965 Sex Assigned At Not on file [facility] Start: 04-23-2022 End: 05-03-2022 Exposure to SARS-CoV-2 (event) Not sure [facility] Start: 06-20-2022 End: 06-30-2022 Exposure to SARS-CoV-2 (event) Unable to assess [facility] Start: 11-01-2022 End: 02-17-2023 History of Social function [facility] Adult Depression Screening Assessment 6 [facility] Clinical Notes 07-29-2021 to 08-02-2023 Natasha Walker RN - 08/02/2023 11:35 AM ESTTelephone Encounter - Ann Marie Byrd RN - 07/01/2023 12:18 PM Ria Milton RN - 06/08/2023 11:44 AM Andi Cobos RN - 03/30/2023 2:25 PM EDT Note Date & Type Note Facility 08-02-2023 Nurse Note AMBULATORY PATIENT EDUCATION NOTE TOPIC: entyvio READINESS TO LEARN INSTRUCTION PROVIDED TO: Patient, readness to learn accessed prior to procedure COGNITIVE ABILITY: Alert and oriented PTED MOTIVATION TO LEARN: Interested FAMILY SUPPORT: Moderate - Family present but overwhelmed IPATIENT LEARNS BEST BY: Individual Instruction FACTORS AFFECTING LEARNING: None PHYSICAL LIMITATIONS AFFECTING LEARNING: None LEARNING RESPONSE METHOD OF INSTRUCTION: Individual instruction PATIENT / FAMILY RESPONSE: Verbalizes understanding of: WORSENING CONDITION-Signs and symptoms of a worsening condition that warrant a call to the physician FOLLOW-UP PLAN: Patient instructed to call with any further issues Electronically Signed By: Natasha Walker RN Kimberly Cavazos Reason for therapy: IBD Ordering Physician: Supervising/Billing Physician: Pre-Medications Administered: No Medications Administered: Entyvio (See NOV) Dose #: 4 Start: 1049 AM / Stop: 1127AM Fevers in last 7 days: No / Rash: No Infusion tolerated well? Yes IV: See avatar Vital Signs: See Flow sheets Additional Notes if applicable: N/A documented in this encounter [facility] 07-01-2023 Miscellaneous Notes Received patient FMLA paper work. It has been faxed back successfully to her employer. Ann Marie Byrd RN documented in this encounter [facility] 06-08-2023 Nurse Note AMBULATORY PATIENT EDUCATION NOTE TOPIC: IEntyvio READINESS TO LEARN INSTRUCTION PROVIDED TO: Patient, readness to learn accessed prior to procedure COGNITIVE ABILITY: Alert and oriented PTED MOTIVATION TO LEARN: Interested FAMILY SUPPORT: High - Very involved in pt care IPATIENT LEARNS BEST BY: Individual Instruction Verbal Instruction FACTORS AFFECTING LEARNING: None PHYSICAL LIMITATIONS AFFECTING LEARNING: None LEARNING RESPONSE METHOD OF INSTRUCTION: Individual instruction PATIENT / FAMILY RESPONSE: Verbalizes understanding of: WORSENING CONDITION-Signs and symptoms of a worsening condition that warrant a call to the physician FOLLOW-UP PLAN: Complete - No need for follow-up Kimberly Cavazos Reason for therapy: IBD Ordering Physician: Darryl Supervising/Billing Physician: Cookie Pre-Medications Administered: No Medications Administered: Entyvio (See NOV) Dose #: 4 Start: 1056AM / Stop: 1130AM Fevers in last 7 days: No / Rash: No Infusion tolerated well? Yes IV: See avatar Vital Signs: See Flow sheets Additional Notes if applicable: N/A documented in this encounter [facility] 04-13-2023 Nurse Note AMBULATORY PATIENT EDUCATION NOTE TOPIC: entyvio READINESS TO LEARN INSTRUCTION PROVIDED TO: Patient, readness to learn accessed prior to procedure COGNITIVE ABILITY: Alert and oriented PTED MOTIVATION TO LEARN: Interested FAMILY SUPPORT: Unable to assess - Family not present IPATIENT LEARNS BEST BY: Individual Instruction FACTORS AFFECTING LEARNING: None PHYSICAL LIMITATIONS AFFECTING LEARNING: None LEARNING RESPONSE METHOD OF INSTRUCTION: Individual instruction PATIENT / FAMILY RESPONSE: Verbalizes understanding of: WORSENING CONDITION-Signs and symptoms of a worsening condition that warrant a call to the physician FOLLOW-UP PLAN: Patient instructed to call with any further issues Electronically Signed By: Ranjana Espinoza RN Kimberly Cavazos Reason for therapy: IBD Ordering Physician: darryl Supervising/Billing Physician: darryl Pre-Medications Administered: No Medications Administered: Entyvio (See MAR) Dose #: 3 Start: 1025AM / Stop: 1104AM Fevers in last 7 days: No / Rash: No Infusion tolerated well? Yes IV: See avatar Vital Signs: See Flow sheets Additional Notes if applicable: N/A Electronically Signed By: Ranjana Espinoza RN documented in this encounter [facility] 03-30-2023 Nurse Note AMBULATORY PATIENT EDUCATION NOTE TOPIC: Entyvio infusion READINESS TO LEARN INSTRUCTION PROVIDED TO: Patient, readness to learn accessed prior to procedure COGNITIVE ABILITY: Alert and oriented PTED MOTIVATION TO LEARN: Interested FAMILY SUPPORT: Unable to assess - Family not present IPATIENT LEARNS BEST BY: Individual Instruction Verbal Instruction FACTORS AFFECTING LEARNING: None PHYSICAL LIMITATIONS AFFECTING LEARNING: None LEARNING RESPONSE METHOD OF INSTRUCTION: Individual instruction PATIENT / FAMILY RESPONSE: Verbalizes understanding of: WORSENING CONDITION-Signs and symptoms of a worsening condition that warrant a call to the physician FOLLOW-UP PLAN: Patient instructed to call with any further issues Recommend - Recommend continued instruction and follow up as directed Electronically Signed By: Ann Cobos RN Kimberly Cavazos Reason for therapy: IBD Ordering Physician: Dr. Sae Craven Supervising/Billing Physician: Dr. Idris Gary Pre-Medications Administered: No Medications Administered: Entyvio (See MAR) Dose #: 2 Start: 1341 PM / Stop: 1421 PM Fevers in last 7 days: No / Rash: No Infusion tolerated well? Yes IV: See avatar Vital Signs: See Flow sheets Additional Notes if applicable: N/A documented in this encounter [facility] 03-14-2023 Nurse Note AMBULATORY PATIENT EDUCATION NOTE TOPIC: Entyvio READINESS TO LEARN INSTRUCTION PROVIDED TO: Patient, readness to learn accessed prior to procedure COGNITIVE ABILITY: Alert and oriented PTED MOTIVATION TO LEARN: Eager FAMILY SUPPORT: High - Very involved in pt care IPATIENT LEARNS BEST BY: Individual Instruction FACTORS AFFECTING LEARNING: None PHYSICAL LIMITATIONS AFFECTING LEARNING: None LEARNING RESPONSE METHOD OF INSTRUCTION: Individual instruction PATIENT / FAMILY RESPONSE: Verbalizes understanding of: WORSENING CONDITION-Signs and symptoms of a worsening condition that warrant a call to the physician FOLLOW-UP PLAN: Patient instructed to call with any further issues Kimberly Cavazos Reason for therapy: IBD Ordering Physician: Darryl Supervising/Billing Physician: Darryl Pre-Medications Administered: No Medications Administered: Entyvio (See MAR) Dose #: 1 Start: 0756AM / Stop: 0834 AM Fevers in last 7 days: No / Rash: No Infusion tolerated well? Yes IV: See avatar Vital Signs: See Flow sheets Additional Notes if applicable: N/A documented in this encounter [facility] 02-17-2023 Note HNO ID: [id number] Author: Sae Craven MD Service: ? Author Type: Physician Type: Progress Notes Filed: 02/17/2023 10:28 AM Note Text: VIRTUAL VISIT FOLLOW UP Kimberly Cavazos [id number] has requested a video telemedicine for follow up of Crohn's disease. I have communicated my name and active licensure. The patient's identity and physical location were verified at the time of this visit. The patient has been informed of the risks and benefits of -- and alternatives to -- treatment through a remote evaluation and consents to proceed with the evaluation remotely. UPDATED HISTORY: After 10/2022 visit, she went on 3 month course of Entocort- noted less abdominal pain and more stool form. Has been off it for 2 weeks and symptoms have been stable. Current symptoms are: 6 bowel movements per day which are watery to soft; has intermittent episodes of straining. Mild rectal urgency and 1 episode of incontinence last month. No rectal bleeding. Intermittent abdominal pain that is located in the right lower quadrant. Appetite is fair. Reported weight is 212 pounds, which is up by 12 pounds after going on Entocort- down 6 pounds since stopping. Patient denies eye or skin EIMs but has joint pain/ issues- sees rheumatology Denies NSAIDs PAST MEDICAL HISTORY Diagnosis Date Antiphospholipid syndrome (HCC) Ovarian cancer in remission Social History Tobacco Use Smoking status: Never Smokeless tobacco: Never Current Outpatient Medications Medication Sig Dispense Refill budesonide, enteric coated (ENTOCORT EC) 3 mg 24 hr capsule TAKE 2 CAPS DAILY FOR 1 MONTH, THEN 1 CAP DAILY FOR 1 MONTH 90 capsule 0 warfarin (COUMADIN) 5 mg tablet Take by mouth. simvastatin (ZOCOR) 40 mg tablet LISINOPRIL ORAL doxepin capsule 50 mg cyanocobalamin, vitamin B-12, (VITAMIN B-12 ORAL) Take by mouth. cholecalciferol, vitamin D3, (VITAMIN D3 ORAL) Take by mouth. mv-min/iron/folic/calcium/vitK (WOMEN'S MULTIVITAMIN ORAL) Take by mouth. No current facility-administered medications for this visit. ALLERGIES Allergen Reactions Codeine Mental Status Change, Unknown, Vomiting Sulfa (Sulfonamide * Unknown Review of test results: Review of OSH PATH from 2021: SLIDE(S), 6 SLIDES, [id number] A. Terminal ileum, biopsy: - Chronic, severely active enteritis; no granulomas or dysplasia. B. Ascending colon, biopsy: - Colonic mucosa with no significant pathologic abnormality. C. Descending colon, biopsy: - Colonic mucosa with no significant pathologic abnormality. Labs: Component Latest Ref Rng AND Units 11/01/2022 WBC 3.70 - 11.00 k/uL 6.56 RBC 3.90 - 5.20 m/uL 4.40 Hemoglobin 11.5 - 15.5 g/dL 12.6 Hematocrit 36.0 - 46.0 % 39.1 MCV 80.0 - 100.0 fL 88.9 MCH 26.0 - 34.0 pg 28.6 MCHC 30.5 - 36.0 g/dL 32.2 RDW-CV 11.5 - 15.0 % 14.3 Platelet Count 150 - 400 k/uL 233 MPV 9.0 - 12.7 fL 12.8 (H) Absolute nRBC <0.01 k/uL <0.01 Albumin 3.9 - 4.9 g/dL 4.4 Bilirubin, Total 0.2 - 1.3 mg/dL 0.3 Bilirubin, Conjug <0.2 mg/dL <0.2 Alkaline Phosphatase 34 - 123 U/L 120 AST 13 - 35 U/L 19 ALT 7 - 38 U/L 17 Protein, Total 6.3 - 8.0 g/dL 7.5 Vitamin B12 232 - 1,245 pg/mL 380 Vitamin D 25 Hydroxy 31.0 - 80.0 ng/mL 20.5 (L) Component Latest Ref Rng AND Units 11/04/2022 Calprotectin, Fecal 0 - 50 mg/kg 173.5 (H) IMPRESSION (as copied and updated from my 10/2022 note and reflects medical decision making today): 57 year old female with chronic GI symptoms including diarrhea alternating with constipation since childhood and then abdominal pain, abdominal bloating, nausea, more frequent diarrhea and joint pains several years ago but worse over the past year. Colonoscopies in 2014 and 05/2022 showed ileal inflammation with stricture; Abd CT 08/2022 showed TI inflammation. Recent trial of budesonide helped with some of these symptoms. She has several medical problems including SLE with antiphospholipid syndrome and CVA (on coumadin) and ovarian CA in her 20s. Based on all this, we discussed trying a biologic agent to see if we can better manage the ileal inflammation and her symptoms- after reviewing options, will try Entyvio to start. Health Maintenance: - Vaccines- gets annual flu shot and had COVID + boosters, HAV AND HBV (07/2014). I recommended [id number] and Shingrix- order sent - Skin- I recommended annual mole checks - Bones- Had low vit D level of 20.5 in 10/2022- has since starting taking 2000 international unit(s) - Women's Health- up to date. PLAN Submit therapy plan for Entyvio Labs and repeat fecal calprotectin HM issues as above F/U with Elizabeth Covarrubias in 3 months I spent a total of 35 minutes on the date of the service which included preparing to see the patient, [id number] patient care, completing clinical documentation, obtaining and/or reviewing separately obtained history, counseling and educating the patient/family/caregiver, and ordering med (more content not included)... [facility] 11-27-2022 Miscellaneous Notes Rx sent via e-script Sae Craven MD Requested Prescriptions Pending Prescriptions Disp Refills budesonide, enteric coated (ENTOCORT EC) 3 mg 24 hr capsule [Pharmacy Med Name: BUDESONIDE EC 3 MG CAPSULE] 90 capsule 1 Sig: TAKE 3 CAPS DAILYFOR 1 MONTH, THEN 2 CAPS DAILY FOR 1 MONTH, THEN 1 CAP DAILY FOR 1 MONTH Last visit: 10/2022 Last lab: 10/2022 Upcoming visit: 01/2023 Ann Marie Byrd RN documented in this encounter [facility] 11-01-2022 Note HNO ID: [id number] Author: Sae Craven MD Service: ? Author Type: Physician Type: Progress Notes Filed: 11/13/2022 3:27 PM Note Text: NAME: Kimberly [facility] NO: [id number] REASON FOR VISIT 56 year old female with PMHx of HLD, HTN, obesity (BMI 35), SLE, ?Antiphospholipid syndrome, history of mini stroke on warfarin, diverticulitis, ovarian cancer 1989 s/p BL oophorectomy and hysterectomy, and Raynaud's, here today for possible Crohn's disease. Per note from 06/2022: Had recent colonoscopy at OSH for bloating, concern for Crohn's disease per patient. Labs from 04/2022 with normal CBC/CMP. CRP 1.5, ESR 30. CARRIE negative. C3 elevated, C4 normal. RF/DsDNA negative. OSH records: Note 04/2022: Last colonoscopy was performed 12/10/2014. Findings include diverticulosis in the transverse to sigmoid colon, ulcers/inflammation in the terminal ileum, and colitis in the hepatic flexure, transverse colon, descending, and sigmoid colon. Pathology of biopsies showed slight chronic and focal slight acute inflammation. Family history includes Crohn's disease with her mother and colon cancer with her paternal grandfather. Colonoscopy 05/2022 showed terminal ileal ulceration at the very distal aspect near the valve, and stricture in distal TI, traversable with PCF. 8-12 inches of TI examined. TI path with ulcerative, active chronic ileitis with no granulomas. Colonic path normal. CTE 06/2022 showed scattered air-fluid levels in the small and large bowel, no abnormal dilated segments of small bowel, no strictures or fistulas and diverticulosis. CT A/P W IV con 08/2022 for lower abd pain showed terminal ileitis (enhancing terminal ileal mucosal wall). Ms. Cavazos is here from [place], [place]. She reports GI issues all of her life, although worsened this past year. Symptoms are chronic diarrhea up to 6 BMs a day, with rare small amounts of dark blood, alternating with several days of constipation. No hx of obstruction. Also notes chronic dull LLQ abd pain, worsens with eating and radiates to right side/entire abdomen. Has occasional nausea but no emesis. Also has bloating unrelated to diet. Also notes that this past year, her joints pain worsened, all peripheral joints, therefore she sought Rheumatology here in 04/2022, was told SLE is not active. Prior to her colonoscopy 05/2022, she was given a short course of steroids by her PCP which improved her symptoms significantly. Notably, she was never told she may have CD prior to 05/2022, despite findings of the 2015 colonoscopy. She also has another colonoscopy in her 20s which she reports was unremarkable. No smoking or ETOH. Denies NSAIDs. Uses motrin rarely (SOFIA) Has FHx of CD in her mother and colon CA in paternal grandfather. Current Clinical Symptoms # of bowel movements daily: 2 # of liquid stools daily: sometimes one Consistency: formed Bloody bowel movements: yes sometimes Urgency: yes Abdominal pain: yes Abdominal distention: yes Nausea/vomiting: yes nausea Weight loss over last 3 months: no General well-being: slightly below average No oral ulcers, eye or skin symptoms. Patient-Entered Data SIBDQ Scores 10/25/2022 Bowel Score 4 Emotional Score 3.33 Systemic Score 2.5 Social Score 3.5 Total Score 3.4 PRO-2 Crohn's Score 10/25/2022 Crohn's Disease Score 80 PROMIS Global Health - (T-Scores - the mean of general population = 50. Five points is a clinically meaningful difference.) 04/29/2022 10/25/2022 Physical T-Score 32.4 34.9 Mental T-Score 33.8 38.8 PROMIS Global Health Scale 04/29/2022 10/25/2022 Physical Health Percentile 4 % 7 % Mental Health Percentile 5 % 13 % PAST SURGICAL HISTORY Procedure Laterality Date TOTAL ABDOM HYSTERECTOMY PAST MEDICAL HISTORY Diagnosis Date Antiphospholipid syndrome (HCC) Ovarian cancer in remission Current Outpatient Medications Medication Sig Dispense Refill warfarin (COUMADIN) 5 mg tablet Take by mouth. simvastatin (ZOCOR) 40 mg tablet LISINOPRIL ORAL doxepin capsule 50 mg cyanocobalamin, vitamin B-12, (VITAMIN B-12 ORAL) Take by mouth. cholecalciferol, vitamin D3, (VITAMIN D3 ORAL) Take by mouth. mv-min/iron/folic/calcium/vitK (WOMEN'S MULTIVITAMIN ORAL) Take by mouth. No current facility-administered medications for this visit. Codeine and Sulfa (Sulfonamide Antibiotics) Social History Tobacco Use Smoking status: Never Smokeless tobacco: Never PERSONAL HABITS Tobacco: No Alcohol: No PAST MEDICAL HISTORY Colon polyps:Yes Colon cancer: No Other cancer:Yes, Ovarian Radiation / Chemotherapy:No Crohn's disease / Ulcerative colitis:Yes, crohns High cholesterol or triglycerides:Yes Ulcers: Yes Gallstones:No Hepatitis / jaundice: No Heart Disease: No Lung Disease:No Liver problems:No Thyroid disease: No Kidney stones:No Pancreatitis:No Diabetes:No Arthritis:No Rheumatic fever:No Gastrointestinal bleeding: (more content not included)... [facility] 11-01-2022 History of Presen t illness Narrative NAME: Kimberly Cavazos [facility] NO: [id number] REASON FOR VISIT 56 year old female with PMHx of HLD, HTN, obesity (BMI 35), SLE, ?Antiphospholipid syndrome, history of mini stroke on warfarin, diverticulitis, ovarian cancer 1989 s/p BL oophorectomy and hysterectomy, and Raynaud's, here today for possible Crohn's disease. Per note from 06/2022: Had recent colonoscopy at OSH for bloating, concern for Crohn's disease per patient. Labs from 04/2022 with normal CBC/CMP. CRP 1.5, ESR 30. CARRIE negative. C3 elevated, C4 normal. RF/DsDNA negative. OSH records: Note 04/2022: Last colonoscopy was performed 12/10/2014. Findings include diverticulosis in the transverse to sigmoid colon, ulcers/inflammation in the terminal ileum, and colitis in the hepatic flexure, transverse colon, descending, and sigmoid colon. Pathology of biopsies showed slight chronic and focal slight acute inflammation. Family history includes Crohn's disease with her mother and colon cancer with her paternal grandfather. Colonoscopy 05/2022 showed terminal ileal ulceration at the very distal aspect near the valve, and stricture in distal TI, traversable with PCF. 8-12 inches of TI examined. TI path with ulcerative, active chronic ileitis with no granulomas. Colonic path normal. CTE 06/2022 showed scattered air-fluid levels in the small and large bowel, no abnormal dilated segments of small bowel, no strictures or fistulas and diverticulosis. CT A/P W IV con 08/2022 for lower abd pain showed terminal ileitis (enhancing terminal ileal mucosal wall). Ms. Cavazos is here from [place], [place]. She reports GI issues all of her life, although worsened this past year. Symptoms are chronic diarrhea up to 6 BMs a day, with rare small amounts of dark blood, alternating with several days of constipation. No hx of obstruction. Also notes chronic dull LLQ abd pain, worsens with eating and radiates to right side/entire abdomen. Has occasional nausea but no emesis. Also has bloating unrelated to diet. Also notes that this past year, her joints pain worsened, all peripheral joints, therefore she sought Rheumatology here in 04/2022, was told SLE is not active. Prior to her colonoscopy 05/2022, she was given a short course of steroids by her PCP which improved her symptoms significantly. Notably, she was never told she may have CD prior to 05/2022, despite findings of the 2014 colonoscopy. She also has another colonoscopy in her 20s which she reports was unremarkable. No smoking or ETOH. Denies NSAIDs. Uses motrin rarely (JPAlexsander) Has FHx of CD in her mother and colon CA in paternal grandfather. Current Clinical Symptoms # of bowel movements daily: 2 # of liquid stools daily: sometimes one Consistency: formed Bloody bowel movements: yes sometimes Urgency: yes Abdominal pain: yes Abdominal distention: yes Nausea/vomiting: yes nausea Weight loss over last 3 months: no General well-being: slightly below average No oral ulcers, eye or skin symptoms. Patient-Entered Data SIBDQ Scores 10/25/2022 Bowel Score 4 Emotional Score 3.33 Systemic Score 2.5 Social Score 3.5 Total Score 3.4 PRO-2 Crohn's Score 10/25/2022 Crohn's Disease Score 80 PROMIS Global Health - (T-Scores - the mean of general population = 50. Five points is a clinically meaningful difference.) 04/29/2022 10/25/2022 Physical T-Score 32.4 34.9 Mental T-Score 33.8 38.8 PROMIS Global Health Scale 04/29/2022 10/25/2022 Physical Health Percentile 4 % 7 % Mental Health Percentile 5 % 13 % PAST SURGICAL HISTORY Procedure Laterality Date TOTAL ABDOM HYSTERECTOMY PAST MEDICAL HISTORY Diagnosis Date Antiphospholipid syndrome (HCC) Ovarian cancer in remission Current Outpatient Medications Medication Sig Dispense Refill warfarin (COUMADIN) 5 mg tablet Take by mouth. simvastatin (ZOCOR) 40 mg tablet LISINOPRIL ORAL doxepin capsule 50 mg cyanocobalamin, vitamin B-12, (VITAMIN B-12 ORAL) Take by mouth. cholecalciferol, vitamin D3, (VITAMIN D3 ORAL) Take by mouth. mv-min/iron/folic/calcium/vitK (WOMEN'S MULTIVITAMIN ORAL) Take by mouth. No current facility-administered medications for this visit. Codeine and Sulfa (Sulfonamide Antibiotics) Social History Tobacco Use Smoking status: Never Smokeless tobacco: Never PERSONAL HABITS Tobacco: No Alcohol: No PAST MEDICAL HISTORY Colon polyps:Yes Colon cancer: No Other cancer:Yes, Ovarian Radiation / Chemotherapy:No Crohn's disease / Ulcerative colitis:Yes, crohns High cholesterol or triglycerides:Yes Ulcers: Yes Gallstones:No Hepatitis / jaundice: No Heart Disease: No Lung Disease:No Liver problems:No Thyroid disease: No Kidney stones:No Pancreatitis:No Diabetes:No Arthritis:No Rheumatic fever:No Gastrointestinal bleeding:Yes Depression or other mental illness:Yes, depression GI SPECIFIC ROS Difficulty swallowing / foods sticking in throat:Yes, sometimes Heartburn:No Hoarseness:No Chronic cough:Yes Regurgitation:Yes Chest pain:No Filling up quickly at meals:Yes Loss of appetite:No Nausea:Yes Vomiting: No Abdominal pain:Yes Recent change in bowel movements: No Bloody or black, bowel movements:Yes, blood Constipation: Yes Diarrhea: Yes, sometimes Loss of control of bowel movements:No Night sweats, fever, chills: No Thought or memory problems: No Fluid in abdomen (ascites): No Prominent leg swelling: No Vomiting blood: No Recent change in weight:No FAMILY HISTORY Has anyone in your family (grandparents, parents, brothers, sisters, aunts, or uncles) had: Liver problems: No Colitis: Yes, mother Colon cancer:Yes, paternal grandfather FAMILY HISTORY Problem Relation Age of Onset Stroke Father Leukemia Father PHYSICAL EXAMINATION General Appearance: alert, oriented x 3, pleasant and in no acute distress Eyes: No icterus or conjunctival pallor.. Oropharynx: Lips, tongue, and oral mucosa normal. There is no thrush or oral ulcers. Lungs: breath sounds clear to auscultation bilaterally Heart: regular rate and rhythm, no murmurs or gallops. Abdomen: Not distended. Normal bowel sounds. Soft with mild diffuse TTP L > R. No masses or organomegaly. Surgical scars noted Extremities: no cyanosis or edema. Skin: no rashes or lesions Assessment IMPRESSION 56 year old female with PMHx of HLD, HTN, obesity (BMI 35), SLE, ?Antiphospholipid syndrome, history of mini stroke on warfarin, diverticulitis, ovarian cancer 1989 s/p BL oophorectomy and hysterectomy, and Raynaud's, here today for possible Crohn's disease. Ms. Cavazos reports GI symptoms all of her life however worsened past year. Reports chronic LLQ pain, radiates to entire abdomen after eating, alternating diarrhea and constipation, nausea, low grade fevers attributed to SLE and peripheral arthralgia. No weight loss. She has a FHx of CD in her mother. She had a colonoscopy performed in 2014 which showed ulcers/inflammation in the terminal ileum, and colitis in the hepatic flexure, transverse colon, descending, and sigmoid colon. Pathology of biopsies showed slight chronic and focal slight acute inflammation. Was not told she may have CD till repeat colonoscopy 05/2022 which showed terminal ileal ulceration at the very distal aspect near the valve, and stricture in distal TI, traversable with PCF. 8-12 inches of TI examined. TI path with ulcerative, active chronic ileitis with no granulomas. Colonic path normal. She had a CTE 06/2022 which was unremarkable, although CT A/P 08/2022 showed terminal ileitis. She notes significant improvement in symptoms with 1 week of steroids prescribed by PCP last fall. 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, however we need to confirm the diagnosis by obtaining OSH work-up - Obtain path slides and CTE images from [facility], consider repeat colonoscopy/imaging here if non-diagnostic - Trial of 3 months of Budesonide for symptoms, will check fecal calpro prior - Referral to industrial security analyst - RTC in 3 months virtually, may discuss biologic tt then Zayda Bravo MD November 01, 2022 3:11 PM Gastroenterology, IBD Fellow, PGY- VII GI STAFF I reviewed the history and physical obtained and documented by the fellow and I personally participated in the boswell components. The following comments revise or confirm relevant boswell elements of the fellow's note: 56 yo female with several medical problems here for evaluation of possible Crohn's. She notes chronic GI symptoms including diarrhea alternating with constipation since childhood, LLQ abdominal pain, abdominal bloating and nausea since childhood. Colonoscopies in 2014 and 05/2022 showed ileal inflammation She has several medical problems including SLE and dx of ovarian CA in her 20s as listed in Dr. Bravo's note. Physical Exam: As documented by Dr. Bravo. Has mild right-sided abdominal tenderness I discussed the case and the plans with the fellow with the following comments: ASSESSMENT Overall if appears that she has had chronic TI inflammation since at least 2014 that may be slowly progressing. Presentation suggestive of mild TI Crohn's disease but would be helpful to get prior testing results for review here. PLAN: Get OSH path and imaging for review here Fecal calprotectin as baseline Trial of Entocort to see if helps with symptoms Refer to IBD dietitian F/U after above to discuss option of escalation of medical therapy I have confirmed and edited as necessary, the PFSH and ROS obtained by others. Sae Craven MD documented in this encounter [facility] 10-29-2022 Miscellaneous Notes Called patient in an attempt to retrieve outside records. Called both numbers listed in Yext, unable to leave a message. Ann Marie Byrd RN documented in this encounter [facility] 08-27-2022 Evaluation note Encounter Date Diagnosis Assessment Notes Aug, Hematuria, unspecified type (ICD-10 - R31.9) I have concern today for kidney infection/ston e, referred to ER for higher level of care [facility] Other 10-05-2022 History of Present illness Narrative* Bandar Eddy MD - 06/30/2022 1:02 PM EDT [facility] Department of Cardiovascular Medicine SECTION OF VASCULAR MEDICINE OUTPATIENT VISIT DATE June 30, 2022 OUTPATIENT VISIT TYPE CONSULTATION Consult regarding: antiphospholipid syndrome Consult requested by: Kelsie Zuniga My final recommendations will be communicated back to the requesting physician by way of the sharedmedical record or by letter. Primary care physician: No primary care provider on file. History of present illness: Kimberly Cavazos is a 56 year old year-old female with PMH notable for HLD, Lupus?, Antiphospholipid syndrome, history of mini stroke on warfarin, diverticulitis, being worked up for Crohn's disease, ovarian cancer 1989 s/p BL oophorectomy and hysterectomy, Felecia who presents to establish care forantiphospholipid syndrome per rheumatology recommendation. Patient was diagnosed with lupus and antiphospholipid syndrome after a syncopal episode in 2003. Patient reports having a mini stroke from a blood clot in my brain and was placed on warfarin. Happened at [facility] in [facility], do not have records of this. Has been on warfarin ever since. No other history of blood clots, heart attack or stroke. No familyhistory of clotting disorders, father of stroke while on chemotherapy with leukemia in his 50s. Two pregnancies, c sections with no major complications. No miscarriages. No hormonal control. Not up to date on mammogram, is up to date on colonoscopy. No hx tobacco use. Had recent colonoscopy at OSH for bloating, concern for Crohn's disease per patient. Denies chest pain, SOB, leg pain or swelling. No issues with bleeding with warfarin, compliant. They keep her at INR range 2.5-3.5. Allergies: is allergic to codeine and sulfa (sulfonamide antibiotics). Medications: warfarin (COUMADIN) 5 mg tablet^Take by mouth.^Disp: ^Rfl: simvastatin (ZOCOR) 40 mg tablet^^Disp: ^Rfl: LISINOPRIL ORAL^^Disp: ^Rfl: doxepin capsule 50 mg^^Disp: ^Rfl: cyanocobalamin, vitamin B-12, (VITAMIN B-12 ORAL)^Take by mouth.^Disp: ^Rfl: cholecalciferol, vitamin D3, (VITAMIN D3 ORAL)^Take by mouth.^Disp: ^Rfl: mv-min/iron/folic/calcium/vitK (WOMEN'S MULTIVITAMIN ORAL)^Take by mouth.^Disp: ^Rfl: Past medical history: has a past medical history of Antiphospholipid syndrome (HCC) and Ovarian cancer in remission. Past surgical history: has a past surgical history that includes total abdom hysterectomy. Family history: family history is not on file. Social history: reports that she has never smoked. She has never used smokeless tobacco. REVIEW OF SYSTEMS: Review of systems: General Fever or chills - No Night sweats - No Change in weight - No Lumps in groin, underarms - No Neurological Headaches - No Seizures - No Passing out - No Dizziness/light headedness - yes Numbness, tingling, pins or needles - No Weakness in arms or legs - No Head, eyes, ears, nose and throat Changes in hearing - No Changes in vision - No Nose bleeds - No Difficulty or pain with swallowing - No Cardiovascular Chest pain or pressure - No Palpitations - No Irregular heartbeat - No Shortness of breath - No Respiratory Cough - No Wheezing - No Shortness of breath at rest - No Shortness of breath with exertion - yes Coughing up blood - No Sleep apnea - No Gastrointestinal Abdominal pain - yes Nausea/vomiting - yes Diarrhea/Constipation - yes Stomach pain after eating - No Blood in stool - No Black stool - No Genitourinary Pain with urination - No Blood in urine - No Gynecology - No Abnormal vaginal bleeding - No History of loss - No Extremity Bulging veins - No Swelling in arms or legs - No Redness of extremities - No Pain with walking - No Color change of hands/feet/digits - No Musculoskeletal Joint pain - YES Joint swelling - No Back pain - No Muscle pain or ache - No Skin Rash - No Lesions - No Slow healing sores - No Tight or thickened skin - No Hematology Low blood counts - No Easy bruising - yes Blood transfusions - No Psychology Depressed mood - yes Anxiety or history of panic attacks - No History of recreational drug use - No Cancer screening (up to date?): Colonoscopy: YES Pap smear: YES Mammogram: No Prostate: N/A Smoking history: -Current or past smoker? No -If current smoker, are you interested in help with quitting? N/A Physical exam: BP 147/72 (BP Site: Right Arm, BP Position: Sitting, BP Cuff Size: Large Adult) Pulse 84 Wt 93 kg (205 lb) LMP (LMP Unknown) BMI 35.19 kg/m General: Alert and oriented, in no acute distress, pleasant mood. Skin: Healthy, intact, no ulcerations, no rashes. HEENT: Head normocephalic, extraocular muscles intact, sclera anicteric, nasal and oral mucosa moist and pink, neck supple, no JVD, no carotid bruit. Cardiovascular: Heart has a regular rate and rhythm without murmur. Respiratory: Lungs clear auscultation bilaterally. Gastrointestinal: Abdomen soft and nontender. No abdominal bruit or palpable mass. Musculoskeletal: No cyanosis or clubbing. Peripheral vascular: Dorsalis pedis and posterior tibial pulses 2+/2 bilaterally. Feet and toes warm pink and well perfused. Lower extremities: No LE edema, warmth or tenderness to palpation Imaging None Labs 05/03/22: Lupus panel Interpretation: Abnormal - see comment below. SIGNIFICANT FINDINGS: 1. Warfarin drug effect 2. Lupus anticoagulant: NEGATIVE Laboratory testing was performed to evaluate the presence of a lupus anticoagulant and antiphospholipid antibodies. Both the PT and APTT were elevated. The elevated PT is consistent with a history ofwarfarin therapy. An elevated APTT may be seen during warfarin therapy, especially when the INR is greater than 1.5. After a 1:1 mix of patient:normal plasma, the APTT corrects to within the reference range. An inhibitor of the intrinsic and/or common pathway is unlikely. 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 LUPUS ANTICOAGULANT STUDIES: There is no evidence for a lupus anticoagulant or other coagulation inhibitor at this time. The criteria for the diagnosis of a Lupus Anticoagulant, as detailed by the Subcommittee on Lupus Anticoagulants and Anti-Phospholipid Antibodies of the Scientific and Standardization Committee of the International Society on Thrombosis and Haemostasis (ISTH), are the following: (1) A prolonged phospholipid-dependent clotting test (screening test); (2) Evidence for an inhibitor (1:1 mix of patient:normal plasma); (3) Evidence that the inhibitor is phospholipid dependent and (4) Exclusion of specific inhibitors (ie, fVIII inhibitors, direct thrombin inhibitors, or heparin). Thromb. Haemost. 74:1185(1995). ANTIPHOSPHOLIPID ANTIBODY STUDIES: The IgG, IgM and IgA anticardiolipin antibody titers were all negative. Both the IgG and IgM Beta-2 Glycoprotein I antibody titers were negative. Nathaniel Cavazos is a 56 year old year-old female with PMH notable for HLD, Lupus?, Antiphospholipid syndrome, history of mini stroke on warfarin, diverticulitis, being worked up for Crohn's disease, ovarian cancer 1990 s/p BL oophorectomy and hysterectomy, Raynauds who presents to establish care forantiphospholipid syndrome per rheumatology recommendation. Antiphospholipid syndrome was diagnosed back in 2003 at OSH with no records available, so unable toconfirm or deny the accuracy of the diagnosis at this time. Recent antiphospholipid testing being negative is still possible with a confirmed diagnosis as the levels can vary over time. Would not recommend coming off of Warfarin until diagnostic testing from 2003 could be reviewed properly. Would aim for INR 2-3 for this patient and counseled on that. Recommendations: -continue warfarin INR goal 2-3 for presumed antiphospholipid syndrome indefinitely -cannot confirm or deny diagnosis antiphospholipid syndrome without records from 2003 at OSH so will assume she does carry this diagnosis at this time, patient will attempt to obtain records Follow up as needed. Eva Montanez MD STAFF NOTE I have reviewed the boswell findings of the clinical history, review of systems and physical examination as documented above by Dr. Montanez. I have personally interviewed and examined the patient. Shewas diagnosed with APS by a Roll Finisher in 2003, following an episode of stroke. There are no records available from that time. She has been on warfarin ever since (target 2.5-3.5). She has had noserious or major bleeding complications on warfarin over the last 18 years. recent APLA assays negative, but these do not rule-out her diagnosis as antibodies may fluctuate over time. I cannot independently confirm nor rule- out her diagnosis of APS which seems to have been made by a specialist who would be expected to know about international APS criteria. Nevertheless, I have suggested that she forward any records she might have from that time to my office at her convenience. If I ever receivesuch records, I will review them and let her know my [id number]). Until then, she should remain on warfarin. I did tell her that the usual INR target for warfarin therapy in APS patients is 2.0-3.0(higher targets not recommended unless there is concern of warfarin failure , which she never had). Clinical management issues were thoroughly discussed with the resident. The final assessment and plan have been formulated in discussion with Dr. Montanez and are outlined above BANDAR EDDY M.D. [facility] NoteProcedure: CT of the abdomen and pelvis with contrast. Contrast: 100 mL Omnipaque 300 intravenously. Oral contrast. Phase of contrast-enhancement: Portal venous. Reconstructed images: 5 mm axial, 3 mm coronal, and 3 mm sagittal. Clinical information: 56-year-old female with abdominal pain. Prior section x2. Comparison: None. Findings: Liver: Normal. Gallbladder: No radiopaque stones or pericholecystic fluid. Biliary tree: No dilatation. Pancreas: Normal. Spleen: Normal. Adrenal glands: Normal. Kidneys/ureters: Normal. Symmetric renal enhancement. Bladder: No radiopaque stones. Reproductive organs: Surgically absent uterus. Bowel: Colonic diverticulosis without diverticulitis. No dilatation. Normal appendix. Peritoneum/retroperitoneum: Surgical clips within the retroperitoneum and right pelvic sidewall. No ascites, pneumoperitoneum, or pathologic lymph node enlargement. Aortoiliac arteries: Mild atherosclerotic calcifications without aneurysm. Bones: No acute fracture or destructive abnormality. Abdominal wall: No mass or loculated fluid collection. Lower thorax: Unremarkable. IMPRESSION: 1. No acute abnormality of the abdomen and pelvis. 2. Colonic diverticulosis. 3. Mild atherosclerotic calcifications. Radiation Dose Estimate: CTDI(mGy):0.617993 / / / kVp:130.933370 / mAs:0.834437 / / / DLP(mGy- cm):4.394941Bjnd Part: Abdomen CTDI(mGy):0.896229 / / / kVp:130.090679 / mAs:0.293214 / / / DLP(mGy- cm):5.340334Ulbu Part: Abdomen CTDI(mGy):17.793332 / / / kVp:130.484685 / mAs:88.092977 / / / DLP(mGy- cm):911.596663Xacy Part: Abdomen Final Dictated by: Parth Garnica MD Dictated DT/TM: 06.07.2022 3:19 pm Signed by: Parth Garnica MD Signed (Electronic Signature): 06.07.2022 3:23 pm (If Report Is Signed, Electronically Signed in Other Vendor System)[facility] HospitalComment on above:Order Comment: CT 30 ml contrast picked up 05-12-2022 at 9:15 [id number] NoteFinCanton-In[facility] Procedure Note FSC ID: [id number] Indication for procedure: Patient is a 56-year-old female here for colonoscopy due to abdominal pain. Pre-operative Dx: Abdominal pain Post-operative Dx: Sigmoid diverticulosis Terminal ileal ulceration and stricture Operation: Colonoscopy with cold biopsies Surgeon: Javier Anesthesia: Syedpgary [place] [facility] [place] Findings: Sigmoid diverticulosis Terminal ileal ulceration and stricture Specimens: Terminal ileal biopsies Ascending colon biopsies Descending colon biopsies Complications: none Technique: Patient was brought to the endoscopy suite and attached to appropriate hemodynamic monitors. Time-out was performed and the patient was turned into left lateral decubitus position. Sedation was givenand digital rectal exam was performed. Sphincter tone was normal. No anal canal or perianal lesionswere appreciated. There are no features of perianal Crohn's disease. Pediatric colonoscope was inserted and advanced easily into the cecum as identified by the appendiceal orifice and the ileocecal valve. Preparation was excellent with a [place] Prep score of 9. On insertion, a lipoma was seen in the ascending colon. Multiple diverticula were identified in the sigmoid region on insertion. We entered into the ileocecal valve. There was a stricture in the distal ileum. We were able to pass throughit with the endoscope. Ulceration was present at this location. We assessed the distal 8 to 12 inches of terminal ileum. Ulceration was present at the very distal aspect right near the valve. Cold biopsies were taken from the region. Cold biopsies were also taken from the ascending colon and separately from the descending colon. Diverticula were again identified in the sigmoid on withdrawal. There is no evidence of colitis. The instrument was withdrawn into the rectum and this appeared normal. Retroflex view of the top of the anal canal also appeared normal. The colonoscope was straightened, rectal air was evacuated and the colonoscope was removed concluding the procedure. Total colonoscopy time: 8 minutes Withdrawal time: 7 minutes Impression: Sigmoid diverticulosis Terminal ileal ulceration and stricture Recommendation: Check biopsies CT enterography Electronically signed by Joseph Herrera MD 06/07/22 10:37 [facility] 06-07-2022 NoteClinical Information Procedure: Colonoscopy Pre-operative diagnosis: Abdominal Pain SP Specimen A Terminal ileum biopsies B Ascending colon biopsies C Descending colon biopsies Gross Description Part A: Received in formalin labeled 'terminal ileum biopsies' are multiple pieces of white-jessica tissue measuring 0.1-0.3 cm in greatest dimension. The specimen is entirely submitted in cassette A1. Part B: Received in formalin labeled 'ascending colon biopsies' are four pieces of light jessica tissuemeasuring 0.1-0.3 cm in greatest dimension. The specimen is entirely submitted in cassette B1. Part C: Received in formalin labeled 'descending colon biopsies' are two pieces of light jessica tissuemeasuring 0.3 and 0.5 cm in greatest dimension. The specimen is entirely submitted in cassette C1. Microscopic Description Part A: Multiple levels of the terminal ileum biopsies show ulcer debris and granulation tissue. The ileum mucosa shows shortening and broadening of the villi with increased inflammation composed of lymphocytes, plasma cells, eosinophils and a mild neutrophilic infiltrate. No granulomas are identified. There is no evidence of dysplasia or malignancy. Parts B/C: Sections examined at multiple levels show fragments of colonic mucosa showing distended lamina propria with slightly increased lymphocytes, plasma cells and scattered eosinophils. There isno evidence of acute inflammation or granulomatous disease. There is no evidence of thickening of the subepithelial basement membrane collagen layer. There is no evidence of increased intraepitheliallymphocytes. There is no evidence of dysplasia or malignancy. Diagnosis Part A: Terminal ileum biopsies: Ulcerative, active chronic ileitis. Parts B/C: Ascending and descending colon biopsies: Normal colonic mucosa. [id number] [id number] Ricardo Limon MD (Electronically signed by) Verified: 06/09/22 14:42[facility] HospitalComment on above:Performed By: #### SPR #### [facility] (DEFAULT) [address], [place] [id number] NoteChief Complaint Patient presents for evaluation of abdominal pain. History of Present Illness 56 year old female, referred by Dr. Lr Patient c/o abdominal pain. The pain is located in the diffuse. The pain is constant, described as pressure, ache. She states that she feels her entire intestinal wall is inflamed. This has been ongoing x2-3 weeks. Specific triggers include: alcohol. Pertinent findings include nausea and diarrheathat alternates with constipation. Denies vomiting or rectal bleeding. Last colonoscopy was performed 12/10/2014. Findings include diverticulosis in the transverse to sigmoid colon, ulcers/inflammation in the terminal ileum, and colitis in the hepatic flexure, transverse colon, descending, and sigmoid colon. Pathology of biopsies showed slight chronic and focal slight acute inflammation. Family history includes Crohn's disease with her mother and colon cancer with her paternal grandfather. She has history of a hyperplastic polyp in 2000. Review of Systems Constitutional: No fevers, chills, sweats, weight loss or weight gain Respiratory: No shortness of breath, cough Cardiovascular: +HTN Gastrointestinal: +See HPI Liver: No jaundice, hepatitis Genitourinary: No hematuria, no kidney problems Hematologic: Never been transfused, no bleeding disorders Neuro: Denies strokes, TIA, seizures As reviewed in the HPI. All other systems reviewed are negative or normal. Physical Exam Vitals & Measurements T: 36.5 ?C (Temporal Artery) HR: 86 (Peripheral) BP: 139/84 HT: 163 cm WT: 90.71 kg (Estimated) BMI: 34.14 Gen: Awake, alert Lungs: non-labored respiration Assessment/Plan Patient with abdominal pain, history of colitis Will repeat colonoscopy Risks/benefits discussed, patient agrees Time Spent with the Patient I have personally spent 15 minutes on this date, directly related to today's patient visit, including pre and post visit work, for this date of service. Time listed does not include time spent on separately billable services. Problem List/Past Medical History Ongoing Antiphospholipid syndrome Diverticular disease Hyperlipidemia Hypertension Lupus Historical Colitis, hepatic flexure, transverse colon, descending colon, sigmoid colon (2014) Colon polyp: hyperplastic (2000) Ovarian cancer (1989) Procedure/Surgical History C. section (1983, 1989) Colonoscopy (12/10/2014, 08/17/2004, 06/12/2001) Total abdominal hysterectomy, bilateral salpingo-oophorectomy (1989) Medications doxepin 50 mg oral capsule, 100 mg= 2 caps, Oral, HS (at bedtime) lisinopril 20 mg oral tablet, 20 mg= 1 tabs, Oral, Daily multivitamin, Daily ProAir HFA, q6hr simvastatin 40 mg oral tablet, 40 mg= 1 tabs, Oral, Daily Vitamin B12 Vitamin D3 warfarin 5 mg oral tablet, 0.5 tabs-1 tabs, Oral, Daily Allergies codeine (unknown) sulfa drugs (unknown) Social History Alcohol Current, 1-2 times per month Substance Abuse Denies All Tobacco Never (less than 100 in lifetime) Use:. Family History Arteritis: Mother. Colon cancer: Grandfather (P). Crohn's disease: Mother. Leukemia: Father. Health Maintenance Colonoscopy 12/10/2014 Electronically signed by Joseph Herrera MD 05/16/22 13:55 EDT Electronically signed by Beatrice Cuba 05/10/2022 10:15 EDT Electronically signed by Marzena Cordero PA-C 05/17/2022 07:25 [facility] 05-06-2022 NotePatient Education Materials Name: Kimberly Cavazos Current Date: 05/06/2022 10:22:33 [facility] : 1965 The following sheet(s) are the Patient Education Leaflets for Kimberly Cavazos Radiology Colonoscopy A camera attached to a flexible tube with a viewing lens is used to take video pictures. Colonoscopy?is a test to view the inside of your lower digestive tract (colon and rectum).?Sometimes it can show the last part of the small intestine (ileum).?During the test, small pieces of tissue may be removed for testing. This is called a biopsy. Small growths, such as polyps, may also be removed.? Why is colonoscopy done? The test is done to help look for colon cancer. And it can help find the source of abdominal pain,?bleeding,?and changes in bowel habits. It may be needed once a year to every 10 years, depending on factors such as your: ?Age ?Health history ?Family health history ?Symptoms ?Results from any prior colonoscopy Risks and possible complications These include: ?Bleeding?A puncture or tear in the colon? ?Risks of anesthesia ?A cancer lesion not being seen or fully removed Getting ready? To prepare for the test: ?Talk with your healthcare provider about the risks of the test (see below). Also ask your healthcare provider about alternatives to the test. ?Tell your healthcare provider about any medicines and supplements you take. Also?tell him or her about any health conditions you may have. ?Make sure your rectum and colon are empty for the test. Follow the diet and bowel prep instructions exactly. If you don?t, the test may need to be rescheduled. ?Plan for a friend or family member to drive you home after the test. Colonoscopy provides an inside view of the entire colon. You may discuss the results with your doctor right away or at a future visit. During the test? The test is usually done in the hospital on an outpatient basis or at an outpatient clinic. This means you go home the same day. The procedure takes about 30?minutes. During that time: ?You are given relaxing (sedating) medicine through an IV line.?You may be drowsy, or fully asleep. ?The healthcare provider will first give you a physical exam to check for anal and?rectal problems. ?Then the anus is lubricated and the scope inserted. ?If you are awake, you may have a feeling similar to needing to have a bowel?movement. You may alsofeel pressure as air is pumped into the colon. It?s?OK to pass gas during the procedure. ?Biopsy, polyp removal, or other treatments may be done during the test. After the test? You may have gas right after the test. It can help to try to pass it to help prevent later bloating. Your healthcare provider may discuss the results with you right away. Or you may need to schedule a follow-up visit to talk about the results. After the test, you can go back to your normal eating and?other activities. You may be tired from the sedation and need to rest for a few hours. Discuss your medicines with your provider to understand if they can be restarted right away. ? [id number] [employer]. [address] [place] [address], [place] [address]. All rights reserved. This information is not intended as a substitute for professional medical care. Always follow your healthcare professional's instructions.[facility]08-08-2022 History of Present illness Narrative* Kelsie Zuniga MD - 05/03/2022 12:00 PM EDT [facility] [place] Department of Rheumatic and Immunologic Diseases This consult was requested by the doctor listed below for an opinion regarding the chief complaint listed below, and my final recommendations will be communicated to the requesting health care provider by way of the shared medical record for internal providers or letter via the U.S. Postal Service for external providers. Referring Physician: SELF CC: diffuse joint pain with Lupus History of Present Illness: Kimberly Cavazos is a 56 year old year-old female with PMH notable for HLD, Lupus, Antiphospholipid syndrome, history of mini stroke on warfarin, diverticulitis, ovarian cancer s/p BL oophorectomy and hysterectomy, Raynauds, who presents to Rheumatology Clinic for evaluation of joint pain and to establish rheumatology care. Patient was diagnosed with lupus and antiphospholipid syndrome after a syncopal episode in 2003. Patient reports having a mini stroke from a blood clot in my brain and was placed on warfarin. She was also started on plaquenil which she took for 8 years in total. She has also previously taken prednisone. These medications reportedly controlled her symptoms well. She stopped taking both medications 7 years ago due to feeling well. 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 At that time she also reports fever On presentation patient reports having joint pain in a diffuse pattern that waxes and wanes throughout the day with progressive worsening over the past month. She endorses the pain is throbbing and dull and does not get better with timing of the day or ibuprofen use. 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 Patient has a history of hospitalizations for diverticulitis (4-5 times) and is scheduled for upcoming colonoscopy. Shewas not on prednisone or plaquenil during these hospitalizations. Patient denies history of thrombus other than the brain clot. Patient is not local and previous documentation is limited. Patient has 4 grand children in [place] and visits often. Patient has previously had 2 full term pregnancies without complication. No history of miscarriages. Patient also endorses a dull headache on the bilateral temporal regions in which has waxes and waned for several weeks. There is no jaw claudication or pain. No pain on palpation. No vision changes. Patient feels this is similar to her previous te nsion headaches. No rashes or photosensitivity. She reports prevalent aphthous ulcers that come andgo. Patient does have a history of raynaud changes with white coloration changes. Review of Systems: See HPI -ROSKP Answers for HPI/ROS submitted by the patient on 04/29/2022 Fever : No Recent Unintentional Weight Change: No Eye Pain: Yes Eye Redness: Yes Vision Disturbance: No Eye Dryness: Yes Nose Bleeds: Yes Sores in your Mouth: No Trouble Swallowing: No Dry Mouth: No Chest Pain: No Leg Swelling: No A Cough: No Shortness of Breath: Yes Pain with Breathing: No Heartburn: No Abdominal Pain: Yes Diarrhea: No Black Tarry Stools: Yes Blood in Urine: No Pain or Burning with Urination: No Joint Pain or Stiffness: Yes Muscle Weakness: Yes Muscle Aches: Yes Joint Swelling: Yes Morning Stiffness in Joints: Yes A Rash: No Skin Color Changes: No Hair Loss: No Nail Changes: No Headaches: Yes Numbness: Yes Memory Loss: No Swollen Glands: No Otherwise, a 12 point ROS was obtained and was negative. Family history - mom had giant cell arteritis and RA Past surgery history: 2 C sections, Ovarian cancer (BL oophorectomy, hysterectomy) Past social: never smoked tobacco, occasional alcohol use- glass of wine every couple of weeks, no illicit drug use MEDICATIONS: Current Outpatient Medications Medication Sig warfarin (COUMADIN) 5 mg tablet Take by mouth. simvastatin (ZOCOR) 40 mg tablet LISINOPRIL ORAL doxepin capsule 50 mg cyanocobalamin, vitamin B-12, (VITAMIN B-12 ORAL) Take by mouth. cholecalciferol, vitamin D3, (VITAMIN D3 ORAL) Take by mouth. mv-min/iron/folic/calcium/vitK (WOMEN'S MULTIVITAMIN ORAL) Take by mouth. Current Facility-Administered Medications Medication Dose Route Frequency perflutren lipid microspheres 1.3 mL in NaCl (PF) 0.9% 10 mL injection (DEFINITY) INTRAVENOUS DIRECTED PRN sodium chloride 0.9 % (flush) 10 mL (BD POSIFLUSH) 10 mL INTRAVENOUS DIRECTED PRN ALLERGIES Not on File Physical Examination: Vitals: BP 136/87 Pulse 97 Temp 36.7 C (98 F) (Temporal Artery) Ht 162.6 cm (5' 4 ) Wt 93 kg (205 lb) LMP (LMP Unknown) BMI 35.19 kg/m GEN: awake, alert, well-appearing HEENT: NCAT, EOMI, MMM NECK: supple, no LAD PULM: on RA. No acute distress EXT: WWP, no edema NEURO: no focal weakness or facial asymmetry SKIN: no bruises, rashes, or lesions MSK: Shoulders: no swelling, no tenderness, good ROM Elbows: no swelling, no tenderness, no flexion contractures, no nodules, good ROM Wrists: focal tenderness over both wrists with no active swelling Hands: focal swelling at 3rd right PIP with swelling, 3rd and 4th right and left MCPs Knees: no active synovitis Ankles: focal tenderness but no joint effusion Feet: no evidence of synovitis ASSESSMENT: Kimberly Cavazos is a 56 year old year-old female with PMH notable for HLD, Lupus, Antiphospholipid syndrome, history of mini stroke on warfarin, recurrent diverticulitis, ovarian cancer s/p BL oophorectomy and hysterectomy, dry eyes, Raynauds, who presents to Rheumatology Clinic for evaluation of joint pain and to establish rheumatology care. Joint pain, joint swelling with good response to steroid and HCQ in the past which was stopped few years ago Patient also endorses a dull headache on the bilateral temporal regions in which has waxes and waned for several weeks. There is no jaw claudication or pain. No pain on palpation. No vision changes. Patient feels this is similar to her previous tension headaches. She reports low grade fever 3 days a month (100.1) same thing to the time when she got diagnosed with SLE PLAN: -Obtain baseline lab work- CARRIE by IFA, dsDNA, TB screen, C3, C4, CMP, CBC, CCP, CRP, hepatitis panel, ESR, anticardiolipin, RF -XR imaging - CXR, hand -ECHO -Obtain UA - most likely will resume HCQ - consult vascular medicine for evaluation of APLS and need for coumadin Follow-up: 1-3 months dependent on lab results and imaging findings Kelsie Zuniga MD Rheumatology staff May 03, 2022 [facility] Evaluation note* Encounter Date Diagnosis Assessment Notes Treatment Notes Treatment Clinical Notes Jul, Right otitis media, unspecified otitis media type (ICD-10 - H66.91) Jul, Acute otitis externa of right ear, unspecified type (ICD-10 - H60.501) Use eardrops as prescribed. Take the amoxicillin as prescribed until gone. Take Tylenol Motrin as needed for aches pains or fevers. Follow-up with your family physician in 3 to 4 days for reevaluation of your elevated blood pressure Jul, Elevated blood pressure reading without diagnosis of hypertension (ICD-10 - R03.0) [facility] Other Evaluation note* Diagnosis Pain in joint, multiple sites- Primary History of Coumadin therapy [facility]* Diagnosis Antiphospholipid syndrome (HCC)- Primary Primary hypercoagulable state History of arterial ischemic stroke Transient ischemic attack (TIA), and cerebral infarction without residual deficits Anticoagulant long-term use Long-term (current) use of anticoagulants [facility]* Diagnosis Ileitis- Primary Other and unspecified noninfectious gastroenteritis and colitis documented in this encounter [facility] note* Diagnosis Ileitis Other and unspecified noninfectious gastroenteritis and colitis [facility] Diagnosis Crohn's disease of small intestine without complication (HCC)- Primary Regional enteritis of small intestine [facility] Diagnosis Crohn's disease of small intestine without complication (HCC)- Primary Regional enteritis of small intestine [facility] Diagnosis Crohn's disease of small intestine without complication (HCC)- Primary Regional enteritis of small intestine [facility]* Diagnosis Crohn's disease of small intestine without complication (HCC)- Primary Regional enteritis of small intestine documented in this encounter [facility] general Narrative - Reported* Type Description Date Medical History systemic lupus Medical History fibromyalgia Medical History H/o Cancer Medical History A flutter Surgical History hysterectomy 1989 Surgical History x2 Hospitalization History infection in stomach 201 5 [facility] - [facility]orted* Type Description Date Medical History systemic lupus Medical History fibromyalgia Medical History H/o Cancer Medical History A flutter Medical History Crohns disease Surgical History hysterectomy 1989 Surgical History x2 Surgical History colonoscopy Hospitalization History infection in stomach 201 5 [facility] Other Reason for referral (narrative)* Diagnostic Procedure Only (Routine) - Closed Specialty Diagnoses / Procedures Referred By Anuel hernandez Referred To Contact XR IMAGING Diagnoses Pain in joint, multiple sites History of Coumadin therapy Procedures XR HAND GENERAL 3V PA/LAT/OBL BILATERAL RADEX HAND MINIMUM 3 VIEWS Kelsie Zuniga MD [address] [place] [address] Xr Imaging Referral ID Status Reason Start Date Expiration Date V isits Requested Visits Authorized [id number] Closed Auto-Generate d Referral 05/03/2022 06/02/2023 1 1 * Consult, Test, Treat (Routine) - Authorized Specialty Diagnoses / Procedures Referred By Anuel hernandez Referred To Contact Vascular Medicine Diagnoses Pain in joint, multiple sites History of Coumadin therapy Procedures CONSULT TO VASCULAR MEDICINE OFFICE/OUTPATIENT [facility] 60-74 MINUTES Kelsie Zuniga MD [address] [place] [address] Referral ID Status Reason Start Date Expiration Date Visits Requested Visits Authorized [id number] Authorized PCP Requested Referral 05/03/2022 05/03/2023 1 1 * Outpatient Procedure (Routine) - Pending Review Specialty Diagnoses / Procedures Referred By Anuel t Referred To Contact [facility] Diagnoses Pain in joint, multiple sites History of Coumadin therapy Procedures ECHO ECHO TTHRC R-T 2D W/WOM-MODE COMPL SPEC&COLR D Kelsie Zuniga MD [address] [place] [address] [facility] [place] [address] [place] [address] Referral ID Status Reason Start Date Expiration Date Visits Requested Visits Authorized [id number] Pending Review Auto-Generat ed Referral 05/03/2022 05/03/2023 1 1 [facility] Summary Purpose Family History No Family History Records FoundNo Family History Records FoundNo Family History Records FoundNo Family History Records Found Advance Directives No Advanced Directives Records FoundNo Advanced Directives Records FoundNo Advanced Directives Records FoundNo Advanced Directives Records Found Reason for Referral Specialty Diagnoses / Procedures Referred By Contac t Referred To Contact Nutrition Diagnoses Ileitis Procedures CONSULT TO NUTRITION THERAPY OFFICE/OUTPATIENT [facility] 60-74 MINUTES Sae Craven MD [address] [place] [id number] Referral ID Status Reason Start Date Expiration Date Visits Requested Visits Authorized [id number] Authorized PCP Requested Referral 11/01/2022 11/01/2023 1 1 Medications Administered Section Inactive Administered Medications - up to 3 most recent administrations Medication Order MAR Action Action Date Dose Rate Site vedolizumab 300 mg in NaCl 0.9% 250 mL (ENTYVIO) 300 mg, INTRAVENOUS, Administer over 30 Minutes, ONCE, 1 dose, On Tue03/14/23 at 0730, Approx Total Volume: 280 mL After the infusion is complete flush with 30 mL of sterile 0.9% Sodium Chloride Injection. Refrigerate. EXP: (24 HR) New Bag/Syringe/Bottle 03/14/2023 7:56 AM EDT 300 mg Inactive Administered Medications - up to 3 most recent administrations Medication Order MAR Action Action Date Dose Rate Site sodium chloride 0.9 % (flush) 10-20 mL (BD POSIFLUSH) 10-20 mL, INTRAVENOUS, DIRECTED NEEDED, Starting on Tue03/30/23 at 1247, Until Soha 7/6/23 at 0440, See Administration Instructions, If patient has a heparin allergy: IVADS not in use should be accessed and flushed once every 4 to 6 weeks with 10 mL of 0.9% NaCl. Upon de-access of Silva needle, when re-access is not indicated, ports will be flushed with 10 mL of 0.9% NaCl. Ports should be flushed with 20 mL of 0.9% NaCl after blood draws. Given 03/30/2023 1:16 PM EDT 10 mL vedolizumab 300 mg in NaCl 0.9% 250 mL (ENTYVIO) 300 mg, INTRAVENOUS, Administer over 30 Minutes, ONCE, 1 dose, On Tue03/30/23 at 1300, Approx Total Volume: 280 mL After the infusion is complete flush with 30 mL of sterile 0.9% Sodium Chloride Injection. Refrigerate. EXP: (24 HR) New Bag/Syringe/Bottle 03/30/2023 1:41 PM EDT 300 mg Inactive Administered Medications - up to 3 most recent administrations Medication Order MAR Action Action Date Dose Rate Site sodium chloride 0.9 % (flush) 10-20 mL (BD POSIFLUSH) 10-20 mL, INTRAVENOUS, NEEDED, Starting on Tue04/13/23 at 0937, Until Tue04/14/23 at 0446, See Administration Instructions, If no IVAD access, may place IV if needed for labs or possible treatment. Flush 10-20ml on IV start and as needed. D5W or LR may be used in place of NS for medication that are incompatible (i.e. with oxaliplatin). Given 04/13/2023 9:45 AM EDT 10 mL vedolizumab 300 mg in NaCl 0.9% 250 mL (ENTYVIO) 300 mg, INTRAVENOUS, Administer over 30 Minutes, ONCE, 1 dose, On Tue04/13/23 at 1000, Approx Total Volume: 280 mL After the infusion is complete flush with 30 mL of sterile 0.9% Sodium Chloride Injection. Refrigerate. EXP: (24 HR) New Bag/Syringe/Bottle 04/13/2023 10:25 AM EDT 300 mg 500 mL/hr Inactive Administered Medications - up to 3 most recent administrations Medication Order MAR Action Action Date Dose Rate Site sodium chloride 0.9 % (flush) 10-20 mL (BD POSIFLUSH) 10-20 mL, INTRAVENOUS, NEEDED, Starting on Tue06/08/23 at 0953, Until Soha 06/09/23 at 0439, See Administration Instructions, If no IVAD access, may place IV if needed for labs or possible treatment. Flush 10-20ml on IV start and as needed. D5W or LR may be used in place of NS for medication that are incompatible (i.e. with oxaliplatin). Given 06/08/2023 10:05 AM EDT 10 mL vedolizumab 300 mg in NaCl 0.9% 250 mL (ENTYVIO) 300 mg, INTRAVENOUS, Administer over 30 Minutes, ONCE, 1 dose, On Tue06/08/23 at 1000, Approx Total Volume: 280 mL After the infusion is complete flush with 30 mL of sterile 0.9% Sodium Chloride Injection. Refrigerate. EXP: (24 HR) New Bag/Syringe/Bottle 06/08/2023 10:56 AM EDT 300 mg 500 mL/hr Inactive Administered Medications - up to 3 most recent administrations Medication Order MAR Action Action Date Dose Rate Site sodium chloride 0.9 % (flush) 10-20 mL (BD POSIFLUSH) 10-20 mL, INTRAVENOUS, NEEDED, Starting on Tue08/02/23 at 0942, Until Tue08/03/23 at 0451, See Administration Instructions, If no IVAD access, may place IV if needed for labs or possible treatment. Flush 10-20ml on IV start and as needed. D5W or LR may be used in place of NS for medication that are incompatible (i.e. with oxaliplatin). Given 08/02/2023 9:52 AM EST 10 mL sodium chloride 0.9 % (flush) 10-20 mL (BD POSIFLUSH) 10-20 mL, INTRAVENOUS, DIRECTED NEEDED, Starting on Tue08/02/23 at 0942, Until Tue08/03/23 at 0451, See Administration Instructions, If patient has a heparin allergy: IVADS not in use should be accessed and flushed once every 4 to 6 weeks with 10 mL of 0.9% NaCl. Upon de-access of Silva needle, when re-access is not indicated, ports will be flushed with 10 mL of 0.9% NaCl. Ports should be flushed with 20 mL of 0.9% NaCl after blood draws. Given 08/02/2023 10:49 AM EST 10 mL vedolizumab 300 mg in NaCl 0.9% 250 mL (ENTYVIO) 300 mg, INTRAVENOUS, Administer over 30 Minutes, ONCE, 1 dose, On Tue08/02/23 at 1000, Approx Total Volume: 280 mL After the infusion is complete flush with 30 mL of sterile 0.9% Sodium Chloride Injection. Refrigerate. EXP: (24 HR) New Bag/Syringe/Bottle 08/02/2023 10:49 AM EST 300 mg Additional Source Comments INFORMATION SOURCE (unrecogn ized section and content) DATE CREATED AUTHOR 10/20/2021 [facility] DATE CREATED AUTHOR AUTHOR'S ORGANIZ ATION 12/22/2022 [facility] DATE CREATED AUTHOR AUTHOR'S ORGANIZ ATION 03/05/2023 [facility] DATE CREATED AUTHOR AUTHOR'S ORGANIZ ATION 08/03/2023 [facility] REASON FOR VISIT (unrecogniz ed section and content) Reason Comments Consult Specialty Diagnoses / Procedures Referred By Contac t Referred To Contact Vascular Medicine Diagnoses Pain in joint, multiple sites History of Coumadin therapy Procedures CONSULT TO VASCULAR MEDICINE OFFICE/OUTPATIENT [facility] 60-74 MINUTES Kelsie Zuniga MD [address] [place] [address] Referral ID Status Reason Start Date Expiration Date V isits Requested Visits Authorized [id number] Closed PCP Requested Referral 05/03/2022 05/03/2023 1 1 Reason Comments [employer] - Other Reason Comments Crohns Reason Comments Refill Request Specialty Diagnoses / Procedures Referred By Contac t Referred To Contact Diagnoses Crohn's disease of small intestine without complication (HCC) Procedures INJECTION, VEDOLIZUMAB Sae Craven MD [address] [place] [address] [facility] [address] [place] [address] Referral ID Status Reason Start Date Expiration Date V isits Requested Visits Authorized [id number] Authorized 02/21/2023 02/21/2024 8 8 Reason Comments [employer] Paperwork Source Comments (unrecognize d section and content) In the event this informatio n is protected by the Federal Confidentiality of Alcohol and Drug Abuse Patient Records regulations: The Federal rules restrict any use of the information to criminally investigate or prosecute any alcohol or drug abuse patient.[facility] the event this information is protected by the Federal Confidentiality of Alcohol and Drug Abuse Patient Records regulations: The Federal rules restrict any use of the information to criminally investigate or prosecute any alcohol or drug abuse patient.[facility] the event this information is protected by the Federal Confidentiality of Alcohol and Drug Abuse Patient Records regulations: The Federal rules restrict any use of the information to criminally investigate or prosecute any alcohol or drug abuse patient.[facility] the event this information is protected by the Federal Confidentiality of Alcohol and Drug Abuse Patient Records regulations: The Federal rules restrict any use of the information to criminally investigate or prosecute any alcohol or drug abuse patient.[facility] the event this information is protected by the Federal Confidentiality of Alcohol and Drug Abuse Patient Records regulations: The Federal rules restrict any use of the information to criminally investigate or prosecute any alcohol or drug abuse patient.[facility] the event this information is protected by the Federal Confidentiality of Alcohol and Drug Abuse Patient Records regulations: The Federal rules restrict any use of the information to criminally investigate or prosecute any alcohol or drug abuse patient.[facility] Center[facility] the event this information is protected by the Federal Confidentiality of Alcohol and Drug Abuse Patient Records regulations: The Federal rules restrict any use of the information to criminally investigate or prosecute any alcohol or drug abuse patient.[facility] Center[facility] the event this information is protected by the Federal Confidentiality of Alcohol and Drug Abuse Patient Records regulations: The Federal rules restrict any use of the information to criminally investigate or prosecute any alcohol or drug abuse patient.[facility] Center[facility] the event this information is protected by the Federal Confidentiality of Alcohol and Drug Abuse Patient Records regulations: The Federal rules restrict any use of the information to criminally investigate or prosecute any alcohol or drug abuse patient.[facility] Center[facility] the event this information is protected by the Federal Confidentiality of Alcohol and Drug Abuse Patient Records regulations: The Federal rules restrict any use of the information to criminally investigate or prosecute any alcohol or drug abuse patient.[facility] Center[facility] the event this information is protected by the Federal Confidentiality of Alcohol and Drug Abuse Patient Records regulations: The Federal rules restrict any use of the information to criminally investigate or prosecute any alcohol or drug abuse patient.[facility] Center[facility] the event this information is protected by the Federal Confidentiality of Alcohol and Drug Abuse Patient Records regulations: The Federal rules restrict any use of the information to criminally investigate or prosecute any alcohol or drug abuse patient.[facility] Center[facility] the event this information is protected by the Federal Confidentiality of Alcohol and Drug Abuse Patient Records regulations: The Federal rules restrict any use of the information to criminally investigate or prosecute any alcohol or drug abuse patient.[facility] FOR RECORDS PERTAINING TO PATIENTS WHO ARE OR HAVE BEEN ENROLLED IN A CHEMICAL DEPENDENCY/SUBSTANCEABUSE PROGRAM, SOME INFORMATION MAY BE OMITTED. This clinical summary was aggregated from multiple sources. Caution should be exercised in using it in the provision of clinical care. This summary normalizes information from multiple sources, and as a consequence, information in this document may materially change the coding, format and clinical context of patient data. In addition, data may be omitted in some cases. CLINICAL DECISIONS SHOULD BE BASED ON THE PRIMARY CLINICAL RECORDS. [facility]. provides no warranty or guarantee of the accuracy or completeness of information in this document.
[2025-01-10 12:42] LABS: INR 2.17; Prothrombin Time 21.3 sec (9.0-11.6)
== END 2025-01-10 11:39 | disposition home or self-care (01) ==
LOC: LAB 11:39
PROVIDERS: PCP Internal Medicine; Visit Provider Internal Medicine
DX: M32.9 Systemic lupus erythematosus, unspecified (principal); Z79.01 Long term (current) use of anticoagulants
CPT/HCPCS: 36415; 85610

== ENCOUNTER 2025-01-17 12:31 | Emergency (ER) | payer BC, SELFPAY ==
[2025-01-17 12:37] VITALS: BP 144/97; PULSE 88; TEMP 36.9; O2SAT 99; BMI 34.3
--- NOTE | 2025-01-17 13:00 | ED.GENADUL1 ---
HPI HPI - General Adult General Chief complaint: Abdominal Pain Stated complaint: ABDOMINAL PAIN L SIDE Time Seen by Provider: 01/17/25 12:36 Source: patient Mode of arrival: walk-in Limitations: no limitations History of Present Illness HPI narrative: 59-year-old female presents for abdominal pain. It is in her left lower quadrant and she has had it for a few days. No trauma but she states she had a fever of 101 degrees at home. She has not been eating and has not had bowel movements. She is worried she has diverticulitis, it feels like when she had it previously. The pain is moderate and continuous. No dysuria or hematuria. Related Data Home Medications ?Medication ?Instructions ?Recorded ?Confirmed doxepin 50 mg capsule 100 mg PO BEDTIME 06/10/23 05/22/24 lisinopril 20 mg tablet 20 mg PO DAILY 06/10/23 05/22/24 simvastatin 40 mg tablet 40 mg PO DAILY 06/10/23 05/22/24 vedolizumab 300 mg intravenous IV .q 8 weeks 06/10/23 solution (Entyvio) warfarin 5 mg tablet 2.5 mg PO DAILY 06/10/23 05/22/24 Previous Rx's ?Medication ?Instructions ?Recorded tramadol 50 mg tablet 50 mg PO Q8H PRN pain #14 tabs 05/22/24 ciprofloxacin HCl 500 mg tablet 500 mg PO Q12H #20 tabs 01/17/25 (Cipro) metronidazole 500 mg tablet 500 mg PO TID #30 tabs 01/17/25 ondansetron 4 mg disintegrating 4 mg PO Q6H PRN nausea and 01/17/25 tablet vomiting #20 tabs Allergies Allergy/AdvReac Type Severity Reaction Status Date / Time Sulfa (Sulfonamide Allergy Severe Swelling Verified 01/17/25 12:37 Antibiotics) of Lip/Tongue/Throat codeine AdvReac Severe Hallucinati Verified 01/17/25 12:37 ng Opioid HPI Opioid Management Most Recent Opioid Data: Last Pain Scale 8 05/22/24 15:32 05/22/24 Review of Systems ROS Narrative A ten point review of systems is negative except as noted above. PFSH PFSH Social History Smoking status: Never smoker Little interest or pleasure in doing things: not at all Feeling down, depressed, or hopeless: not at all Exam Narrative Exam Narrative: Nurses note and vital signs reviewed and patient is not hypoxic. General: The patient appears well and in no apparent distress. Patient is resting comfortably on cart. Skin: Warm, dry, no pallor noted. There is no rash noted. Head: Normocephalic, atraumatic Eye: Normal conjunctiva, no drainage Ears, Nose, Mouth, and Throat: oral mucosa is moist. Nares patent. Cardiovascular: Regular Rate and Rhythm Respiratory: Patient is in no distress, no accessory muscle use, lungs are clear to auscultation, no wheezing, rales or rhonchi Back: non-tender GI: Soft and nondistended. Tenderness present only in the left lower quadrant. No masses or rebound or guarding. Musculoskeletal: The patient has no evidence of calf tenderness, no pitting edema, symmetrical pulses noted bilaterally Neurological: A&O, normal speech Psychiatric: Cooperative Constitutional Vital Signs, click to edit/add: Last Vital Signs Temp 98.5 F 01/17/25 12:37 Pulse 84 01/17/25 14:18 Resp 18 01/17/25 14:18 BP 134/74 01/17/25 14:18 Pulse Ox 100 01/17/25 14:18 O2 Del Method Room Air 01/17/25 12:37 Course Vital Signs Vital signs: Vital Signs Temperature 98.5 F 01/17/25 12:37 Pulse Rate 88 01/17/25 12:37 Respiratory Rate 16 01/17/25 12:37 Blood Pressure 144/97 H 01/17/25 12:37 Pulse Oximetry 99 01/17/25 12:37 Oxygen Delivery Method Room Air 01/17/25 12:37 Temperature 98.5 F 01/17/25 12:37 Pulse Rate 84 01/17/25 14:18 Respiratory Rate 18 01/17/25 14:18 Blood Pressure 134/74 01/17/25 14:18 Pulse Oximetry 100 01/17/25 14:18 Oxygen Delivery Method Room Air 01/17/25 12:37 Medical Decision Making MDM Narrative Medical decision making narrative: Acute uncomplicated diverticulitis is identified. We discussed antibiotic choices. She is on Coumadin and we discussed the interaction with Cipro. She states she has taken Cipro while on Coumadin several times and never had an issue with it. She would prefer to take the Cipro and the Flagyl because its worked for her in the past and she will have her INR monitored by her Coumadin clinic. She was given IV Cipro and Flagyl prior to discharge and prescriptions were given as well. Treatment diagnosis and follow-up were discussed with the patient. Differential Diagnosis Differential Diagnosis: Diverticulitis, perforation, abscess, UTI, constipation Lab Data Lab results reviewed: Yes I reviewed the patient's lab results Labs: Lab Results 01/17/25 01/17/25 Range/Units 12:47 12:51 WBC 8.3 (4.0-11.0) 10^3/uL RBC 4.35 (4.20-5.40) 10^6/uL Hgb 12.6 (12.0-16.0) g/dL Hct 38.4 (36.0-48.0) % MCV 88.3 (81.0-99.0) fL MCH 29.0 (26.7-34.0) pg MCHC 32.8 (29.9-35.2) g/dL RDW 14.4 (11.0-15.0) % Plt Count 203 (150-450) 10^3/uL MPV 12.0 (9.5-13.5) fL Neut % (Auto) 64.2 (43.0-75.0) % Lymph % (Auto) 27.6 (20.5-60.0) % Christian % (Auto) 5.7 (1.7-12.0) % Eos % (Auto) 1.5 (0.9-7.0) % Baso % (Auto) 0.6 (0.2-2.0) % Neut # (Auto) 5.3 (1.4-6.5) 10^3/uL Lymph # (Auto) 2.3 (1.2-3.8) 10^3/uL Christian # (Auto) 0.5 (0.3-0.8) 10^3/uL Eos # (Auto) 0.1 (0.0-0.7) 10^3/uL Baso # (Auto) 0.1 (0.0-0.1) 10^3/uL Abs Immat Gran (auto) 0.03 (0.00-0.03) 10^3/uL Imm/Tot Granulo (auto) 0.4 (0.0-0.5) % Sodium 140 (136-145) mmol/L Potassium 4.0 (3.5-5.1) mmol/L Chloride 103 (98-107) mmol/L Carbon Dioxide 28.4 (21.0-32.0) mmol/L Anion Gap 12.6 BUN 14.0 (7.0-18.0) mg/dL Creatinine 0.94 (0.55-1.02) mg/dL Est GFR ( Amer) >60 (>=60 mL/min/1.73m^2) Est GFR (Non-Af Amer) >60 (>=60 mL/min/1.73m^2) BUN/Creatinine Ratio 14.9 Glucose 81 (74-106) mg/dL Calcium 8.9 (8.5-10.1) mg/dL Urine Color Lt. yellow (YELLOW) Urine Clarity Clear (CLEAR) Urine pH 6.0 (5.0-9.0) Ur Specific [place] 1.025 (1.005-1.025) Urine Protein Negative (NEG/TRACE) mg/dL Urine Glucose (UA) Negative (NEGATIVE) mg/dL Urine Ketones 40 A (NEGATIVE) mg/dL Urine Occult Blood Small A (NEGATIVE) Urine Nitrite Negative (NEGATIVE) Urine Bilirubin Small A (NEGATIVE) Urine Urobilinogen 1.0 (0.2-1.0) EU/dL Ur Leukocyte Esterase Small A (NEGATIVE) Urine RBC 2-5 A (0-2) #/HPF Urine WBC 10-20 A (NONE SEEN) #/HPF Ur Squamous Epith Cells Few A (NONE/RARE) #/LPF Ur Transition Epith Cell Rare A (NONE SEEN) #/LPF Urine Crystals None seen (None Seen) #/HPF Urine Bacteria Trace A (NONE SEEN) #/HPF Urine Casts None seen (NONE SEEN) #/LPF Urine Mucus Trace A (NONE SEEN) Ur Culture Indicated? [place] [place] - abdomen: Radiologist's impression: Acute descending colon diverticulitis, no perforation Discharge Plan Discharge Chief Complaint: Abdominal Pain Clinical Impression: Diverticulitis Patient Disposition: Home, Self-Care Time of Disposition Decision: 14:36 Condition: Good Mode of Transportation: Private Vehicle Prescriptions / Home Meds: New metronidazole 500 mg tablet 500 mg PO TID Qty: 30 0RF ciprofloxacin HCl [Cipro] 500 mg tablet 500 mg PO Q12H Qty: 20 0RF ondansetron 4 mg tablet,disintegrating 4 mg PO Q6H PRN (Reason: nausea and vomiting) Qty: 20 0RF No Action doxepin 50 mg capsule 100 mg PO BEDTIME lisinopril 20 mg tablet 20 mg PO DAILY simvastatin 40 mg tablet 40 mg PO DAILY warfarin 5 mg tablet 2.5 mg PO DAILY Entyvio 300 mg recon soln IV .q 8 weeks amoxicillin-pot clavulanate 875-125 mg tablet 1 tab PO BID 10 Days Qty: 20 0RF tramadol 50 mg tablet 50 mg PO Q8H PRN (Reason: pain) Qty: 14 0RF Print Language: Bhutanese Instructions: Diverticulitis (ED) Additional Instructions: Have your INR monitored. Cipro can cause an increase in the INR. Referrals: ANA MARIANO [Primary Care Provider] - 1 week
[2025-01-17 13:07] LABS: Basophils Absolute Auto 0.1 10^3/uL (0.0-0.1); Basophils Percent Auto 0.6 % (0.2-2.0); Eosinophils Absolute Auto 0.1 10^3/uL (0.0-0.7); Eosinophils Percent Auto 1.5 % (0.9-7.0); Hematocrit 38.4 % (36.0-48.0); Hemoglobin 12.6 g/dL (12.0-16.0); Immature Granulocytes Abs Auto 0.03 10^3/uL (0.00-0.03); Immature Granulocytes Pct Auto 0.4 % (0.0-0.5); Lymphocytes Absolute Auto 2.3 10^3/uL (1.2-3.8); Lymphocytes Percent Auto 27.6 % (20.5-60.0); Mean Corpuscular HGB Conc 32.8 g/dL (29.9-35.2); Mean Corpuscular Volume 88.3 fL (81.0-99.0); Monocytes Absolute Auto 0.5 10^3/uL (0.3-0.8); Monocytes Percent Auto 5.7 % (1.7-12.0); Neutrophils Absolute Auto 5.3 10^3/uL (1.4-6.5); Neutrophils Percent Auto 64.2 % (43.0-75.0); Platelet Count 203 10^3/uL (150-450); Red Blood Count 4.35 10^6/uL (4.20-5.40); Red Cell Distribution Width 14.4 % (11.0-15.0); White Blood Count 8.3 10^3/uL (4.0-11.0)
[2025-01-17 13:08] LABS: Anion Gap 12.6; BUN Creatinine Ratio 14.9; Calcium 8.9 mg/dL (8.5-10.1); Carbon Dioxide 28.4 mmol/L (21.0-32.0); Chloride 103 mmol/L (98-107); Estimated GFR (African America >60 (>=60 mL/min/1.73m^2); Estimated GFR (Non-African Ame >60 (>=60 mL/min/1.73m^2); Glucose 81 mg/dL (74-106); Sodium 140 mmol/L (136-145)
[2025-01-17 13:08] LABS: Bilirubin Urine SMALL (NEGATIVE); Blood Urine SMALL (NEGATIVE); Clarity Urine CLEAR (CLEAR); Color Urine LT. YELLOW (YELLOW); Glucose Urine UA NEGATIVE (NEGATIVE); Ketones Urine 40 mg/dL (NEGATIVE); Leukocyte Esterase Urine SMALL (NEGATIVE); Nitrite Urine NEGATIVE (NEGATIVE); Protein Urine NEGATIVE (NEG/TRACE); Specific Gravity Urine 1.025 (1.005-1.025)
[2025-01-17 13:20] LABS: Bacteria Urine TRACE #/HPF (NONE SEEN); Crystals Seen? None Seen #/HPF (None Seen); Mucus Urine TRACE (NONE SEEN); Squamous Epithelial Cell Urine FEW #/LPF (NONE/RARE); Transitional Epi Cells Urine RARE #/LPF (NONE SEEN)
[2025-01-17 13:21] LABS: Cast Seen? NONE SEEN #/LPF (NONE SEEN); Urine Culture Indicated YES-FRMC
[2025-01-17 14:18] VITALS: BP 134/74; PULSE 84; O2SAT 100
[2025-01-17] MEDS: CIPROFLOXACIN IN 5 % DEXTROSE 400 MG/200 ML PREMIX 200 MG IV (14:41)
[2025-01-17] MEDS: METRONIDAZOLE/SODIUM CHLORIDE 500 MG/100 ML PREMIX 100 MG IV (15:39)
== END 2025-01-17 16:41 | disposition home or self-care (01) ==
PROVIDERS: Emergency Provider Emergency Medicine; PCP Internal Medicine
DX: K57.32 Diverticulitis of large intestine without perforation or abscess without bleeding (principal); Z79.01 Long term (current) use of anticoagulants
CPT/HCPCS: 36415; 74177; 80048; 81001; 85025; 87086; 87088; 96365; 96367; 99285; J0744; J1836; Q9967

== ENCOUNTER 2025-04-05 14:09 | Outpatient (OUT) | payer BC, SELFPAY ==
[2025-04-05 14:51] LABS: INR 1.89; Prothrombin Time 18.8 sec (9.0-11.6)
== END 2025-04-05 14:10 | disposition home or self-care (01) ==
LOC: LAB 14:11
PROVIDERS: PCP Internal Medicine; Visit Provider Internal Medicine
DX: M32.9 Systemic lupus erythematosus, unspecified (principal); Z79.01 Long term (current) use of anticoagulants
CPT/HCPCS: 36415; 85610

== ENCOUNTER 2025-05-01 10:54 | Outpatient (OUT) | payer BC, SELFPAY ==
[2025-05-01 11:29] LABS: INR 2.52; Prothrombin Time 24.4 sec (9.0-11.6)
== END 2025-05-01 10:55 | disposition home or self-care (01) ==
LOC: LAB 10:58
PROVIDERS: PCP Internal Medicine; Visit Provider Internal Medicine
DX: M32.9 Systemic lupus erythematosus, unspecified (principal); Z79.01 Long term (current) use of anticoagulants
CPT/HCPCS: 36415; 85610

== ENCOUNTER 2025-06-24 14:59 | Outpatient (OUT) | payer BC, SELFPAY ==
--- OUTSIDE RECORDS SUMMARY | 2025-01-17 13:21 | XMS_ITS ---
Author Name Auto Generated Organization [facility] Care Team Providers Care Spot Billing Clerk Name Role Phone Trell Washington Attending Unavailable Trell Washington Admitting Unavailable PROBLEMS No Problem Records Found PROCEDURES No Procedure Records Found RESULTS URINE CULTURE Observed: 01/17/2025 1:21 PM Status: F Source: [facility] ORGANISM: Strep agalactiae - (group b) (O:STRAGA) [place] Count 50,000 PERFORMED BY: [place] [address] PATHOLOGIST SCHOOL CURRICULUM DEVELOPER LLOYD LAURA M.D. Performed By: #### CUU #### [address] ALLERGIES DATE TYPE / CODE NAME / CODE REACTION SEVERITY SOURCE 08/27/2022 Drug Allergy/644914655 (SNOMED CT) sulfur/[id number] (RXNORM) Unknown [facility] 08/27/2022 Drug Allergy/374742701 (SNOMED CT) sulfacetamide/[id number](RXNORM) Unknown [facility] ENCOUNTERS ADMIT/DISCHARGE ACCOUNT NUMBER ADMITTING ENCOUNTER CLASS LOCATION SOURCE 01/17/2025/ 5 [id number] Trell Washington [facility] PAYERS ENCOUNTER GUARANTOR PAYER SUBSCRIBER SOURCE 01/17/2025 Kimberly [address] [place] [address]Dji: (HP) Primary Insurance:Self PayPolicy Number: Effective Date:2025-01-17 NOT GIVENUNK [facility]
--- OUTSIDE RECORDS SUMMARY | 2025-06-24 15:03 | XMS_ITS | Encounter Summary ---
Author Organization [facility] Address [facility] [place] [id number] Care Team Providers Care Environmental Compliance Manager Name Role Phone Unavailable Primary Care Provider Unavailabl e Source Comments In the event this information is protected by the Federal Confidentiality of Alcohol and Drug AbusePatient Records regulations: The Federal rules restrict any use of the information to criminally investigate or prosecute any alcohol or drug abuse patient.[facility] Encounter Details Date Type Department Care Team (Late st Contact Info) Description 12/16/[address] [facility] Hospital Laboratory [facility] [place] [id number] Sae Clarke MD [facility] [place] [id number] Person encountering health services to consult on behalf of another person Social History Tobacco Use Types Packs/Day Years Used Date Smoking Tobacco: Never Smokeless Tobacco: Never PHQ-2 Answer Date Recorded PHQ-2 score 6 04/29/2022 Area Deprivation Index Answer Date Jose rded National Score (1-100), lower number is lower ri sk 52 10/24/2022 State Score (1-10), lower number is lower risk N ot on file 10/24/2022 Data from: https://www.[facility] systematlas.[facility]/. Last address used for calculation [address] 10/24/2022 Comments Unknown Sex and Gender Information Value Date Recorded Sex Assigned at Not on file Legal Sex Female 4:07 PM EDT Gender Identity Not on file Sexual Orientation Not on file documented as of this encounter Plan of Treatment Not on file documented as of this encounter Procedures Procedure Name Priority Date/Time Associated Diagnosis Comments OUTSIDE SURG PATH SLIDE REVIEW Routine 12/16/2022 9:06 AM EDT Person encountering health services to consult on behalf of another person documented in this encounter Results * OUTSIDE SURG PATH SLIDE REVIEW (12/16/2022 9:06 AM EDT) Case Report Surgical Pathology Report Case: [id number] Authorizing Provider: Sae Clarke MD Collected: 12/16/2022 09:06 AM Ordering Location: [facility] Main Received: 12/16/2022 09:07 AM Pathologist: Ramon Locke MD Specimen: SLIDE(S), 6 SLIDES, [id number] 12/20/2022 1:42 PM EDT [facility] FINAL DIAGNOSIS A. Terminal ileum, biopsy: - Chronic, severely active enteritis; no granulomas or dysplasia. B. Ascending colon, biopsy: - Colonic mucosa with no significant pathologic abnormality. C. Descending colon, biopsy: - Colonic mucosa with no significant pathologic abnormality. 12/20/2022 1:42 PM EDT [facility] at 1342 EDT Performing Lab Diagnostic interpretation performed at [facility], [address] [place] [address] CLIA# [id number] Quality Project Manager: Isaiah Hall M.D. 12/20/2022 1:42 PM EDT [facility] Blocks or Slides MICROSCOPE SLIDE / Unknown 12/16/2022 9:06 AM EDT 12/16/2022 9:07 AM EDT us Sae Clarke MD SURGICAL PATHOLOGY Final Res ult [facility] [address] [place] [address], documented in this encounter Visit Diagnoses Diagnosis Person encountering health services to consult on behalf of another person Other person consulting on behalf of another person documented in this encounter
--- OUTSIDE RECORDS SUMMARY | 2025-06-24 15:03 | XMS_ITS | Encounter Summary ---
Author Organization [facility] Address [facility] [place] [address] Care Team Providers Care Picu Nurse Name Role Phone Unavailable Primary Care Provider Unavailabl e Source Comments In the event this information is protected by the Federal Confidentiality of Alcohol and Drug AbusePatient Records regulations: The Federal rules restrict any use of the information to criminally investigate or prosecute any alcohol or drug abuse patient.[facility] Encounter Details Date Type Department Care Team (Late st Contact Info) Description 05/07/2022 Patient Msg Rheumatology [address] [place] [phone] Kelsie Zuniga MD [address] [place] [address] update Social History Tobacco Use Types Packs/Day Years Used Date Smoking Tobacco: Never Smokeless Tobacco: Never PHQ-2 Answer Date Recorded PHQ-2 score 6 04/29/2022 Area Deprivation Index Answer Date Jose rded National Score (1-100), lower number is lower ri sk 52 05/03/2022 State Score (1-10), lower number is lower risk N ot on file 05/03/2022 Data from: https://www.neighborhoodatlas.medicine.[facility]/. Last address used for calculation [address] 05/03/2022 Comments Unknown Sex and Gender Information Value Date Recorded Sex Assigned at Not on file Legal Sex Female 4:07 PM EDT Gender Identity Not on file Sexual Orientation Not on file COVID-19 Exposure Response Date Recorded In the last 10 days, have yo u been in contact with someone who was confirmed or suspected to have Coronavirus/COVID-19? No / Unsure 05/03/2022 11:53 AM EDT documented as of this encounter Plan of Treatment Not on file documented as of this encounter Visit Diagnoses Not on filedocumented in this encounter
--- OUTSIDE RECORDS SUMMARY | 2025-06-24 15:03 | XMS_ITS | Encounter Summary ---
Author Organization [facility] Address [facility] [place] [address] Care Team Providers Care Suit Attendant Name Role Phone Unavailable Primary Care Provider Unavailabl e Source Comments In the event this information is protected by the Federal Confidentiality of Alcohol and Drug AbusePatient Records regulations: The Federal rules restrict any use of the information to criminally investigate or prosecute any alcohol or drug abuse patient.[facility] Encounter Details Date Type Department Care Team (Late st Contact Info) Description 11/02/2022 Get Medical Advice Gastroenterology [address] [address] Sae Clarke MD [address] [place] [address] Lab used by [facility] Social History Tobacco Use Types Packs/Day Years Used Date Smoking Tobacco: Never Smokeless Tobacco: Never PHQ-2 Answer Date Recorded PHQ-2 score 6 04/29/2022 Area Deprivation Index Answer Date Jose rded National Score (1-100), lower number is lower ri sk 52 10/24/2022 State Score (1-10), lower number is lower risk N ot on file 10/24/2022 Data from: https://www.neighborhoodatlas.[facility]/. Last address used for calculation [address] [...]
--- OUTSIDE RECORDS SUMMARY | 2025-06-24 15:03 | XMS_ITS | Encounter Summary ---
Author Organization [facility] Address [facility] [place] [address] Care Team Providers Care Pump Technician Name Role Phone Unavailable Primary Care Provider Unavailabl e Source Comments In the event this information is protected by the Federal Confidentiality of Alcohol and Drug AbusePatient Records regulations: The Federal rules restrict any use of the information to criminally investigate or prosecute any alcohol or drug abuse patient.[facility] Encounter Details Date Type Department Care Team (Late st Contact Info) Description 03/07/2023 Get Medical Advice Gastroenterology [address] [address] Sae Clarke MD [address] [place] [address] Starting entyvio Social History Tobacco Use Types Packs/Day Years Used Date Smoking Tobacco: Never Smokeless Tobacco: Never PHQ-2 Answer Date Recorded PHQ-2 score 6 04/29/2022 Area Deprivation Index Answer Date Jose rded National Score (1-100), lower number is lower ri sk 53 02/17/2023 State Score (1-10), lower number is lower risk 3 02/17/2023 Data from: https://www.neighborhoodatlas.medicine.[facility]/. Last address used for calculation [address] 02/17/2023 Comments Unknown Sex and Gender Information Value Date Recorded Sex Assigned at Not on file Legal Sex Female 4:07 PM EDT Gender Identity Not on file Sexual Orientation Not on file documented as of this encounter Plan of Treatment Not on file documented as of this encounter Visit Diagnoses Not on filedocumented in this encounter
--- OUTSIDE RECORDS SUMMARY | 2025-06-24 15:03 | XMS_ITS | Clinical Summary ---
Author Organization [facility] Address [facility] [place] [address] Care Team Providers Care Marketing Operations Manager Name Role Phone Unavailable Primary Care Provider Unavailabl e Allergies Active Allergy Reactions Criticality Noted Date Comments Codeine Mental Status Change,Unknown,Vomiting 04/24/2013 Sulfa (Sulfonamide Antibiotics) Unknown 04/24/2013 Medications warfarin (COUMADIN) 5 mg tablet Take by mouth. 01/26/2004 Active simvastatin (ZOCOR) 40 mg tablet 05/01/2022 Active LISINOPRIL ORAL 11/25/2021 Act bre doxepin capsule 50 mg 05/01/2022 Active cyanocobalamin, vitamin B-12, (VITAMIN B-12 ORAL) Take by mouth. Active cholecalciferol, vitamin D3, (VITAMIN D3 ORAL) Take by mouth. Active mv-min/iron/folic /calcium/vitK (WOMEN'S MULTIVITAMIN ORAL) Take by mouth. Active budesonide, enteric coated (ENTOCORT EC) 3 mg 24 hr capsuleIndication s:Ileitis TAKE 2 CAPS DAILY FOR 1 MONTH, THEN 1 CAP DAILY FOR 1 MONTH 90 capsule 11/27/2022 Active Active Problems Problem Noted Date Diagnosed Date Crohn's disease of small intestine without compl ication 02/17/2023 Antiphospholipid syndrome 06/30/2022 History of malignant neoplasm of ovary 2 TIA (transient ischemic attack) 06/30/2022 Diverticulitis 04/24/2013 Encounters Date Type Department Care Team Description 03/26/2025 [place] [address] Provider, Ccf Sign up to manage your digestive symptoms in between visits, covered by insurance from Last 3 Months Family History Medical History Relation Comments Leukemia Father Stroke Father Relation Status Comments Father Social History Tobacco Use Types Packs/Day Years Used Date Smoking Tobacco: Never Smokeless Tobacco: Never Tobacco Cessation:Counseling Given: Not Answered PHQ-2 Answer Date Recorded PHQ-2 score 6 04/29/2022 Area Deprivation Index Answer Date Jose rded National Score (1-100), lower number is lower ri sk 53 02/17/2023 State Score (1-10), lower number is lower risk 3 02/17/2023 Data from: https://www.neighborhoodatlas.[facility]/. Last address used for calculation [address] 02/17/2023 Comments Unknown Sex and Gender Information Value Date Recorded Sex Assigned at Not on file Legal Sex Female 4:07 PM EDT Gender Identity Not on file Sexual Orientation Not on file Last Filed Vital Signs Vital Sign Reading Time Taken Comments Blood Pressure 141/82 08/02/2023 11:20 AM EST Pulse 89 08/02/2023 11:20 AM EST Temperature 36.7 C (98.1 F) 08/02/2023 10:20 AM EST Respiratory Rate 18 08/02/2023 10:20 AM EST Oxygen Saturation 95% 08/02/2023 11:20 AM EST Inhaled Oxygen Concentration - - Weight 96.2 kg (212 lb) 11/01/2022 8:28 AM EST Height 162.6 cm (5' 4 ) 11/01/2022 8:28 AM EST Body Mass Index 36.39 11/01/2022 8:28 AM EST Plan of Treatment Health Maintenance Due Date Last Done Comments Anxiety Screening 12/27/1985 Depression Screening 12/27/1985 HIV Screening 12/27/1985 DTaP,Tdap,Td Vaccine (1 - Tdap) 12/27/1986 Cervical Cancer Screening 12/27/[address] Colonography 12/27/2012 Cologuard (FIT-DNA) 12/27/2012 Colonoscopy 12/27/2012 Colorectal Cancer Screening 12/27/2012 Fecal Occult Blood 12/27/2012 Lipid Screening 12/27/2012 Sigmoidoscopy 12/27/2012 Hepatitis B Vaccine (2 of 3 - Hep B Twinrix 3-dose series) 09/16/2014 08/19/2014 Shingrix Vaccine (2 of 2) 04/14/2023 02/17/2023 Influenza Vaccine (#1) 2025 08/20/2015, 2013 Diabetes Screening 02/22/2026 02/22/2023, 05/03/2022 Hepatitis C Screening Completed 05/03/2022, 022 Pneumococcal Vaccine: 50+ Completed 02/17/2023, Procedures Procedure Name Priority Date/Time Associated Diagnosis Comments COMPREHENSIVE METABOLIC PANEL Routine 02/22/2023 9:29 AM EDT Crohn's disease of small intestine without complication (HCC) HEP REMOTE PANEL BL Routine 05/03/2022 2 :03 PM EDT Pain in joint, multiple sites History of Coumadin therapy from Last 3 Months or Most Recently Relevant to Health Maintenance Results * (ABNORMAL) COMP METABOLIC PANEL (02/22/2023 9:29 AM EDT) Protein, Total 7.4 6.3 - 8.0 g/dL 02/22/2023 12:00 PM EDT [facility] Albumin 4.2 3.9 - 4.9 g/dL 02/22/2023 12:00 PM EDT [facility] Calcium, Total 9.5 8.5 - 10.2 mg/dL 02/22/2023 12:00 PM EDT [facility] Bilirubin, Total 0.3 0.2 - 1.3 mg/dL 02/22/2023 12:00 PM EDT [facility] Alkaline Phosphatase 125(H) 34 - 123 U/L 02/22/2023 12:00 PM EDT [facility] AST 15 13 - 35 U/L 02/22/2023 12:00 PM EDT [facility] ALT 13 7 - 38 U/L 02/22/2023 12:00 PM EDT [facility] Glucose 106(H) 74 - 99 mg/dL 02/22/2023 12:00 PM [facility] Comment: The [place] Diabetes Association (ADA) provides guidance for cutoff [...] Standards of Medical Care in Diabetes 2016, [place] [employer] Association. Diabetes Care. 2016.39(Suppl 1). BUN 15 7 - 21 mg/dL 02/22/2023 12:00 PM [facility] Creatinine 0.82 0.58 - 0.96 mg/dL 02/22/2023 12:00 PM [facility] Sodium 140 136 - 144 mmol/L 02/22/2023 12:00 PM [facility] Potassium 4.2 3.7 - 5.1 mmol/L 02/22/2023 12:00 PM [facility] Chloride 104 97 - 105 mmol/L 02/22/2023 12:00 PM [facility] CO2 24 22 - 30 mmol/L 02/22/2023 12:00 PM [facility] Anion Gap 12 9 - 18 mmol/L 02/22/2023 12:00 PM [facility] Estimated Glomerular Filtration Rate 85 >=60 mL/min/1. 73m 02/22/2023 12:00 PM [facility] Comment:Estimated Glomerular Filtration Rate (eGFR) is calculated using the 2020 CKD-EPI creatinine equation. This equation utilizes serum creatinine, sex, and age as parameters. The creatinine assay has traceable calibration to isotope dilution- mass spectrometry. Refer to KDIGO guidelines for clinical interpretation. In patients with unstable renal function, e.g. those with acute kidney injury, the eGFR may not accurately reflect actual GFR. Blood BLOOD SPECIMEN / Unknown Venipuncture / Unknown 02/22/2023 9:29 AM EDT 02/22/2023 9:29 AM EDT Sae Clarke MD LABORATORY Final Result Performing Organization Address City/State/[facility] Co de Phone Number [facility] [address] [place] [address] from Last 3 Months or Most Recently Relevant to Health Maintenance Insurance
--- OUTSIDE RECORDS SUMMARY | 2025-06-24 15:03 | XMS_ITS | Clinical Summary ---
Author Organization [employer] [facility] Address [id number] [address] [place] [address] Care Team Providers Care Injection Maintenance Technician Name Role Phone Unavailable Primary Care Provider Unavailabl e Social History Tobacco Use Types Packs/Day Years Used Date Smoking Tobacco: Never Assessed Childcare Answer Date Recorded Childcare Unknown 03/07/2019 Employment Answer Date Recorded Employment Unknown 03/07/2019 Comments Unknown Sex and Gender Information Value Date Recorded Sex Assigned at Not on file Legal Sex Female 11:59 AM EDT Gender Identity Not on file Sexual Orientation Not on file Plan of Treatment Health Maintenance Due Date Last Done Comments Depression Screening 1979 Tobacco Screening 1979 Adult BMI Screening 12/27/1985 DTaP,Tdap and Td Vaccines (1 - Tdap) 12/27/1986 Pap Smear 12/27/1988 Zoster (Shingles) Vaccine (1 of 2) 12/27/2017 Influenza Vaccine 05/27/2025 Medical Devices Not on file
--- OUTSIDE RECORDS SUMMARY | 2025-06-24 15:03 | XMS_ITS | Encounter Summary ---
Author Organization [facility] Address [facility] [place] [address] Care Team Providers Care Genetic Counsellor Name Role Phone Unavailable Primary Care Provider Unavailabl e Source Comments In the event this information is protected by the Federal Confidentiality of Alcohol and Drug AbusePatient Records regulations: The Federal rules restrict any use of the information to criminally investigate or prosecute any alcohol or drug abuse patient.[facility] Encounter Details Date Type Department Care Team (Late st Contact Info) Description 12/12/2022 Patient Msg Gastroenterology [address] [address] Sae Clarke MD [address] [place] [address] Vitamin D Social History Tobacco Use Types Packs/Day Years Used Date Smoking Tobacco: Never Smokeless Tobacco: Never PHQ-2 Answer Date Recorded PHQ-2 score 6 04/29/2022 Area Deprivation Index Answer Date Jose rded National Score (1-100), lower number is lower ri sk 52 10/24/2022 State Score (1-10), lower number is lower risk N ot on file 10/24/2022 Data from: https://www.neighborhoodatlas.medicine.[facility]/. Last address used for calculation [...]
--- OUTSIDE RECORDS SUMMARY | 2025-06-24 15:03 | XMS_ITS | Encounter Summary ---
Author Organization [facility] Address [address] [place] [address] Care Team Providers Care Environmental Monitoring Technician Name Role Phone Unavailable Primary Care Provider Unavailabl e Source Comments In the event this information is protected by the Federal Confidentiality of Alcohol and Drug AbusePatient Records regulations: The Federal rules restrict any use of the information to criminally investigate or prosecute any alcohol or drug abuse patient.[facility] Encounter Details Date Type Department Care Team (Late st Contact Info) Description 03/26/2025 [place] [address] Provider, Ccf Sign up to manage your digestive symptoms in between visits, covered by insurance Social History Tobacco Use Types Packs/Day Years Used Date Smoking Tobacco: Never Smokeless Tobacco: Never PHQ-2 Answer Date Recorded PHQ-2 score 6 04/29/2022 Area Deprivation Index Answer Date Jose rded National Score (1-100), lower number is lower ri sk 53 02/17/2023 State Score (1-10), lower number is lower risk 3 02/17/2023 Data from: https://www.neighborhoodatlas.medicine.[facility].edu/. Last address used for calculation [address] [...]
--- OUTSIDE RECORDS SUMMARY | 2025-06-24 15:03 | XMS_ITS | Encounter Summary ---
Author Organization [facility] Address [facility] [place] [address] Care Team Providers Care Delivery Driver/Supervisor Name Role Phone Unavailable Primary Care Provider Unavailabl e Source Comments In the event this information is protected by the Federal Confidentiality of Alcohol and Drug AbusePatient Records regulations: The Federal rules restrict any use of the information to criminally investigate or prosecute any alcohol or drug abuse patient.[facility] Encounter Details Date Type Department Care Team (Late st Contact Info) Description 06/11/2023 Get Medical Advice Gastroenterology [address] [address] Sae Clarke MD [address] [place] [address] Antibiotics Social History Tobacco Use Types Packs/Day Years Used Date Smoking Tobacco: Never Smokeless Tobacco: Never PHQ-2 Answer Date Recorded PHQ-2 score 6 04/29/2022 Area Deprivation Index Answer Date Jose rded National Score (1-100), lower number is lower ri sk 53 02/17/2023 State Score (1-10), lower number is lower risk 3 02/17/2023 Data from: https://www.neighborhoodatlas.medicine.[place].edu/. Last address used for calculation [address] 02/17/2023 Comments Unknown Sex and Gender Information Value Date Recorded Sex Assigned at Not on file Legal Sex Female 4:07 PM EDT Gender Identity Not on file Sexual Orientation Not on file documented as of this encounter Miscellaneous Notes * Telephone Encounter - Ann Marie Byrd RN - 06/13/2023 9:27 AM EDT Called patient, patient states that she went to the ED and a CAT scan was done and diverticula was found and is now being treated with Flagyl and Cipro for 7 days. Patient last Entyvio was 06/08. Patient started antibiotic on 06/10. Informed patient that since she already had the Entyvio and started the antibiotic theres nothing we can do right now. But to monitor her GI symptoms. Patient already takes daily probiotic., Patient is on Q8 Entyvio. Additional recommendations will be provided back tothe patient. Ann Marie Byrd RN documented in this encounter Plan of Treatment Not on file documented as of this encounter Visit Diagnoses Not on filedocumented in this encounter
--- OUTSIDE RECORDS SUMMARY | 2025-06-24 15:03 | XMS_ITS | Clinical Summary ---
Author Organization [facility] Address [address] [place] [address] Care Team Providers Care Resin Mixer Name Role Phone Unavailable Primary Care Provider Unavailabl e Social History Tobacco Use Types Packs/Day Years Used Date Smoking Tobacco: Never Assessed Comments Unknown Sex and Gender Information Value Date Recorded Sex Assigned at Not on file Legal Sex Female 7:14 PM EDT Gender Identity Not on file Sexual Orientation Not on file Last Filed Vital Signs Vital Sign Reading Time Taken Comments Blood Pressure 140/80 07/22/2021 12:00 PM EDT Pulse - - Temperature - - Respiratory Rate - - Oxygen Saturation - - Inhaled Oxygen Concentration - - Weight 95.3 kg (210 lb) 08/19/2021 12:00 PM EST Height 160 cm (5' 3 ) 08/19/2021 12:00 PM EST Body Mass Index 37.2 08/19/2021 12:00 PM EST Plan of Treatment Not on file Insurance BS
--- OUTSIDE RECORDS SUMMARY | 2025-06-24 15:03 | XMS_ITS | Encounter Summary ---
Author Organization [facility] Address [address] [place] [address] Care Team Providers Care Md Senior Research Scientist Name Role Phone Unavailable Primary Care Provider Unavailabl e Source Comments In the event this information is protected by the Federal Confidentiality of Alcohol and Drug AbusePatient Records regulations: The Federal rules restrict any use of the information to criminally investigate or prosecute any alcohol or drug abuse patient.[facility] Encounter Details Date Type Department Care Team (Late st Contact Info) Description 10/31/2023 Patient Ms [facility] [address] [place] [address] Provider, Vahid IBD VIRTUAL EDUCATION for you by Drs. Davalos & Babar-- JOIN US! Social History Tobacco Use Types Packs/Day Years Used Date Smoking Tobacco: Never Smokeless Tobacco: Never PHQ-2 Answer Date Recorded PHQ-2 score 6 04/29/2022 Area Deprivation Index Answer Date Jose rded National Score (1-100), lower number is lower ri sk 53 02/17/2023 State Score (1-10), lower number is lower risk 3 02/17/2023 Data from: https://www.neighborhoodatlas.medicine.[facility].edu/. Last address used for calculation [address] [...]
[2025-06-24 15:31] LABS: INR 2.96; Prothrombin Time 28.2 sec (9.0-11.6)
== END 2025-06-24 15:00 | disposition home or self-care (01) ==
LOC: LAB 15:01
PROVIDERS: PCP Internal Medicine; Visit Provider Internal Medicine
DX: M32.9 Systemic lupus erythematosus, unspecified (principal); Z79.01 Long term (current) use of anticoagulants
CPT/HCPCS: 36415; 85610

== ENCOUNTER 2025-07-24 14:25 | Emergency (ER) | payer BC, SELFPAY ==
[2025-07-24 14:32] VITALS: BP 130/81; PULSE 83; TEMP 37.2; O2SAT 98; BMI 33.8
--- OUTSIDE RECORDS SUMMARY | 2025-07-24 14:33 | XMS_ITS | Clinical Summary ---
Author Organization [facility] Address [id number] [address] [place] [address] Care Team Providers Care Delivery Agent Name Role Phone Unavailable Primary Care Provider Unavailabl e Social History Tobacco UseTypesPacks/DayYears UsedDateSmoking Tobacco: Never AssessedChildcare AnswerDate OrjknyyqEekvbpeioRklcnpt66/12/2019EmploymentAnswerDate Recorded LfamjarrhrOmuqsow35/12/2019CommentsUnknownSex and Gender Information ValueDate RecordedSex Assigned at BirthNot on fileLegal DbwZedxqr01/06/2015 11:59 AM EDTGender IdentityNot on fileSexual OrientationNot on file Plan of Treatment Health MaintenanceDue DateLast DoneCommentsDepression Bjgiuotnf19/03/1980Tobacco Fhlkfiokl13/03/1980Adult BMI Frqsorsiu11/03/1986DTaP,Tdap and Td Vaccines (1 - Tdap)12/27/1986Pap Smear12/27/1988Zoster (Shingles) Vaccine (1 of 2)12/27/2017 Influenza Ralxfsw3205/27/2025 Medical Devices Not on file
--- OUTSIDE RECORDS SUMMARY | 2025-07-24 14:33 | XMS_ITS | Clinical Summary ---
Author Organization [facility] Address [address] [place] [address] Care Team Providers Care Bolt Loader Name Role Phone Unavailable Primary Care Provider Unavailabl e Social History Tobacco UseTypesPacks/DayYears UsedDateSmoking Tobacco: Never Assessed CommentsUnknownSex and Gender InformationValueDate RecordedSex Assigned at Not on fileLegal BgpDnpzoc83/15/2023 7:14 PM EDTGender IdentityNot on fileSexual OrientationNot on file Last Filed Vital Signs Vital SignReadingTime TakenCommentsBlood Hvnvrtpq261/8010/ 12:00 PM EDT Pulse--Temperature--Respiratory Rate--Oxygen Saturation--Inhaled Oxygen Concentration--Bcqiun63.3 kg (210 lb)08/19/2021 12:00 PM BJPAcvwex274 cm (5' 3 ) 08/19/2021 12:00 PM ESTBody Mass Index37. 12:00 PM EST Plan of Treatment Not on file Insurance
--- OUTSIDE RECORDS SUMMARY | 2025-07-24 14:40 | XMS_ITS | CCD ---
Author Organization [facility] Care Team Providers Care Protein Purification Scientist Name Role Phone Lelia Lr Primary Care [...] Be TADEO, Lelia Hoyt Primary Care Unavailab dafne Herrera MD, Joseph Silva Attending Renettanhjose angel garza [facility] Consulting Unavailable MISC, DR RALPH Admitting Unavailable MISC, DR RALPH Attending Unavailable MISC, DR RALPH Consulting Unavailable MISC, DR RALPH Primary Care Unavailable RAY, DR LELIA Topete Admitting Unavailable MISC, DR RALPH Primary Care Unavailable RAY, DR LEILA Topete Attending Unavailable RAY, DR LELIA Topete [...] Unavailable RayLelia Primary Care Physician Unavailab le Ray, [...] Lelia Wasserman Primary Care Physician Unavailab le Trell Washington DO Attending Provider [phone] Trell Washington Attending Unavailable Trell Washington Admitting Unavailable RayLelia Primary Care Physician Unavailab le Ray, Lelia Wasserman Primary Care Physician Unavailab le Allergies Allergy ClassificationReported Allergen(s)Allergy TypeDate of OnsetReaction(s) FacilityOpioid Agonists (8 sources)Codeine; Translations: [Codeine Phosphate][facility]rug [facility]ergyWilson [facility] Sulfonamides (antibiotic) (8 sources)Sulfonamides (Antibiotic)[facility]rug [facility]ergyTri[facility] (20 sources)Codeine; Translations: [Codeine Phosphate]Drug AllergyTri[facility] (20 sources)Sulfonamides (Antibiotic)Allergy to substance (disorder)[facility] (18 sources)Codeine; Translations: [codeine]Drug Gioqoda97-05-3555Rgpbbv Status Change, Unknown, [facility]itingA[facility] (2 sources)Sulfacetamide / SulfurDrug AllergyUnknoAmsterdam Memorial Hospital [employer] Other (15 sources)Sulfonamides (Antibiotic); Translations: [SULFA (SULFONAMIDE ANTIBIOTICS)]Drug Jjciocu78-67-8803SugwwnhQspwpqfqe Clinic (1 source)Sulfonamides (Antibiotic); Translations: [sulfa drugs]Propensity to adverse reactions to drug (disorder)[facility] (1 source)CodeineDrug Aoqwcga18-01-6693[facility] (1 source)Sulfonamides (Antibiotic)Drug allergy (disorder)86-41-0290C[facility] (2 sources)Sulfacetamide; Translations: [sulfacetamide]Drug Pskwyoy02-58-3069 [facility] (2 sources)Sulfur; Translations: [sulfur]Drug Owxdlxw49-11-3762BjhormxkiHarrison Community Hospital (1 source)CodeineDrug Bwabrag14-92-8008CxqliafvjHarrison [facility] Hospital [facility] (1 source)Sulfonamides (Antibiotic)Drug allergy (disorder)86-58-1548CuidoddcyHarrison Community Hospital [facility] Medications Current Medications MedicationDrug Class(es)DatesSig (Normalized)Sig (Original)amoxicillin 500 mg oral capsule (20 sources)Penicillin-class AntibacterialStart: 91-82-4008jral 1 capsule by mouth every eight hoursAmoxicillin 500 MG 1 capsule Orally tid for 10 day(s) Jul, Active End: 46-73-8543qudn 1 tablet by mouth every twelve hoursamoxicillin 875 mg oral tablet 12/13/2017 take 1 tablet (875 mg) by oral route every 12 hourstake 1 tablet by mouth every twelve hoursamoxicillin oral take 1 tablet by mouth every 12 hoursbudesonide 3 mg delayed release oral capsule (11 sources)CorticosteroidStart: 11-01-2022 End: 37-18-4097srbpclawtz, enteric coated (ENTOCORT EC) 3 mg 24 hr capsule Indications: Ileitis TAKE 2 CAPS DAILY FOR 1 MONTH, THEN 1 CAP DAILY FOR 1 MONTH 90 capsule 0 11/27/2022 ActiveComment on above:Take 3 caps (9 mg) po every day for 1 month, then 2 caps po daily for 1 month, then 1 cap po daily for 1 month TAKE 2 CAPS DAILY FOR 1 MONTH, THEN 1 CAP DAILY FOR 1 MONTHcholecalciferol, vitamin D3, (VITAMIN D3 ORAL) (13 sources)cholecalciferol, vitamin D3, (VITAMIN D3 ORAL) Take by mouth. 0 ActiveComment on above:Take by mouth.cyanocobalamin, vitamin B-12, (VITAMIN B-12 ORAL) (13 sources)cyanocobalamin, vitamin B-12, (VITAMIN B-12 ORAL) Take by mouth. 0 ActiveComment on above:Take by mouth.hydrocortisone 10 mg/ml / neomycin 3.5 mg/ml / polymyxin b 43969 unt/ml otic solution (1 source)Aminoglycoside Antibacterial, Polymyxin-class Antibacterial, CorticosteroidStart: 41-06-8996Yddhqril-Polymyxin-HC 1 % 3 drops right ear Three times a day Jul, Activemv-min/iron/folic/calcium/vitK (WOMEN'S MULTIVITAMIN ORAL) (13 sources)mv-min/iron/folic/calcium/vitK (WOMEN'S MULTIVITAMIN ORAL) Take by mouth. 0 ActiveComment on above:Take by mouth.traMADol hydrochloride 50 mg oral tablet (20 sources)Opioid AgonistStart: 77-25-7795ozxy 0.5-1 tablets by mouth every six hours as needed for painTramadol (Ultram) 50 mg tablet Active 50 MG PO Q6H as needed for pain 24 04August 10, 2021 1:00am 1/2 - 1 tab po q 6 hours prn painStart: 10-25-2016 End: 58-49-5242aqtr 1 tablet by mouth twice daily as neededtramadol 50 mg Oral tablet 10/25/2016 12/13/2017 take 1 tablet by oral route 2 times a day as needed Completed/Discontinued Medications MedicationDrug Class(es)DatesSig (Normalized)Sig (Original)[id number] 200 actuat albuterol 0.09 mg/actuat metered dose inhaler (20 sources)beta2-Adrenergic AgonistStart: 64-73-6907xneh 1 puff(s) by inhalation every six hours as neededalbuterol sulfate HFA 90 mcg/actuation aerosol inhaler 09/11/2024 inhale 1 puff (90 mcg) by inhalation route every 6 hours as neededStart: 14-38-7469miig 1 puff(s) by inhalation every six hours as neededProAir HFA 90 mcg/actuation inhalation HFA aerosol inhaler 11/06/2020 inhale 1 puff (90 mcg) by inhalation route every 6 hours as neededStart: 05-43-8639cowq 1 puff(s) by inhalation every six hours as neededProAir HFA 90 mcg/actuation inhalation HFA aerosol inhaler 11/06/2020 inhale 1 puff (90 mcg) by inhalation route every 6 hours as neededStart: 30-09-2297doez 1 puff(s) by inhalation every six hours as neededProAir HFA 90 mcg/actuation inhalation HFA aerosol inhaler 01/30/2020 inhale 1 puff (90 mcg) by inhalation route every 6 hours as neededStart: 36-49-6943galw 1 puff(s) by inhalation every six hours as neededProAir HFA 90 mcg/actuation inhalation HFA aerosol inhaler 11/08/2018 inhale 1 puff (90 mcg) by inhalation route every 6 hours as neededStart: 02-66-9146rxlf 1 puff(s) by inhalation every six hours as neededProAir HFA 90 mcg/actuation inhalation HFA aerosol inhaler 11/08/2018 inhale 1 puff (90 mcg) by inhalation route every 6 hours as neededamoxicillin 875 mg / clavulanate 125 mg oral tablet (20 sources)Penicillin-class Antibacterialtake 1 tablet by mouth every twelve hoursAugmentin 875-125 mg oral tablet take 1 tablet by oral route every 12 hours ciprofloxacin 500 mg oral tablet (20 sources)Quinolone AntimicrobialStart: 12-21-2023 End: 57-25-6090fobb 1 tablet by mouth twice dailyCipro 500 mg tablet 12/21/2023 2023 take 1 tablet (500 mg) by oral route 2 times per day for 7 daysStart: 12-26-2017 End: 61-81-7920xsfw 1 tablet by mouth twice dailyCipro 500 mg tablet 10/09/2021 10/16/2021 take 1 tablet (500 mg) by oral route 2 times per day for 7 daysdoxepin hydrochloride 50 mg oral capsule (20 sources)Tricyclic AntidepressantStart: 18-02-4080imrb 2 capsules by mouth once daily at bedtimedoxepin 50 mg capsule 09/11/2024 TAKE 2 CAPSULES BY MOUTH EVERY DAY AT BEDTIMEStart: 66-54-2078ommu 2 capsules by mouth once daily at bedtimedoxepin 50 mg capsule 08/20/2024 TAKE 2 CAPSULES BY MOUTH EVERY DAY AT BEDTIMEStart: 21-71-1329iqyb 2 capsules by mouth once daily at bedtimedoxepin 50 mg capsule 08/08/2023 TAKE 2 CAPSULES BY MOUTH EVERY DAY AT BEDTIMEStart: 13-26-0354fzfh 2 capsules by mouth once daily at bedtimedoxepin 50 mg capsule 05/02/2023 TAKE 2 CAPSULES BY MOUTH EVERY DAY AT BEDTIMEStart: 01-12-0664evba 2 capsules by mouth once daily at bedtimedoxepin 50 mg capsule 01/31/2023 TAKE 2 CAPSULES BY MOUTH EVERY DAY AT BEDTIMEStart: 11-74-5354zetxpoy capsule 50 mg Start: 01-26-2021 End: 56-70-5017lvga 2 capsules by mouth once daily at bedtimedoxepin 50 mg capsule 02/01/2022 01/27/2023 TAKE 2 CAPSULES BY MOUTH EVERY DAY AT BEDTIMEStart: 10-52-7683uebz 2 capsules by mouth at bedtimedoxepin 50 mg oral capsule 11/06/2020 TAKE 2 CAPSULES BY MOUTH AT BEDTIMEStart: 89-32-5284jred 2 capsules by mouth at bedtimedoxepin 50 mg oral capsule 01/30/2020 TAKE 2 CAPSULES BY MOUTH AT BEDTIMEStart: 07-67-6559qxxv 2 capsules by mouth at bedtimedoxepin 50 mg oral capsule 11/08/2018 TAKE 2 CAPSULES BY MOUTH AT BEDTIMEDoxepin HCl Active1 ml enoxaparin sodium 100 mg/ml prefilled syringe (20 sources)Low Molecular Weight HeparinStart: 06-11-2022 End: 41-44-9001hurdls 1 mL by subcutaneous injection every twelve hours enoxaparin 100 mg/mL subcutaneous syringe 06/11/2022 05/17/2023 inject 1 milliliter (100 mg) by subcutaneous route every 12 hoursStart: 24-04-6421cpqeit 1 mL by subcutaneous injection every twelve hoursenoxaparin 100 mg/mL subcutaneous syringe 05/18/2022 inject 1 milliliter (100 mg) by subcutaneous rou te every 12 hoursStart: 07-29-2021 End: 04-44-8896klowovizgp 100 mg/mL subcutaneous syringe 07/29/2021 09/04/2021 Inject 1 syringe (100mg) twice dailyinto abdomen. Follow instructions provided by [facility] Coumadin Clinicergocalciferol 1.25 mg oral capsule (20 sources)Provitamin D2 Compound End: 42-03-4534tiea 1 capsule by mouth every weekVitamin D2 50,000 unit oral capsule 08/20/2015 take 1 capsule (50,000 unit) by oral route once weekly fluticasone propionate 0.05 mg/actuat metered dose nasal spray (20 sources)Corticosteroid End: 60-24-3838vpdf 1 spray(s) nasal route once daily as neededfluticasone 50 mcg/actuation nasal spray,suspension 12/13/2017 spray 1 spray (50 mcg) in each nostril by intranasal route once daily prnhydroxychloroquine sulfate 200 mg oral tablet (20 sources)Antimalarial, Antirheumatic AgentStart: 08-19-2014 End: 00-86-0585ysde 1 tablet by mouth once dailyPlaquenil 200 mg oral tablet 08/19/2014 10/25/2016 take 1 tablet by oral route dailylisinopril 20 mg oral tablet (20 sources)Angiotensin Converting Enzyme InhibitorStart: 20-27-1793ycqf 1 tablet by mouth once dailylisinopril 20 mg tablet 09/11/2024 TAKE 1 TABLET BY MOUTH EVERY DAY DIRECTEDStart: 71-22-9984muig 1 tablet by mouth once daily lisinopril 20 mg tablet 11/10/2023 TAKE 1 TABLET BY MOUTH EVERY DAY DIRECTED Start: 10-11-2022 End: 11-82-4628xbqm 1 tablet by mouth once dailylisinopril 20 mg tablet 10/11/2022 10/06/2023 TAKE 1 TABLET BY MOUTH EVERY DAY DIRECTEDStart: 18-30-6565PVBCIHHQWS ORALStart: 09-04-2021 End: 41-90-6684amju 1 tablet by mouth once dailylisinopril 20 mg tablet 09/04/2021 09/04/2021 TAKE 1 TABLET BY MOUTH EVERY DAY DIRECTEDStart: 09-04-2021 End: 68-59-8304hnrj 1 tablet by mouth once dailylisinopril 20 mg tablet 09/04/2021 09/04/2021 TAKE 1 TABLET BY MOUTH EVERY DAY DIRECTEDStart: 09-04-2021 End: 08-58-3603pznf 1 tablet by mouth once dailylisinopril 20 mg tablet 09/04/2021 09/04/2021 TAKE 1 TABLET BY MOUTH EVERY DAY DIRECTEDStart: 09-04-2021 End: 02-27-9585kxif 1 tablet by mouth once dailylisinopril 20 mg tablet 09/04/2021 09/04/2021 TAKE 1 TABLET BY MOUTH EVERY DAY DIRECTEDStart: 09-04-2021 End: 37-88-2660tlzg 1 tablet by mouth once dailylisinopril 20 mg tablet 09/04/2021 09/04/2021 TAKE 1 TABLET BY MOUTH EVERY DAY DIRECTEDStart: 09-04-2021 End: 57-12-8592afqb 1 tablet by mouth once dailylisinopril 20 mg tablet 09/04/2021 09/04/2021 TAKE 1 TABLET BY MOUTH EVERY DAY DIRECTEDStart: 09-04-2021 End: 24-35-6450xxeu 1 tablet by mouth once dailylisinopril 20 mg tablet 09/04/2021 09/04/2021 TAKE 1 TABLET BY MOUTH EVERY DAY DIRECTEDStart: 09-04-2021 End: 44-36-8404vfet 1 tablet by mouth once dailylisinopril 20 mg tablet 09/04/2021 09/04/2021 TAKE 1 TABLET BY MOUTH EVERY DAY DIRECTEDStart: 09-04-2021 End: 60-24-7902hbyk 1 tablet by mouth once dailylisinopril 20 mg tablet 09/04/2021 09/04/2021 TAKE 1 TABLET BY MOUTH EVERY DAY DIRECTEDStart: 09-04-2021 End: 38-21-1064xioj 1 tablet by mouth once dailylisinopril 20 mg tablet 09/04/2021 09/04/2021 TAKE 1 TABLET BY MOUTH EVERY DAY DIRECTEDStart: 09-04-2021 End: 30-56-7889fulo 1 tablet by mouth once dailylisinopril 20 mg tablet 09/04/2021 09/04/2021 TAKE 1 TABLET BY MOUTH EVERY DAY DIRECTEDStart: 09-04-2021 End: 36-26-0632gsvw 1 tablet by mouth once dailylisinopril 20 mg tablet 09/04/2021 09/04/2021 TAKE 1 TABLET BY MOUTH EVERY DAY DIRECTEDStart: 09-04-2021 End: 19-08-4663nqnm 1 tablet by mouth once dailylisinopril 20 mg tablet 09/04/2021 09/04/2021 TAKE 1 TABLET BY MOUTH EVERY DAY DIRECTEDStart: 09-04-2021 End: 37-24-5067fwxq 1 tablet by mouth once dailylisinopril 20 mg tablet 09/04/2021 09/04/2021 TAKE 1 TABLET BY MOUTH EVERY DAY DIRECTEDStart: 09-04-2021 End: 79-42-3804cwqa 1 tablet by mouth once dailylisinopril 20 mg tablet 09/04/2021 09/04/2021 TAKE 1 TABLET BY MOUTH EVERY DAY DIRECTEDStart: 09-04-2021 End: 47-17-2614rxos 1 tablet by mouth once dailylisinopril 20 mg tablet 09/04/2021 09/04/2021 TAKE 1 TABLET BY MOUTH EVERY DAY DIRECTEDStart: 09-04-2021 End: 11-58-0125bobp 1 tablet by mouth once dailylisinopril 20 mg tablet 09/04/2021 09/04/2021 TAKE 1 TABLET BY MOUTH EVERY DAY DIRECTEDStart: 09-04-2021 End: 12-42-1067kwre 1 tablet by mouth once dailylisinopril 20 mg tablet 09/04/2021 09/04/2021 TAKE 1 TABLET BY MOUTH EVERY DAY DIRECTEDStart: 09-04-2021 End: 20-54-8433fmhi 1 tablet by mouth once dailylisinopril 20 mg tablet 09/04/2021 09/04/2021 TAKE 1 TABLET BY MOUTH EVERY DAY DIRECTEDStart: 09-04-2021 End: 52-09-8528zhre 1 tablet by mouth once dailylisinopril 20 mg tablet 09/04/2021 09/04/2021 TAKE 1 TABLET BY MOUTH EVERY DAY DIRECTEDStart: 09-04-2021 End: 36-61-4349fidd 1 tablet by mouth once dailylisinopril 20 mg tablet 09/04/2021 09/04/2021 TAKE 1 TABLET BY MOUTH EVERY DAY DIRECTEDStart: 09-04-2021 End: 23-58-4558gdpu 1 tablet by mouth once dailylisinopril 20 mg tablet 09/04/2021 09/04/2021 TAKE 1 TABLET BY MOUTH EVERY DAY DIRECTEDStart: 09-04-2021 End: 18-51-9653cddj 1 tablet by mouth once dailylisinopril 20 mg tablet 09/04/2021 09/04/2021 TAKE 1 TABLET BY MOUTH EVERY DAY DIRECTEDStart: 09-04-2021 End: 13-73-4916rhuc 1 tablet by mouth once dailylisinopril 20 mg tablet 09/04/2021 09/04/2021 TAKE 1 TABLET BY MOUTH EVERY DAY DIRECTEDStart: 09-04-2021 End: 99-08-8163bbtw 1 tablet by mouth once dailylisinopril 20 mg tablet 09/04/2021 09/04/2021 TAKE 1 TABLET BY MOUTH EVERY DAY DIRECTEDStart: 09-04-2021 End: 90-94-2773zjwf 1 tablet by mouth once dailylisinopril 20 mg tablet 09/04/2021 09/04/2021 TAKE 1 TABLET BY MOUTH EVERY DAY DIRECTEDStart: 06-99-4603sgqr 1 tablet by mouth once daily at bedtimeLisinopril 20 mg tablet Active 20 MG PO Daily at bedtime August 10, 2021 1:00amLisinopril Active methylPREDNISolone 4 mg oral tablet (20 sources)CorticosteroidStart: 69-07-3900Pfonmo (Mo) 4 mg tablets in a dose pack 02/06/2025 take as directedmetroNIDAZOLE 500 mg oral tablet (20 sources)Nitroimidazole AntimicrobialStart: 10-09-2021 End: 52-56-6870telf 1 capsule by mouth three times dailyFlagyl 375 mg capsule 10/09/2021 10/16/2021 take 1 capsule by oral route 3 times a day for 7 daysStart: 12-26-2017 End: 92-24-9387kytz 1 tablet by mouth three times dailymetronidazole 500 mg tablet 10/14/2021 04/12/2022 take 1 tablet (500 mg) by oral route 3 times per day take 1 tablet by mouth twice dailymetronidazole 500 mg oral tablet take 1 tablet (500 mg) by oral route 2 times per daytake 1 tablet by mouth every six hours metronidazole 250 mg oral tablet take 1 tablet by oral route every 6 hours ondansetron 4 mg disintegrating oral tablet (20 sources)Serotonin-3 Receptor Antagonisttake 1 tablet by mouth every six hours as neededondansetron 4 mg oral tablet,disintegrating dissolve 1 tablet by oral route every 6 hours as neededperflutren lipid microspheres 1.3 mL in NaCl (PF) 0.9% 10 mL injection (DEFINITY) (5 sources)Start: 05-03-2022 End: 96-62-9958jpisuqtsfc lipid microspheres 1.3 mL in NaCl (PF) 0.9% 10 mL injection (DEFINITY)Start: 05-03-2022 End: 28-70-4295nukjtxjnot lipid microspheres 1.3 mL in NaCl (PF) 0.9% 10 mL injection (DEFINITY)predniSONE 20 mg oral tablet (20 sources)Start: 04-15-2022 End: 72-24-2608nisl 1 mg by mouth once dailyprednisone 20 mg tablet 04/15/2022 04/20/2022 take 1 mg/kg by oral route once daily for 5 daysStart: 21-03-8234lbav 4 tablets by mouth once daily, then take 3 tablets by mouth once daily, then take 2 tablets bymouth once daily, then take 1 tablet by mouth once daily prednisone 10 mg oral tablet 03/11/2017 take 4 tablets daily for 3 days, then 3 tablets daily for 3 days, then 2 tablets daily for 3 days, and 1 tablet daily for 3 dayssimvastatin 40 mg oral tablet (20 sources)HMG-CoA Reductase InhibitorStart: 77-91-4327egda 1 tablet by mouth once dailysimvastatin 40 mg tablet 09/11/2024 TAKE 1 TABLET BY MOUTH EVERY DAY Start: 50-66-9936tgce 1 tablet by mouth once dailysimvastatin 40 mg tablet 08/20/2024 TAKE 1 TABLET BY MOUTH EVERY DAYStart: 01-26-2021 End: 64-09-4516etjz 1 tablet by mouth once dailysimvastatin 40 mg tablet 08/08/2023 TAKE 1 TABLET BY MOUTH EVERY DAYStart: 54-59-4591iiwi 1 tablet by mouth once dailysimvastatin 40 mg oral tablet 11/06/2020 TAKE 1 TABLET BY MOUTH ONCE A DAYStart: 35-28-3832vmty 1 tablet by mouth once dailysimvastatin 40 mg oral tablet 01/30/2020 TAKE 1 TABLET BY MOUTH ONCE A DAYStart: 50-24-3488wdyj 1 tablet by mouth once dailysimvastatin 40 mg oral tablet 11/08/2018 TAKE 1 TABLET BY MOUTH ONCE A DAYZocor Ympxgi266 ml sodium chloride 9 mg/ml prefilled syringe (5 sources)Start: 05-03-2022 End: 53-06-8868cgjrpc chloride 0.9 % (flush) 10 mL (BD POSIFLUSH)vedolizumab 300 mg injection (20 sources)Integrin Receptor Antagonist End: 17-90-5691Fthwavl 300 mg intravenous solution 09/11/2024 infuse 300 mg over 30 minute(s) by intravenous routeevery 8 weekswarfarin sodium 5 mg oral tablet (20 sources)Vitamin K AntagonistStart: 22-68-5157feyo 0.5-1 tablets by mouth once dailyWARFARIN SODIUM 5 MG TABLET 09/11/2024 TAKE 1/2-1 TABLET BY MOUTH ONCE A DAY DIRECTED INSTRUCTED PER DR. Stacy: 90-31-8984ilyd 0.5-1 tablets by mouth once dailyWARFARIN SODIUM 5 MG TABLET 08/08/2023 TAKE 1/2-1 TABLET BY MOUTH ONCE A DAY DIRECTED INSTRUCTED PER DR. Stacy: 71-85-3175nbit 1 tablet by mouth every weekWarfarin 5 mg tablet Active 5 MG PO every week July 28, 2021 12:00am On Hold: Resume on 08/12/21.Start: 38-76-3801wlpn 2.5 mg by mouth six times weeklyWarfarin 5 mg tablet Active 2.5 MG PO 6 TIMES PER WEEK July 28, 2021 12:00am On Hold: Resume on 08/12/21.Start: 01-26-2004 End: 89-24-4595ajas 0.5-1 tablets by mouth once dailyWARFARIN SODIUM 5 MG TABLET 02/01/2022 01/27/2023 TAKE 1/2-1 TABLET BY MOUTH ONCE A DAY DIRECTED I NSTRUCTED PER DR. LRWarfarbelkys Sodium ActiveCoumadin ActiveComment on above:Take by mouth. Problems Active Problems Problem ClassificationProblemDateDocumented DateEpisodic/ChronicCancer of ovary (20 sources)Malignant neoplasm of ovary; Translations: [Ovary Neoplasm, Malignant]ChronicCoagulation and hemorrhagic disorders (20 sources)Other and unspecified coagulation defects; Translations: [Primary hypercoagulable state]Onset: 70-49-3393BtjhpnnEaeckhdvh of lipid metabolism (20 sources)Other and unspecified hyperlipidemia; Translations: [Hyperlipidemia] Onset: 29-29-5538OoqexajSjlulwywqsfplx and diverticulitis (20 sources)Diverticulitis of colon (without mention of hemorrhage); Translations: [Diverticulitis]Onset: 774201-23-2319PqpckajTbdlekvoe hypertension (20 sources)Hypertensive disorder; Translations: [Unspecified essential hypertension]Onset: 48-03-0020TxxsaiaHobqk aftercare (20 sources)meterman (current) use of anticoagulants; Translations: [HALF-WAY CURRNT USE ANTICOAGULANTS]Onset: 20-72-2300SmyeyukbAlhes aftercare (1 source)Long-term current use of anticoagulant; Translations: [FCI (current) use of anticoagulants]EpisodicOther circulatory disease (1 source)History of cerebrovascular accident; Translations: [Personal history of transient ischemic attack (TIA), and cerebral infarction without residual deficits]EpisodicOther inflammatory condition of skin (1 source)Discoid lupus erythematosus; Translations: [DISCOID LUPUS ERYTHEMATOSUS]Onset: 74-37-8591ReasgvpInjab non-traumatic joint disorders (1 source)Multiple joint pain; Translations: [Pain in unspecified joint]Episodic Other skin disorders (1 source)Mass of back; Translations: [Localized swelling, mass and lump, trunk] 54-26-4260BswwhrziGgqqvzuy enteritis and ulcerative colitis (20 sources)Crohn's disease of small intestine; Translations: [Crohn's disease of small intestine without complications]Onset: 55-11-8550PgkazukIzgapxyg codes; unclassified (1 source)H/O: anticoagulant therapy; Translations: [Personal history of other drug therapy]EpisodicSystemic lupus erythematosus and connective tissue disorders (20 sources)Systemic lupus erythematosus; Translations: [Systemic lupus erythematosus]Onset: 17-51-6441AnukcvhMswxvsdqc cerebral ischemia (12 sources)Transient cerebral ischemia; Translations: [Transient cerebral ischemic attack, unspecified]Onset: 533880-25-7032Hgigxul Past or Other Problems Problem ClassificationProblemDateDocumented DateEpisodic/ChronicAbdominal pain (20 sources)Abdominal pain, unspecified site; Translations: [Unspecified abdominal pain]Onset: 74-39-2972ZeupjnfoVtzwld of ovary (13 sources)History of malignant neoplasm of ovary; Translations: [Personal history of malignant neoplasm of ovary]Onset: 540823-09-6790XmiahkghFdkhf and electrolyte disorders (20 sources)Hypopotassemia; Translations: [Hypokalemia]Onset: 25-92-8875Vcogttkp Genitourinary symptoms and ill-defined conditions (20 sources)Hematuria, unspecified; Translations: [Blood in urine]Onset: 53-66-7442KladfuauJjsxdzs and fatigue (20 sources)Other fatigueOnset: 84-23-3115InwlwbpmUonuxrskhnlpw gastroenteritis (4 sources)Ileitis; Translations: [Noninfective gastroenteritis and colitis, unspecified]Onset: 70-58-6475ZsnhbiseYsthh aftercare (20 sources)Long-term (current) use of anticoagulantsOnset: 59-30-2455Euraxrhq Other aftercare (20 sources)Encounter for therapeutic drug level monitoringOnset: 01-17-2017 EpisodicOther aftercare (1 source)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; Translations: [OTH HALF-WAY CURRENT DRUG THERAPY]Onset: 45-53-8604VbkwigyaMlseu circulatory disease (1 source)Elevated blood-pressure reading, without diagnosis of hypertension Onset: 07-29-2021 Resolved: 22-03-2299JfzfquruXkcqs ear and sense organ disorders (1 source)Unspecified acute noninfective otitis externa, right earOnset: 07-29-2021 Resolved: 13-69-1035ZzbsivjiJhacr lower respiratory disease (20 sources)Shortness of breathOnset: 50-94-1950AvnquozjIlnux lower respiratory disease (20 sources)WheezingOnset: 98-38-7202TrzjixmhQnlrv lower respiratory disease (20 sources)Shortness of breathOnset: 83-63-7607RgdrypkqZblhr lower respiratory disease (20 sources)WheezingOnset: 41-72-4662VfyzghtePmgkc non-traumatic joint disorders (20 sources)Pain in unspecified jointOnset: 04-21-1449SsrfbfjkOcxvj screening for suspected conditions (not mental disorders or infectious disease) (20 sources)Unspecified abnormal finding in specimens from other organs, systems and tissuesOnset: 91-70-8428YvfcwuoxAqbqst media and related conditions (1 source)Otitis media, unspecified, right earOnset: 07-29-2021 Resolved: 47-28-8837QqxfrbutKiaaqgtm codes; unclassified (20 sources)Other abnormal clinical findingsOnset: 43-31-6053Pzhohqyv Spondylosis; intervertebral disc disorders; other back problems (10 sources)Sacrococcygeal disorders, not elsewhere classifiedOnset: 02-06-2025 EpisodicUnclassified (1 source)[id number]_name_55Onset: 67-71-2423Nfzlfvbjztli (1 source)[id number]_name_57Onset: 32-97-4663Qjlooypywtyh (1 source)[id number]_name_53Onset: 49-69-8926Fykfqhtutdya (1 source)[id number]_name_51Onset: 53-26-1785Rnlfkbnleslu (1 source)[id number]_name_49Onset: 33-98-1175Habmhcfcwuuv (1 source)[id number]_name_55Onset: 17-29-2995Ggwuunkqoqcz (1 source)ref_a595628735124a06a3bdbc1cb4ebc0ad_pastIllness_name_57Onset: 78-86-6155Jojnsvsanuzh (1 source)ref_a595628735124a06a3bdbc1cb4ebc0ad_pastIllness_name_53Onset: 18-49-4152Jctqvdhxpwpd (1 source)ref_a595628735124a06a3bdbc1cb4ebc0ad_pastIllness_name_51Onset: 73-35-3465Xloqfgfaxcvv (1 source)ref_a595628735124a06a3bdbc1cb4ebc0ad_pastIllness_name_49Onset: 80-13-2634Gggiwhfxnggs (1 source)ref_53d2dbb4647f4d4a985bfde8bb875303_pastIllness_name_55Onset: 69-37-6445Zxsjquorohnq (1 source)ref_53d2dbb4647f4d4a985bfde8bb875303_pastIllness_name_57Onset: 18-55-1048Lpsotrnoifrj (1 source)ref_53d2dbb4647f4d4a985bfde8bb875303_pastIllness_name_53Onset: 54-46-4192Ctkcrdecueff (1 source)ref_53d2dbb4647f4d4a985bfde8bb875303_pastIllness_name_51Onset: 02-73-1870Uorpsippngbt (1 source)ref_53d2dbb4647f4d4a985bfde8bb875303_pastIllness_name_49Onset: 92-55-7856Npjfnjtoyhsd (1 source)ref_6af157b27de547c0987979a0c12cb342_pastIllness_name_55Onset: 74-08-7209Nwjbjqhwjlur (1 source)ref_6af157b27de547c0987979a0c12cb342_pastIllness_name_57Onset: 96-80-0849Ijsiawocvuil (1 source)ref_6af157b27de547c0987979a0c12cb342_pastIllness_name_53Onset: 21-59-5193Eocjsbgrxkeh (1 source)ref_6af157b27de547c0987979a0c12cb342_pastIllness_name_51Onset: 85-37-2293Ftwzqtbeetea (1 source)ref_6af157b27de547c0987979a0c12cb342_pastIllness_name_49Onset: 29-73-5940Jtpavyzcicrm (1 source)ref_c582aca2f796436ab219b5725bab66a9_pastIllness_name_55Onset: 47-76-3309Nvackmozqicl (1 source)ref_c582aca2f796436ab219b5725bab66a9_pastIllness_name_57Onset: 25-13-9808Vzgjpjmllkqy (1 source)ref_c582aca2f796436ab219b5725bab66a9_pastIllness_name_53Onset: 05-59-3950Yaxllksdwlxv (1 source)ref_c582aca2f796436ab219b5725bab66a9_pastIllness_name_51Onset: 71-07-8010Mswnwfklmzkt (1 source)ref_c582aca2f796436ab219b5725bab66a9_pastIllness_name_49Onset: 63-08-7053Nmbvdueeikur (1 source)ref_b43a27b6b84a4a01b5c068598eb9184d_pastIllness_name_55Onset: 06-64-8593Yxfvjqjboyud (1 source)ref_b43a27b6b84a4a01b5c068598eb9184d_pastIllness_name_57Onset: 69-21-1753Qodypvzuibnh (1 source)ref_b43a27b6b84a4a01b5c068598eb9184d_pastIllness_name_53Onset: 23-27-7417Ouzhmpmchinl (1 source)ref_b43a27b6b84a4a01b5c068598eb9184d_pastIllness_name_51Onset: 42-97-5472Qxbrovgwghgk (1 source)ref_b43a27b6b84a4a01b5c068598eb9184d_pastIllness_name_49Onset: 49-61-2261Zujeolwxasbi (1 source)ref_ec9ece6195ff422a904f05cc9eb89a04_pastIllness_name_55Onset: 77-50-8487Qpijxgvchvgm (1 source)ref_ec9ece6195ff422a904f05cc9eb89a04_pastIllness_name_57Onset: 61-04-3224Umzgwecokxlo (1 source)ref_ec9ece6195ff422a904f05cc9eb89a04_pastIllness_name_53Onset: 84-41-0281Wsvzkfgxmsjd (1 source)ref_ec9ece6195ff422a904f05cc9eb89a04_pastIllness_name_51Onset: 69-88-4612Dodevsspjzth (1 source)ref_ec9ece6195ff422a904f05cc9eb89a04_pastIllness_name_49Onset: 23-65-3930Nouqbznfdkhw (1 source)ref_3eb2de8fa345493fbad418b4311a833e_pastIllness_name_55Onset: 61-08-6298Kvpfulodycdq (1 source)ref_3eb2de8fa345493fbad418b4311a833e_pastIllness_name_57Onset: 47-64-4365Mdzyzzgbnehz (1 source)ref_3eb2de8fa345493fbad418b4311a833e_pastIllness_name_53Onset: 21-09-6556Ezrfnanhrxvm (1 source)ref_3eb2de8fa345493fbad418b4311a833e_pastIllness_name_51Onset: 82-35-5467Imfuammocfje (1 source)ref_3eb2de8fa345493fbad418b4311a833e_pastIllness_name_49Onset: 15-53-6665Gjovdwyxorfl (1 source)ref_85bd4bd9582f47ad9fac12e3e1785fc2_pastIllness_name_57Onset: 29-02-1867Fzmzaxhkujjb (1 source)ref_85bd4bd9582f47ad9fac12e3e1785fc2_pastIllness_name_55Onset: 32-71-1750Zmcesvtlzmwd (1 source)ref_85bd4bd9582f47ad9fac12e3e1785fc2_pastIllness_name_53Onset: 99-73-1673Aylgyfjfmthu (1 source)ref_85bd4bd9582f47ad9fac12e3e1785fc2_pastIllness_name_51Onset: 37-83-6929Fqtjbtvafzky (1 source)ref_85bd4bd9582f47ad9fac12e3e1785fc2_pastIllness_name_49Onset: 88-77-2619Egokkmcuftms (1 source)ref_20f30d0879df423fae0cc4e7b86a72cd_pastIllness_name_57Onset: 11-22-4858Rcmbbaikbfcm (1 source)ref_20f30d0879df423fae0cc4e7b86a72cd_pastIllness_name_55Onset: 37-75-8733Ormgmevieeup (1 source)ref_20f30d0879df423fae0cc4e7b86a72cd_pastIllness_name_53Onset: 01-69-8210Rkmieulovxbv (1 source)ref_20f30d0879df423fae0cc4e7b86a72cd_pastIllness_name_51Onset: 91-55-7081Hfpxkpbmkjkh (1 source)ref_20f30d0879df423fae0cc4e7b86a72cd_pastIllness_name_49Onset: 43-80-2846Ttxmqwuvsuge (1 source)ref_0f94d6d03e9f4ad8aac2db2290b721fa_pastIllness_name_57Onset: 68-55-9249Cswdvnogjrnm (1 source)ref_0f94d6d03e9f4ad8aac2db2290b721fa_pastIllness_name_55Onset: 74-67-9166Xxpixmckiyuj (1 source)ref_0f94d6d03e9f4ad8aac2db2290b721fa_pastIllness_name_53Onset: 17-24-7658Djrenpixgjxf (1 source)ref_0f94d6d03e9f4ad8aac2db2290b721fa_pastIllness_name_51Onset: 72-69-8197Unwqjompgqum (1 source)ref_0f94d6d03e9f4ad8aac2db2290b721fa_pastIllness_name_49Onset: 24-09-7883Stvnwocatdzd (1 source)ref_463d8525eac44569aaa6c57f385cd603_pastIllness_name_49Onset: 57-87-1854Bpwbrfftvjgp (1 source)ref_463d8525eac44569aaa6c57f385cd603_pastIllness_name_51Onset: 18-83-6196Yzbqgdycgtne (1 source)ref_463d8525eac44569aaa6c57f385cd603_pastIllness_name_53Onset: 89-08-4751Mphgfvtwikfl (1 source)ref_463d8525eac44569aaa6c57f385cd603_pastIllness_name_55Onset: 74-17-1071Amlvdvpxfohh (1 source)ref_463d8525eac44569aaa6c57f385cd603_pastIllness_name_57Onset: 66-39-8088Pbiuzoazzvka (1 source)ref_9225d1b925584cb6931c52ee909e9f6d_pastIllness_name_49Onset: 18-86-0640Fwryoklbgonq (1 source)ref_9225d1b925584cb6931c52ee909e9f6d_pastIllness_name_51Onset: 70-25-3428Poazwbrtvvuv (1 source)ref_9225d1b925584cb6931c52ee909e9f6d_pastIllness_name_53Onset: 15-01-2284Ppjhbalutasm (1 source)ref_9225d1b925584cb6931c52ee909e9f6d_pastIllness_name_55Onset: 06-20-7679Mephbrvzeilx (1 source)ref_9225d1b925584cb6931c52ee909e9f6d_pastIllness_name_57Onset: 34-51-8480Nielxbpuchhz (1 source)ref_32f1b60c7ac7452891bc45aa4c22a791_pastIllness_name_49Onset: 22-80-6916Wvgygloqpgvu (1 source)ref_32f1b60c7ac7452891bc45aa4c22a791_pastIllness_name_51Onset: 66-34-1415Amzfurxkcqvt (1 source)ref_32f1b60c7ac7452891bc45aa4c22a791_pastIllness_name_53Onset: 07-66-5195Yulhkngwldir (1 source)ref_32f1b60c7ac7452891bc45aa4c22a791_pastIllness_name_55Onset: 12-40-0796Jrjdpcoevlwu (1 source)ref_32f1b60c7ac7452891bc45aa4c22a791_pastIllness_name_57Onset: 49-22-1922Gaujypxnrnnk (1 source)ref_9ca7e74c01fd41d6b34b0c39db02ca8f_pastIllness_name_49Onset: 13-04-6503Ihdjzmyanbvy (1 source)ref_9ca7e74c01fd41d6b34b0c39db02ca8f_pastIllness_name_51Onset: 45-41-7096Ocpvkpbghjei (1 source)ref_9ca7e74c01fd41d6b34b0c39db02ca8f_pastIllness_name_53Onset: 04-41-0868Zijrdxgusnvn (1 source)ref_9ca7e74c01fd41d6b34b0c39db02ca8f_pastIllness_name_55Onset: 54-51-7459Gpszjpfqidbi (1 source)ref_9ca7e74c01fd41d6b34b0c39db02ca8f_pastIllness_name_57Onset: 28-60-8887Lwwukgeqltkc (1 source)ref_18bc8302826a40e7a9ea4344e8fa6084_pastIllness_name_49Onset: 99-56-7277Uuyiynryvfoc (1 source)ref_18bc8302826a40e7a9ea4344e8fa6084_pastIllness_name_51Onset: 91-54-4396Pjdxmhboedbx (1 source)ref_18bc8302826a40e7a9ea4344e8fa6084_pastIllness_name_53Onset: 85-87-7962Otciwvofyqyh (1 source)ref_18bc8302826a40e7a9ea4344e8fa6084_pastIllness_name_55Onset: 06-18-0775Skdlxttornhd (1 source)ref_18bc8302826a40e7a9ea4344e8fa6084_pastIllness_name_57Onset: 69-85-7103Ildovsbitklu (1 source)ref_395876229b674e6ea814658630baf2f1_pastIllness_name_49Onset: 33-86-3524Mtrgnmmdbxgk (1 source)ref_395876229b674e6ea814658630baf2f1_pastIllness_name_51Onset: 60-27-6921Oieyrmrjdwxm (1 source)ref_395876229b674e6ea814658630baf2f1_pastIllness_name_53Onset: 25-79-5943Dixftuxctamz (1 source)ref_395876229b674e6ea814658630baf2f1_pastIllness_name_55Onset: 43-96-3633Mhfvkacbafnc (1 source)ref_395876229b674e6ea814658630baf2f1_pastIllness_name_57Onset: 83-84-2391Wrredtohrcfv (1 source)ref_f68af41df8434cf0a9fad95b944deff2_pastIllness_name_49Onset: 08-33-3928Plbastrommtd (1 source)ref_f68af41df8434cf0a9fad95b944deff2_pastIllness_name_51Onset: 72-41-8439Fxrapbggruji (1 source)ref_f68af41df8434cf0a9fad95b944deff2_pastIllness_name_53Onset: 39-53-5998Ongigufnianh (1 source)ref_f68af41df8434cf0a9fad95b944deff2_pastIllness_name_55Onset: 92-48-3888Qkrkepavbbqq (1 source)ref_f68af41df8434cf0a9fad95b944deff2_pastIllness_name_57Onset: 74-25-9088Tpmixqzeqfxi (1 source)ref_7be6f7d5fce64640804743e98b7892e3_pastIllness_name_49Onset: 09-52-3074Bjrxthouzhjr (1 source)ref_7be6f7d5fce64640804743e98b7892e3_pastIllness_name_51Onset: 49-57-2776Bfsiwlnoxsbf (1 source)ref_7be6f7d5fce64640804743e98b7892e3_pastIllness_name_53Onset: 65-11-7065Lajmbskmezcg (1 source)ref_7be6f7d5fce64640804743e98b7892e3_pastIllness_name_55Onset: 51-71-2924Pglwkhbcnntc (1 source)ref_7be6f7d5fce64640804743e98b7892e3_pastIllness_name_57Onset: 33-14-9609Nneqibxbghwb (1 source)ref_40861b59641e4890817565f587511e53_pastIllness_name_49Onset: 05-74-1709Onwmheelvlwy (1 source)ref_40861b59641e4890817565f587511e53_pastIllness_name_51Onset: 53-90-3318Vratmcdutfji (1 source)ref_40861b59641e4890817565f587511e53_pastIllness_name_53Onset: 36-30-1685Dxqpzcanxfee (1 source)ref_40861b59641e4890817565f587511e53_pastIllness_name_55Onset: 51-06-9947Njjykxuptzix (1 source)ref_40861b59641e4890817565f587511e53_pastIllness_name_57Onset: 21-09-7367Uzgeckakoemx (1 source)ref_4677084306934003a9eaab6a0075efb0_pastIllness_name_49Onset: 76-80-7473Egbiwrgsocts (1 source)ref_4677084306934003a9eaab6a0075efb0_pastIllness_name_51Onset: 19-08-0456Atkdrtmmyjnx (1 source)ref_4677084306934003a9eaab6a0075efb0_pastIllness_name_53Onset: 32-12-4184Xtpvilxpzvjr (1 source)ref_4677084306934003a9eaab6a0075efb0_pastIllness_name_55Onset: 76-11-6931Dxzzandxbwal (1 source)ref_4677084306934003a9eaab6a0075efb0_pastIllness_name_57Onset: 87-51-9058Hlqcfqeuojlr (1 source)ref_9203dc37d9bf4b21ab4ef36095f25666_pastIllness_name_49Onset: 28-85-2986Xedsdvchvkli (1 source)ref_9203dc37d9bf4b21ab4ef36095f25666_pastIllness_name_51Onset: 64-58-5037Vkycqivnrmxe (1 source)ref_9203dc37d9bf4b21ab4ef36095f25666_pastIllness_name_53Onset: 69-93-5064Eyrrezybxhhs (1 source)ref_9203dc37d9bf4b21ab4ef36095f25666_pastIllness_name_55Onset: 35-23-2569Ecmnpxhxenam (1 source)ref_9203dc37d9bf4b21ab4ef36095f25666_pastIllness_name_57Onset: 81-67-0564Pqtvspcvvfrq (1 source)ref_5c586010fc8042ccb41e6128dede3b53_pastIllness_name_49Onset: 08-01-4879Ubtjpifyncvu (1 source)ref_5c586010fc8042ccb41e6128dede3b53_pastIllness_name_51Onset: 68-99-4554Bgknnopdstej (1 source)ref_5c586010fc8042ccb41e6128dede3b53_pastIllness_name_53Onset: 78-36-0135Jwajecumyltf (1 source)ref_5c586010fc8042ccb41e6128dede3b53_pastIllness_name_55Onset: 33-04-7464Ipmglynqjlik (1 source)ref_5c586010fc8042ccb41e6128dede3b53_pastIllness_name_57Onset: 59-71-7905Rziupawvuhna (1 source)ref_9e4c4928454c46a0b5029699fc244497_pastIllness_name_50Onset: 84-75-4101Buqljxybxjak (1 source)ref_9e4c4928454c46a0b5029699fc244497_pastIllness_name_52Onset: 70-39-2213Smkryextjkut (1 source)ref_9e4c4928454c46a0b5029699fc244497_pastIllness_name_54Onset: 33-67-3790Nssjswftaluy (1 source)ref_9e4c4928454c46a0b5029699fc244497_pastIllness_name_56Onset: 61-24-9458Wkxsuflblfhl (1 source)ref_9e4c4928454c46a0b5029699fc244497_pastIllness_name_58Onset: 40-34-4147Umgcwutnwonm (1 source)ref_b72d880a574f4037b2530a11576325ae_pastIllness_name_50Onset: 91-81-0071Upqknawuiwia (1 source)ref_b72d880a574f4037b2530a11576325ae_pastIllness_name_52Onset: 62-29-7175Agzbxraifnpv (1 source)ref_b72d880a574f4037b2530a11576325ae_pastIllness_name_54Onset: 91-26-6017Dzolojmmsdlg (1 source)ref_b72d880a574f4037b2530a11576325ae_pastIllness_name_56Onset: 64-99-1646Pjfxbwvjpvht (1 source)ref_b72d880a574f4037b2530a11576325ae_pastIllness_name_58Onset: 17-51-9262Anhvhfrcbarb (1 source)ref_2acffbd538a04811ad36192f4d525691_pastIllness_name_50Onset: 01-49-7851Rjrbvvenwnen (1 source)ref_2acffbd538a04811ad36192f4d525691_pastIllness_name_52Onset: 74-64-8250Empohlrrvlfj (1 source)ref_2acffbd538a04811ad36192f4d525691_pastIllness_name_54Onset: 65-67-5705Zyzgtgudvxio (1 source)ref_2acffbd538a04811ad36192f4d525691_pastIllness_name_56Onset: 42-17-4066Ynyjirobejpm (1 source)ref_2acffbd538a04811ad36192f4d525691_pastIllness_name_58Onset: 21-61-7996Ezgroleroqvq (1 source)ref_73284c65bbc0499f94707bf30f766803_pastIllness_name_50Onset: 23-19-1768Ynbrvnqzlvgc (1 source)ref_73284c65bbc0499f94707bf30f766803_pastIllness_name_52Onset: 71-25-3420Zmjzupalwkyg (1 source)ref_73284c65bbc0499f94707bf30f766803_pastIllness_name_54Onset: 85-70-6710Cowyckvywafy (1 source)ref_73284c65bbc0499f94707bf30f766803_pastIllness_name_56Onset: 85-73-7708Kmdpepoxokir (1 source)ref_73284c65bbc0499f94707bf30f766803_pastIllness_name_58Onset: 77-87-7959Iaebsdtyrhqp (1 source)ref_d48f5202196d42fea7ad43a82f535f93_pastIllness_name_50Onset: 84-44-0148Xilugoqabmwd (1 source)ref_d48f5202196d42fea7ad43a82f535f93_pastIllness_name_52Onset: 36-99-4526Gvecxjrkpqyq (1 source)ref_d48f5202196d42fea7ad43a82f535f93_pastIllness_name_54Onset: 65-92-7453Qdijkiafwbyy (1 source)ref_d48f5202196d42fea7ad43a82f535f93_pastIllness_name_56Onset: 01-56-6340Irimyduwwbdd (1 source)ref_d48f5202196d42fea7ad43a82f535f93_pastIllness_name_58Onset: 26-35-4658Ymauqcvbfyoc (1 source)ref_2ea08cb1e66e4cf79d8fd316b818740b_pastIllness_name_50Onset: 10-59-9956Hnvnjxzgfggp (1 source)ref_2ea08cb1e66e4cf79d8fd316b818740b_pastIllness_name_52Onset: 59-48-4017Vszrraskvdgh (1 source)ref_2ea08cb1e66e4cf79d8fd316b818740b_pastIllness_name_54Onset: 03-99-4024Hinyeipzlaxs (1 source)ref_2ea08cb1e66e4cf79d8fd316b818740b_pastIllness_name_56Onset: 88-14-2048Ulvvbvumbhtm (1 source)ref_2ea08cb1e66e4cf79d8fd316b818740b_pastIllness_name_58Onset: 87-35-8909Hzipcvrqcdfj (1 source)ref_51881380cd3446848235efa5a17a0099_pastIllness_name_50Onset: 35-25-1737Rcnujjasoary (1 source)ref_51881380cd3446848235efa5a17a0099_pastIllness_name_52Onset: 06-62-5809Ztcpcgdawkrh (1 source)ref_51881380cd3446848235efa5a17a0099_pastIllness_name_54Onset: 35-15-0885Uzkvobmhexxt (1 source)ref_51881380cd3446848235efa5a17a0099_pastIllness_name_56Onset: 59-09-0542Ymglngodczqz (1 source)ref_51881380cd3446848235efa5a17a0099_pastIllness_name_58Onset: 36-29-0251Obkxivzaqpzi (1 source)ref_80ba483ea18f40b6b812f18a52efb2ca_pastIllness_name_50Onset: 49-72-8168Imjtqqtyytpy (1 source)ref_80ba483ea18f40b6b812f18a52efb2ca_pastIllness_name_52Onset: 40-86-3502Uaoliadeingx (1 source)ref_80ba483ea18f40b6b812f18a52efb2ca_pastIllness_name_54Onset: 49-66-8191Panxlnnztlgg (1 source)ref_80ba483ea18f40b6b812f18a52efb2ca_pastIllness_name_56Onset: 69-83-1871Mzajbzxomvkb (1 source)ref_80ba483ea18f40b6b812f18a52efb2ca_pastIllness_name_58Onset: 07-54-9995Ucllpaaycles (1 source)ref_86757f6b430e49c59b48309c02379d02_pastIllness_name_50Onset: 38-02-0604Cyjttmyulxyx (1 source)ref_86757f6b430e49c59b48309c02379d02_pastIllness_name_52Onset: 26-54-8132Mehzzrzlppsj (1 source)ref_86757f6b430e49c59b48309c02379d02_pastIllness_name_54Onset: 25-71-4956Vybrcfuugxyo (1 source)ref_86757f6b430e49c59b48309c02379d02_pastIllness_name_56Onset: 84-55-5177Nwoqhopasqfg (1 source)ref_86757f6b430e49c59b48309c02379d02_pastIllness_name_58Onset: 12-57-9345Izrsecdelhyg (1 source)ref_a719a089cbdb4c7da67680403134cac9_pastIllness_name_50Onset: 64-35-0882Jfuojjaydwjf (1 source)ref_a719a089cbdb4c7da67680403134cac9_pastIllness_name_52Onset: 85-72-3615Npfvzxkelnul (1 source)ref_a719a089cbdb4c7da67680403134cac9_pastIllness_name_54Onset: 72-38-9328Zsvyoncprfqs (1 source)ref_a719a089cbdb4c7da67680403134cac9_pastIllness_name_56Onset: 65-88-7808Gxnupzlkpfjm (1 source)ref_a719a089cbdb4c7da67680403134cac9_pastIllness_name_58Onset: 85-81-7289Nounnknwhlxm (1 source)ref_81083adc4fd74a898ffdb8d6581f6242_pastIllness_name_50Onset: 21-06-1942Rzxlmorojfql (1 source)ref_81083adc4fd74a898ffdb8d6581f6242_pastIllness_name_52Onset: 52-11-2986Ujxgzzhgexri (1 source)ref_81083adc4fd74a898ffdb8d6581f6242_pastIllness_name_54Onset: 35-52-0906Nnytfjbezzzi (1 source)ref_81083adc4fd74a898ffdb8d6581f6242_pastIllness_name_56Onset: 72-05-8009Fobougeorbmu (1 source)ref_81083adc4fd74a898ffdb8d6581f6242_pastIllness_name_58Onset: 66-13-3196Ertypvymbqsn (1 source)ref_ea214c436dd841ffbfe944ec9d8797de_pastIllness_name_50Onset: 81-47-5544Zivvufjkbhbm (1 source)ref_ea214c436dd841ffbfe944ec9d8797de_pastIllness_name_52Onset: 42-63-4653Igdazhlmieun (1 source)ref_ea214c436dd841ffbfe944ec9d8797de_pastIllness_name_54Onset: 13-89-0626Auuiinukoeeh (1 source)ref_ea214c436dd841ffbfe944ec9d8797de_pastIllness_name_56Onset: 17-20-4513Dhdtdeosasan (1 source)ref_ea214c436dd841ffbfe944ec9d8797de_pastIllness_name_58Onset: 51-92-6581Nsrrtavrgsrj (1 source)ref_934f475680e942e69360f61f4964b234_pastIllness_name_50Onset: 93-09-5374Foyjmxlurcyn (1 source)ref_934f475680e942e69360f61f4964b234_pastIllness_name_52Onset: 83-43-9731Kykaywllrqni (1 source)ref_934f475680e942e69360f61f4964b234_pastIllness_name_54Onset: 89-50-3690Lvyfdlrkdgdo (1 source)ref_934f475680e942e69360f61f4964b234_pastIllness_name_56Onset: 09-20-8486Rdvvcuqsxvqx (1 source)ref_934f475680e942e69360f61f4964b234_pastIllness_name_58Onset: 52-13-0790Jmxvqpzxuryc (1 source)ref_ff0538d9c8874c738bf0fd64374ab600_pastIllness_name_50Onset: 68-66-3351Mzpcnvcurvfq (1 source)ref_ff0538d9c8874c738bf0fd64374ab600_pastIllness_name_52Onset: 64-11-1726Yczngtnodytl (1 source)ref_ff0538d9c8874c738bf0fd64374ab600_pastIllness_name_54Onset: 67-53-0591Mpdufdkjalpp (1 source)ref_ff0538d9c8874c738bf0fd64374ab600_pastIllness_name_56Onset: 45-23-7041Bticmuygnfog (1 source)ref_ff0538d9c8874c738bf0fd64374ab600_pastIllness_name_58Onset: 57-59-5852Xlubamtmyumr (1 source)ref_5158b1edc4914f2b9fcc58687a02ea1a_pastIllness_name_50Onset: 13-31-9014Ucclmhmcrtnd (1 source)ref_5158b1edc4914f2b9fcc58687a02ea1a_pastIllness_name_52Onset: 16-65-4247Ysoezagcwgmm (1 source)ref_5158b1edc4914f2b9fcc58687a02ea1a_pastIllness_name_54Onset: 04-11-7488Uouvdavhkcyn (1 source)ref_5158b1edc4914f2b9fcc58687a02ea1a_pastIllness_name_56Onset: 21-96-7869Esimbnvgewpd (1 source)ref_5158b1edc4914f2b9fcc58687a02ea1a_pastIllness_name_58Onset: 36-76-2965Vyfruqlwizdo (1 source)ref_197d292d37084f55a8caac1ddc10f8c1_pastIllness_name_50Onset: 14-62-5790Fytldzfsrkkh (1 source)ref_197d292d37084f55a8caac1ddc10f8c1_pastIllness_name_52Onset: 90-25-6893Vydfcjaesukw (1 source)ref_197d292d37084f55a8caac1ddc10f8c1_pastIllness_name_54Onset: 95-68-4295Dkmyqlppcapr (1 source)ref_197d292d37084f55a8caac1ddc10f8c1_pastIllness_name_56Onset: 92-14-1057Ipmtmyvuqead (1 source)ref_197d292d37084f55a8caac1ddc10f8c1_pastIllness_name_58Onset: 24-03-5886Dwvnqjzhfodt (1 source)ref_c0dadd6456a24347a77a1daf34d28f77_pastIllness_name_50Onset: 20-47-3440Vrbpykghmzhm (1 source)ref_c0dadd6456a24347a77a1daf34d28f77_pastIllness_name_52Onset: 47-12-7737Lzykuprdnzsu (1 source)ref_c0dadd6456a24347a77a1daf34d28f77_pastIllness_name_54Onset: 70-11-7380Fpnolralasmp (1 source)ref_c0dadd6456a24347a77a1daf34d28f77_pastIllness_name_56Onset: 33-38-6742Kwryiodcyptp (1 source)ref_c0dadd6456a24347a77a1daf34d28f77_pastIllness_name_58Onset: 02-53-8419Vhpvllpsatuq (1 source)ref_765ba3ba43614a459f2f3f523fc286c7_pastIllness_name_50Onset: 42-56-2725Wzcnwbixzzxh (1 source)ref_765ba3ba43614a459f2f3f523fc286c7_pastIllness_name_52Onset: 62-38-5826Jequpjxttwum (1 source)ref_765ba3ba43614a459f2f3f523fc286c7_pastIllness_name_54Onset: 15-17-2522Ncmrwxjgeovc (1 source)ref_765ba3ba43614a459f2f3f523fc286c7_pastIllness_name_56Onset: 63-06-0099Qczftmsnsscs (1 source)ref_765ba3ba43614a459f2f3f523fc286c7_pastIllness_name_58Onset: 21-58-9400Lklhzslgmhih (1 source)ref_f98ddb63e66148e0b1794af2f1a5a7d1_pastIllness_name_50Onset: 50-34-7344Ohglcthbadpp (1 source)ref_f98ddb63e66148e0b1794af2f1a5a7d1_pastIllness_name_52Onset: 94-25-7001Zuderocgjwyc (1 source)ref_f98ddb63e66148e0b1794af2f1a5a7d1_pastIllness_name_54Onset: 53-78-8884Clejgfmicxcr (1 source)ref_f98ddb63e66148e0b1794af2f1a5a7d1_pastIllness_name_56Onset: 48-49-4123Hofiblgyklmt (1 source)ref_f98ddb63e66148e0b1794af2f1a5a7d1_pastIllness_name_58Onset: 38-62-3369Klrdvmhkuopb (1 source)ref_2966a3d2ef824f028e094afecd33b9ea_pastIllness_name_50Onset: 26-12-0063Xjlvaczqpona (1 source)ref_2966a3d2ef824f028e094afecd33b9ea_pastIllness_name_52Onset: 18-12-7666Lahmmgvsatfa (1 source)ref_2966a3d2ef824f028e094afecd33b9ea_pastIllness_name_54Onset: 78-67-2500Cjmxrafhdxyj (1 source)ref_2966a3d2ef824f028e094afecd33b9ea_pastIllness_name_56Onset: 80-00-4321Nfelbqlbbaba (1 source)ref_2966a3d2ef824f028e094afecd33b9ea_pastIllness_name_58Onset: 86-19-0401Hykbajgoouzb (1 source)ref_d7a79b6a18514461a1b5970ed84f10c5_pastIllness_name_50Onset: 13-50-8521Wrlvjmjywwna (1 source)ref_d7a79b6a18514461a1b5970ed84f10c5_pastIllness_name_52Onset: 88-26-8506Khirwfghkwdw (1 source)ref_d7a79b6a18514461a1b5970ed84f10c5_pastIllness_name_54Onset: 20-85-1561Fpcsuyclvqdc (1 source)ref_d7a79b6a18514461a1b5970ed84f10c5_pastIllness_name_56Onset: 01-76-3603Rkzrkcnvcyfk (1 source)ref_d7a79b6a18514461a1b5970ed84f10c5_pastIllness_name_58Onset: 38-35-0213Omdjmxwqdfqq (1 source)ref_69ab11fbb15540b19439c3210927e8ff_pastIllness_name_50Onset: 09-23-9272Izmpehtztzra (1 source)ref_69ab11fbb15540b19439c3210927e8ff_pastIllness_name_52Onset: 77-71-6797Acbltfhdwozx (1 source)ref_69ab11fbb15540b19439c3210927e8ff_pastIllness_name_54Onset: 92-57-8519Sszdkposfdyj (1 source)ref_69ab11fbb15540b19439c3210927e8ff_pastIllness_name_56Onset: 38-32-0766Elfqrchvwzud (1 source)ref_69ab11fbb15540b19439c3210927e8ff_pastIllness_name_58Onset: 10-69-7478Wfddefnsvhkq (1 source)ref_9ce8a30d64d84ec196d319a0d8d0fd7b_pastIllness_name_50Onset: 80-09-3753Qwinskmpcvbe (1 source)ref_9ce8a30d64d84ec196d319a0d8d0fd7b_pastIllness_name_52Onset: 11-35-9871Yfdhauajjevx (1 source)ref_9ce8a30d64d84ec196d319a0d8d0fd7b_pastIllness_name_54Onset: 42-19-2331Akimuvaoxmco (1 source)ref_9ce8a30d64d84ec196d319a0d8d0fd7b_pastIllness_name_56Onset: 87-88-4260Hulgfznobzep (1 source)ref_9ce8a30d64d84ec196d319a0d8d0fd7b_pastIllness_name_58Onset: 78-96-8275Pfgiygewrwog (1 source)ref_64c3a32f910044f1a5194df1380e579a_pastIllness_name_50Onset: 05-91-3640Gmutzkkkimze (1 source)ref_64c3a32f910044f1a5194df1380e579a_pastIllness_name_52Onset: 25-28-1996Nonkphvciqtn (1 source)ref_64c3a32f910044f1a5194df1380e579a_pastIllness_name_54Onset: 88-44-0535Yuxphmchnmcp (1 source)ref_64c3a32f910044f1a5194df1380e579a_pastIllness_name_56Onset: 83-06-4314Essgdfbwpjwu (1 source)ref_64c3a32f910044f1a5194df1380e579a_pastIllness_name_58Onset: 04-76-5032Zwzhddlxyuix (1 source)ref_aa59fa4306ea411d85d6feddb5410ea6_pastIllness_name_50Onset: 24-94-6181Dfgnxwysajyn (1 source)ref_aa59fa4306ea411d85d6feddb5410ea6_pastIllness_name_52Onset: 17-49-9288Pekaewbnhbgg (1 source)ref_aa59fa4306ea411d85d6feddb5410ea6_pastIllness_name_54Onset: 87-23-4810Vmnsngnjcxcj (1 source)ref_aa59fa4306ea411d85d6feddb5410ea6_pastIllness_name_56Onset: 09-96-1809Oqkzadepyzlp (1 source)ref_aa59fa4306ea411d85d6feddb5410ea6_pastIllness_name_58Onset: 00-50-8989Noxbjsrgovbi (1 source)ref_c053e91556284ec3818021ba82f4376b_pastIllness_name_50Onset: 25-88-0815Lzcgwikvgznb (1 source)ref_c053e91556284ec3818021ba82f4376b_pastIllness_name_52Onset: 48-98-8024Ochkdnlbaety (1 source)ref_c053e91556284ec3818021ba82f4376b_pastIllness_name_54Onset: 09-99-4368Wevuiznpfpjg (1 source)ref_c053e91556284ec3818021ba82f4376b_pastIllness_name_56Onset: 36-87-9755Gaaejcdvqcri (1 source)ref_c053e91556284ec3818021ba82f4376b_pastIllness_name_58Onset: 00-79-2868Bjbzupwcbsck (1 source)ref_093379af36a746e097685357d5015954_pastIllness_name_50Onset: 20-60-6545Gpdmpvjaoyyv (1 source)ref_093379af36a746e097685357d5015954_pastIllness_name_52Onset: 93-70-2067Zhhijekezcti (1 source)ref_093379af36a746e097685357d5015954_pastIllness_name_54Onset: 92-35-7297Zzjfukclsgti (1 source)ref_093379af36a746e097685357d5015954_pastIllness_name_56Onset: 83-49-3468Dpqhxmxqekrz (1 source)ref_093379af36a746e097685357d5015954_pastIllness_name_58Onset: 15-26-7162Nqtprlfdekbk (1 source)ref_1bd0b6d465d345a0a12ccf18ee1bedc3_pastIllness_name_50Onset: 90-86-3863Jpnfpjkuamwn (1 source)ref_1bd0b6d465d345a0a12ccf18ee1bedc3_pastIllness_name_52Onset: 64-43-9787Aqjdmgdejhbv (1 source)ref_1bd0b6d465d345a0a12ccf18ee1bedc3_pastIllness_name_54Onset: 62-09-5576Tesulcscgavs (1 source)ref_1bd0b6d465d345a0a12ccf18ee1bedc3_pastIllness_name_56Onset: 59-90-2270Xxhlqcefboll (1 source)ref_1bd0b6d465d345a0a12ccf18ee1bedc3_pastIllness_name_58Onset: 54-02-9993Cdggdhyqbetf (1 source)ref_d1f007226ebe4193bd9f3dfdc8b486db_pastIllness_name_50Onset: 71-39-3733Hfynuxgurwfx (1 source)ref_d1f007226ebe4193bd9f3dfdc8b486db_pastIllness_name_52Onset: 02-24-8554Zsjchmnduaux (1 source)ref_d1f007226ebe4193bd9f3dfdc8b486db_pastIllness_name_54Onset: 02-08-4418Cskwbqpkodxz (1 source)ref_d1f007226ebe4193bd9f3dfdc8b486db_pastIllness_name_56Onset: 05-20-7218Rhmyvovoeymz (1 source)ref_d1f007226ebe4193bd9f3dfdc8b486db_pastIllness_name_58Onset: 94-11-4452Osykvbkhzklz (1 source)ref_c18b67ce9b3e4fe19e7ee4a4ff7935d6_pastIllness_name_50Onset: 80-11-0413Ftjfmsfawwgi (1 source)ref_c18b67ce9b3e4fe19e7ee4a4ff7935d6_pastIllness_name_52Onset: 50-09-7416Iczkwqrvsgto (1 source)ref_c18b67ce9b3e4fe19e7ee4a4ff7935d6_pastIllness_name_54Onset: 43-33-4713Eatujrtmsbma (1 source)ref_c18b67ce9b3e4fe19e7ee4a4ff7935d6_pastIllness_name_56Onset: 61-25-6685Fltalxyrhpqw (1 source)ref_c18b67ce9b3e4fe19e7ee4a4ff7935d6_pastIllness_name_58Onset: 78-34-3263Hzukjjarmbgl (1 source)ref_84a519f48ff643d9b7ac0fd52765f0d0_pastIllness_name_50Onset: 88-12-3487Wzprzuqlokoh (1 source)ref_84a519f48ff643d9b7ac0fd52765f0d0_pastIllness_name_52Onset: 99-14-1590Ilvhzlqpdpgk (1 source)ref_84a519f48ff643d9b7ac0fd52765f0d0_pastIllness_name_54Onset: 38-65-0993Jcdusanuubba (1 source)ref_84a519f48ff643d9b7ac0fd52765f0d0_pastIllness_name_56Onset: 94-67-7972Mdmxygzqrwef (1 source)ref_84a519f48ff643d9b7ac0fd52765f0d0_pastIllness_name_58Onset: 16-78-2859Hqaptperbhzv (1 source)ref_a7db2d3dc8df4b68814be420ca7bad06_pastIllness_name_50Onset: 49-72-7919Bzwikbajgsiz (1 source)ref_a7db2d3dc8df4b68814be420ca7bad06_pastIllness_name_52Onset: 32-12-9050Vvkvvwbnhvjs (1 source)ref_a7db2d3dc8df4b68814be420ca7bad06_pastIllness_name_54Onset: 60-27-8545Xlathivhumwz (1 source)ref_a7db2d3dc8df4b68814be420ca7bad06_pastIllness_name_56Onset: 56-77-9707Kxbekevptgql (1 source)ref_a7db2d3dc8df4b68814be420ca7bad06_pastIllness_name_58Onset: 15-51-3017Ihtwglajozlq (1 source)ref_39ad25b8520c496cadec244bdca8a29a_pastIllness_name_50Onset: 47-94-6698Khjvzhxuccto (1 source)ref_39ad25b8520c496cadec244bdca8a29a_pastIllness_name_52Onset: 40-97-0867Phelpdazeegs (1 source)ref_39ad25b8520c496cadec244bdca8a29a_pastIllness_name_54Onset: 64-44-0241Bndmyzbvsvyf (1 source)ref_39ad25b8520c496cadec244bdca8a29a_pastIllness_name_56Onset: 60-03-7262Snuucgdelahs (1 source)ref_39ad25b8520c496cadec244bdca8a29a_pastIllness_name_58Onset: 45-76-3773Adnnqdimqtzi (1 source)ref_7f0859dd023a4d36b4c64144f4e8e458_pastIllness_name_50Onset: 14-96-9778Jgzhowjdntlf (1 source)ref_7f0859dd023a4d36b4c64144f4e8e458_pastIllness_name_52Onset: 46-95-3283Vercmsxexcdu (1 source)ref_7f0859dd023a4d36b4c64144f4e8e458_pastIllness_name_54Onset: 82-07-1382Qyrzvvziuoej (1 source)ref_7f0859dd023a4d36b4c64144f4e8e458_pastIllness_name_56Onset: 97-12-5377Txgzitltbdql (1 source)ref_7f0859dd023a4d36b4c64144f4e8e458_pastIllness_name_58Onset: 67-82-1108Mnuxgkzjqtxn (1 source)ref_15cb8e8110f543358a552dc6b336535b_pastIllness_name_50Onset: 19-76-0085Drwzqcuterei (1 source)ref_15cb8e8110f543358a552dc6b336535b_pastIllness_name_52Onset: 81-52-7243Xctmnscsleme (1 source)ref_15cb8e8110f543358a552dc6b336535b_pastIllness_name_54Onset: 68-63-7271Kgochwhsenkd (1 source)ref_15cb8e8110f543358a552dc6b336535b_pastIllness_name_56Onset: 16-25-3511Mdorpqymjwal (1 source)ref_15cb8e8110f543358a552dc6b336535b_pastIllness_name_58Onset: 07-34-6347Hnogszmbovrh (1 source)ref_7b953843bc36411b81720d8d0cbdfced_pastIllness_name_51Onset: 40-20-4879Nnzeyhndczkl (1 source)ref_7b953843bc36411b81720d8d0cbdfced_pastIllness_name_53Onset: 49-10-1674Khoxsqsidcpf (1 source)ref_7b953843bc36411b81720d8d0cbdfced_pastIllness_name_55Onset: 29-82-6761Spvooewjmyjl (1 source)ref_7b953843bc36411b81720d8d0cbdfced_pastIllness_name_57Onset: 91-18-1260Eusppttuwqho (1 source)ref_7b953843bc36411b81720d8d0cbdfced_pastIllness_name_59Onset: 97-11-5597Qkwitnfjjpdx (1 source)ref_831ae9dca6c64f40a4b42112edfcf0e8_pastIllness_name_51Onset: 98-68-5348Lrfrufejsqvb (1 source)ref_831ae9dca6c64f40a4b42112edfcf0e8_pastIllness_name_53Onset: 49-46-4147Nmloagabahby (1 source)ref_831ae9dca6c64f40a4b42112edfcf0e8_pastIllness_name_55Onset: 24-00-1341Hqwbvuoewfja (1 source)ref_831ae9dca6c64f40a4b42112edfcf0e8_pastIllness_name_57Onset: 72-03-1098Jndfnvgjkodr (1 source)ref_831ae9dca6c64f40a4b42112edfcf0e8_pastIllness_name_59Onset: 99-89-3460Tpyfdtxyavmc (1 source)ref_7187d281befb48328d07fd7c56857723_pastIllness_name_51Onset: 85-67-3308Gvfreoaczudr (1 source)ref_7187d281befb48328d07fd7c56857723_pastIllness_name_53Onset: 76-34-8207Xpmslhyybuwh (1 source)ref_7187d281befb48328d07fd7c56857723_pastIllness_name_55Onset: 24-34-0307Nzgfsikvdqcy (1 source)ref_7187d281befb48328d07fd7c56857723_pastIllness_name_57Onset: 33-96-6443Hurunoqkjewx (1 source)ref_7187d281befb48328d07fd7c56857723_pastIllness_name_59Onset: 44-97-1254Grgmjkgaxmwn (1 source)ref_3e92c357b7f9435ab37fa126747a887b_pastIllness_name_51Onset: 47-04-8078Orydylwdwixk (1 source)ref_3e92c357b7f9435ab37fa126747a887b_pastIllness_name_53Onset: 57-13-0302Iepwbeqhfmrx (1 source)ref_3e92c357b7f9435ab37fa126747a887b_pastIllness_name_55Onset: 65-11-3539Seuwwkafbexx (1 source)ref_3e92c357b7f9435ab37fa126747a887b_pastIllness_name_57Onset: 35-92-5701Xwpsrxwxtjrg (1 source)ref_3e92c357b7f9435ab37fa126747a887b_pastIllness_name_59Onset: 67-16-2667Rxddsfqwviyx (1 source)ref_460203838bc04708a4e07316ae0f88d3_pastIllness_name_51Onset: 66-93-9816Rfmwhpxtwtki (1 source)ref_460203838bc04708a4e07316ae0f88d3_pastIllness_name_53Onset: 62-50-6598Sswziuhrcnlr (1 source)ref_460203838bc04708a4e07316ae0f88d3_pastIllness_name_55Onset: 74-86-9204Xmhqpcsypwhl (1 source)ref_460203838bc04708a4e07316ae0f88d3_pastIllness_name_57Onset: 78-46-1240Pzoyzysrskni (1 source)ref_460203838bc04708a4e07316ae0f88d3_pastIllness_name_59Onset: 74-48-3427Bpsetjoyuwit (1 source)ref_215369de9a8b4ef892baed51c1e284dc_pastIllness_name_51Onset: 11-13-7756Zlqnggorlurk (1 source)ref_215369de9a8b4ef892baed51c1e284dc_pastIllness_name_53Onset: 51-02-3795Qplvyaojfpig (1 source)ref_215369de9a8b4ef892baed51c1e284dc_pastIllness_name_55Onset: 56-80-6897Ibdhqqzokunp (1 source)ref_215369de9a8b4ef892baed51c1e284dc_pastIllness_name_57Onset: 09-89-4413Ipjjprvztior (1 source)ref_215369de9a8b4ef892baed51c1e284dc_pastIllness_name_59Onset: 33-55-8179Rbiihqapzrxb (1 source)ref_9b32f9f4c746432ca1336508cd886676_pastIllness_name_51Onset: 76-79-2611Oewtfakvbobr (1 source)ref_9b32f9f4c746432ca1336508cd886676_pastIllness_name_53Onset: 50-95-7666Pqahobjxckjv (1 source)ref_9b32f9f4c746432ca1336508cd886676_pastIllness_name_55Onset: 06-60-2212Qsbtuypcvdwh (1 source)ref_9b32f9f4c746432ca1336508cd886676_pastIllness_name_57Onset: 43-91-2677Atjpcqvednxr (1 source)ref_9b32f9f4c746432ca1336508cd886676_pastIllness_name_59Onset: 49-64-1114Ynpvcgdesftu (1 source)ref_50a28555bb654ae89e7f6e1c30ee8b33_pastIllness_name_51Onset: 29-77-4367Apminneuxhnf (1 source)ref_50a28555bb654ae89e7f6e1c30ee8b33_pastIllness_name_53Onset: 36-25-7948Lwbsynogkxos (1 source)ref_50a28555bb654ae89e7f6e1c30ee8b33_pastIllness_name_55Onset: 73-47-6518Klzxeunvvufs (1 source)ref_50a28555bb654ae89e7f6e1c30ee8b33_pastIllness_name_57Onset: 30-37-2353Ofayycmmkkse (1 source)ref_50a28555bb654ae89e7f6e1c30ee8b33_pastIllness_name_59Onset: 20-55-0565Ufmkqgbqwyrm (1 source)ref_73fa514ccd7041278f7263df9fae7bec_pastIllness_name_51Onset: 40-47-8306Cgbujiqhaoxx (1 source)ref_73fa514ccd7041278f7263df9fae7bec_pastIllness_name_53Onset: 02-74-7841Eujqlhxfkngo (1 source)ref_73fa514ccd7041278f7263df9fae7bec_pastIllness_name_55Onset: 09-14-0221Dbskulhnosyh (1 source)ref_73fa514ccd7041278f7263df9fae7bec_pastIllness_name_57Onset: 58-46-8989Fxamzitmhzin (1 source)ref_73fa514ccd7041278f7263df9fae7bec_pastIllness_name_59Onset: 56-50-4353Bkanrhwhtigu (1 source)ref_7ea42181d49a4e668423f12c8088dcec_pastIllness_name_51Onset: 28-88-5042Lrtfejqsstkt (1 source)ref_7ea42181d49a4e668423f12c8088dcec_pastIllness_name_53Onset: 27-20-3813Fclejufrenkp (1 source)ref_7ea42181d49a4e668423f12c8088dcec_pastIllness_name_55Onset: 22-12-7341Jptgtlemulay (1 source)ref_7ea42181d49a4e668423f12c8088dcec_pastIllness_name_57Onset: 74-59-8496Edtardnhtqii (1 source)ref_7ea42181d49a4e668423f12c8088dcec_pastIllness_name_59Onset: 20-24-5961Gpdxenbtjepw (1 source)ref_957d298a50774920bab226e93e045e65_pastIllness_name_51Onset: 65-85-8692Zkghnrwnynyv (1 source)ref_957d298a50774920bab226e93e045e65_pastIllness_name_53Onset: 61-68-4902Sdzupqczdimw (1 source)ref_957d298a50774920bab226e93e045e65_pastIllness_name_55Onset: 56-89-5392Xqnvtltqzeya (1 source)ref_957d298a50774920bab226e93e045e65_pastIllness_name_57Onset: 22-92-8334Cvtdywamocku (1 source)ref_957d298a50774920bab226e93e045e65_pastIllness_name_59Onset: 00-18-2701Swqnlnwlmlit (1 source)ref_e756887712db4f628c28523b9821fcf6_pastIllness_name_51Onset: 98-42-6453Gxrcsunsgdai (1 source)ref_e756887712db4f628c28523b9821fcf6_pastIllness_name_53Onset: 25-02-1607Dugbgxcmrjbz (1 source)ref_e756887712db4f628c28523b9821fcf6_pastIllness_name_55Onset: 31-84-8895Nxjrckjynato (1 source)ref_e756887712db4f628c28523b9821fcf6_pastIllness_name_57Onset: 95-57-1039Kttedxlbruuk (1 source)ref_e756887712db4f628c28523b9821fcf6_pastIllness_name_59Onset: 58-10-9851Ufbubohkozrr (1 source)ref_1a9002ca3a914a088026cc3e62fdc310_pastIllness_name_51Onset: 66-31-0226Bzlnurugvpli (1 source)ref_1a9002ca3a914a088026cc3e62fdc310_pastIllness_name_53Onset: 07-16-3943Hmimkgxdklpz (1 source)ref_1a9002ca3a914a088026cc3e62fdc310_pastIllness_name_55Onset: 14-66-5826Imtwawharlmt (1 source)ref_1a9002ca3a914a088026cc3e62fdc310_pastIllness_name_57Onset: 77-09-2237Wlolhffmfdbl (1 source)ref_1a9002ca3a914a088026cc3e62fdc310_pastIllness_name_59Onset: 61-75-4321Ivdinutgutdg (1 source)ref_32cd1e7b8e4843458bc5187badce7ae7_pastIllness_name_51Onset: 37-73-3478Ukuusqultsoi (1 source)ref_32cd1e7b8e4843458bc5187badce7ae7_pastIllness_name_53Onset: 60-91-5279Hwlggdjnamul (1 source)ref_32cd1e7b8e4843458bc5187badce7ae7_pastIllness_name_55Onset: 43-79-9852Wxhqsuqzgfmy (1 source)ref_32cd1e7b8e4843458bc5187badce7ae7_pastIllness_name_57Onset: 94-70-5707Jdxnrqzkenyt (1 source)ref_32cd1e7b8e4843458bc5187badce7ae7_pastIllness_name_59Onset: 12-57-0832Mrffxacejadi (1 source)ref_47ecf13ae0f24783afe535af7932fde1_pastIllness_name_51Onset: 44-32-5613Awimjrtorfvp (1 source)ref_47ecf13ae0f24783afe535af7932fde1_pastIllness_name_53Onset: 30-32-2727Ayaosqvglhwy (1 source)ref_47ecf13ae0f24783afe535af7932fde1_pastIllness_name_55Onset: 90-97-3107Yqfwjmxpdnvd (1 source)ref_47ecf13ae0f24783afe535af7932fde1_pastIllness_name_57Onset: 15-00-2284Vdfdvoiguobl (1 source)ref_47ecf13ae0f24783afe535af7932fde1_pastIllness_name_59Onset: 29-49-2995Cuskenjoqkgl (1 source)ref_754c7f357c964abdbdc56a1434faf23e_pastIllness_name_50Onset: 99-45-3366Vppsfvlwiexy (1 source)ref_754c7f357c964abdbdc56a1434faf23e_pastIllness_name_52Onset: 89-04-8709Xywjhkjyzagh (1 source)ref_754c7f357c964abdbdc56a1434faf23e_pastIllness_name_54Onset: 23-87-9099Lmkzgrcmgxne (1 source)ref_754c7f357c964abdbdc56a1434faf23e_pastIllness_name_56Onset: 66-41-5050Lkoahlafnhrc (1 source)ref_754c7f357c964abdbdc56a1434faf23e_pastIllness_name_58Onset: 41-26-7662Uthbntoocxbr (1 source)ref_5219f3fb00f042e88950116cc13cc651_pastIllness_name_50Onset: 45-61-6246Saaclnxszeff (1 source)ref_5219f3fb00f042e88950116cc13cc651_pastIllness_name_52Onset: 02-08-9382Hzzugcpklqif (1 source)ref_5219f3fb00f042e88950116cc13cc651_pastIllness_name_54Onset: 21-48-7333Jjtuwcyezjjp (1 source)ref_5219f3fb00f042e88950116cc13cc651_pastIllness_name_56Onset: 35-04-2599Crcpbmgevxjg (1 source)ref_5219f3fb00f042e88950116cc13cc651_pastIllness_name_58Onset: 48-15-2780Ifdwhqtfgpkt (1 source)ref_054445c22b2f48e1a3452bbdc263aae1_pastIllness_name_50Onset: 38-02-8085Hmqstjfrkkqp (1 source)ref_054445c22b2f48e1a3452bbdc263aae1_pastIllness_name_52Onset: 27-44-2414Swncttlpvelz (1 source)ref_054445c22b2f48e1a3452bbdc263aae1_pastIllness_name_54Onset: 95-60-5450Idwnrjodhqih (1 source)ref_054445c22b2f48e1a3452bbdc263aae1_pastIllness_name_56Onset: 13-91-3796Yckwdijihveu (1 source)ref_054445c22b2f48e1a3452bbdc263aae1_pastIllness_name_58Onset: 46-26-0630Gyydygvosvvu (1 source)ref_67879d8adef54bb1988fd89581bc60c5_pastIllness_name_50Onset: 01-10-0622Iwnhprxpmcbc (1 source)ref_67879d8adef54bb1988fd89581bc60c5_pastIllness_name_52Onset: 33-82-8556Nfvloslocupm (1 source)ref_67879d8adef54bb1988fd89581bc60c5_pastIllness_name_54Onset: 40-83-7776Pltkhlmiziwj (1 source)ref_67879d8adef54bb1988fd89581bc60c5_pastIllness_name_56Onset: 38-89-2692Jyixwvvynouo (1 source)ref_67879d8adef54bb1988fd89581bc60c5_pastIllness_name_58Onset: 87-18-4937Etjwlehoutlu (1 source)ref_2a4a924144fd49998f103d63bc0f4c78_pastIllness_name_50Onset: 32-93-4452Vxhgwcvrhhei (1 source)ref_2a4a924144fd49998f103d63bc0f4c78_pastIllness_name_52Onset: 26-38-0996Jnpamezakyzn (1 source)ref_2a4a924144fd49998f103d63bc0f4c78_pastIllness_name_54Onset: 35-23-5629Xybkkzuvhkhe (1 source)ref_2a4a924144fd49998f103d63bc0f4c78_pastIllness_name_56Onset: 54-53-8090Ujirvpginqhr (1 source)ref_2a4a924144fd49998f103d63bc0f4c78_pastIllness_name_58Onset: 41-60-2599Wkmuhrbfaicl (1 source)ref_7ae649a647174f018214af838991a1a6_pastIllness_name_50Onset: 30-95-8668Rxgedcssicsa (1 source)ref_7ae649a647174f018214af838991a1a6_pastIllness_name_52Onset: 26-26-6443Bitoeztarvod (1 source)ref_7ae649a647174f018214af838991a1a6_pastIllness_name_54Onset: 66-97-2646Akhdzvpckfbo (1 source)ref_7ae649a647174f018214af838991a1a6_pastIllness_name_56Onset: 08-25-6483Farqycfufnoe (1 source)ref_7ae649a647174f018214af838991a1a6_pastIllness_name_58Onset: 12-43-9754Ntwbivbzhknh (1 source)ref_45fc4fe7bc0b477bbdf23e14c4c17ed5_pastIllness_name_50Onset: 79-91-5846Yhdijwxwphzi (1 source)ref_45fc4fe7bc0b477bbdf23e14c4c17ed5_pastIllness_name_52Onset: 30-60-4076Iugjcplrwxbg (1 source)ref_45fc4fe7bc0b477bbdf23e14c4c17ed5_pastIllness_name_54Onset: 90-82-0541Pbuoimlqztsy (1 source)ref_45fc4fe7bc0b477bbdf23e14c4c17ed5_pastIllness_name_56Onset: 40-73-6894Qaioaglematf (1 source)ref_45fc4fe7bc0b477bbdf23e14c4c17ed5_pastIllness_name_58Onset: 55-99-9065Foquzvknyuqc (1 source)ref_4c573d4e9dcc46dab24b530688db3cbc_pastIllness_name_50Onset: 72-17-3941Hvzmjwidnppw (1 source)ref_4c573d4e9dcc46dab24b530688db3cbc_pastIllness_name_52Onset: 25-50-5175Jscnfurekxnz (1 source)ref_4c573d4e9dcc46dab24b530688db3cbc_pastIllness_name_54Onset: 18-99-3671Oiovkgoqdutw (1 source)ref_4c573d4e9dcc46dab24b530688db3cbc_pastIllness_name_56Onset: 13-51-4027Bibdqjjqvfvv (1 source)ref_4c573d4e9dcc46dab24b530688db3cbc_pastIllness_name_58Onset: 65-87-2650Mivsrfyxkbsr (1 source)ref_0eb7f0d0750e4a78967248f378b58e2c_pastIllness_name_50Onset: 56-47-3822Sjtlpdrmmmdz (1 source)ref_0eb7f0d0750e4a78967248f378b58e2c_pastIllness_name_52Onset: 86-76-0053Inchpjpvjatp (1 source)ref_0eb7f0d0750e4a78967248f378b58e2c_pastIllness_name_54Onset: 38-65-1113Anlgjapngyej (1 source)ref_0eb7f0d0750e4a78967248f378b58e2c_pastIllness_name_56Onset: 57-01-7280Kmyjngaotqoi (1 source)ref_0eb7f0d0750e4a78967248f378b58e2c_pastIllness_name_58Onset: 62-42-5078Zvvojiixuulo (1 source)ref_b4147591fa544d37b9745d2d3f6b6aa3_pastIllness_name_50Onset: 13-68-4441Sqnncjnhjqim (1 source)ref_b4147591fa544d37b9745d2d3f6b6aa3_pastIllness_name_52Onset: 26-83-4624Zntibgducpwo (1 source)ref_b4147591fa544d37b9745d2d3f6b6aa3_pastIllness_name_54Onset: 33-54-7780Dktprftfmudx (1 source)ref_b4147591fa544d37b9745d2d3f6b6aa3_pastIllness_name_56Onset: 73-63-7374Yfbtursomzcl (1 source)ref_b4147591fa544d37b9745d2d3f6b6aa3_pastIllness_name_58Onset: 84-07-7422Vzgrzntoexql (1 source)ref_b492509a26a144379bdb8b929d0826da_pastIllness_name_50Onset: 98-75-0956Xnatybthtyin (1 source)ref_b492509a26a144379bdb8b929d0826da_pastIllness_name_52Onset: 47-42-3491Zqozooxmxqcx (1 source)ref_b492509a26a144379bdb8b929d0826da_pastIllness_name_54Onset: 31-20-4098Hdmemhtnourm (1 source)ref_b492509a26a144379bdb8b929d0826da_pastIllness_name_56Onset: 84-15-5573Rmspyvkllryo (1 source)ref_b492509a26a144379bdb8b929d0826da_pastIllness_name_58Onset: 77-81-2274Hvgojrjmqdpy (1 source)ref_[id number]_pastIllness_name_50Onset: 83-65-7241Plgjorjrpkrh (1 source)ref_[id number]_pastIllness_name_52Onset: 27-28-3515Vqxfezgfabsa (1 source)ref_[id number]_pastIllness_name_54Onset: 44-10-6312Xfgzvdgkyude (1 source)ref_[id number]_pastIllness_name_56Onset: 71-45-6330Sfygeadmekid (1 source)ref_[id number]_pastIllness_name_58Onset: 88-68-6224Whsnsiwshtmg (1 source)ref_[id number]_pastIllness_name_50Onset: 26-62-3648Gaoerujcvcmi (1 source)ref_[id number]_pastIllness_name_52Onset: 33-82-3473Brfmspfcfjnq (1 source)ref_[id number]_pastIllness_name_54Onset: 47-33-3075Wbxqdoqslnom (1 source)ref_[id number]_pastIllness_name_56Onset: 85-93-3937Pnhdvyxkpdjy (1 source)ref_[id number]_pastIllness_name_58Onset: 36-11-8018Vzhqwhyoehfe (1 source)ref_[id number]_pastIllness_name_50Onset: 36-78-4087Yynqthtorppm (1 source)ref_[id number]_pastIllness_name_52Onset: 20-44-3278Kkzjphxjdkdl (1 source)ref_[id number]_pastIllness_name_54Onset: 91-73-4854Jtjdnjutyyrx (1 source)ref_[id number]_pastIllness_name_56Onset: 91-98-9344Fdwqbqhhyipl (1 source)ref_[id number]ad69_pastIllness_name_58Onset: 71-32-3060Tmgbnsmykama (1 source)ref_[id number]_pastIllness_name_50Onset: 35-75-7466Mmlshrbhhahz (1 source)ref_[id number]_pastIllness_name_52Onset: 25-95-7615Bvquqkafrjdh (1 source)ref_[id number]12c1_pastIllness_name_54Onset: 74-22-5980Vijmuhvexllj (1 source)ref_[id number]_pastIllness_name_56Onset: 76-43-3917Odsxtfdbqfba (1 source)ref_[id number]_pastIllness_name_58Onset: 76-26-7359Gwqscssvpwtq (1 source)ref_[id number]_pastIllness_name_50Onset: 10-30-2543Eeudljucwapg (1 source)ref_[id number]_pastIllness_name_52Onset: 76-94-1472Hvwylcbwezjw (1 source)ref_[id number]_pastIllness_name_54Onset: 78-54-9671Xqykitjbiesg (1 source)ref_[id number]_pastIllness_name_56Onset: 90-74-1013Swcejknhgxiz (1 source)ref_[id number]_pastIllness_name_58Onset: 06-20-2015 Results Test NameValueInterpretationReference RangeFacilUniversity Hospitals [facility] Center .2Invalid Interpretation Code0.9-1.2Blanshelby memorial hospitalbidu.com.[facility] 23.0Invalid Interpretation Code9.1-12.0Blkaleida healthAlertMe [facility] Tobacco smoking statusNon-SmokerInvalid Interpretation CodeBlStorytree Urine Cultureon 29-14-4163Hlcrdxqm identified Cx Nom (U)ORGANISM: Strep agalactiae - (group b) (O:STRAGA) [place] Count 50,000 PERFORMED BY: [facility] [address] [id number] PATHOLOGIST CLERK OF SCALES LLOYD LAURA M.D.NormalThe [facility] Physician GroupComment on above: Performed By: #### CUU #### [facility] [address] [place] [address] USALaboratory - Chemistry and Chemistry - challengeon [id number] [Mass/Vol]4.0 g/dLInvalid Interpretation Code3.7-5.0[employer] Albumin/Globulin [Mass ratio]1.3 {ratio}Invalid Interpretation Code1.0-2.4Brag & bone ALP [Catalytic activity/Vol]124.0 U/LInvalid Interpretation Dtyb46-253MbgvgwaugDining Secretary ALT [Catalytic activity/Vol]13.0 U/LInvalid Interpretation Code0-50[facility] [employer] Anion gap [Moles/Vol]14 mmol/LInvalid Interpretation Fwer68-41XcverzldkDining Secretary AST [Catalytic activity/Vol]15.0 U/LInvalid Interpretation Code0-40[facility] Bilirubin [Mass/Vol]0.40 mg/dLInvalid Interpretation Code0.0-1.0[facility] Bilirubin Ql (U)NegativeInvalid Interpretation Code NegativeDining Secretary Calcium [Mass/Vol]8.90 mg/dLInvalid Interpretation Code 8.5-10.8Brag & bone Chloride [Moles/Vol]103.0 mmol/LInvalid Interpretation Zovi234-092Bmtthtyit foodjunky Cholesterol [Mass/Vol]200.0 mg/dLInvalid Interpretation Code0-200[place] food[employer] Cholesterol in HDL [Mass/Vol]40.0 mg/dLInvalid Interpretation Jrzz61-170Qyscgafyz foodjunky Cholesterol in LDL [Mass/Vol]99.0 mg/dLInvalid Interpretation Code0-130[place] [employer] Cholesterol in VLDL [Mass/Vol]61.0 mg/dLInvalid Interpretation Code0-39[place] [employer] Cholesterol.total/Cholesterol in HDL [Mass ratio]5 {ratio}Invalid Interpretation CodeSan JuanAlertMe [facility] CO2 [Moles/Vol]28.0 mmol/LInvalid Interpretation Code 23-30[place] JuanXiaoi Robert Creatinine [Mass/Vol]0.80 mg/dLInvalid Interpretation Code0.5-1.5[facility] [place] [employer] [facility] Glucose [Mass/Vol]95.0 mg/dLInvalid Interpretation Code 80-117[place] JuanXiaoi Robert Ketones Ql (U)NegativeInvalid Interpretation Code NegativeSan JuanXiaoi Robert pH (U)6 [pH]Invalid Interpretation Code5.0-9.0[place] Juan[place] Robert Potassium [Moles/Vol]4.30 mmol/LInvalid Interpretation Code3.5-5.3Bforks community hospitalbidu.com.br Protein [Mass/Vol]7.20 g/dLInvalid Interpretation Code 6.3-7.9[place] [employer] [facility] Sodium [Moles/Vol]141.0 mmol/LInvalid Interpretation Iyzq999-747Eybxsxxhr [place] [employer] [facility] Specific gravity (U) [Rel density]1.010Invalid Interpretation Code1.003-1.030[place] [employer] [facility] Triglyceride [Mass/Vol]304.0 mg/dLInvalid Interpretation Hwfx00-667Daqdgvsfx [place] [employer] [facility] Urea nitrogen [Mass/Vol]14.0 mg/dLInvalid Interpretation Code7-25[place] [employer] [facility] Urea nitrogen/Creatinine [Mass ratio]18 mg/mgInvalid Interpretation Code6-20[place] [employer] [facility] Urobilinogen (U) [Mass/Vol]normalInvalid Interpretation CodenormalEl [place] [employer] [facility] Laboratory - Cytologyon 74-38-8830Sxanhdli report Cyto stain.thin prep Doc (Cvx/Vag)Total HysterectomyInvalid Interpretation Code21 - 64[place] [employer] [facility] Laboratory - Hematology and Cell countson 09-11-2024 Erythrocyte distribution width (RBC) [Ratio]14.10 %Invalid Interpretation Code 11.5-15.5Bfor[facility] community hospitalAuthentic Response [facility] Hematocrit (Bld) [Volume fraction]39.10 %Invalid Interpretation Code35.7-47.1[facility] [place] [employer] [facility] Hemoglobin (Bld) [Mass/Vol]12.60 g/dLInvalid Interpretation Code11.9-15.7Bfor[facility] community hospitalAuthentic Response [facility] Hemoglobin Ql (U)TraceInvalid Interpretation Code NegativeSan JuanAlertMe [facility] MCH (RBC) [Entitic mass]28.40 pgInvalid Interpretation Code23.2-33.3BOhio[facility] MCHC (RBC) [Mass/Vol]32.20 g/dLInvalid Interpretation Code32.0-36.0[facility] MCV (RBC) [Entitic vol]88.10 fLInvalid Interpretation Code83.4-101.4BOhio[facility] Platelet mean volume (Bld) [Entitic vol]11.70 fLInvalid Interpretation Code8.3-11.5BOhio[facility] Platelets (Bld) [#/Vol]190.0 10*3/uLInvalid Interpretation Dolf668-289Plbqbqhbt [place] [facility] RBC (Bld) [#/Vol]4.440 10*6/uLInvalid Interpretation Code3.72-5.24[facility] WBC (Bld) [#/Vol]5.90 10*3/uLInvalid Interpretation Code3.9-10.3BOhio[facility] Laboratory - Specimen informationon 21-75-0448Npnpblj (U)clearInvalid Interpretation CodeClearBOhioHealth [facility] Collection time (Varun) [Date/time]9:05 amInvalid Interpretation CodeWilson Memorial Hospital [facility] Color (U)yellowInvalid Interpretation Codeyellow [facility]oShen[facility] [facility] Laboratory - Urinalysison 51-90-2840Tjxebrj Test strip (U) [Mass/Vol]NegativeInvalid Interpretation CodeNegativeWilson Memorial Hospital [facility] Leukocyte esterase Test strip Ql (U)2+Invalid Interpretation CodeNegativeWilson Memorial Hospital Jodange [facility] Nitrite Ql (U)NegativeInvalid Interpretation Code NegativeDining Secretary Protein Ql (U)NegativeInvalid Interpretation Code NegativeDining Secretary No Panel Informationon 91-53-302189Bnrgwwp Interpretation CodeDining Secretary 5620-90974-21Skeswsx Interpretation Code0-4Brag & bone 0144-45873-4Azqiutd Interpretation Code0-4Brag & bone 1+Invalid Interpretation CodetraceDining Secretary no Panel Informationon 64-73-6313Ixrbotj smoking status Non-SmokerInvalid Interpretation CodeDining Secretary NURSING PROGon 76-76-3855MLAQTPY PROGHNO ID: [id number] Author: Natasha Walker RN Service: ? Author [...] Medications Administered: Entyvio (See MAR) Dose #: 4 Start: 1049 AM / Stop: 1127AM Fevers in last 7 days: No / Rash: No Infusion tolerated well? Yes IV: See avatar Vital Signs: See Flow sheets Additional Notes if applicable: N/A Electronically Signed By: Gavino HenriquezUniversity Hospitals [facility] NURSING PROTyrell 21-05-6870PJQAGPT KARIME ID: [id number] Author: Ria Reese RN Service: ? Author [...] No need for follow-up Electronically Signed By: Arian [facility]Mer[facility] ID: [id number] Author: Ria Reese RN Service: ? Author Type: Registered Nurse Type: Nursing Progress Note Filed: 06/08/2023 11:44 AM Note Text: Kimberly Cavazos Reason for therapy: IBD Ordering Physician: Darryl Supervising/Billing Physician: Cookie Pre-Medications Administered: No Medications Administered: Entyvio (See MAR) Dose #: 4 Start: 1056AM / Stop: 1130AM Fevers in last 7 days: No / Rash: No Infusion tolerated well? Yes IV: See avatar Vital Signs: See Flow sheets Additional Notes if applicable: N/A Electronically Signed By: May MatthewsUC [facility] - Chemistry and Chemistry - challengeon 08-31-5094Zbyrkhf [Mass/Vol] 4.40 g/dLInvalid Interpretation Code3.7-5.0San JuanXiaoi Robert Albumin/Globulin [Mass ratio]1.4 {ratio}Invalid Interpretation Code1.0-2.4Bthedacare medical center shawanoEnrich Social Productions ALP [Catalytic activity/Vol]121.0 U/LInvalid Interpretation Nfea73-926Rxidliiea foodj[employer]y ALT [Catalytic activity/Vol]13.0 U/LInvalid Interpretation Code0-50[place] [employer] Anion gap [Moles/Vol]11 mmol/LInvalid Interpretation Sqcr78-13Ytlfogsvn [place] [employer] [facility] AST [Catalytic activity/Vol]14.0 U/LInvalid Interpretation Code0-40[place] [employer] Bilirubin [Mass/Vol]0.30 mg/dLInvalid Interpretation Code0.0-1.0[place] [employer] [facility] Bilirubin Ql (U)NegativeInvalid Interpretation Code NegativeEl Paso [place] [employer] [facility] Calcium [Mass/Vol]9.50 mg/dLInvalid Interpretation Code 8.5-10.8BOhio[facility] Jodange [facility] Chloride [Moles/Vol]105.0 mmol/LInvalid Interpretation Ojqj148-592Jzahpraju [employer] Cholesterol [Mass/Vol]199.0 mg/dLInvalid Interpretation Code0-200San JuanAlertMe [facility] Cholesterol in HDL [Mass/Vol]38.0 mg/dLInvalid Interpretation Onfs87-534KvelhhsxbAlertMe [facility] Cholesterol in LDL [Mass/Vol]102.0 mg/dLInvalid Interpretation Code0-130[place] JuanXiaoi Robert Cholesterol in VLDL [Mass/Vol]59.0 mg/dLInvalid Interpretation Code0-39[place] JuanXiaoi Robert Cholesterol.total/Cholesterol in HDL [Mass ratio]5 {ratio}Invalid Interpretation CodeSan JuanXiaoi Robert CO2 [Moles/Vol]28.0 mmol/LInvalid Interpretation Code 23-30[place] [employer] [facility] Creatinine [Mass/Vol]0.80 mg/dLInvalid Interpretation Code0.5-1.5[facility] [employer] [facility] Glucose [Mass/Vol]103.0 mg/dLInvalid Interpretation Dfss49-767Uxyjdwfdm [place] [employer] [facility] Ketones Ql (U)NegativeInvalid Interpretation Code NegativeSan JuanAlertMe [facility] pH (U)6 [pH]Invalid Interpretation Code5.0-9.0[place] [employer] [facility] Potassium [Moles/Vol]4.40 mmol/LInvalid Interpretation Code3.5-5.3[facility] [place] [employer] [facility] Protein [Mass/Vol]7.60 g/dLInvalid Interpretation Code 6.3-7.9[facility] [place] [employer] [facility] Sodium [Moles/Vol]140.0 mmol/LInvalid Interpretation Ryqf246-715AxwsxzxsbAlertMe [facility] Specific gravity (U) [Rel density]1.010Invalid Interpretation Code1.003-1.030[place] [employer] [facility] Triglyceride [Mass/Vol]293.0 mg/dLInvalid Interpretation Ozuk81-462QliyjenypAlertMe [facility] Urea nitrogen [Mass/Vol]18.0 mg/dLInvalid Interpretation Code7-25[place] JuanAlertMe [facility] Urea nitrogen/Creatinine [Mass ratio]23 mg/mgInvalid Interpretation Code6-20[place] JuanAlertMe [facility] Urobilinogen (U) [Mass/Vol]normalInvalid Interpretation CodenormalSan JuanAlertMe [facility] Laboratory - Hematology and Cell countson 05-17-2023 Erythrocyte distribution width (RBC) [Ratio]14.40 %Invalid Interpretation Code 11.5-15.5[facility] [place] [employer] [facility] Hematocrit (Bld) [Volume fraction]37.90 %Invalid Interpretation Code35.7-47.1[facility] [employer] [facility] Hemoglobin (Bld) [Mass/Vol]12.20 g/dLInvalid Interpretation Code11.9-15.7[facility] [place] [employer] [facility] Hemoglobin Ql (U)NegativeInvalid Interpretation Code NegativeWilson Memorial Hospital [facility] MCH (RBC) [Entitic mass]27.70 pgInvalid Interpretation Code23.2-33.3BOhioHealth [facility] MCHC (RBC) [Mass/Vol]32.20 g/dLInvalid Interpretation Code32.0-36.0[place] [employer] [facility] MCV (RBC) [Entitic vol]86.10 fLInvalid Interpretation Code83.4-101.4[facility] [place] [employer] [facility] Platelet mean volume (Bld) [Entitic vol]11.60 fLInvalid Interpretation Code8.3-11.5[facility] [employer] [facility] Platelets (Bld) [#/Vol]205.0 10*3/uLInvalid Interpretation Yqcy405-540Urxmpezcd [place] [employer] [facility] RBC (Bld) [#/Vol]4.40 10*6/uLInvalid Interpretation Code3.72-5.24[place] JuanAlertMe [facility] WBC (Bld) [#/Vol]6.20 10*3/uLInvalid Interpretation Code3.9-10.3[facility] [place] [employer] [facility] Laboratory - Specimen informationon 91-09-4058Ljoqfnu (U)ClearInvalid Interpretation CodeClearBlanchard foodjunky Collection time (Varun) [Date/time]10:30 amInvalid Interpretation CodeStorytree Color (U)yellowInvalid Interpretation Codeyellow [place] [employer] Laboratory - Urinalysison 16-55-1690Iylmlse Test strip (U) [Mass/Vol]NegativeInvalid Interpretation CodeNegativeDining Secretary Leukocyte esterase Test strip Ql (U)NegativeInvalid Interpretation CodeNegativeDining Secretary Nitrite Ql (U)NegativeInvalid Interpretation Code NegativeDining Secretary Protein Ql (U)NegativeInvalid Interpretation Code NegativeDining Secretary No Panel Informationon 70-11-555959Ndwguyh Interpretation [employer] No Panel Informationon 27-97-5963Apqaxlx smoking status Non-SmokerInvalid Interpretation [employer] NURSING PROGon 11-31-9647QGRNNQS PROGHNO ID: [id number] Author: Ranjana Espinoza RN Service: ? Author [...] with any further issues Electronically Signed By: JOSE LUIS Zarco Reason for therapy: IBD Ordering Physician: darryl Supervising/Billing Physician: darryl Pre-Medications Administered: No Medications Administered: Entyvio (See NOV) Dose #: 3 Start: 1025AM / Stop: 1104AM Fevers in last 7 days: No / Rash: No Infusion tolerated well? Yes IV: See avatar Vital Signs: See Flow sheets Additional Notes if applicable: N/A Electronically Signed By: Gavino ZarcoMain Campus Medical Center 68-94-0125ZEGUNZP PROGHNO ID: [id number] Author: Ann Cobos RN Service: ? Author [...] Medications Administered: Entyvio (See NOV) Dose #: 2 Start: 1341 PM / Stop: 1421 PM Fevers in last 7 days: No / Rash: No Infusion tolerated well? Yes IV: See avatar Vital Signs: See Flow sheets Additional Notes if applicable: N/A Electronically Signed By: Gavino MendozaMain Campus Medical Center 66-42-4833TFLQIKC PROGHNO ID: [id number] Author: Verito Wright RN Service: ? Author [...] with any further issues Electronically Signed By: Gavino GoelGood [facility]aritan Hospital PRONO ID: [id number] Author: Verito Wright RN Service: ? Author [...] Notes if applicable: N/A Electronically Signed By: Gavino GoelUniversity Hospitals [facility] Center Calprotectin (Stl) [Mass/Mass]on 71-23-8183DUQRMJUZUJDC, FECAL INTERPElevated AbnormalTriHealth Bethesda North HospitalComment on above:Order Comment: Specimen Type: STOOL SPECIMEN Ordering Facility: [facility] Address: [address] [place] [address]Vhufgp Comment: On February 15, 2023, [facility] [employer] implemented a new fecal calprotectinmethod, the [employer] Liaison Calprotectin assay. For assistance with interpretation of results in patients undergoing serial monitoring, contact Client Services at [phone] or [phone] to discuss options, preferably within 7 days of issuing this report. Interpretation: <50.0 ug/g: Normal 50.0 ug/g - 120.0 ug/g: Borderline elevated. Re-evaluation in 4-6 weeks is recommended if clinically indicated. >120.0 ug/g: ElevatedPerformed By: #### 62769-2 #### [facility] CLIA [id number] [address] [place] [address] [place] AMERICACALPROTECTIN, FECAL FLJAEZYRXGDH573 ug/gHigh<50[facility] on above:Order Comment: Specimen Type: STOOL SPECIMEN Ordering Facility: [facility] Address: [address] [place], [place] [address]Performed By: #### 09662-8 #### [facility] CLIA [id number] [address] STATES OF GLPNEKA66([place])D3 SerPl-ncon [address]693-chdjmwgvetdtuy D3 [Mass/Vol]27.4 ng/mLLow31.0-80.0[facility] on above:Order Comment: Specimen Type: BLOOD SPECIMENOrdering Facility: [facility] Address:[address] [place], [place] [address]Result Comment: Classification of 25 [place] Vitamin D status: Deficiency/Insufficiency: < or = 30 ng/ml. Sufficiency/Optimal Levels: 31-80 ng/mL Toxicity: > 100 ng/mL. Test performed by chemiluminescent immunoassay.Performed By: #### 1989-3 ####[facility] LABCLIA [id number] [place] [address] [place] AMERICABLOOD TB SCREENon 02-22-2023M. tuberculosis tuberculin stim IFN-g Ql (Bld)NegativeNormalCHocking Valley Community Hospital on above:Order Comment: Specimen Type: BLOOD SPECIMENOrdering Facility: [facility] Address:[address] [place], [place] [address]Performed By: #### INFTBP ####[facility] LABCLIA [id number] [place] [address] [place] DENAE MITOGEN MINUS NIL>9.20Normal>=0.50[facility] ClevelandComment on above: Order Comment: Specimen Type: BLOOD SPECIMENOrdering Facility: [facility] Address:[address] [place], [place] [address]Performed By: #### INFTBP ####[facility] LABCLIA [id number] [place] [address] [place] AMERICATB GAMMA INTERPRETATIONInfection with M. tuberculosis complex is unlikely. If latent tuberculosis infection is highly suspected, a negative result does not rule out the infection. Specimens from immunocompromised patients and those <5 years of age may show false negative results. In case of a contact investigation, please repeat 8-12 weeks after a known exposure.NormalMedina HospitalComment on above:Order Comment: Specimen Type: BLOOD SPECIMENOrdering Facility: [facility] Address:[address] [place], [place] [address]Performed By: #### INFTBP ####[facility] LABCLIA [id number] [address] STATES OF AMERICATB NIL0.80 IU/mLNormal<=8.00 [facility] on above:Order Comment: Specimen Type: BLOOD SPECIMENOrdering Facility: [facility] Address:[address] [place], [place] [address]Performed By: #### INFTBP ####[facility] LABCLIA [id number] [place] [address] [place] AMERICATB1 AG MINUS NIL0.10 IU/mLNormal<0.35[facility] Comment on above:Order Comment: Specimen Type: BLOOD SPECIMENOrdering Facility: [facility] Address:[address] [place] [address] Performed By: #### INFTBP ####[facility] LABCLIA [id number] [place] [address] [place] TB2 AG MINUS NIL0.17 IU/mLNormal<0.35Medina HospitalComcorewell health william [facility] on above: Order Comment: Specimen Type: BLOOD SPECIMENOrdering Facility: [facility] Address:[address] [place], [place] [address]Performed By: #### INFTBP ####[facility] LABCLIA [id number] [facility] [id number]ETCB panel Auto (Bld)on 02-22-2023 Erythrocyte distribution width (RBC) [Ratio]14.6 %Hbiyip19.5-15.0[facility] on above:Order Comment: Specimen Type: BLOOD SPECIMENOrdering Facility: [facility] Address:[address] [place], [place] [address]Performed By: #### 34289-0 ####[facility] LABCLIA [id number] [place] [address] Hematocrit (Bld) [Volume fraction]38.4 %Mjqtib65.0-46.0[facility] on above:Order Comment: Specimen Type: BLOOD SPECIMENOrdering Facility: [facility] Address:[address] [place], [place] [address]Performed By: #### 10492-1 ####[facility] LABCLIA [id number] [place], [place] [address]Qyrwdiwcqu (Bld) [Mass/Vol]12.4 g/pOJcimdi97.5-15.5CH[facility] on above: Order Comment: Specimen Type: BLOOD SPECIMENOrdering Facility: [facility] Address:[address] [place], [place] [address]Performed By: #### 00900-5 ####[facility] LABCLIA [id number] [place], [place] [address]BHK (RBC) [Entitic mass]28.4 eeLhipqw47.0-34.0[facility] on above:Order Comment: Specimen Type: BLOOD SPECIMENOrdering Facility: [facility] Address:[address] [place], [place] [address]Performed By: #### 86691-2 ####[facility] LABCLIA [id number] [place], [place] [address]CSRK (RBC) [Mass/Vol]32.3 g/kXFwzosk94.5-36.0[facility] on above:Order Comment: Specimen Type: BLOOD SPECIMENOrdering Facility: [facility] Address:[address] [place], [place] [address]Performed By: #### 41191-4 ####[facility] LABIA [id number] [place], [place] [address]KDT (RBC) [Entitic vol]88.1 gJNpaifg34.0-100.0 [facility] on above:Order Comment: Specimen Type: BLOOD SPECIMENOrdering Facility: [facility] Address:[address] [place], [place] [address]Performed By: #### 14247-2 ####[facility] LABIA [id number] [place], [place] [address]Dtpslfybi RBC (Bld) [#/Vol]10*3/uLNormal<0.01[facility] on above: Order Comment: Specimen Type: BLOOD SPECIMENOrdering Facility: [facility] Address:[address] [place], [place] [address]Performed By: #### 20568-5 ####[facility] LABIA [id number] [place], [place] [address]Hdpxdngt mean volume (Bld) [Entitic vol]12.2 fLNormal 9.0-12.7CH[facility] on above:Order Comment: Specimen Type: BLOOD SPECIMENOrdering Facility: [facility] Address:[address] [place], [place] [address]Performed By: #### 37841-1 ####[facility] LABIA [id number] [place], [place] [address]Idwntwbls (Bld) [#/Vol]196 10*3/fXNwzunv243-859OuawtpevyAdams County Hospital on above: Order Comment: Specimen Type: BLOOD SPECIMENOrdering Facility: [facility] Address:[address] [place], [place] [address]Performed By: #### 33410-8 ####[facility] LABCLIA [id number] [place], [place] [address]GKN (Bld) [#/Vol]4.36 10*6/uLNormal3.90-5.20[facility] on above:Order Comment: Specimen Type: BLOOD SPECIMENOrdering Facility: [facility] Address:[address] [place], [place] [address]Performed By: #### 04796-0 ####[facility] LABIA [id number] [place], [place] [address]QAC (Bld) [#/Vol]10.43 10*3/uLNormal3.70-11.00[facility] on above: Order Comment: Specimen Type: BLOOD SPECIMENOrdering Facility: [facility] Address:[address] [place], [place] [address]Performed By: #### 95300-9 ####[facility] LABIA [id number] [place], [place] [address]Grpkzykiebzsw metabolic 2000 panelon 34-45-2540Ncxegzr [Mass/Vol]4.2 g/dLNormal3.9-4.9[facility] on above:Order Comment: Specimen Type: BLOOD SPECIMENOrdering Facility: [facility] Address:[address] [place], [place] [address]Performed By: #### 16343-0 ####[facility]IA [id number] [place], [place] [address]KWW [Catalytic activity/Vol]125 U/VTdmd22-222RxejididuAdams County Hospital on above:Order Comment: Specimen Type: BLOOD SPECIMENOrdering Facility: [facility] Address:[address] [place], [place] [address]Performed By: #### 47885-0 ####[facility] LABCLIA [id number] [place] [address]QFW [Catalytic activity/Vol]13 U/LNormal7-38[facility] on above:Order Comment: Specimen Type: BLOOD SPECIMENOrdering Facility: [facility] Address:[address] [place], [place] [address]Performed By: #### 54028-5 ####[facility] LABCLIA [id number] DAV[place] [facility], [place] [address]Popan gap [Moles/Vol]12 mmol/LNormal9-18[facility] on above:Order Comment: Specimen Type: BLOOD SPECIMENOrdering Facility: [facility] Address:[address] [place], [place] [address]Performed By: #### 60820-4 ####[facility] LABCLIA [id number] [place] [facility] [address]XTR [Catalytic activity/Vol]15 U/JUjtkwt76-56OonwxxlblAdams County Hospital on above:Order Comment: Specimen Type: BLOOD SPECIMENOrdering Facility: [facility] Address:[address] [place], [place] [address]Performed By: #### 10697-2 ####[facility] LABCLIA [id number] DAV[facility] NELLIEMIREYASAGE MEM[facility]IAL [place]ITALC[place], [place] [address]Vgkvffofd [Mass/Vol]0.3 mg/dLNormal0.2-1.3[facility] on above:Order Comment: Specimen Type: BLOOD SPECIMENOrdering Facility: [facility] Address:[address] [place], [place] [address]Performed By: #### 40456-7 ####[facility] LABCLIA [id number] [place], [place] [address]Lmsdosh [Mass/Vol]9.5 mg/dLNormal8.5-10.2[facility] on above: Order Comment: Specimen Type: BLOOD SPECIMENOrdering Facility: [facility] Address:[address] [place], [place] [address]Performed By: #### 66186-8 ####[facility] LABCLIA [id number] [facility] [place], [place] [address]Eljekoyr [Moles/Vol]104 mmol/VZbkhnc14-846BgmjgjjpdAdams County Hospital on above:Order Comment: Specimen Type: BLOOD SPECIMENOrdering Facility: [facility] Address:[address] [place], [place] [address]Performed By: #### 54069-9 ####[facility] LABCLIA [id number] [place], [place] [address]DM3 [Moles/Vol]24 mmol/WSgcfgy29-54FmcluuixmAdams County Hospital on above:Order Comment: Specimen Type: BLOOD SPECIMENOrdering Facility: [facility] Address:[address] [place], [place] [address]Performed By: #### 47048-4 ####[facility]CLIA [id number] [place], [place] [address]Ossaihlufr [Mass/Vol]0.82 mg/dLNormal0.58-0.96[facility] on above:Order Comment: Specimen Type: BLOOD SPECIMENOrdering Facility: [facility] Address:[address] [place], [place] [address]Performed By: #### 75868-4 ####[facility] LABCLIA [id number] [place], [place] [address]ZHHAZSHVD GLOMERULAR FILTRATION RATE85 mL/min/1.73m???Normal>=60[facility] on above:Order Comment: Specimen Type: BLOOD SPECIMENOrdering Facility: [facility] Address:[address] [place], [place] [address]Result Comment: Estimated Glomerular Filtration Rate (eGFR) is calculated using the 2020 CKD-EPI creatinine equation. This equation utilizes serum creatinine, sex, and age as parameters. The creatinine assay has traceable calibration to isotope dilution-mass spectrometry. Refer to KDIGO guidelines f or clinical interpretation. In patients with unstable renal function, e.g. those with acute kidney injury, the eGFR may not accurately reflect actual GFR. Performed By: #### 78500-6 ####[facility] LABCLIA [id number] [place], [place] [address]Lkfdsyl [Mass/Vol]106 mg/dLHigh 74-99[facility] on above:Order Comment: Specimen Type: BLOOD SPECIMENOrdering Facility: [facility] Address:[address] [place] [address]Zgulqx Comment: The [place] Diabetes Association (ADA) provides guidance for cutoff values for fasting glucose and random glucose. The ADA defines fasting as no caloric intake for at least 8 hours. F asting plasma glucose results between 100 to 125 [...] Standards of Medical Care in Diabetes 2016, [place] Diabetes Association. Diabetes Care. 2016.39(Suppl 1).Performed By: #### 41426-0 ####[facility] LABCLIA [id number] [place], [place] [address]Yortgbgvp [Moles/Vol]4.2 mmol/LNormal3.7-5.1CH[facility] on above:Order Comment: Specimen Type: BLOOD SPECIMENOrdering Facility: [facility] Address:[address] [place] [address]Qlzbjotfh By: #### 38015-5 ####[facility] LABCLIA [id number] [place], [place] [address]Otlakgc [Mass/Vol]7.4 g/dLNormal6.3-8.0[facility] on above:Order Comment: Specimen Type: BLOOD SPECIMENOrdering Facility: [facility] Address:[address] [place], [place] [address]Performed By: #### 63911-6 ####[facility] LABCLIA [id number] [place], [place] [address]Zvkaig [Moles/Vol]140 mmol/KSsxqot189-641DhukcclngAdams County Hospital on above:Order Comment: Specimen Type: BLOOD SPECIMENOrdering Facility: [facility] Address:[address] [place], [place] [address]Performed By: #### 98121-6 ####[facility] LABCLIA [id number] [place], [place] [address]Trel nitrogen [Mass/Vol]15 mg/dLNormal7-21[facility] on above:Order Comment: Specimen Type: BLOOD SPECIMENOrdering Facility: [facility] Address:[address] [place], [place] [address]Performed By: #### 93817-9 ####[facility] LABCLIA [id number] [place], [place] [address]RUAPMVXne 06-11-5972QPF Coag (PPP) [Relative time]3.01 {INR}NormalKettering Health Springfield on above:Performed By: #### PT #### [facility] [address] [place] [address] Dr. Kvng Coleman [facility]edoComcorewell [facility] on above:Result Comment: DESIRED INR: 2.0 - 3.0 CONDITIONS NOT LISTED BELOW 2.5 - 3.5 FOR PROSTHETIC HEART VALVE REPLACEMENT 2.5 - 3.5 RECURRENT THROMBOSIS Performed By: #### PT #### [facility] [address] [place] [address] Dr. Kvng Olvera Coag (PPP) [Time]30.0 sCritically high9.0-11.6[facility] on above:Performed By: #### PT #### [facility] [address], [place] [address] Dr. Kvng ChanAddendum Reporton [id number] ReportMissing Attachment Chartable Reference Lab Reports Can be viewed in source system Addendum Discussion [facility], #[id number], Date Reported: 12/20/2022 Final Diagnosis: A. Terminal ileum biopsy: - Chronic, severely active enteritis; no granulomas or dysplasia. B. Ascending colon, biopsy: - Colonic mucosa with no significant pathologic abnormality. C. Descending colon, biopsy: - Colonic mucosa with no significant pathologic abnormality. [id number] [id number] [id number] [id number] [id number] Mason Burdick MD PhD (Electronically signed by) Verified: 12/20/22 14:22 ADD Non-Pathologist Requested Consult Comment by Dr. Mason Burdick: The above consultation report was reviewed, and there are no majordiscrepancies.[facility]edo HospitalComment on above:Performed By: #### AR #### [facility] (DEFAULT) [address] [place], [place] [address]NTNNQSF SURG PATH SLIDE REVIEWon [id number] REPORTNormal [facility] on above:Order Comment: Specimen Type: SLIDE Ordering Facility: Outside Review Address: , ,Result Comment: Surgical Pathology Report Case: [id number] Authorizing Provider: Sae Craven MD Collected: 12/16/2022 09:06 AM Ordering Location: [facility] Received: 12/16/2022 09:07 AM Pathologist: Ramon Locke MD Specimen: SLIDE(S), 6 SLIDES, [id number] By: #### [id number] #### [facility] CLIA [id number] [place] [address] [place] OF AMERICAFINAL DIAGNOSISNormal Medina HospitalComment on above:Order Comment: Specimen Type: SLIDE Ordering Facility: AP Outside Review Address: , ,Result Comment: A. Terminal ileum, biopsy: - Chronic, severely active enteritis; no granulomas or dysplasia. B. Ascending colon, biopsy: - Colonic mucosa with no significant pathologic abnormality. C. Descending colon, biopsy: - Colonic mucosa with no significant pathologic abnormality. Performed By: #### [id number] #### [facility] CLIA [id number] [address] [place] [address] [place] OF AMERICAFINAL PERFORMING LABNormTriHealth on above:Order Comment: Specimen Type: SLIDE Ordering Facility: AP Outside Review Address: , ,Result Comment: Diagnostic interpretation performed at [facility], [address] [place] [address] CLIA# [id number] Digital Photographic Printer: Isaiah Hall M.D.Performed By: #### [id number] #### [facility] CLIA [id number] [address] [place] [address] STATES OF [facility]OSS HOSPITALPROTIMEon 96-75-8999IGR Coag (PPP) [Relative time]2.30 {INR}NormalThe [facility] on above: Performed By: #### URCX #### [facility] [address] [place] [address] Dr. Kvng Coleman [facility] CenterComcorewell health [facility] on above:Result Comment: DESIRED INR: 2.0 - 3.0 CONDITIONS NOT LISTED BELOW 2.5 - 3.5 FOR PROSTHETIC HEART VALVE REPLACEMENT 2.5 - 3.5 RECURRENT THROMBOSIS Performed By: #### URCX #### [facility] [address] [address] [address] Kvng Olvera Coag (PPP) [Time]23.3 sCritically high9.0-11.6[facility] on above:Performed By: #### URCX #### [facility] [address] [place], [place] [address] Dr. Kvng ChanLaboratory - Chemistry and Chemistry - challengeon 11-05-2022 Calprotectin (Stl) [Mass/Mass]173.5 mg/kgHigh0 - 50 mg/kgAdena Fayette Medical Center Calprotectin Stl-nton 92-41-2021Oomaykmpehyi (Stl) [Mass/Mass]173.5 mg/kgHigh 0-50[facility] on above:Order Comment: Specimen Type: STOOL SPECIMENOrdering Facility: [facility] Address:[address] [place], [place] [address]Result Comment: INTERPRETIVE INFORMATION: Calprotectin, Fecal <50.0 mg/kg : Normal 50.0-120.0 mg/kg: Borderline. Test should be re-evaluated in 4-6 wks. >120.0 mg/kg: AbnormalPerformed By: #### 73141-6 ####[facility] LABCLIA [id number] [address] OF AGCWIIH53([place])D3 SerPl-[facility] Community Hospitalon [id number]-xwbiwfpvxydlsy D3 [Mass/Vol] 20.5 ng/mLLow31.0-80.0[facility] on above:Order Comment: Specimen Type: BLOOD SPECIMENOrdering Facility: [facility] Address:[address] [place], [place] [address]Result Comment: Classification of 25 [place] Vitamin D status: Deficiency/Insufficiency: < or = 30 ng/ml. Sufficiency/Optimal Levels: 31-80 ng/mL Toxicity: > 100 ng/mL. Test performed by chemiluminescent immunoassay.Performed By: #### 1989-3 ####[facility] LABCLIA [id number] [place] [id number] [facility] GRE[facility]OSS HOSPITALCB panel Auto (Bld)on 11-01-2022 Erythrocyte distribution width (RBC) [Ratio]14.3 %11.5 - 15.0 %[facility] Hematocrit (Bld) [Volume fraction]39.1 %36.0 - 46.0 %[facility] CenterHemoglobin (Bld) [Mass/Vol]12.6 g/dL11.5 - 15.5 g/dLSouthern [place] Medical CenterH (RBC) [Entitic mass]28.6 pg26.0 - 34.0 pgCSt. Charles HospitalHC (RBC) [Mass/Vol]32.2 g/dL30.5 - 36.0 g/dLSouthern [place] Medical CenterV (RBC) [Entitic vol]88.9 fL80.0 - 100.0 fLCAdena Regional Medical CenterNucleated RBC (Bld) [#/Vol]<0.01 k/uLAdena Fayette Medical CenterPlatelet mean volume (Bld) [Entitic vol]12.8 fLHigh9.0 - 12.7 fLCAdena Regional Medical CenterPlatelets (Bld) [#/Vol]233 10*3/uL150 - 400 k/uLAdena Fayette Medical CenterRBC (Bld) [#/Vol]4.40 10*6/uL 3.90 - 5.20 m/uLAdena Fayette Medical CenterWBC (Bld) [#/Vol]6.56 10*3/uL3.70 - 11.00 k/uL [facility] CenterErythrocyte distribution width (RBC) [Ratio]14.3 %Normal 11.5-15.0[facility] on above:Order Comment: Specimen Type: BLOOD SPECIMENOrdering Facility: [facility] Address:[address] [place], [place] [address]Performed By: #### 42738-7 ####[facility] [id number] [address] OF AMERICAHematocrit (Bld) [Volume fraction]39.1 %Normal 36.0-46.0[facility] on above:Order Comment: Specimen Type: BLOOD SPECIMENOrdering Facility: [facility] Address:[address] [place], [place] [address]Performed By: #### 88119-9 ####[facility] LABIA [id number] [place] [address] [place] OF AMERICAHemoglobin (Bld) [Mass/Vol]12.6 g/dLNormal 11.5-15.5CHocking Valley Community [facility] on above:Order Comment: Specimen Type: BLOOD SPECIMENOrdering Facility: [facility] Address:[address] [place], [place] [address]Performed By: #### 36400-9 ####[facility] LABIA [id number] [place] [address] [place] OF GRE[facility] CROSS HOSPITALMCH (RBC) [Entitic mass]28.6 mkAmxhxm05.0-34.0 [facility] on above:Order Comment: Specimen Type: BLOOD SPECIMENOrdering Facility: [facility] Address:[address] [place], [place] [address]Performed By: #### 04055-2 ####[facility]IA [id number] [address] STATES OF GRE[facility] CROSS HOSPITALMCHC (RBC) [Mass/Vol]32.2 g/dOJceooz47.5-36.0[facility] on above:Order Comment: Specimen Type: BLOOD SPECIMENOrdering Facility: [facility] Address:[address] [place], [place] [address]Performed By: #### 05291-6 ####[facility]IA [id number] [place] [address] [place] MCV (RBC) [Entitic vol]88.9 sZDzkjyf84.0-100.0[facility] on above:Order Comment: Specimen Type: BLOOD SPECIMENOrdering Facility: [facility] Address:[address] [place], [place] [address] Performed By: #### 84627-2 ####[facility]IA [id number] [place] [address] [place] Nucleated RBC (Bld) [#/Vol]10*3/uLNormal<0.01[facility] on above:Order Comment: Specimen Type: BLOOD SPECIMENOrdering Facility: [facility] Address:[address] [place] [address] Performed By: #### 23679-2 ####[facility] LABCLIA [id number] [place] [address] [place] Platelet mean volume (Bld) [Entitic vol]12.8 fLHigh9.0-12.7CHocking Valley Community Hospital on above:Order Comment: Specimen Type: BLOOD SPECIMENOrdering Facility: [facility] Address:[address] [place] [address]Performed By: #### 25480-1 ####[facility] LABCLIA [id number] [place] [address] [place] Platelets (Bld) [#/Vol]233 10*3/mDBhwuix157-519YxradhrmqAdams [facility] Hospital on above:Order Comment: Specimen Type: BLOOD SPECIMENOrdering Facility: [facility] Address:[address] [place] [phone] Performed By: #### 58522-1 ####[facility]IA [id number] [place] [address] [place] RBC (Bld) [#/Vol]4.40 10*6/uLNormal3.90-5.20[facility] on above:Order Comment: Specimen Type: BLOOD SPECIMENOrdering Facility: [facility] Address:[address] [place] [phone] By: #### 36346-6 ####[facility] LABCLIA [id number] [place] [address] [place] OF AMERICAWBC (Bld) [#/Vol]6.56 10*3/uLNormal3.70-11.00[facility] on above:Order Comment: Specimen Type: BLOOD SPECIMENOrdering Facility: [facility] Address:[address] [place] [phone] By: #### 03979-6 ####[facility] LABCLIA [id number] [place] [address] [place] AMERICAHepatic function 2000 panelon 34-26-5532Mqjvbmn [Mass/Vol]4.4 g/dL3.9 - 4.9 g/dLMesa ClinicALP [Catalytic activity/Vol]120 U/L34 - 123 U/LCleveland ClinicALT [Catalytic activity/Vol]17 U/L7 - 38 U/LCleveland ClinicAST [Catalytic activity/Vol]19 U/L13 - 35 U/L [facility] CenterBilirubin [Mass/Vol]0.3 mg/dL0.2 - 1.3 mg/dLAdena Fayette Medical Center Bilirubin.conjugated [Mass/Vol]<0.2 mg/dLMesa ClinicProtein [Mass/Vol]7.5 g/dL6.3 - 8.0 g/dLMesa ClinicAlbumin [Mass/Vol]4.4 g/dLNormal3.9-4.9 [facility] HospitalComment on above:Order Comment: Specimen Type: BLOOD SPECIMENOrdering Facility: [facility] Address:[address] [place], [place] [address]Performed By: #### 72559-6, 2132-05 ####[facility]IA [id number] [address] STATES OF AMERICAALP [Catalytic activity/Vol]120 U/BNvuxwi47-891TnoxbdxbqMedina HospitalComcorewell health [facility] on above:Order Comment: Specimen Type: BLOOD SPECIMENOrdering Facility: [facility] Address:[address] [place], [place] [address]Performed By: #### 20810-8, 2132-05 ####[facility] LABCLIA [id number] [address] STATES OF AMERICAALT [Catalytic activity/Vol]17 U/LNormal7-38[facility] on above:Order Comment: Specimen Type: BLOOD SPECIMENOrdering Facility: [facility] Address:[address] [place], [place] [address]Performed By: #### 32584-8, 2132-05 ####[facility] LABCLIA [id number] [place] [address] [place] AMERICAAST [Catalytic activity/Vol]19 U/YBdwlki96-01GnbedoqyjAdams County Hospital on above:Order Comment: Specimen Type: BLOOD SPECIMENOrdering Facility: [facility] Address:[address] [place], [place] [address]Performed By: #### 87785-1, 2132-05 ####[facility]IA [id number] [place] [address] [place] AMERICABilirubin [Mass/Vol]0.3 mg/dLNormal0.2-1.3CH[facility]ing [facility] on above:Order Comment: Specimen Type: BLOOD SPECIMENOrdering Facility: [facility] Address:[address] [place], [place] [address]Performed By: #### 79306-6, 2132-05 ####[facility]IA [id number] [address] STATES OF AMERICABilirubin.conjugated [Mass/Vol]mg/dLNormal<0.2CHocking Valley Community Hospital on above:Order Comment: Specimen Type: BLOOD SPECIMENOrdering Facility: [facility] Address:[address] [place], [place] [address]Performed By: #### 99131-0, 2132-05 ####[facility]IA [id number] [place] [address] [place] AMERICAProtein [Mass/Vol]7.5 g/dLNormal6.3-8.0[facility] on above:Order Comment: Specimen Type: BLOOD SPECIMENOrdering Facility: [facility] Address:[address] [place] [address]Performed By: #### 54567-1, 2132-05 ####[facility]IA [id number] [address] [place], [place] [address] [place] OF AMERICALaboratory - Chemistry and Chemistry - challengeon [id number]- hydroxyvitamin D3 [Mass/Vol]20.5 ng/mLLow31.0 - 80.0 ng/mLCleveland Clinic Cobalamin (Vitamin B12) [Mass/Vol]380 pg/mL232 - 1,245 pg/mLCleveland ClinicVit B12 SerPl-ncon 17-39-6659Qrkeguuss (Vitamin B12) [Mass/Vol]380 pg/mLNormal 232-1245Cleveland [facility] Memorial HospitalComcorewell health [facility] on above:Order Comment: Specimen Type: BLOOD SPECIMENOrdering Facility: [facility] Address:[address] [place] [address]Performed By: #### 48856-6, 2132-9 ####[facility] LABCLIA [id number] [address] STATES [facility]URSING FACILITYPROTIMEon 65-27-5509MFD Coag (PPP) [Relative time]2.49 {INR}NormalOhioHealth Riverside Methodist Hospitalment on above: Performed By: #### PT #### [facility] [address] [place] [address] Dr. Kvng Coleman [facility] CenterComcorewell health [facility] on above:Result Comment: DESIRED INR: 2.0 - 3.0 CONDITIONS NOT LISTED BELOW 2.5 - 3.5 FOR PROSTHETIC HEART VALVE REPLACEMENT 2.5 - 3.5 RECURRENT THROMBOSIS Performed By: #### PT #### [facility] [address] [place] [address] Dr. Kvng Olvera Coag (PPP) [Time]25.1 sCritically high9.0-11.6[facility] on above:Performed By: #### PT #### [facility] [address] [place] [address] Dr. Kvng Braun URINEon 63-91-4385IRJSZSO URINEIsolate 1 Staphylococcus haemolyticus 40,000 cfu/ml of ORGANISM 1 Staphylococcus haemolyticus ANTIBIOTIC M.I.C RX STATUS Beta-Lactamase Pos POS F Cefoxitin Screen Pos POS F Benzylpenicillin >=0.5 R F Gentamicin <=0.5 S F Ciprofloxacin <=0.5 S F Levofloxacin <=0.12 S F Inducible Clindamycin Resistance Neg NEG F Quinupristin/Dalfopristin <=0.25 S F Linezolid 2 S F Vancomycin <=0.5 S F Tetracycline <=1 S F Nitrofurantoin <=16 S F Rifampicin <=0.5 S F Trimethoprim/Sulfamethoxazole <=10 S F Oxacillin >=4 R FNormalThe [facility] HospitalComment on above:Performed By: #### URCX #### [facility] [address] [place] [address] Dr. Kvng Lala AUTO DIFFon 98-60-1901NOYP #0.1 103/ulNormal0.0-0.1The [facility] HospitalComment on above:Performed By: #### CBC #### [facility] [address] [place] [address] Dr. Kvng ChanBasophils/100 WBC (Bld)0.6 %Normal0.2-2.0[facility] Comment on above:Performed By: #### CBC #### [facility] [address] [place] [address] Dr. Kvng Paredes #0.1 103/ulNormal0.0-0.7The [facility] HospitalComment on above: Performed By: #### CBC #### [facility] [address] [place] [address] Dr. Kvng Blevinsosinophils/100 WBC (Bld)1.2 %Normal0.9-7.0[facility] Comment on above:Performed By: #### CBC #### [facility] [address] [place] [address] Dr. Kvng Blevinsrythrocyte distribution width (RBC) [Ratio]14.1 %Yoiqzl49.0-15.0 [facility] Medical CenterComment on above:Performed By: #### CBC #### [facility] [address] [place] [address] Dr. Kvng ChanHematocrit (Bld) [Volume fraction]37.0 %Rodnwn08.0-48.0The [facility] HospitalComment on above:Performed By: #### CBC #### [facility] [address] [place] [address] Dr. Kvng ChanHemoglobin (Bld) [Mass/Vol]12.3 g/pVKqfuqu34.0-16.0The [facility] HospitalComment on above:Performed By: #### CBC #### [facility] [address] [place] [address] Dr. Kvng Huitron #0.05 10e3/ulCritically high0.00-0.03The [facility] Comment on above:Performed By: #### CBC #### [facility] [address] [place] [address] Dr. Kvng Huitron %0.4 %Normal0.0-0.5The [facility] HospitalComment on above: Performed By: #### CBC #### [facility] [address] [place] [address] Dr. Kvng Sahni #2.8 103/ulNormal1.2-3.8The [facility] HospitalComment on above:Performed By: #### CBC #### [facility] [address] [place] [address] Dr. Kvng Pricehocytes/100 WBC (Bld)23.0 %Whguzi36.5-60.0The [facility] HospitalComment on above:Performed By: #### CBC #### [facility] [address] [place] [address] Dr. Kvng PalmaUAL DIFF REQNONormalThe [facility] HospitalComment on above: Performed By: #### CBC #### [facility] [address] [place] [address] Dr. Kvng Benavidez (RBC) [Entitic mass]28.6 wbBzamhj88.7-34.0The [facility] HospitalComment on above:Performed By: #### CBC #### [facility] [address] [place] [address] Dr. Kvng Barbour (RBC) [Mass/Vol]33.2 g/yHXwdokq70.9-35.2The [facility] HospitalComment on above:Performed By: #### CBC #### [facility] [address] [place] [address] Dr. Kvng Milian (RBC) [Entitic vol]86.0 iYYedqse49.0-99.0The [facility] HospitalComment on above:Performed By: #### CBC #### [facility] [address] [place] [address] Dr. Kvng Hopson #0.8 103/ulNormal0.3-0.8The [facility] HospitalComment on above:Performed By: #### CBC #### [facility] [address] [place] [address] Dr. Kvng Mixonocytes/100 WBC (Bld)6.7 %Normal1.7-12.0The [facility] Comment on above:Performed By: #### CBC #### [facility] [address] [place] [address] Dr. Kvng Wilson #8.1 103/ulCritically high1.4-6.5The [facility] Comment on above:Performed By: #### CBC #### [facility] [address] [place] [address] Dr. Kvng Sharputrophils/100 WBC (Bld)68.1 %Bbqxhm90.0-75.0The [facility] HospitalComment on above:Performed By: #### CBC #### [facility] [address] [place] [address] Dr. Kvng Bhattlet mean volume (Bld) [Entitic vol]11.6 fLNormal9.5-13.5The [facility] HospitalComment on above:Performed By: #### CBC #### [facility] [address] [place] [address] Dr. Kvng LlanesT239 103/dfTxhioq208-245Sjv [facility] HospitalComment on above: Performed By: #### CBC #### [facility] [address] [place] [address] Dr. Kvng ChanRBC4.30 106/ulNormal4.20-5.40The [facility] HospitalComment on above:Performed By: #### CBC #### [facility] [address] [place], [place] [address] Dr. Kvng ChanWBC11.9 103/ulCritically high4.0-11.0The [facility] HospitalComment on above:Performed By: #### CBC #### [facility] [address] [place], [place] [address] Dr. Kvng ChanCT ABD/PELV W CONon 10-56-6705OR ABD/PELV W CONIndication: Hematuria. Lower abdominal pain. Comparison: 11/24/2020 exam. [...] or hydroureter bilaterally. Electronically authenticated by: JOHN AG Date: 2022-08-27 21:54NoLicking [facility] Hospital URINE PROFILEon 38-82-3185Blhjmqjsf Ql (U)NegativeNormal NEGATIVECoshocton Regional Medical CenterComment on above:Performed By: #### URCX #### [facility] [address] [place] [address] Dr. Kvng Corbett (U)CLEARNormalCLEARCoshocton Regional Medical CenterComment on above: Performed By: #### URCX #### [facility] [address] [place] [address] Dr. Kvng Richter ()LT. YELLOWNormalYELLOWCoshocton Regional Medical CenterComment on above:Performed By: #### URCX #### [facility] [address] [place] [address] Dr. Kvng Rogel micrscopic examination will be performed if indicated. NormalCoshocton Regional Medical CenterComment on above:Performed By: #### URCX #### [facility] [address] [place] [address] Dr. Kvng James Ql (U)NegativeNormalNEGATIVECoshocton Regional Medical CenterComment on above:Performed By: #### URCX #### [facility] [address] [place] [address] Dr. Kvng ChanLEUKOCYTESTRACEAbnormalNEGATIVECoshocton Regional Medical CenterComment on above:Performed By: #### URCX #### [facility] [address] [place] [address] Dr. Kvng ChanSPEC GRAVITY1.769Oioipq4.005-<=1.025[facility] Regional Medical CenterComment on above:Performed By: #### URCX #### [facility] [address] [place] [address] Dr. Kvng ChanUA PROTEINTRACENormalNEGATIVE/ TRACEThe [facility] HospitalComment on above:Performed By: #### URCX #### [facility] [address] [place] [address] [address] Kvng Sorensen MICRO INDINDICATEDNormalThe [facility] HospitalComment on above: Performed By: #### URCX #### [facility] [address] [place] [address] [address] Kvng Mathewsbilinogen Qn (U)0.2 {Sue'U}/dLNormal0.2 - 1.0The [facility] HospitalComment on above:Performed By: #### URCX #### [facility] [address] [address] [address] Kvng ChanPROF CHEM 8 (BAS METB)on 95-69-6230Ddjzb gap [Moles/Vol]9.8 mmol/LNormalThe [facility] HospitalComment on above:Performed By: #### BMP #### [facility] [address] [place] [address] Dr. Kvng ChanCalcium [Mass/Vol]8.8 mg/dLNormal8.5-10.1The [facility] Comment on above:Performed By: #### BMP #### [facility] [address] [place] [address] Dr. Kvng ChanChloride [Moles/Vol]102 mmol/AOinadz82-996Vdi [facility] Comment on above:Performed By: #### BMP #### [facility] [address] [place] [address] Dr. Kvng ChanCO2 [Moles/Vol]28.8 mmol/PFzpbra88.0-32.0The [facility] Comment on above:Performed By: #### BMP #### [facility] [address] [place] [address] Dr. Kvng ChanCreatinine [Mass/Vol]0.77 mg/dLNormal0.55-1.02The [facility] HospitalComment on above:Performed By: #### BMP #### [facility] [address] [address] [address] Calderon ChangEGFR-AF NORWEGIAN>60Normal>=60The [facility] HospitalComment on above:Performed By: #### BMP #### [facility] [address] [address] [address] Kvng BlevinsGFR-NON AF NORWEGIAN>60Normal>=60The [facility] HospitalComment on above:Performed By: #### BMP #### [facility] [address] [address] [address] Kvng ChanGlucose [Mass/Vol]96 mg/gAQrxwms08-091Qcs [facility] Comment on above:Performed By: #### BMP #### [facility] [address] [address] [address] Kvng ChanPotassium [Moles/Vol]3.6 mmol/LNormal3.5-5.1The [facility] Comment on above:Performed By: #### BMP #### [facility] [address] [place] [address] Dr. Kvng ChanSodium [Moles/Vol]137 mmol/YSkijlj974-883Noz [facility] Comment on above:Performed By: #### BMP #### [facility] [address] [place] [address] [address] Kvng ChanUrea nitrogen [Mass/Vol]16.0 mg/dLNormal7.0-18.0The The Christ HospitalComment on above:Performed By: #### BMP #### [facility] [address] [place] [address] Dr. Kvng ChanUrea nitrogen/Creatinine [Mass ratio]20.8 mg/mgNoHolmes County Joel Pomerene Memorial HospitalComment on above:Performed By: #### BMP #### [facility] [address] [place] [address] Dr. Kvng ChanPROTIMEon [id number] Coag (PPP) [Relative time]2.68 {INR} NormalThe The Christ HospitalComment on above:Performed By: #### PT #### [facility] [address] [place] [address] Dr. Kvng Coleman GUIDELINESSEE BELOWKindred Hospital DaytonComment on above:Result Comment: DESIRED INR: 2.0 - 3.0 CONDITIONS NOT LISTED BELOW 2.5 - 3.5 FOR PROSTHETIC HEART VALVE REPLACEMENT 2.5 - 3.5 RECURRENT THROMBOSIS Performed By: #### PT #### [facility] [address] [place] [address] Dr. Kvng Smithg (PPP) [Time]27.1 sCritically high9.0-11.6The [facility] on above:Performed By: #### PT #### [facility] [address] [place] [address] Dr. Kvng Lara MICROSCOPIC ONLYon [id number]W SEEN [facility] Medical CenterComment on above:Performed By: #### URCX #### [facility] [address] [place] [address] Dr. Kvng Bazan identified Cx Nom (U)INDICATEDKindred Hospital DaytonComcorewell health [facility] on above:Performed By: #### URCX #### [facility] [address] [place] [address] Dr. Kvng Bermudez SEENNormalNONE SEENK[facility] on above:Performed By: #### URCX #### [facility] [address] [place] [address] Dr. Kvng Patten LM Nom (Urine sed)NONE SEENNormalNONE SEENKettering Health [facility] on above:Performed By: #### URCX #### [facility] [address] [place] [address] Dr. Calderon ChangEpithelial cells LM Ql (Urine sed)RARENormalNONE SEEN /RARECoshocton Regional Medical CenterComcorewell health [facility] on above:Performed By: #### URCX #### [facility] [address] [place] [address] Dr. Kvng Edwards SEENNormiaNONE SEENKettering Health [place] on above:Performed By: #### URCX #### [facility] [address] [place] [address] Dr. Kvng ChanEzozfLBE56-87Rworkfrm1-4Byc Graham HospitalComment on above: Performed By: #### URCX #### [facility] [address] [place] [address] Dr. Kvng ChanWBC2-5AbnormalNONE [facility] Perrysburg HospitalComment on above: Performed By: #### URCX #### [facility] [address] [place] [address] Dr. Kvng ChanUrinalysis - AUTOMATEDon [id number] Ql (U)NegativeNormal NEGATIVERefurrl Other Comment on above:Performed By: #### URCX #### [facility] [address] [place] [address] Dr. Kvng ChanHemoglobin Ql (U)LargeAbnormalNEGATIVERefurrl Other Comment on above:Performed By: #### URCX #### [facility] [address] [place] [address] Dr. Kvng ChanNitrite Ql (U)NegativeNormalNEGATIVERefurrl Other Comment on above:Performed By: #### URCX #### [facility] [address] [place] [address] Dr. Kvng ChanpH (U)5.5 [pH]Normal5-9[place] needmade Other Comment on above:Performed By: #### URCX #### [facility] [address] [place] [address] Dr. Kvng ChanAppearance (U)cloudyNorth needmade Other Bilirubin Ql (U)SmallNoGeosho Other Color (U)redNoGeosho Other Ketones Ql (U)TraceNoGeosho Other Leukocyte esterase Test strip Ql (U)NegativeRefurrl Other Protein Ql (U)100Noalvin j. siteman [facility] center needmade Other Specific gravity (U) [Rel density]1.030Noalvin j. siteman cancer center needmade Other Urobilinogen (U) [Mass/Vol]0.20 mg/dLSteilacoom needmade Other Urinalysis - AUTOMATEDNoGeosho Other PROTIMEon [id number] Coag (PPP) [Relative time]3.11 {INR}NormalCoshocton Regional Medical CenterComment on above:Performed By: #### PT #### [facility] [address] [place] [address] Dr. Kvng Coleman GUIDELINESSEE [facility]ency Hospital ToledoComment on above:Result Comment: DESIRED INR: 2.0 - 3.0 CONDITIONS NOT LISTED BELOW 2.5 - 3.5 FOR PROSTHETIC HEART VALVE REPLACEMENT 2.5 - 3.5 RECURRENT THROMBOSIS Performed By: #### PT #### [facility] [address] [address] [address] Kvng Olvera Coag (PPP) [Time]31.2 sCritically high9.0-11.6The The Christ HospitalComcorewell health will[facility] on above:Performed By: #### PT #### [facility] [address] [place] [address] Dr. Kvng Jones Abdomen Pelvis Enterography w/ IV Conon [id number] Abdomen Pelvis Enterography w/ IV ConCT ENTEROGRAPHY: CLINICAL INFORMATION: Chronic abdominal pain. Diarrhea. Evaluate for Crohn's disease. COMPARISON: 06/01/2022 TECHNIQUE: Contiguous axial scans of 5.0 mm slice thicknesses were obtained through the abdomen and pelvis. This CT study was performed using one or more of the following dose reduction techniques: automated exposure control, adjustment of the mA and/or kV according to patient's size and/or use of iterative re construction technique. Sagittal and coronal reformatted images were [...] Is Signed, Electronically Signed in Other Vendor System)Normal Doctors HospitalPROTIMEon [id number] Coag (PPP) [Relative time] 3.19 {INR}NormalThe The Christ HospitalComment on above:Performed By: #### PT #### [facility] [address] [address] [address] Kvng Coleman GUIDELINESSEE BELOWKindred Hospital DaytonComment on above:Result Comment: DESIRED INR: 2.0 - 3.0 CONDITIONS NOT LISTED BELOW 2.5 - 3.5 FOR PROSTHETIC HEART VALVE REPLACEMENT 2.5 - 3.5 RECURRENT THROMBOSIS Performed By: #### PT #### [facility] [address] [place], [place] [address] Dr. Kvng Olvera Coag (PPP) [Time]31.9 sCritically high9.0-11.6The The Christ HospitalComment on above:Performed By: #### PT #### [facility] [address] [place] [address] Dr. Kvng ChanPROTIMEon [id number] Coag (PPP) [Relative time]1.71 {INR} NormalThe The Christ HospitalComment on above:Performed By: #### PT #### [facility] [address] [place] [address] Dr. Kvng Coleman GUIDELINESSEE BELOWNormalThGreene Memorial HospitalComment on above:Result Comment: DESIRED INR: 2.0 - 3.0 CONDITIONS NOT LISTED BELOW 2.5 - 3.5 FOR PROSTHETIC HEART VALVE REPLACEMENT 2.5 - 3.5 RECURRENT THROMBOSIS Performed By: #### PT #### [facility] [address] [place] [address] Dr. Kvng ChanPT Coag (PPP) [Time]17.8 sCritically high9.0-11.6The The [facility] HospitalComment on above:Performed By: #### PT #### [facility] [address] [place] [address] Dr. Kvng Camara Panel Informationon [id number] Interpretation [facility] No Panel Informationon [id number] Interpretation [facility] .eGFRon 90-96-1123HZG/1.73 sq M.predicted MDRD (S/P/Bld) [Vol rate/Area]mL/min/{1.73_m2}Normal>=60Doctors HospitalComment on above:Order Comment: Order added by Discern Rule.Result Comment: [facility] Laboratories have implemented the eGFR calculation approach that does not havea coefficient for race and that conforms to [...] maximum of SCr/? or 1 Age = yearsPerformed By: #### EGFR #### [facility] [address] [place] [address] [id number] Creatinine Von [id number] Crea iStat Venous0.7 mg/dL Normal0.6-1.3BOhioHealth O'Bleness HospitalComment on above:Performed By: #### CD:[id number] #### [facility] [address] [place] [address] [id number] PROTEIN (CRP)on [id number] [Mass/Vol]1.5 mg/dL High<0.9 mg/dLAdena Fayette Medical CenterC3 COMPLEMENT Don [id number] C3 [Mass/Vol]172 mg/nQLgva07 - 166 mg/dLAdena Fayette Medical CenterC4 COMPLEMENT Don 07-75-6186Bvutlfwwxm C4 [Mass/Vol]40 mg/dL13 - 46 mg/dLLicking Memorial Hospital W Auto Differential panel (Bld)on [id number] Immature Gran0.03 k/uL<0.10 k/uL [facility] CenterBasophils (Bld) [#/Vol]0.04 10*3/uL<0.11 k/uLAdena Fayette Medical Center Basophils/100 WBC (Bld)0.5 %[facility] CenterDifferential cell count method Nom (Bld)AutoCleveland ClinicEosinophils (Bld) [#/Vol]0.07 10*3/uL<0.46 k/uL [facility] CenterEosinophils/100 WBC (Bld)0.8 %[facility] Medical CenterErythrocyte distribution width (RBC) [Ratio]14.1 %11.5 - 15.0 %[facility] CenterHematocrit (Bld) [Volume fraction]40.1 %36.0 - 46.0 %[facility] CenterHemoglobin (Bld) [Mass/Vol]12.7 g/dL11.5 - 15.5 g/dLAdena Fayette Medical CenterImmature Gran %0.3 %[facility] Medical CenterLymphocytes (Bld) [#/Vol]1.77 10*3/uL1.00 - 4.00 k/uLAdena Fayette Medical Center Lymphocytes/100 WBC (Bld)20.5 %[facility] [place] [facility] CenterH (RBC) [Entitic mass]28.3 pg 26.0 - 34.0 pgClevelLutheran HospitalMCHC (RBC) [Mass/Vol]31.7 g/dL30.5 - 36.0 g/dL [facility] [place] [facility] CenterV (RBC) [Entitic vol]89.5 fL80.0 - 100.0 fLClevelLutheran Hospital Monocytes (Bld) [#/Vol]0.32 10*3/uL<0.87 k/uLAdena Fayette Medical CenterMonocytes/100 WBC (Bld)3.7 %[facility] Medical CenterNeutrophils (Bld) [#/Vol]6.42 10*3/uL1.45 - 7.50 k/uL [facility] CenterNeutrophils/100 WBC (Bld)74.2 %[facility] CenterNucleated RBC (Bld) [#/Vol]<0.01 k/uLAdena Fayette Medical CenterNucleated RBC/100 WBC (Bld) [Ratio]0.0 /100 WBCAdena Fayette Medical CenterPlatelet mean volume (Bld) [Entitic vol]12.4 fL9.0 - 12.7 fLClevelLutheran HospitalPlatelets (Bld) [#/Vol]218 10*3/uL150 - 400 k/uLAdena Fayette Medical CenterRBC (Bld) [#/Vol]4.48 10*6/uL3.90 - 5.20 m/uLAdena Fayette Medical CenterWBC (Bld) [#/Vol]8.65 10*3/uL3.70 - 11.00 k/uLAdena Fayette Medical CenterComprehensive metabolic 2000 panelon 59-69-1391Dugcgtz [Mass/Vol]4.4 g/dL3.9 - 4.9 g/dLMesa ClinicALP [Catalytic activity/Vol]116 U/L34 - 123 U/LClevelformerly [facility] ClinicALT [Catalytic activity/Vol]17 U/L7 - 38 U/LCleveland ClinicAnion gap [Moles/Vol]11 mmol/L9 - 18 mmol/LCleveland ClinicAST [Catalytic activity/Vol]19 U/L13 - 35 U/LCleveland ClinicBilirubin [Mass/Vol]0.3 mg/dL0.2 - 1.3 mg/dLAdena Fayette Medical CenterCalcium [Mass/Vol]9.7 mg/dL8.5 - 10.2 mg/dLMesa ClinicChloride [Moles/Vol]105 mmol/L97 - 105 mmol/LCleveland ClinicCO2 [Moles/Vol]25 mmol/L22 - 30 mmol/L [facility] CenterCreatinine [Mass/Vol]0.80 mg/dL0.58 - 0.96 mg/dLAdena Fayette Medical Center Estimated Glomerular Filtration Rate88 mL/min/1.73m>=60 mL/min/1.73mCleveland ClinicGlucose [Mass/Vol]99 mg/dL74 - 99 mg/dLAdena Fayette Medical CenterPotassium [Moles/Vol]4.6 mmol/L3.7 - 5.1 mmol/LCleveland ClinicProtein [Mass/Vol]7.5 g/dL 6.3 - 8.0 g/dLMesa ClinicSodium [Moles/Vol]141 mmol/L136 - 144 mmol/L [facility] CenterUrea nitrogen [Mass/Vol]11 mg/dL7 - 21 mg/dLAdena Fayette Medical Center RHEUMATOID FACTOR BLon 21-83-4875Ecxmvlhoce factor Qn13 [IU]/mL<16 IU/mL [facility] CenterXR HAND GENERAL 3V PA/LAT/OBL BILATERALon 08-48-0418Zxkcipdtg ClinicLaboratory - Chemistry and Chemistry - challengeon 24-40-579008- hydroxyvitamin D3 [Mass/Vol]20.9 ng/mLInvalid Interpretation Code30.0-100.0 [place] [employer] Albumin [Mass/Vol]4.30 g/dLInvalid Interpretation Code 3.7-5.0[place] [employer] Albumin/Globulin [Mass ratio]1.3 {ratio}Invalid Interpretation Code1.0-2.4[facility] [employer] ALP [Catalytic activity/Vol]136.0 U/LInvalid Interpretation Yuct40-911Dslejdwus [place] [facility] ALT [Catalytic activity/Vol]15.0 U/LInvalid Interpretation Code0-50[facility] J[place]ange [facility] Anion gap [Moles/Vol]12 mmol/LInvalid Interpretation Bsux42-97Veeicyzmv [place] [facility] AST [Catalytic activity/Vol]16.0 U/LInvalid Interpretation Code0-40[place] [employer] Bilirubin [Mass/Vol]0.30 mg/dLInvalid Interpretation Code0.0-1.0[place] [employer] [facility] Bilirubin Ql (U)NegativeInvalid Interpretation Code NegativeWilson Memorial Hospital [facility] Calcium [Mass/Vol]9.70 mg/dLInvalid Interpretation Code 8.5-10.8BlanKettering Health Dayton [place] [facility] Chloride [Moles/Vol]104.0 mmol/LInvalid Interpretation Nyza883-991Vrcmhnebp [place] [employer] [facility] Cholesterol [Mass/Vol]219.0 mg/dLInvalid Interpretation Code0-200[place] JuanAlertMe [facility] Cholesterol in HDL [Mass/Vol]42.0 mg/dLInvalid Interpretation Rgwk15-355Dwnpdjxwv [place] [employer] [facility] Cholesterol in LDL [Mass/Vol]111.0 mg/dLInvalid Interpretation Code0-130[place] JuanXiaoi Robert Cholesterol in VLDL [Mass/Vol]66.0 mg/dLInvalid Interpretation Code0-39[place] JuanXiaoi Robert Cholesterol.total/Cholesterol in HDL [Mass ratio]5 {ratio}Invalid Interpretation CodeSan JuanXiaoi Robert CO2 [Moles/Vol]28.0 mmol/LInvalid Interpretation Code 23-30[place] [employer] [facility] Creatinine [Mass/Vol]0.80 mg/dLInvalid Interpretation Code0.5-1.5[facility] [place] [employer] [facility] GFR/1.73 sq M.predicted among non-blacks MDRD (S/P/Bld) [Vol rate/Area]75 mL/min/{1.73_m2}Invalid Interpretation CodeEl [place] [employer] [facility] Glucose [Mass/Vol]90.0 mg/dLInvalid Interpretation Code 80-117[place] [employer] [facility] Ketones Ql (U)NegativeInvalid Interpretation Code NegativeWilson Memorial Hospital Jodange [facility] pH (U)6 [pH]Invalid Interpretation Code5.0-9.0[place] [employer] [facility] Potassium [Moles/Vol]4.30 mmol/LInvalid Interpretation Code3.5-5.3[facility] [employer] [facility] Protein [Mass/Vol]7.60 g/dLInvalid Interpretation Code 6.3-7.9[facility] [employer] [facility] Sodium [Moles/Vol]140.0 mmol/LInvalid Interpretation Jlkb014-442OvaogjchqAlertMe [facility] Specific gravity (U) [Rel density]1.010Invalid Interpretation Code1.003-1.030[place] JuanAlertMe [facility] Triglyceride [Mass/Vol]328.0 mg/dLInvalid Interpretation Wvln34-056XonougwgxAlertMe [facility] TSH Qn1.29 m[IU]/LInvalid Interpretation Code0.50-4.00 [place] [employer] Urea nitrogen [Mass/Vol]14.0 mg/dLInvalid Interpretation Code7-25[place] [employer] [facility] Urea nitrogen/Creatinine [Mass ratio]18 mg/mgInvalid Interpretation Code6-20[place]AlertMe [facility] Urobilinogen (U) [Mass/Vol]normalInvalid Interpretation CodenormalEl Paso [place] [employer] [facility] Laboratory - Hematology and Cell countson 04-12-2022 Erythrocyte distribution width (RBC) [Ratio]13.80 %Invalid Interpretation Code 11.5-15.5[facility] [employer] [facility] Hematocrit (Bld) [Volume fraction]41.40 %Invalid Interpretation Code35.7-47.1[facility] [place] [employer] [facility] Hemoglobin (Bld) [Mass/Vol]13.30 g/dLInvalid Interpretation Code11.9-15.7Bforks community hospitalAuthentic Response [facility] Hemoglobin Ql (U)NegativeInvalid Interpretation Code NegativeSan JuanAlertMe [facility] MCH (RBC) [Entitic mass]28.40 pgInvalid Interpretation Code23.2-33.3Bforks community hospitalAuthentic Response [facility] MCHC (RBC) [Mass/Vol]32.10 g/dLInvalid Interpretation Code32.0-36.0[place]AlertMe [facility] MCV (RBC) [Entitic vol]88.50 fLInvalid Interpretation Code83.4-101.4Bthedacare medical center shawanoEnrich Social Productions Platelet mean volume (Bld) [Entitic vol]11.30 fLInvalid Interpretation Code8.3-11.5Bforks community hospitalAuthentic Response [facility] Platelets (Bld) [#/Vol]244.0 10*3/uLInvalid Interpretation Qpfx344-411IoxkqkmkeXiaoi Robert RBC (Bld) [#/Vol]4.680 10*6/uLInvalid Interpretation Code3.72-5.24[place]AlertMe [facility] WBC (Bld) [#/Vol]8.70 10*3/uLInvalid Interpretation Code3.9-10.3[facility] [employer] [facility] - Specimen informationon 89-21-9077Nfvnaas (U)clearInvalid Interpretation CodeClearBavita health system galion hospital [employer] [facility] Collection time (Varun) [Date/time]3:35 pmInvalid Interpretation CodeSan JuanAlertMe [facility] Color (U)yellowInvalid Interpretation Codeyellow [facility] [place] [facility] - Urinalysison 66-38-4682Gdjxxmv Test strip (U) [Mass/Vol]NegativeInvalid Interpretation CodeNegativeSan JuanAlertMe [facility] Leukocyte esterase Test strip Ql (U)NegativeInvalid Interpretation CodeNegativeSan JuanVdolg [place] [facility] Nitrite Ql (U)NegativeInvalid Interpretation Code NegativeSan JuanAlertMe [facility] Protein Ql (U)NegativeInvalid Interpretation Code NegativeSan JuanAlertMe [facility] No Panel Informationon 28-11-2434048Doavlux Interpretation Oeog488-543Wlcczhbpc [place] [employer] [facility] 14.0Invalid Interpretation Code>5.4Bforks community hospitalbidu.com.br 45.0 mm/hInvalid Interpretation Code0-30[place]AlertMe [facility] 2.3Invalid Interpretation Code0.9-1.2Bforks community hospitalbidu.com.br 24.5Invalid Interpretation Code9.1-12.0Dining [employer] PROTIMEon 77-44-7431FDK Coag (PPP) [Relative time]2.59 {INR}NormalThe The Christ HospitalComment on above:Performed By: #### PT #### [facility] [address] [place] [address] Dr. Kvng Coleman [facility]LEYE [facility] Hospital ToledoComment on above:Result Comment: DESIRED INR: 2.0 - 3.0 CONDITIONS NOT LISTED BELOW 2.5 - 3.5 FOR PROSTHETIC HEART VALVE REPLACEMENT 2.5 - 3.5 RECURRENT THROMBOSIS Performed By: #### PT #### [facility] [address] [place] [address] Dr. Kvng Olvera Coag (PPP) [Time]26.3 sCritically high9.0-11.6The The [facility] HospitalComment on above:Performed By: #### PT #### [facility] [address] [place] [address] Dr. Kvng Camara [facility] Hospitalon .7Invalid Interpretation Code 9.4-12.1Brag & bone 2.7Invalid Interpretation Code<=3.5Brag & bone Cardiacon 74-68-2330Dlqsyobalpz [Mass/Vol]190.0 mg/dL Invalid Interpretation Code0-200[employer] Cholesterol in HDL [Mass/Vol]45.0 mg/dLInvalid Interpretation Dqun42-608ZvlbgzlszDining Secretary Cholesterol in LDL [Mass/Vol]103.0 mg/dLInvalid Interpretation Code0-130[employer] Triglyceride [Mass/Vol]210.0 mg/dLInvalid Interpretation Pzwj97-710YtdzxpgkyDining Secretary Hematologyon 33-42-6936Sfbdkqyrt (Bld) [#/Vol]0.0 10*3/uLInvalid Interpretation Code0.0-0.1Bforks community hospitalAuthentic Response [facility] Basophils/100 WBC (Bld)0.30 %Invalid Interpretation Code0.0-1.0[facility] [place] [facility] Eosinophils (Bld) [#/Vol]0.10 10*3/uLInvalid Interpretation Code0.0-0.5[facility] [employer] [facility] Eosinophils/100 WBC (Bld)1.90 %Invalid Interpretation Code0.0-7.0[place]Alert[place] [facility] Hematocrit (Bld) [Volume fraction]40.90 %Invalid Interpretation Code35.7-47.1Bforks community hospitalAuthentic Response [facility] Hemoglobin (Bld) [Mass/Vol]13.10 g/dLInvalid Interpretation Code11.9-15.7[facility] [employer] [facility] Lymphocytes (Bld) [#/Vol]1.90 10*3/uLInvalid Interpretation Code0.9-3.1[facility] [employer] Lymphocytes/100 WBC (Bld)29.10 %Invalid Interpretation Code15.0-46.0[place]AlertMe [facility] MCH (RBC) [Entitic mass]27.90 pgInvalid Interpretation Code23.2-33.3Bforks community hospitalbidu.com.br MCV (RBC) [Entitic vol]87.0 fLInvalid Interpretation Code83.4-101.4Bforks community hospitalbidu.com.br Monocytes (Bld) [#/Vol]0.30 10*3/uLInvalid Interpretation Code0.3-1.0[place] JuanXiaoi Robert Monocytes/100 WBC (Bld)5.30 %Invalid Interpretation Code4.0-12.0[place]AlertMe [facility] Neutrophils (Bld) [#/Vol]4.10 10*3/uLInvalid Interpretation Code1.8-7.9[facility] [employer] Neutrophils/100 WBC (Bld)63.20 %Invalid Interpretation Code43.0-76.0[place] JuanXiaoi Robert Platelets (Bld) [#/Vol]231.0 10*3/uLInvalid Interpretation Dzvn857-005MipkgqospXiaoi Robert RBC (Bld) [#/Vol]4.70 10*6/uLInvalid Interpretation Code3.72-5.24[place] JuanXiaoi Robert WBC (Bld) [#/Vol]6.50 10*3/uLInvalid Interpretation Code3.9-10.3[facility] [employer] [facility] Laboratory - Chemistry and Chemistry - challengeon 45-73-9488Iwmftiw/Globulin [Mass ratio]1.2 {ratio}Invalid Interpretation Code 1.0-2.4Bfor[facility] community hospitalAuthentic Response [facility] Bilirubin Ql (U)NegativeInvalid Interpretation Code NegativeSan JuanVdolg [place] [facility] Cholesterol.total/Cholesterol in HDL [Mass ratio]4 {ratio}Invalid Interpretation CodeSan JuanAlertMe [facility] Ketones Ql (U)NegativeInvalid Interpretation Code NegativeSan JuanAlertMe [facility] Urobilinogen (U) [Mass/Vol]normalInvalid Interpretation CodenormalSan JuanAlertMe [facility] Laboratory - Hematology and Cell countson 11-06-2020 Hemoglobin Ql (U)NegativeInvalid Interpretation CodeNegativeSan JuanAlertMe [facility] Laboratory - Urinalysison 21-03-3798Enlurad Test strip (U) [Mass/Vol]NegativeInvalid Interpretation CodeNegativeEl [place] [employer] [facility] Leukocyte esterase Test strip Ql (U)NegativeInvalid Interpretation CodeNegativeWilson [facility] Nitrite Ql (U)NegativeInvalid Interpretation Code NegativeWilson Memorial Hospital [facility] Protein Ql (U)NegativeInvalid Interpretation Code NegativeSan JuanAlertMe [facility] Metabolic Panelon 21-80-0192Vxgwker [Mass/Vol]4.20 g/dL Invalid Interpretation Code3.7-4.5[facility] [employer] [facility] ALP [Catalytic activity/Vol]132.0 U/LInvalid Interpretation Adrw44-940ZwpehoateAlertMe [facility] ALT [Catalytic activity/Vol]15.0 U/LInvalid Interpretation Code0-50[place]Alert[place] [facility] Anion gap [Moles/Vol]14 mmol/LInvalid Interpretation Psfd26-58WfirkrbxtAlertMe [facility] AST [Catalytic activity/Vol]16.0 U/LInvalid Interpretation Code0-40[place]Alert[place] [facility] Bilirubin [Mass/Vol]0.40 mg/dLInvalid Interpretation Code0.0-1.0[place]Alert[place] [facility] Calcium [Mass/Vol]9.60 mg/dLInvalid Interpretation Code 8.5-10.8[facility] [employer] Chloride [Moles/Vol]104.0 mmol/LInvalid Interpretation Thzp778-572CwotlploxAlertMe [facility] CO2 [Moles/Vol]29.0 mmol/LInvalid Interpretation Code 23-30[place]AlertMe [facility] Creatinine [Mass/Vol]0.70 mg/dLInvalid Interpretation Code0.5-1.5Bthedacare medical center shawanoEnrich Social Productions GFR/1.73 sq M predicted among non-blacks MDRD (S/P/Bld) [Vol rate/Area]88 mL/min/{1.73_m2}Invalid Interpretation CodeSan JuanXiaoi Robert Glucose [Mass/Vol]98.0 mg/dLInvalid Interpretation Code 80-117San JuanXiaoi Robert Potassium [Moles/Vol]4.20 mmol/LInvalid Interpretation Code3.5-5.3[facility] hospitalbidu.[facility] Protein [Mass/Vol]7.70 g/dLInvalid Interpretation Code 6.3-7.9[facility] shawanoEnrich Social Productions Sodium [Moles/Vol]143.0 mmol/LInvalid Interpretation Gnvy241-639QubpgicrhXiaoi Robert Urea nitrogen [Mass/Vol]12.0 mg/dLInvalid Interpretation Code7-25San JuanXiaoi Robert Urea nitrogen/Creatinine [Mass ratio]17 mg/mgInvalid Interpretation Code6-20[facility] Otheron 54-46-7398Lqrnozk/Globulin [Mass ratio]1.2 (calc)1.0-2.4[facility] shawanoEnrich Social Productions Bilirubin Ql (U)NegativeNegativeStorytree Cholesterol in VLDL [Mass/Vol]42.0 mg/dLInvalid Interpretation Code0-39San JuanXiaoi Robert Cholesterol.total/Cholesterol in HDL [Mass ratio]4 (calc)Brito [employer] Collection time (Varun) [Date/time]1005Invalid Interpretation CodeSan JuanXiaoi Robert Erythrocyte distribution width (RBC) [Ratio]14.40 % Invalid Interpretation Code11.5-15.5[facility] [employer] Glucose Test strip (U) [Mass/Vol]NegativeNegative [employer] Hemoglobin Ql (U)NegativeNegativeSan JuanXiaoi Robert Immature granulocytes (Bld) [#/Vol]0.010 10*3/uLInvalid Interpretation Code0.00-0.06[place] JuanX[place]oi Robert Immature granulocytes/100 WBC (Bld)0.20 %Invalid Interpretation Code0.0-0.5Brag [facility] bone MCHC (RBC) [Mass/Vol]32.0 g/dLInvalid Interpretation Code32.0-36.0[place] Juan[place] Robert Nitrite Ql (U)NegativeNegativeSan JuanXiaoi Robert pH (U)7 [pH]Invalid Interpretation Code5.0-9.0[place] JuanXiaoi Robert Platelet mean volume (Bld) [Entitic vol]12.10 fLInvalid Interpretation Code8.3-11.5[facility] hospitalbidu.com.br Protein Ql (U)NegativeNegativeSan JuanXiaoi Robert Urobilinogen Test strip (U) [Mass/Vol]normalnormal BritoElli Urinalysison 65-58-5587Axqezff (U)ClearInvalid Interpretation CodeClearBforks community hospitalbidu.com.br Color (U)yellowInvalid Interpretation Codeyellow [employer] Ketones Ql (U)NegativeNegativeSan JuanXiaoi Robert Leukocyte esterase Test strip Ql (U)NegativeNegative [employer] Specific gravity (U) [Rel density]1.010Invalid Interpretation Code1.003-1.030[place] JuanXiaoi Robert Cardiacon 17-66-9760Nldzkfjbyhh [Mass/Vol]245.0 mg/dL Invalid Interpretation Code0-200San JuanXiaoi Robert Cholesterol in HDL [Mass/Vol]44.0 mg/dLInvalid Interpretation Yrgn94-934LxbgumfkqXiaoi Robert Cholesterol in LDL [Mass/Vol]144.0 mg/dLInvalid Interpretation Code0-130[place] JuanX[place]oi Robert Triglyceride [Mass/Vol]286.0 mg/dLInvalid Interpretation Ngtf12-105NugvrwxjoXiaoi Robert Hematologyon 52-14-3107Bbzolkrjwx (Bld) [Volume fraction]40.20 %Invalid Interpretation Code35.7-47.1[facility] hospitalbidu.[facility] Hemoglobin (Bld) [Mass/Vol]13.20 g/dLInvalid Interpretation Code11.9-15.7[facility] hospitalbidu.com.[facility] MCH (RBC) [Entitic mass]28.10 pgInvalid Interpretation Code23.2-33.3[facility] hospitalbidu.[facility] MCV (RBC) [Entitic vol]85.50 fLInvalid Interpretation Code83.4-101.4[facility] hospitalbidu.com.[facility] Platelets (Bld) [#/Vol]242.0 10*3/uLInvalid Interpretation Wwvq346-272HoqwvqkcpXiaoi Robert RBC (Bld) [#/Vol]4.70 10*6/uLInvalid Interpretation Code3.72-5.24[place] JuanAlertMe [facility] WBC (Bld) [#/Vol]5.60 10*3/uLInvalid Interpretation Code3.9-10.3[facility] [place] [employer] [facility] Laboratory - Chemistry and Chemistry - challengeon 87-81-5154Zknzamekq Ql (U)NegativeInvalid Interpretation CodeNegativeSan JuanAlertMe [facility] Ketones Ql (U)NegativeInvalid Interpretation Code NegativeSan JuanAlertMe [facility] Urobilinogen (U) [Mass/Vol]normalInvalid Interpretation CodenormalSan JuanAlertMe [facility] - Hematology and Cell countson 01-30-2020 Hemoglobin Ql (U)NegativeInvalid Interpretation CodeNegativeSan JuanAlertMe [facility] - Urinalysison 30-02-0182Xmoskez Test strip (U) [Mass/Vol]NegativeInvalid Interpretation CodeNegativeSan JuanAlertMe [facility] Leukocyte esterase Test strip Ql (U)NegativeInvalid Interpretation CodeNegativeSan JuanAlertMe [facility] Nitrite Ql (U)NegativeInvalid Interpretation Code NegativeSan JuanAlertMe [facility] Protein Ql (U)NegativeInvalid Interpretation Code NegativeSan JuanAlertMe [facility] Metabolic Panelon 13-68-6750Vqgsfcm [Mass/Vol]4.20 g/dL Invalid Interpretation Code3.7-4.5[facility] shawanoEnrich Social Productions ALP [Catalytic activity/Vol]122.0 U/LInvalid Interpretation Rlhm90-699QuohnxozwXiaoi Robert ALT [Catalytic activity/Vol]13.0 U/LInvalid Interpretation Code0-50[place] JuanXiaoi Robert Anion gap [Moles/Vol]16 mmol/LInvalid Interpretation Tpne52-99Jvjmpwktn [place] [facility] AST [Catalytic activity/Vol]14.0 U/LInvalid Interpretation Code0-40[facility] [facility] Bilirubin [Mass/Vol]0.30 mg/dLInvalid Interpretation Code0.0-1.0[facility] [place] [facility] Calcium [Mass/Vol]9.0 mg/dLInvalid Interpretation Code 8.5-10.8[facility] [place] [employer] [facility] Chloride [Moles/Vol]103.0 mmol/LInvalid Interpretation Fbfh659-975Jbdnbqeas [place] [employer] [facility] CO2 [Moles/Vol]28.0 mmol/LInvalid Interpretation Code 23-30[place] [employer] [facility] Creatinine [Mass/Vol]0.70 mg/dLInvalid Interpretation Code0.5-1.5[facility] [place] [employer] [facility] GFR/1.73 sq M predicted among non-blacks MDRD (S/P/Bld) [Vol rate/Area]88 mL/min/{1.73_m2}Invalid Interpretation Code[place] [employer] [facility] Glucose [Mass/Vol]101.0 mg/dLInvalid Interpretation Mhxt08-641Jnijgpyit [place] [employer] [facility] Potassium [Moles/Vol]3.80 mmol/LInvalid Interpretation Code3.5-5.3[facility] [employer] Protein [Mass/Vol]7.90 g/dLInvalid Interpretation Code 6.3-7.9[facility] [employer] Sodium [Moles/Vol]143.0 mmol/LInvalid Interpretation Vguc537-247YcirelycsAlertMe [facility] Urea nitrogen [Mass/Vol]13.0 mg/dLInvalid Interpretation Code7-25[place] JuanXiaoi Robert Urea nitrogen/Creatinine [Mass ratio]19 mg/mgInvalid Interpretation Code6-20[place] JuanXiaoi Robert Otheron 81-12-6336Vqcsrdu/Globulin [Mass ratio]1.1 {ratio}Invalid Interpretation Code1.0-2.4[facility] [employer] Bilirubin Ql (U)NegativeNegUniweb.ruSan JuanXiaoi Robert Cholesterol in VLDL [Mass/Vol]57.0 mg/dLInvalid Interpretation Code0-39[place] JuanXiaoi Robert Cholesterol.total/Cholesterol in HDL [Mass ratio]6 {ratio}Invalid Interpretation CodeSan JuanXiaoi Robert Collection time (Varun) [Date/time]9:20 amInvalid Interpretation CodeSan JuanXiaoi Robert Erythrocyte distribution width (RBC) [Ratio]14.40 % Invalid Interpretation Code11.5-15.5[facility] [employer] Glucose Test strip (U) [Mass/Vol]NegativeNegative [place] [employer] Hemoglobin Ql (U)NegativeNegCone Health Moses Cone HospitalXiaoi Robert MCHC (RBC) [Mass/Vol]32.80 g/dLInvalid Interpretation Code32.0-36.0[place] JuanX[place]oi Robert Nitrite Ql (U)NegativeNegUniweb.ruSan JuanXiaoi Robert pH (U)6 [pH]Invalid Interpretation Code5.0-9.0[place] JuanXiaoi Robert Platelet mean volume (Bld) [Entitic vol]11.60 fLInvalid Interpretation Code8.3-11.5BlanEn[employer] Protein Ql (U)NegativeNegativeDining Secretary Urobilinogen Test strip (U) [Mass/Vol]normalnormal Brito [employer] Urinalysison 47-44-1643Jirspyl (U)ClearInvalid Interpretation CodeClearBforks community hospitalbidu.com.br Color (U)yellowInvalid Interpretation Codeyellow [employer] Ketones Ql (U)NegativeNegativeSan JuanXiaoi Robert Leukocyte esterase Test strip Ql (U)NegativeNegative [employer] Specific gravity (U) [Rel density]1.005Invalid Interpretation Code1.003-1.030[place] JuanXiaoi Robert Cardiacon 88-16-4176Ggnkxgxohcf in HDL mass conc45.0 mg/dLInvalid Interpretation Pzpm87-188GbownhoknXiaoi Robert Cholesterol in LDL mass conc83.0 mg/dLInvalid Interpretation Code0-130[place] Cholesterol mass hoqx560.0 mg/dLInvalid Interpretation Code0-200[place] Triglyceride mass mgjv271.0 mg/dLInvalid Interpretation Vfue67-488LrezkskhsDining Secretary Hematologyon 65-40-8024RPG Coag RelTime (Bld)2.8 {INR} 0.8-1.2Brag [facility] bone Metabolic Panelon 89-32-4229Glyewow mass conc4.20 g/dL Invalid Interpretation Code3.7-4.5[facility] bone ALP enzyme act/zmm331.0 U/LInvalid Interpretation Code 31-155[facility] ALT enzyme act/vol14.0 U/LInvalid Interpretation Code 0-50[facility] [place] [facility] Anion gap molar conc17 mmol/LInvalid Interpretation Zfjg04-46Xelqvvksx [place] [facility] AST enzyme act/vol15.0 U/LInvalid Interpretation Code 0-40[place] [employer] [facility] Bilirubin mass conc0.30 mg/dLInvalid Interpretation Code0.0-1.0[place] [employer] [facility] Calcium mass conc9.40 mg/dLInvalid Interpretation Code 8.5-10.8[facility] [place] [employer] [facility] Chloride molar eqpw255 mmol/LInvalid Interpretation Muak190-162Tsovzjlhl [place] [employer] [facility] CO2 molar conc27 mmol/LInvalid Interpretation Asnr35-49 [facility] [facility] Creatinine mass conc0.70 mg/dLInvalid Interpretation Code0.5-1.5B[facility] GFR/1.73 sq M predicted among non-blacks MDRD vol rate/area (S/P/Bld)88 mL/min/{1.73_m2}Invalid Interpretation CodeSan JuanVdolg [place] [facility] Glucose mass conc85.0 mg/dLInvalid Interpretation Code 80-117[place]AlertMe [facility] Potassium molar conc4.4 mmol/LInvalid Interpretation Code3.5-5.3[facility] [place] [employer] [facility] Protein mass conc28.0 g/dL9.1-12.0[place]AlertMe [facility] Protein mass conc8.0 g/dLInvalid Interpretation Code 6.3-7.9BlanEn[employer] Sodium molar obmg054 mmol/LInvalid Interpretation Code 135-148[place] JuanXiaoi Robert Urea nitrogen mass conc13.0 mg/dLInvalid Interpretation Code7-25[place] JuanX[place]oi Robert Urea nitrogen/Creatinine mass ratio19 mg/mgInvalid Interpretation Code6-20[place] JuanXiaoi Robert No Panel Informationon 11-08-20182.8Invalid Interpretation Code0.8-1.2[facility] shawanoEnrich Social Productions Otheron 29-39-4423Urpfjdp/Globulin mass ratio1.1 {ratio}Invalid Interpretation Code1.0-2.4[facility] shawanoEnrich Social Productions Cholesterol in VLDL mass conc56.0 mg/dLInvalid Interpretation Code0-39[place] JuanXiaoi Robert Cholesterol.total/Cholesterol in HDL mass ratio4 {ratio}Invalid Interpretation CodeStorytree 28.0Invalid Interpretation Code9.1-12.0[place] JuanXiaoi Robert Metabolic Panelon 98-83-1383Wxetf gap molar conc14 mmol/LInvalid Interpretation Nlku37-30RstpsizabStorytree Calcium mass conc9.70 mg/dLInvalid Interpretation Code 8.5-10.8[facility] shawanoEnrich Social Productions Chloride molar jyqj469 mmol/LInvalid Interpretation Bymt834-106FfnxhkpdpStorytree CO2 molar conc30 mmol/LInvalid Interpretation Bnga58-90 [place] [employer] Creatinine mass conc0.70 mg/dLInvalid Interpretation Code0.5-1.5[facility] shawanoEnrich Social Productions GFR/1.73 sq M predicted among non-blacks MDRD vol rate/area (S/P/Bld)88 mL/min/{1.73_m2}Invalid Interpretation CodeSan JuanXiaoi Robert Glucose mass conc92.0 mg/dLInvalid Interpretation Code 80-117A8 [employer] Musickaleida healthXiaoi Robert Potassium molar conc4.1 mmol/LInvalid Interpretation Code3.5-5.3[facility] hospitalbidu.[facility] Sodium molar twwi018 mmol/LInvalid Interpretation Code 135-148[facility] Urea nitrogen mass conc8.0 mg/dLInvalid Interpretation Code7-25A8 Digital Musickaleida healthXiaoi Robert Urea nitrogen/Creatinine mass ratio11 mg/mgInvalid Interpretation Code6-20[place] Cardiacon 72-62-4826Tiydugqfubs in HDL mass conc44.0 mg/dLInvalid Interpretation Ctja32-936QmafkraefStorytree Cholesterol in LDL mass tvfy813.0 mg/dLInvalid Interpretation Code0-130[place] Cholesterol mass lnuk419.0 mg/dLInvalid Interpretation Code0-200[place] Triglyceride mass edkm097.0 mg/dLInvalid Interpretation Nygn72-808BwomxnmtlStorytree Hematologyon 88-79-2508VZV Coag RelTime (Bld)2.1 {INR} 0.8-1.2Brag [facility] bone Metabolic Panelon 13-27-1415Gbrgbui mass conc4.40 g/dL Invalid Interpretation Code3.7-4.5Brag [facility] bone ALP enzyme act/vol90.0 U/LInvalid Interpretation Code 31-155[place] ALT enzyme act/vol18.0 U/LInvalid Interpretation Code 0-50[facility] [facility] Anion gap molar conc18 mmol/LInvalid Interpretation Wahn87-79Evabattik [place] [facility] AST enzyme act/vol15.0 U/LInvalid Interpretation Code 0-40[place] [employer] [facility] Bilirubin mass conc0.30 mg/dLInvalid Interpretation Code0.0-1.0[place] [employer] [facility] Calcium mass conc9.40 mg/dLInvalid Interpretation Code 8.5-10.8[facility] [place] [employer] [facility] Chloride molar nczy008 mmol/LInvalid Interpretation Bkcp081-510Eabtfpcnu [place] [employer] [facility] CO2 molar conc27 mmol/LInvalid Interpretation Ihgv96-39 [facility] [place] [facility] Creatinine mass conc0.60 mg/dLInvalid Interpretation Code0.5-1.5[facility] [place] [employer] [facility] GFR/1.73 sq M predicted among non-blacks MDRD vol rate/area (S/P/Bld)106 mL/min/{1.73_m2}Invalid Interpretation CodeSan JuanAlertMe [facility] Glucose mass conc98.0 mg/dLInvalid Interpretation Code 80-117[place]AlertMe [facility] Potassium molar conc4.4 mmol/LInvalid Interpretation Code3.5-5.3[facility] [place] [employer] [facility] Protein mass conc7.90 g/dLInvalid Interpretation Code 6.3-7.9[facility] [employer] Protein mass conc20.7 g/dL9.1-12.0[place]AlertMe [facility] Sodium molar nnhf928 mmol/LInvalid Interpretation Code 135-148[place] JuanXiaoi Robert Urea nitrogen mass conc17.0 mg/dLInvalid Interpretation Code7-25[place] JuanXiaoi Robert Urea nitrogen/Creatinine mass ratio28 mg/mgInvalid Interpretation Code6-20[place] JuanXiaoi Robert No Panel Informationon 12-13-20172.1Invalid Interpretation Code0.8-1.2[facility] hospitalbidu.[facility] Otheron 18-66-3590Jgomlsf/Globulin mass ratio1.3 {ratio}Invalid Interpretation Code1.0-2.4[facility] hospitalbid[facility] Cholesterol in VLDL mass conc51.0 mg/dLInvalid Interpretation Code0-39[place] JuanXiaoi Robert Cholesterol.total/Cholesterol in HDL mass ratio5 {ratio}Invalid Interpretation CodeStorytree 20.7Invalid Interpretation Code9.1-12.0[facility] Hematologyon 96-79-1821Xmuhhwvst #/vol (Bld)0.10 10*3/uLInvalid Interpretation Code0.0-0.1[facility] shawanoEnrich Social Productions Basophils/100 WBC (Bld)0.60 %Invalid Interpretation Code0.0-1.0[facility] Eosinophils #/vol (Bld)0.10 10*3/uLInvalid Interpretation Code0.0-0.5[facility] bone Eosinophils/100 WBC (Bld)0.50 %Invalid Interpretation Code0.0-7.0[facility] Hematocrit Volume Fraction (Bld)39.20 %Invalid Interpretation Code35.7-47.1[facility] [place] [employer] [facility] Hemoglobin mass conc (Bld)13.30 g/dLInvalid Interpretation Code11.9-15.7[facility] [employer] INR Coag RelTime (Bld)2.8 {INR}0.8-1.2[facility] [employer] Lymphocytes #/vol (Bld)2.80 10*3/uLInvalid Interpretation Code0.9-3.1[facility] [place] [employer] [facility] Lymphocytes/100 WBC (Bld)21.30 %Invalid Interpretation Code15.0-46.0[place]AlertMe [facility] MCH Entitic mass (RBC)28.10 pgInvalid Interpretation Code23.2-33.3[facility] hospitalAuthentic Response [facility] MCV Entitic volume (RBC)82.70 fLInvalid Interpretation Code82.0-98.4[facility] hospitalAut[facility] Response [facility] Monocytes #/vol (Bld)0.60 10*3/uLInvalid Interpretation Code0.3-1.0[place]AlertMe [facility] Monocytes/100 WBC (Bld)4.70 %Invalid Interpretation Code4.0-12.0[place]Alert[facility] Neutrophils #/vol (Bld)9.50 10*3/uLInvalid Interpretation Code1.8-7.9[facility] shawanoEnrich Social Productions Neutrophils/100 WBC (Bld)72.90 %Invalid Interpretation Code43.0-76.0[place]AlertMe [facility] Platelets #/vol (Bld)228.0 10*3/uLInvalid Interpretation Ssba071-504TxrqvtgawXiaoi Robert RBC #/vol (Bld)4.740 10*6/uLInvalid Interpretation Code 3.72-5.24[place] JuanXiaoi Robert WBC #/vol (Bld)13.10 10*3/uLInvalid Interpretation Code 3.9-10.3[facility] hospitalbid[facility] Metabolic Panelon 05-89-4643Ldbwlkd mass conc4.10 g/dL Invalid Interpretation Code3.7-4.5[facility] hospitalbid[facility] ALP enzyme act/kko762.0 U/LInvalid Interpretation Code 31-155[place] JuanXiaoi Robert ALT enzyme act/vol26.0 U/LInvalid Interpretation Code 0-50[place] JuanXiaoi Robert Anion gap molar conc15 mmol/LInvalid Interpretation Cafz73-73LfkyiicfjXiaoi Robert AST enzyme act/vol23.0 U/LInvalid Interpretation Code 0-40[place] JuanXiaoi Robert Bilirubin mass conc0.20 mg/dLInvalid Interpretation Code0.0-1.0[place] JuanXiaoi Robert Calcium mass conc9.20 mg/dLInvalid Interpretation Code 8.5-10.8[facility] hospitalbid[facility] Chloride molar mxin761 mmol/LInvalid Interpretation Ufit035-256XdtynkapsAlertMe [facility] CO2 molar conc31 mmol/LInvalid Interpretation Rfyi10-89 [place] [employer] Creatinine mass conc0.80 mg/dLInvalid Interpretation Code0.5-1.5[facility] shawanoEnrich Social Productions GFR/1.73 sq M predicted among non-blacks MDRD vol rate/area (S/P/Bld)76 mL/min/{1.73_m2}Invalid Interpretation CodeSan JuanXiaoi Robert Glucose mass conc90.0 mg/dLInvalid Interpretation Code 80-117[place] [employer] Potassium molar conc3.5 mmol/LInvalid Interpretation Code3.5-5.3[facility] [place] [employer] [facility] Protein mass conc28.7 g/dL9.1-12.0[place]AlertMe [facility] Protein mass conc7.70 g/dLInvalid Interpretation Code 6.3-7.9[facility] [place] [employer] [facility] Sodium molar adlf988 mmol/LInvalid Interpretation Code 135-148[place] JuanAlertMe [facility] Urea nitrogen mass conc23.0 mg/dLInvalid Interpretation Code7-25[place]AlertMe [facility] Urea nitrogen/Creatinine mass ratio29 mg/mgInvalid Interpretation Code6-20[place]AlertMe [facility] No Panel Informationon 03-09-20172.8Invalid Interpretation Code0.8-1.2[facility] [place] [employer] [facility] Otheron 41-52-2804Phqtrwx/Globulin mass ratio1.1 {ratio}Invalid Interpretation Code1.0-2.4[facility] hospitalAut[facility] Response [facility] Erythrocyte distribution width Ratio (RBC)14.30 % Invalid Interpretation Code11.5-15.5[facility] hospitalAut[facility] Response [facility] MCHC mass conc (RBC)34.0 g/dLInvalid Interpretation Code32.0-36.0[place] JuanXiaoi Robert Platelet mean volume Entitic volume (Bld)9.80 fLInvalid Interpretation Code7.4-10.4[facility] shawanoEversnap [facility] 28.7Invalid Interpretation Code9.1-12.0[place]AlertMe [facility] Cardiacon 78-27-3240Kxjvrtqjjlv in HDL mass conc49.0 mg/dLInvalid Interpretation Amod98-239MnxifuoztXiaoi Robert Cholesterol in LDL mass zxkj575.0 mg/dLInvalid Interpretation Code0-130[place] JuanXiaoi Robert Cholesterol mass rfeq770.0 mg/dLInvalid Interpretation Code0-200[place] JuanXiaoi Robert Triglyceride mass jffx919.0 mg/dLInvalid Interpretation Ptuj76-806IvznzoqbqXiaoi Robert Hematologyon 67-50-6638QAZ Coag RelTime (Bld)2.0 {INR} 0.8-1.2[facility] shawanoEnrich Social Productions Metabolic Panelon 08-15-3516Shorijk mass conc4.20 g/dL Invalid Interpretation Code3.7-4.5[facility] shawanoEnrich Social Productions ALP enzyme act/xqp847.0 U/LInvalid Interpretation Code 31-155[place] [employer] ALT enzyme act/vol14.0 U/LInvalid Interpretation Code 0-50[facility] Anion gap molar conc16 mmol/LInvalid Interpretation Vnla74-48VjtlxlqtrDining Secretary AST enzyme act/vol15.0 U/LInvalid Interpretation Code 0-40[place] [employer] Bilirubin mass conc0.40 mg/dLInvalid Interpretation Code0.0-1.0[place] Calcium mass conc9.60 mg/dLInvalid Interpretation Code 8.5-10.8[facility] bone Chloride molar conc99 mmol/LInvalid Interpretation Code 100-112[employer] CO2 molar conc29 mmol/LInvalid Interpretation Hyfk29-31 [facility] [place] [facility] Creatinine mass conc0.60 mg/dLInvalid Interpretation Code0.5-1.5[facility] [place] [employer] [facility] GFR/1.73 sq M predicted among non-blacks MDRD vol rate/area (S/P/Bld)106 mL/min/{1.73_m2}Invalid Interpretation Code[place] [employer] [facility] Glucose mass conc99.0 mg/dLInvalid Interpretation Code 80-117[place]AlertMe [facility] Potassium molar conc4.1 mmol/LInvalid Interpretation Code3.5-5.3[facility] [place] [employer] [facility] Protein mass conc20.6 g/dL9.1-12.0[place]Alert[place] [facility] Protein mass conc7.90 g/dLInvalid Interpretation Code 6.3-7.9[facility] [place] [employer] [facility] Sodium molar hggd983 mmol/LInvalid Interpretation Code 135-148[place]AlertMe [facility] Urea nitrogen mass conc11.0 mg/dLInvalid Interpretation Code7-25[place]Alert[place] [facility] Urea nitrogen/Creatinine mass ratio18 mg/mgInvalid Interpretation Code6-20[place]Alert[place] [facility] No Panel Informationon 10-25-20162.0Invalid Interpretation Code0.8-1.2[facility] [place] [employer] [facility] Otheron 36-35-1411Bibmjvo/Globulin mass ratio1.1 {ratio}Invalid Interpretation Code1.0-2.4[facility] hospitalAut[facility] Response [facility] Cholesterol in VLDL mass conc46.0 mg/dLInvalid Interpretation Code0-39[place]Alert[place] [facility] Cholesterol.total/Cholesterol in HDL mass ratio6 {ratio}Invalid Interpretation CodeSan JuanXiaoi Robert 20.6Invalid Interpretation Code9.1-12.0[place] [employer] [facility] Cardiacon 12-61-4220Vbdcbraidrz in HDL mass conc49.0 mg/dLInvalid Interpretation Fiqn26-340AojbdscycAlertMe [facility] Cholesterol in LDL mass conc60.0 mg/dLInvalid Interpretation Code0-130[place]Alert[place] [facility] Cholesterol mass strd448.0 mg/dLInvalid Interpretation Code0-200[place]AlertMe [facility] Triglyceride mass adyc851.0 mg/dLInvalid Interpretation Smrp90-798LrydcucwuAlertMe [facility] Metabolic Panelon 53-37-2977Zoamfwf mass conc4.20 g/dL Invalid Interpretation Code3.7-4.5[facility] [place] [employer] [facility] ALP enzyme act/lix347.0 U/LInvalid Interpretation Code 31-155[place] JuanX[place] ALT enzyme act/vol13.0 U/LInvalid Interpretation Code 0-50[place] JuanAlert[place] [facility] Anion gap molar conc14 mmol/LInvalid Interpretation Prkj30-37XsxolocahAlertMe [facility] AST enzyme act/vol17.0 U/LInvalid Interpretation Code 0-40[place] JuanXiaoi [place] Bilirubin mass conc0.20 mg/dLInvalid Interpretation Code0.0-1.0[place]Alert[place] [facility] Calcium mass conc8.90 mg/dLInvalid Interpretation Code 8.5-10.8Bforks community hospitalbidu.com.br Chloride molar twoe020 mmol/LInvalid Interpretation Vjrk470-200GnogssafiAlertMe [facility] CO2 molar conc29 mmol/LInvalid Interpretation Mdsz83-37 [facility] Creatinine mass conc0.70 mg/dLInvalid Interpretation Code0.5-1.5[facility] [place] [employer] [facility] GFR/1.73 sq M predicted among non-blacks MDRD vol rate/area (S/P/Bld)89 mL/min/{1.73_m2}Invalid Interpretation CodeSan JuanAlertMe [facility] Glucose mass qwcy893.0 mg/dLInvalid Interpretation Code 80-117[place]Alert[place] [facility] Potassium molar conc4.1 mmol/LInvalid Interpretation Code3.5-5.3[facility] [place] [employer] [facility] Protein mass conc7.60 g/dLInvalid Interpretation Code 6.3-7.9[facility] [place] [employer] [facility] Sodium molar vcay673 mmol/LInvalid Interpretation Code 135-148[place]Alert[place] [facility] Urea nitrogen mass conc12.0 mg/dLInvalid Interpretation Code7-25[place]Alert[place] [facility] Urea nitrogen/Creatinine mass ratio17 mg/mgInvalid Interpretation Code6-20[place]Alert[place] [facility] Otheron 46-89-4830Xwlvvry/Globulin mass ratio1.2 {ratio}Invalid Interpretation Code1.0-2.4[facility] [place] [employer] [facility] Cholesterol in VLDL mass conc48.0 mg/dLInvalid Interpretation Code0-39[place]Alert[place] [facility] Cholesterol.total/Cholesterol in HDL mass ratio3 {ratio}Invalid Interpretation CodeSan JuanAlertMe [facility] Thyroidon 08-59-6389Drtnhwpbyzq Qn2.05 m[IU]/LInvalid Interpretation Code0.50-4.00[place]Alert[place] [facility] Hematologyon 86-00-1250ULJ Coag RelTime (PPP)1.9 {INR} Invalid Interpretation Code0.8-1.2[facility] [employer] Prothrombin time (PT) Coag time (PPP)15.70 sInvalid Interpretation Code10.2-12.2[facility] [employer] Otheron 87-79-35162lo dailyInvalid Interpretation Code Brito [employer] Cardiacon 48-79-2083Kkixxkazbdx in HDL mass conc70.0 mg/dLInvalid Interpretation Ricj81-316DqylvdzxwXiaoi Robert Cholesterol in LDL mass conc63.0 mg/dLInvalid Interpretation Code0-130[place] Cholesterol mass kfsp482.0 mg/dLInvalid Interpretation Code0-200[place] Triglyceride mass tnfa025.0 mg/dLInvalid Interpretation Scdy82-434VvdydyxzsXiaoi Robert Metabolic Panelon 46-44-7985Lsjsuhm mass conc4.40 g/dL Invalid Interpretation Code3.7-4.5Bfor[facility] community hospitalAuthentic Response [facility] ALP enzyme act/vol96.0 U/LInvalid Interpretation Code 31-155[place] ALT enzyme act/vol13.0 U/LInvalid Interpretation Code 0-50[employer] Anion gap molar conc15 mmol/LInvalid Interpretation Osfe87-70RxterfxbrXiaoi Robert AST enzyme act/vol18.0 U/LInvalid Interpretation Code 0-40[employer] Bilirubin mass conc0.30 mg/dLInvalid Interpretation Code0.0-1.0[facility] Jodange [facility] Calcium mass conc9.60 mg/dLInvalid Interpretation Code 8.5-10.8BOhio[facility] J[place]ange [facility] Chloride molar ahfz561 mmol/LInvalid Interpretation Huvj967-382Luufbldla [place] [facility] CO2 molar conc29 mmol/LInvalid Interpretation Wynj88-54 [facility] J[place]ange [facility] Creatinine mass conc0.80 mg/dLInvalid Interpretation Code0.5-1.5BOhio[facility] [place] [facility] GFR/1.73 sq M predicted among non-blacks MDRD vol rate/area (S/P/Bld)77 mL/min/{1.73_m2}Invalid Interpretation CodeWilson Memorial Hospital [place]ange [facility] Glucose mass conc89.0 mg/dLInvalid Interpretation Code 80-117[place] [employer] [facility] Potassium molar conc4.3 mmol/LInvalid Interpretation Code3.5-5.3[facility] [place] [employer] [facility] Protein mass conc8.10 g/dLInvalid Interpretation Code 6.3-7.9[facility] [place] [employer] [facility] Sodium molar dqlg673 mmol/LInvalid Interpretation Code 135-148[place] [employer] [facility] Urea nitrogen mass conc10.0 mg/dLInvalid Interpretation Code7-25[place]Alert[place] [facility] Urea nitrogen/Creatinine mass ratio13 mg/mgInvalid Interpretation Code6-20[place]Alert[place] [facility] Otheron 69-36-0957Nxrhxst/Globulin mass ratio1.2 {ratio}Invalid Interpretation Code1.0-2.4[facility] [place] [employer] [facility] Cholesterol in VLDL mass conc29.0 mg/dLInvalid Interpretation Code0-39[place] Cholesterol.total/Cholesterol in HDL mass ratio2 {ratio}Invalid Interpretation CodeSan JuanAlertMe [facility] Thyroidon 90-14-7302Utxwslahwid Qn1.01 m[IU]/LInvalid Interpretation Code0.50-4.00[place] Hematologyon 16-65-8981EKS Coag RelTime (PPP)2.02 {INR} Invalid Interpretation CodeSan JuanXiaoi Robert Otheron weeksInvalid Interpretation Code [employer] Continue present doseInvalid Interpretation Code [employer] Hematologyon 67-11-3528XXK Coag RelTime (PPP)3.31 {INR} Invalid Interpretation CodeSan JuanXiaoi Robert Otheron weeksInvalid Interpretation Code BritoElli Continue present doseInvalid Interpretation Code [employer] Hemboston city hospitalViroclinics Biosciences 48-98-3608Hbqwgybzf #/vol (Bld)0.0 10*3/uL Invalid Interpretation Code0.0-0.1Bforks community hospitalbidu.com.br Basophils/100 WBC (Bld)1.0 %Invalid Interpretation Code 0.2-1.0[place] Eosinophils #/vol (Bld)0.10 10*3/uLInvalid Interpretation Code0.0-0.2Bforks community hospitalbidu.com.br Eosinophils/100 WBC (Bld)2.20 %Invalid Interpretation Code0.9-2.9Blanchabidu.com.br Hematocrit Volume Fraction (Bld)34.80 %Invalid Interpretation Code35.7-47.1BOhio[facility] Hemoglobin mass conc (Bld)12.0 g/dLInvalid Interpretation Code11.9-15.7BOhio[facility] INR Coag RelTime (PPP)2.8 {INR}Invalid Interpretation Code0.8-1.2BOhio[facility] Lymphocytes #/vol (Bld)1.20 10*3/uLInvalid Interpretation Code1.3-2.9BOhio[facility] Lymphocytes/100 WBC (Bld)27.0 %Invalid Interpretation Code20.5-45.5BOhio[facility] MCH Entitic mass (RBC)29.60 pgInvalid Interpretation Code23.2-33.3BOhio[facility] MCV Entitic volume (RBC)85.80 fLInvalid Interpretation Code82.0-98.4BOhio[facility] Monocytes #/vol (Bld)0.30 10*3/uLInvalid Interpretation Code0.3-0.8BOhio[facility] Monocytes/100 WBC (Bld)7.40 %Invalid Interpretation Code5.5-11.7BOhio[facility] Neutrophils #/vol (Bld)3.0 10*3/uLInvalid Interpretation Code2.2-4.8BOhio[facility] J[place]ange [facility] Neutrophils/100 WBC (Bld)62.40 %Invalid Interpretation Code43.0-65.0BlMercer County Community Hospital [place] [facility] Platelets #/vol (Bld)198.0 10*3/uLInvalid Interpretation Ptgm624-413JkogubhogAlertMe [facility] Prothrombin time (PT) Coag time (PPP)19.60 sInvalid Interpretation Code10.2-12.2[facility] [place] [employer] [facility] RBC #/vol (Bld)4.060 10*6/uLInvalid Interpretation Code 3.72-5.24[place]Alert[place] [facility] WBC #/vol (Bld)4.60 10*3/uLInvalid Interpretation Code 3.9-10.3[facility] [place] [employer] [facility] Metabolic Panelon 81-00-3298Npohvxe mass conc4.10 g/dL Invalid Interpretation Code3.7-4.5Bforks community hospitalAuthentic Response [facility] ALP enzyme act/vol73.0 U/LInvalid Interpretation Code 31-155[place]Alert[place] [facility] ALT enzyme act/vol18.0 U/LInvalid Interpretation Code 0-50[place]Alert[place] [facility] Anion gap molar conc13 mmol/LInvalid Interpretation Rtwz27-86IvtnikjbyAlertMe [facility] AST enzyme act/vol24.0 U/LInvalid Interpretation Code 0-40[place]Alert[place] [facility] Bilirubin mass conc0.20 mg/dLInvalid Interpretation Code0.0-1.0[place]Alert[place] [facility] Calcium mass conc9.0 mg/dLInvalid Interpretation Code 8.5-10.8[facility] [place] [employer] [facility] Chloride molar mbaa100 mmol/LInvalid Interpretation Snyu305-070FaxkbyacwAlertMe [facility] CO2 molar conc29 mmol/LInvalid Interpretation Dcra21-16 [place] [employer] [facility] Creatinine mass conc0.60 mg/dLInvalid Interpretation Code0.5-1.5Bthedacare medical center shawanoEnrich Social Productions GFR/1.73 sq M predicted among non-blacks MDRD vol rate/area (S/P/Bld)108 mL/min/{1.73_m2}Invalid Interpretation CodeSan JuanXiaoi Robert Glucose mass conc92.0 mg/dLInvalid Interpretation Code 80-117[place] Potassium molar conc3.7 mmol/LInvalid Interpretation Code3.5-5.3Bthedacare medical center shawanoEnrich Social Productions Protein mass conc7.40 g/dLInvalid Interpretation Code 6.3-7.9[facility] bone Sodium molar jwbv393 mmol/LInvalid Interpretation Code 135-148[facility] Urea nitrogen mass conc10.0 mg/dLInvalid Interpretation Code7-25[facility] Urea nitrogen/Creatinine mass ratio17 mg/mgInvalid Interpretation Code6-20[facility] Otheron 87-86-1556Tsjhtlds present doseInvalid Interpretation CodeStorytree 2 weeksInvalid Interpretation CodeStorytree Albumin/Globulin mass ratio1.2 {ratio}Invalid Interpretation Code1.0-2.4[facility] bone Erythrocyte distribution width Ratio (RBC)13.90 % Invalid Interpretation Code11.5-15.5[facility] bone MCHC mass conc (RBC)34.50 g/dLInvalid Interpretation Code32.0-36.0[facility] Platelet mean volume Entitic volume (Bld)11.0 fLInvalid Interpretation Code7.4-10.4[facility] [place] [employer] [facility] 2.5 mg dailyInvalid Interpretation CodeEl [place] [employer] [facility] Vital Signs Date TimeVital SignValuePerforming DvejwaxkkJxpgimav88-75-1612 12:45-0400Body .29 Arley MusiCaresSan JuanAlertMe [facility] Work Phone: [phone] 12:45-0400Body mass index (BMI) [Ratio]34.7 kg/g4Nwslkw [place] healthAlertMe [facility] Work Phone: [phone] 12:45-0400Body surface area Derived from formula2.[address] [place] healthAlertMe [facility] [id number] 12:45-0400Body .27 kgLelia TransmitBritoMAP Pharmaceuticals [facility] Work Phone: [phone] 12:45-0400Diastolic blood xixvwecu47 mm[Hg] Lelia [place] healthAlertMe [facility] Work Phone: [phone] 12:45-0400Heart rate92 /minLelia TransmitBritoMAP Pharmaceuticals [facility] Work Phone: [phone] 12:45-0400Systolic blood equiudgs832 mm[Hg] Lelia [place] healthAlertMe [facility] 30-351569-95334255-05-1124 10:58-0500Body cpunux238.29 Arley TransmitBritoMAP Pharmaceuticals [facility] [id number] 10:58-0500Body mass index (BMI) [Ratio]35.57 kg/s3Stctqe [place] healthAlertMe [facility] 24-953062-74388182-30-9657 10:58-0500Body surface area Derived from formula2.[address] [place] healthAlertMe [facility] [id number] 10:58-0500Body fgufwc08.53 kgAngela Ray [facility] 12-17-2024 10:58-0500Diastolic blood nceqglzv05 mm[Hg] Lelia MusiCaresTrihealth Mccull[facility] 12-17-2024 10:58-0500Heart rate80 /minLelia Lr [facility] 12-17-2024 10:58-0500Systolic blood iykpodjd320 mm[Hg] Lelia MusiCaresTrihealth [facility]ull[facility] 11-07-2023 11:20-0500Diastolic blood ynkbkhou63 mm[Hg] Nurse 4 Work Phone: [phone]11-07-2023 11:20-0500Heart rate89 /min Nurse 4 Work Phone: [phone] [place], [place] 9915611-07-2023 11:20-3073WtL4% (BldA) [Mass fraction]95 %Nurse 4 Work Phone: [phone]11-07-2023 11:20-0500Systolic blood mm[Hg]Nurse 4 Work Phone: [phone]11-07-2023 10:20-0500Body temperature 98.1 [degF]Nurse 4 Work Phone: [phone]11-07-2023 10:20-0500Respiratory rate 18 /minNurse 4 Work Phone: [phone]09-13-2023 11:40-0400Heart rate92 /min Nurse 4 Work Phone: [phone]09-13-2023 11:40-6809VkE3% (BldA) [Mass fraction]97 %Nurse 4 Work Phone: [phone]09-13-2023 11:30-0400Diastolic blood mm[Hg]Nurse 4 Work Phone: [phone]09-13-2023 11:30-0400Systolic blood gynnkmbv039 mm[Hg]Nurse 4 Work Phone: [facility]09-13-2023 10:40-0400Respiratory rate 16 /minNurse 4 Work Phone: [facility]09-13-2023 10:00-0400Body temperature 97.9 [degF]Nurse 4 Work Phone: [facility]08-22-2023 12:18-0400Body lfvlei758.56 cmACleveland [facility] [id number] 12:18-0400Body mass index (BMI) [Ratio]36.73 kg/j5AzeaspMer[facility] 10-121715-17710774-11-7802 12:18-0400Body surface area Derived from formula2.09 a0KhpvpwMercy Health West Hospital [facility] [id number] 12:18-0400Body .07 [facility]Em[facility] [place] [facility] [id number] 12:18-0400Diastolic blood wolgkuvl97 mm[Hg] Lelia [place] healthAlertMe [facility] 10-226466-67902542-95-8518 12:18-0400Heart rate82 /minMilan TransmitBrito [facility] 08-22-2023 12:18-0400Systolic blood jcqmkuhi987 mm[Hg] Lelia [place] healthAlertMe [facility] [id number] 11:00-0400Diastolic blood wjoreuiq78 mm[Hg] Nurse 1 Work Phone: [phone]07-19-2023 11:00-0400Heart rate84 /min Nurse 1 Work Phone: [facility]07-19-2023 11:00-0400Respiratory rate 16 /minNurse 1 Work Phone: [facility]07-19-2023 11:00-2318FfL7% (BldA) [Mass fraction]97 %Nurse 1 Work Phone: [phone]07-19-2023 11:00-0400Systolic blood mm[Hg]Nurse 1 Work Phone: [facility]07-19-2023 09:40-0400Body temperature 97.9 [degF]Nurse 1 Work Phone: [phone]07-05-2023 14:20-0400Diastolic blood hpchnfzu16 mm[Hg]Nurse 3 Work Phone: [facility]07-05-2023 14:20-0400Heart rate83 /min Nurse 3 Work Phone: [facility]07-05-2023 14:20-0400Respiratory rate 16 /minNurse 3 Work Phone: [phone]07-05-2023 14:20-3196EwN3% (BldA) [Mass fraction]97 %Nurse 3 Work Phone: [facility]07-05-2023 14:20-0400Systolic blood kjyimqen854 mm[Hg]Nurse 3 Work Phone: [phone]07-05-2023 13:10-0400Body temperature 97.9 [degF]Nurse 3 Work Phone: [facility]06-19-2023 08:40-0400Diastolic blood gffytlky71 mm[Hg]Nurse 1 Work Phone: [facility]06-19-2023 08:40-0400Heart rate79 /min Nurse 1 Work Phone: [phone]06-19-2023 08:40-0400Respiratory rate 16 /minNurse 1 Work Phone: [phone]06-19-2023 08:40-8564XoC0% (BldA) [Mass fraction]99 %Nurse 1 Work Phone: [phone]06-19-2023 08:40-0400Systolic blood mm[Hg]Nurse 1 Work Phone: [phone]06-19-2023 07:50-0400Body temperature 98.4 [degF]Nurse 1 Work Phone: [phone]02-06-2023 08:28-0500Body endidq266.6 cmSae Craven MD Work Phone: [phone] Regional Medical CenterVstpau03-86-9253 08:28-0500Body temperature 96.69 [degF]Sae Craven MD Work Phone: [phone] Regional Medical CenterDvegft26-79-9276 08:28-0500Body eoyvtr08.16 kgSae Craven MD Work Phone: PAdena [facility] Medical CenterTvxfix10-74-2366 08:28-0500Diastolic blood hdfalnqv29 mm[Hg]Sae Craven MD Work Phone: [phone] Regional Medical CenterDzaqtl78-85-2612 08:28-0500Heart rate89 /min Sae Craven MD Work Phone: [phone] Regional Medical CenterFyygeu81-97-2437 08:28-9406EkT1% (BldA) [Mass fraction]99 %Sae Craven MD Work Phone: [phone] Regional Medical CenterTttncj64-47-4634 08:28-0500Systolic blood ibndgkwp123 mm[Hg]Sae Craven MD Work Phone: [phone] Regional Medical CenterWfpkph50-74-7727 19:40-0500Body twaewu186.56 cmAcamron Angulo Other [facility] [employer] Other 12-02-2022 19:40-0500Body mass index (BMI) [Ratio] 34.33 kg/k1KvtktNae Angulo Other [employer] Other 12-02-2022 19:40-0500Body zcotnptzvup74.6 [degF]Nae Angulo Other [place] [employer] Other 12-02-2022 19:40-0500Body sfesfe03.72 kgNae Angulo Other [facility]al[facility] [employer] Other 12-02-2022 19:40-0500Respiratory rate18 /minNae Angulo Other [facility]al[facility] [employer] Other 12-02-2022 19:40-9087HoM0% (BldA) [Mass fraction]96 % Nae Kev Other [facility]al[facility] [employer] Other 10-05-2022 13:00-0400Body yevlux37.99 kgBandar Eddy MD Work Phone: [phone] Regional Medical CenterFhaahf68-38-2732 13:00-0400Diastolic blood mm[Hg]Bandar Eddy MD Work Phone: [phone] Regional Medical CenterIunpka59-37-6434 13:00-0400Heart rate84 /min Bandar Eddy MD Work Phone: [phone] medical [facility]ublinand Saosjy99-42-9029 13:00-0400Systolic blood jjaamhzt038 mm[Hg]Bandar Eddy MD Work Phone: [phone] Regional Medical CenterYgcyqh10-59-3202 12:02-0400Body .6 cmKelsie Zuniga MD Work Phone: [phone] Hqpion26-25-4275 12:02-0400Body temperature 98.01 [degF]Kelsie Zuniga MD Work Phone: [phone] Ttsqmw88-88-4881 12:02-0400Body ygidow09.99 kgKelsie Zuniga MD Work Phone: [phone] Yrsfxe38-26-7873 12:02-0400Diastolic blood timcyjwg53 mm[Hg]Kelsie Zuniga MD Work Phone: [phone] medical [facility]health [facility] - dublinand Wuphkq81-50-4406 12:02-0400Heart rate97 /min Kelsie Zuniga MD Work Phone: [place] Uhaeha80-75-1112 12:02-0400Systolic blood qtoxrgnt561 mm[Hg]Kelsie Zuniga MD Work Phone: [place] Psvcpk29-26-6166 16:57-0400Body iqnrhk298.81 [facility] CenterTilckkaleida healthXiaoi Robert Work Phone: [phone] 16:57-0400Body mass index (BMI) [Ratio]35.59 kg/e1Uzfqeo [employer] Work Phone: [phone] 16:57-0400Body surface area Derived from formula2.[address] [place] healthXiaoi Robert Work Phone: [phone] 16:57-0400Body huegcb72.35 kgAngelilliam Zoomy [facility] Work Phone: [phone] 16:57-0400Diastolic blood jprevdft86 mm[Hg] [employer] Work Phone: [phone] 16:57-0400Heart rate68 /minLelia Zoomy [facility] Work Phone: [phone] 16:57-0400Systolic blood mm[Hg] [employer] Work Phone: [phone] 16:40-0500Body veirtl423.83 Suzeapryl Lumiy 71-437224-81670509-60-5600 16:40-0500Body mass index (BMI) [Ratio]35.24 kg/d0Cmnbnu [employer] [id number] 16:40-0500Body surface area Derived from formula2.[address] [employer] [phone] 16:40-0500Body .[address] [employer] [facility] 12-10-2021 16:40-0500Diastolic blood mm[Hg] Lelia JenningsStorytree 12-10-2021 16:40-0500Heart rate84 /minLelia Lr BritoMAP [employer] [facility] 12-10-2021 16:40-0500Systolic blood guhddtya107 mm[Hg] Lelia LrDining Secretary 11-10-2021 17:12-0500Body fciujd237.83 cmAngapryl Lr Dining Secretary 11-10-2021 17:12-0500Body mass index (BMI) [Ratio]35.57 kg/z1Dujwny [employer] [facility] 11-10-2021 17:12-0500Body surface area Derived from formula2.08 m7Csbrhv [employer] [facility] 11-10-2021 17:12-0500Body [address]oldlr88.[address] [employer] [facility] 11-10-2021 17:12-0500Diastolic blood wamcdzag937 mm[Hg] Lelia [employer] 11-10-2021 17:12-0500Heart rate96 /minLelia Lr [address] [employer] [facility] 11-10-2021 17:12-0500Systolic blood qrogrjpx521 mm[Hg] Lelia [employer] 11-03-2021 19:10-0400Body zxjyfx476.56 Kiet Membreno Other [place] [employer] Other 11-03-2021 19:10-0400Body mass index (BMI) [Ratio] 36.56 kg/v8DldbpfGianna Membreno Other [employer] Other 11-03-2021 19:10-0400Body thjbhhwlick77.7 [degF]Gianna Membreno Other [employer] Other 11-03-2021 19:10-0400Body eukurm59.62 kgGianna Membreno Other [employer] Other 11-03-2021 19:10-0400Diastolic blood pahhydzu41 mm[Hg] Gianna Sommersmond Other [employer] Other 11-03-2021 19:10-0400Respiratory rate18 /minGianna Membreno Other [employer] Other 11-03-2021 19:10-5067MqG9% (BldA) [Mass fraction]99 % Gianna Membreno Other [employer] Other 11-03-2021 19:10-0400Systolic blood eagiczyt964 mm[Hg] Gianna Sommersmond Other [employer] Other 02-11-2021 11:26-0500BMI (Body Mass Index)35.74 kg/m2 Lelia Luque [employer] 02-11-2021 11:26-0500Body gyzgdp80.94 kgLelia Lr Dining [employer] 02-11-2021 11:26-0500BP Saqpfmdbf17 mm[Hg]Lelia Lr [employer]ining [employer] 02-11-2021 11:26-0500BP Epbzutnf103 mm[Hg][employer] Work Phone: [phone] 11:BSA (Body Surface Area)2.09 m2 LeliaGEOCOMtms Work Phone: [phone] 11:3829Xoozab581.83 DeedeeDiningCircle Work Phone: [phone] 11:26-0500Pulse (Heart Rate)92 /minLelia [employer] Work Phone: [phone] 11:29-0400BMI (Body Mass Index)34.67 kg/m2 [employer] Work Phone: [phone] 11:29-0400Body Gnluharkbqm65.7 [degF][employer] Work Phone: [phone] 11:29-0400Body .63 kgLelia Lumiy Work Phone: [phone] 11:29-0400BP Qpqjdhkay07 mm[Hg][employer] Work Phone: [phone] 11:29-0400BP Dxjfeoxo804 mm[Hg][employer] Work Phone: [phone] 11:0BSA (Body Surface Area)2.03 m2 [employer] Work Phone: [phone] 11:9901Yrzmss835.56 DeedeeDiningCircle Work Phone: [phone] 11:29-0400Pulse (Heart Rate)80 /minAname [employer] [phone] 10:46-0500BMI (Body Mass Index)33.81 kg/m2 [employer] Work Phone: [phone] 10:46-0500Body .04 Olga Lumiy Work Phone: [phone] 10:46-0500BP Avoxgkfsf60 mm[Hg]Lelia Lumiy Work Phone: [phone] 10:46-0500BP Eywgevln063 mm[Hg]Lelia Lumiy Work Phone: [phone] 10:46-0500BSA (Body Surface Area)2.02 m2 LeliaGEOCOMtms Work Phone: [phone] 10:46-0766Keuwko927.19 Arley Qubulus Work Phone: [phone] 10:46-0500Pulse (Heart Rate)84 /minAnaMcLemore Investments Work Phone: [phone] 10:46-8185Qmhsyk01.04 Olga Qubulus Work Phone: [phone] 11:48-0400BMI (Body Mass Index)31.1 kg/m2 [employer] Work Phone: [phone] 11:48-0400Body Kyrglperdna39.6 [degF][employer] Work Phone: [phone] 11:48-0400Body wvdeno73.46 Olga Lumiy Work Phone: [phone] 11:48-0400BP Qfroajkeq87 mm[Hg][employer] Work Phone: [phone] 11:48-0400BP Yeoystxb286 mm[Hg][employer] Work Phone: [phone] 11:48-0400BSA (Body Surface Area)1.95 m2 [employer] Work Phone: [phone] 11:48-6984Roiilq647.83 [employer] 10-568174-29178518-35-5026 11:48-0400Pulse (Heart Rate)80 /minAnaMcLemore Investments 98-104245-22104849-29-6014 11:48-8024Kmpxtk65.46 AnastasiiaMcLemore Investments 27-592705-74113972-94-7709 11:55-0400BMI (Body Mass Index)34.74 kg/m2 [employer] Work Phone: [phone] 11:55-0400Body zwdsla30.53 [employer] Work Phone: [phone] 11:55-0400BP Bzpqryuuc30 mm[Hg][employer] 07-734581-15069369-07-8474 11:55-0400BP Ohtsyypo413 mm[Hg][employer] Work Phone: [phone] 11:55-0400BSA (Body Surface Area)2.05 m2 [employer] Work Phone: [phone] 11:55-9749Lcdjtz687.19 [employer] Work Phone: [phone] 11:55-0400Pulse (Heart Rate)80 /minAnaMcLemore [employer]ments Work Phone: [phone] 11:55-8611Bjnjbs95.53 [employer] 50-735090-48495490-06-6917 17:15-0400BMI (Body Mass Index)34.74 kg/m2 [employer] 99-758828-97005657-91-8681 17:15-0400Body wjisvu39.53 [employer] 02-496626-17125705-76-4848 17:15-0400BP Jfihuhztc60 mm[Hg]Lelia Lumiy Work Phone: [phone] 17:15-0400BP Hzoaprbw073 mm[Hg]Lelia Lumiy Work Phone: [phone] 17:150400BSA (Body Surface Area)2.05 m2 LeliaGEOCOMtms Work Phone: [phone] 17:157965Ftssoj123.19 [employer] Work Phone: [phone] 17:15-0400Pulse (Heart Rate)72 /minAnaMcLemore Investments Work Phone: [phone] 17:15-4558Mnuhwr52.53 KaboozaAnaMcLemore Investments Work Phone: [phone] 12:0500BMI (Body Mass Index)35.26 kg/m2 [employer] Work Phone: [phone] 12:-0500Body sawwyh00.9 kgLelia Lumiy Work Phone: [phone] 12:21-0500BP Menaglltb32 mm[Hg]LeliaScoreloop Work Phone: [phone] 12:21-0500BP Htawrbjn310 mm[Hg][employer] Work Phone: [phone] 12:-0500BSA (Body Surface Area)2.06 m2 LeliaGEOCOMtms Work Phone: [phone] 12:9055Toaixn760.19 [employer]ining[employer] Work Phone: [phone] 12:21-0500Pulse (Heart Rate)76 /minAnaMcLemore Investments Work Phone: [phone] 12:-2988Fcukdt62.9 [employer] Work Phone: [phone] 10:49-0500BMI (Body Mass Index)21.01 kg/m2 Lelia Qubulus Work Phone: [phone] 10:49-0500Body Gprqufezwnk46.2 [degF]Lelia LrDining Secretary Work Phone: [phone] 10:49-0500Body .66 kgLelia Lr Dining Secretary Work Phone: [phone] 10:49-0500BP Qqobqhktb36 mm[Hg]Lelia Lumiy 79-53 10:49-0500BP Vtjjxeqp652 mm[Hg]Lelia Lumiy 52-56 10:49-0500BSA (Body Surface Area)1.56 m2 Lelia Qubulus Work Phone: [phone] 10:49-9811Qvenac644.29 cmAngapryl Qubulus 04-05 10:49-0500Pulse (Heart Rate)82 /minLelia Qubulus 83-51 10:49-0654Inuwyg98.66 Olga Qubulus Work Phone: [phone] 12:38-0500BMI (Body Mass Index)33.18 kg/m2 Lelia Qubulus Work Phone: [phone] 12:38-0500Body qttttu69.33 Olga Lumiy 19-79 12:38-0500BP Dxvamaxnz23 mm[Hg][employer] Work Phone: [phone] 12:38-0500BP Ngqscwxg798 mm[Hg][employer] Work Phone: [phone] 12:38-0500BSA (Body Surface Area)1.97 m2 Lelia Qubulus Work Phone: [phone] 12:38-9687Fylnga601.29 SuzeSeamBLiSSapryl Qubulus Work Phone: [phone] 12:38-0500Pulse (Heart Rate)100 /minLelia Qubulus Work Phone: [phone] 12:38-0389Qnxtsp74.33 Olga Qubulus 40-087186-91728448-37-8709 13:24-0500BMI (Body Mass Index)34.7 kg/m2 LeliaGEOCOMtms Work Phone: [phone] 13:24-0500Body lobkwa25.27 Olga Lumiy Work Phone: [phone] 13:24-0500BP Qwtfxfklv03 mm[Hg]Lelia Lumiy 58-082145-75229284-58-7715 13:24-0500BP Bewaytjx030 mm[Hg]Lelia Lumiy 74-336325-43060884-22-7608 13:24-0500BSA (Body Surface Area)2.01 m2 LeliaGEOCOMtms 03-224961-63208002-93-8488 13:24-4869Hwdvua167.29 Arley Qubulus 86-821918-52076975-32-1390 13:24-0500Pulse (Heart Rate)72 /minLelia Qubulus 40-019372-39025822-12-9754 13:24-8831Igvzvu16.27 KaboozaLelia Qubulus 87-920023-22622348-23-6038 13:53-0400BMI (Body Mass Index)33.83 kg/m2 Lelia Qubulus 85-926977-02942382-91-7370 13:53-0400Body kgLelia Lr Dining Secretary 38-633980-24541838-40-5643 13:53-0400BP Ftlmqtnkp86 mm[Hg]Lelia Lumiy 43-242528-23326200-59-5249 13:53-0400BP Ibvsazxv434 mm[Hg]Lelia Lumiy 65-130613-96264852-69-0166 13:53-0400BSA (Body Surface Area)1.99 m2 Lelia Qubulus 14-949281-46386323-35-4281 13:53-9902Bihhdq385.29 cmAngapryl Qubulus 75-894433-81999931-95-3282 13:53-0400Pulse (Heart Rate)76 /minLelia Qubulus 90-889071-86114438-45-7733 13:53-4728Spfhtj12 kgLelia Qubulus Encounters Encounter DateEncounter TypeCare ProviderFacilityStart: 68-23-8639Upwcoz outpatient visit 15 minutesAngelilliam Lr Other bvma OfficeStart: 01-17-2025 End: 96-87-4456idanvlwwnqHltkrrf D [facility] Work Phone: Start: 01-17-2025 End: 18-48-0771Mkggsczb Neville Washington DO Work Phone: [facility]-LAB Path Spec Ricardo HospStart: 00-72-2865Kirqdut encounter procedureAngelilliam Qubulus Start: 72-33-2881Rrofdb ServicesAnalilliam Lr Other bvma OfficeStart: 25-43-3126Bldssequ preventive med est patient 40-64yrsAngapryl Wasserman Be Other bvma OfficeStart: 32-43-5403Hlahitqsb for general adult medical examination without abnormal findingsMilan Qubulus Start: 31-02-3583N-mail encounter from Michelle Craven MD Work Phone: GastroenterologyStart: 19-73-6616Xzrlzw-up encounter Sae Craven MD Work Phone: GastroenterologyComment on above:Follow up needed Start: 98-62-4204Mduzyj outpatient visit 15 minutesAngelilliam Wasserman Ray Other bvma OfficeStart: 08-02-2023 End: 47-63-6895nkinwjmwotAVKEJhonatan CRAVENFacility:[facility] Start: 08-02-2023 End: 84-19-5835Kzeyjpanxo hospital visit by physician Gi Proc 4 Work Phone: GastroenterologyStart: 76-52-3328Rllgroroo encounter Ann Marie Byrd RNGastroenterologyComment on above:FMLA PaperworkStart: 06-08-2023 End: 92-09-6159gormsbzeywUVCZJhonatan CRAVENFacility:[facility] Start: 06-08-2023 End: 42-85-8555Rouosxubub hospital visit by physician Gi Proc 4 Work Phone: GastroenterologyStart: 65-21-2719Hcmixyw encounter procedureAngeme [employer] Start: 41-39-8360IldCznydd J Ray Other bvma OfficeStart: 59-15-9250Uiwrqatt preventive med est patient 40-64yrsAngela J Ray Other bvma OfficeStart: 04-13-2023 End: 90-62-9929tpkmzgtvdjLSFVJhonatan Fletchercility:[facility] Start: 04-13-2023 End: 44-56-2639Uwspuibehs hospital visit by physicianNurse Gi Proc 1 Work Phone: GastroenterologyStart: 03-30-2023 End: 19-12-7953vcoqbkktffCYGHJhonatan CRAVENFacility:[facility] Start: 03-30-2023 End: 29-13-5782Hputqjwkip hospital visit by physician Gi Proc 3 Work Phone: GastroenterologyStart: 03-14-2023 End: 04-32-4335ormqaqtazeGYBNJhonatan CRAVENFacility:[facility] Start: 03-14-2023 End: 81-57-0469Jxrzgthxhy hospital visit by physician Gi Proc 1 Work Phone: GastroenterologyStart: 02-24-2023 End: 37-43-2849utsgycgkpsUAGQ ACHKARFacility:[facility] HospitalStart: 02-22-2023 End: 51-10-7476rywexjmgezEOJasmin Guancility:D7Jrido: 04-92-7801Bckvbv ServicesLelia Lr Other [facility] OfficeStart: 02-17-2023 End: 47-14-6486gtkyzmzhgwDGRLJhonatan CRAVENFacility:[facility] Start: 36-20-4618Msejpovwi for general adult medical examination without abnormal findingsMilan BeTrihealth [facility] Start: 92-32-3506PtwexwQgptFidencio Craven MD Work Phone: GaroenterologyComment on above:Refill RequestStart: 11-24-2022 End: 47-23-2063kihsrnrblrHJJasmin Guancility:Q3Delcu: 11-04-2022 End: 87-71-8616wlfchfncpxWGFP ACHKARFacility:[facility]tart: 11-01-2022 End: 51-09-1653gditlvhlzeYNBHJhonatan Fletchercility:[facility] Start: 11-01-2022 End: 90-29-8081qxcldjljccBGITJhonatan CRAVENFacility:[facility] Start: 11-01-2022 End: 49-98-9393Ykifbhp encounter Kanu Craven MD Work Phone: GastroenterologyComment on above:Ileitis (Primary Dx) Start: 73-92-5217Vxmtomgho encounterAnn Marie Byrd RNGastroenterologyComment on above:Supervisor Estimator And Drafter - OtherStart: 10-07-2022 End: 26-75-1894qwbpeubuujSQ DOCTOR MISCFacility:Q0Mfsdn: 08-27-2022 End: 74-20-0373lbqarinhbyST DOCTOR [place] [employer] TechnologySaint [facility]'s [facility] needmade Other Start: 58-07-0309Rxmvei outpatient visit 15 minutes Nae JessicaG [facility] Care ClydeStart: 07-30-2022 End: 79-66-9283lqulnhobzgXK DOCTOR MISCFacility:A2Nesna: 06-30-2022 End: 83-22-6831Bammjvn encounter Piper Eddy MD Work Phone: Vascular MedicineComment on above:Antiphospholipid syndrome (HCC) (Primary Dx); History of arterial ischemic stroke; Anticoagulant long-term useStart: 06-23-2022 End: 28-86-5487gobekyreozWqmcuaJennie Lr MDFacility:[facility] Start: 06-15-2022 End: 77-00-4011shpvuhyqvjGI DOCTOR MISCFacility:D1Sxwhs: 06-11-2022 End: 13-50-4244iqbrtmdfwsKB LELIA LRFacility:U7Pydpv: 06-07-2022 End: 07-52-4176fiywralowhKjfgooDarius Lr MDFacility:[facility] Start: 06-01-2022 End: 84-29-7257rqjpmylipdYlapnskSarah Herrera MDFacility:[facility] Centertart: 05-12-2022 End: 35-45-1711sbqzazmmreNoqbaehSarah Herrera MDFacility:[facility] Start: 05-03-2022 End: 20-03-7786Zabxcmw encounter procedureKelsie Zuniga MD Work Phone: RheumatologyComment on above:Pain in joint, multiple sites (Primary Dx); History of Coumadin therapyStart: 64-75-7118Vzicfpy encounter procedureAngeme Utankaleida healthXiaoi Robert Start: 34-97-1362Fnyymsgz preventive med est patient 40-64yrsAngela J Ray Other bvma OfficeStart: 75-43-0268Vqctsx ServicesAngela J Ray Other bvma OfficeStart: 03-08-2022 End: 43-97-5712jmoqgzqgpfZH LELIA W RAYFacility:E0Ecrhp: 35-79-9374Ynnqte outpatient visit 15 minutesAngela J Ray Other bvma OfficeStart: 96-85-4054Gjbbdhxtb for general adult medical examination without abnormal findingsMilan Utankaleida healthAlertMe [facility] Start: 49-62-0127Aipkdp outpatient visit 15 minutes Lelia J Ray Other bvma OfficeStart: 14-45-2769Ltdywl outpatient visit 15 minutesAngela J Ray Other bvma OfficeStart: 07-29-2021 End: 12-27-0203lgoylxaaaaMcetnt Dymond Other [employer] Other Start: 13-11-0638Tfduie outpatient visit 15 minutes Gianna ArriolaG [facility] Care ClydeStart: 67-05-2268Ewkepv outpatient visit 15 minutesAngela J Ray Other bvma OfficeStart: 32-00-0704Ezdbbabbq for general adult medical examination without abnormal findingsMilan Utankaleida healthXiaoi Robert Start: 17-38-5674Iroywhj general medical examination at a health care facilityMilan Utankaleida healthAlertMe [facility] Start: 57-75-1149Przkipy encounter procedureAngelilliam Minernchard [place] [employer] [facility] Start: 46-49-4252BvaOckoye J Ray Other bvma OfficeStart: 99-00-7815Pmlbznqe preventive med est patient 40-64yrsAngela J Ray Other bvma OfficeStart: 61-53-3009Brjzecghk for general adult medical examination without abnormal findingsAngeme Utankaleida healthAlertMe [facility] Start: 40-93-7391Zqekvjv general medical examination at a health care facilityMilan Utanfirsthealth moore [facility] [employer] [facility] Start: 42-49-4811Xmmnhf ServicesAngela J Ray Other bvma OfficeStart: 00-51-6973Ktqhaa ServicesAngela J Ray Other bvma OfficeStart: 21-62-0942Qjfzhb ServicesAngela J Ray Other BVIY OfficeStart: 05-16-7263Ossqdg ServicesAngela J Ray Other bvma OfficeStart: 70-17-2335Lxvshc ServicesGustavo Aaron Other bvma OfficeStart: 22-44-6818Qfipeo ServicesAngela J Ray Other bvma OfficeStart: 03-61-8267Utzwgd ServicesAngela J Ray Other BVEP OfficeStart: 67-97-0716Wfdmjl ServicesAngela J Ray Other BVXG OfficeStart: 25-83-2640Scyvao ServicesAngela J Ray Other bvma OfficeStart: 31-12-0231Ghdrls ServicesCarolee Leroy Other bvma OfficeStart: 44-79-2423Udcppg ServicesAngela J Ray Other BVXT OfficeStart: 36-67-9621Tbawvv ServicesAngela J Ray Other bvMA OfficeStart: 23-13-0413Mfjmfn ServicesAngela J Ray Other BVMA OfficeStart: 31-86-4676Ztpjib outpatient visit 15 minutesAngela J Ray Other BVMA OfficeStart: 75-20-7039Exmsyx ServicesAngela J Ray Other BVMA OfficeStart: 00-86-4523BvlUgptcz J Ray Other BVMA OfficeStart: 63-04-2051Cxnsbp ServicesAngela J Ray Other BVMA OfficeStart: 45-60-8801Rlvrqu ServicesAngela J Ray Other BVMA OfficeStart: 55-98-7148Gxpqib ServicesAngela J Ray Other BVMA OfficeStart: 70-37-7086Mzhpnq ServicesAngela J Ray Other BVMA OfficeStart: 90-97-9266Wqbnuy ServicesAngela J Ray Other BVMA OfficeStart: 28-88-4694Jauzkw ServicesAngela J Ray Other BVMA OfficeStart: 50-17-2971Frfjjj ServicesAngela J Ray Other BVMA OfficeStart: 82-84-9395Tynfmr ServicesAngela J Ray Other BVMA OfficeStart: 10-29-7442Hdgxnq outpatient visit 15 minutesAngela J Ray Other BVMA OfficeStart: 13-41-1280Vofscr ServicesAngela J Ray Other BVMA OfficeStart: 94-58-4370Aswpvt outpatient visit 15 minutesAngela J Ray Other BVMA OfficeStart: 51-08-4272Lenjru ServicesAngela J Ray Other BVMA OfficeStart: 83-21-9157Ufqkcq outpatient visit 15 minutesAngela J Ray Other BVMA OfficeStart: 27-08-1172Oucmnt outpatient visit 15 minutesAngela J Ray Other bvma OfficeStart: 02-72-8528Wvsfrnz encounter procedureAngelilliam LrSan Juanamaya [facility] Start: 81-43-0047Sprezkkz preventive med est patient 40-64yrsAngela J Ray Other bvma OfficeStart: 34-29-0713Fgbvwk ServicesAngela J Ray Other bvma OfficeStart: 23-27-8109Wvjdlf outpatient visit 15 minutesAngela J Ray Other bvma OfficeStart: 57-34-7612Odyqeu ServicesAngela J Ray Other bvma OfficeStart: 14-54-4317Npzakr ServicesAngela J Ray Other bvma OfficeStart: 22-11-1630Axiido ServicesAngela J Ray Other bvma OfficeStart: 07-40-9246Tdkwsr ServicesAngela J Ray Other bvma Office Procedures DateProcedureProcedure DetailPerforming ClinicianStart: 07-33-6172Hdrfwlxfldd timeAngela RayStart: 17-41-0239Pqixevaoceu timeAngela RayStart: 09-11-2024 Comprehensive metabolic panelAngela RayStart: 35-77-7281Wlxuzsdpgys mean corpuscular volume determinationAngela RayStart: 37-92-4525Lmmdu panelAngela Ray Start: 01-14-8346Popf recent diastolic blood pressure < 80 mm hgAngela RayStart: 55-08-0507Sltj recent systolic blood pressure <130 mm hgAngela RayStart: 23-10-4886Ohifgcopwz, automatedAngela RayStart: 35-88-9691Tjadieyfklr timeAngela RayStart: 55-92-6759Sugeioqdxboen metabolic panelAngela RayStart: 05-17-2023 Erythrocyte mean corpuscular volume determinationAngela RayStart: 05-17-2023 Lipid panelAngela RayStart: 98-79-9418Vznk recent diastolic blood pressure < 80 mm hgAngela RayStart: 92-05-9833Ydcg recent systolic blood pressure <130 mm hg Lelia RayStart: 89-89-9808Tpfqwcjwfw, automatedAngela RayStart: 13-30-3425Cajbn of calprotectin Mandeep Craven MD Work Phone: Start: 78-75-9494Ijxhw depression screening assessment Kelsie Zuniga MD Work Phone: Start: 83-93-0559Ffqklufcidwvz metabolic panelAngela RayStart: 52-77-3652Acyyfh cur meds by lj clinAngela RayStart: 04-12-2022 Erythrocyte mean corpuscular volume determinationAngela RayStart: 04-12-2022 Erythrocyte sedimentation rate, non-automatedAngela RayStart: 79-50-2305Dfovn panelAngela RayStart: 58-17-8010Gyrmdmpdvxb timeAngela RayStart: 04-12-2022 Thyroid stimulating hormone measurementAngela RayStart: 17-38-6111Puubctqifn, automatedAngela RayStart: 93-65-0543Elbpbaj B12 and FolateAngela RayStart: 93-40-5168Nkuvjqt D, 25-hydroxy measurementAngela RayStart: 04-05-2022 Comprehensive metabolic panelAngela RayStart: 26-59-2642Dbtvizcltuz mean corpuscular volume determinationAngela RayStart: 98-10-8376Wvcym panelAngela Ray Start: 53-17-3933Owotctqthz, automatedAngela RayStart: 48-61-4982Ychvtxdtlvh timeAngela RayStart: 02-90-4549Ixkdcfnvqqgfq metabolic panelAngela RayStart: 32-94-6185Qiyar panelAngela RayStart: 43-32-2594Licrdm cur meds by lj clin Lelia RayStart: 56-09-0303Gcerxwgqlmy timeAngela RayStart: 08-17-2021 Prothrombin timeAngela RayStart: 15-60-0138Gmzbvzfhphk timeAngela RayStart: 59-38-6456Wvetot cur meds by lj clinAngela RayStart: 57-39-4732Owfmnftovrb timeAngela RayStart: 39-87-8112Gbuzwnppruzcm metabolic panelAngela RayStart: 21-46-3722Jquvizqkkgh mean corpuscular volume determinationAngela RayStart: 06-97-5654Tnhqd panelAngela RayStart: 11-22-7236Gjavzrzhwu, automatedAngela Ray Start: 77-36-9373Am abdomen & pelvis w/o contrst 1/> body reAngela RayStart: 39-92-5615Oijaz count complete auto&auto difrntl wbcAngela RayStart: 11-06-2020 Complete blood countAngela RayStart: 30-45-6022Svrragikybqkq metabolic panel Lelia RayStart: 84-18-4224Hzn meds verified w/pt or reAngela RayStart: 99-47-3348Gwayy panelAngela RayStart: 77-36-1233Qoblf panelAngela RayStart: 95-39-6577Duudevxrzu, automatedAngela RayStart: 67-78-7468Dkjja dip stick/tablet rgnt auto w/o microscopyAngela RayStart: 86-23-6893Ld abdomen & pelvis w/o contrst 1/> body reAngela RayStart: 98-41-6242Wcdeghs bacterial quanttative colony count urineAngela RayStart: 37-54-5920JypvfpvagfGjxknk RayStart: 47-89-6102Hriwjxmniol timeAngela RayStart: 42-01-7071Nlftk count complete automatedAngela RayStart: 17-37-8325Ngerffkmizlua metabolic panelAngela Ray Start: 37-12-8590Ocw meds verified w/pt or reAngela RayStart: 01-30-2020 Erythrocyte mean corpuscular volume determinationAngela RayStart: 01-30-2020 Lipid panelAngela RayStart: 46-91-7114Uktcs panelAngela RayStart: 01-30-2020 Urinalysis, automatedAngela RayStart: 79-60-7643Qwdti dip stick/tablet rgnt auto w/o microscopyAngela RayStart: 69-17-0176Qqaqehggcirgb metabolic panelAngela RayStart: 04-39-1835Kwrcv panelAngela RayStart: 03-43-2912Zqznm panelAngela Ray Start: 17-35-1128Ukmwpvhhkie timeAngela RayStart: 77-40-0287Qbwaszosogv time Lelia RayStart: 08-41-8638Npbxusschglsm metabolic panelAngela RayStart: 82-43-4296Uif meds verified w/pt or reAngela RayStart: 64-89-5234Pyseo panel Lelia RayStart: 92-09-6609Lwlyd panelAngela RayStart: 32-03-4565Qjfpnqesxlh timeAngela RayStart: 88-35-5425Spxxhvellol timeAngela RayStart: 69-49-1906Wmdtk metabolic panel calcium totalAngela RayStart: 17-69-5503Wlmtfvu aminotransferase measurementAngela RayStart: 74-65-0966Zxilimxul aminotransferase measurement Lelia RayStart: 16-45-9795Zkzsl metabolic panel calcium ionizedAngela RayStart: 04-57-8589Yocot chemistryAngela RayStart: 72-25-3774Ystye panelAngela RayStart: 53-18-7940Erbaa panelAngela RayStart: 83-54-6782Xnokenbnaff alanine amino alt sgptAngela RayStart: 21-21-7779Exgubaattcu aspartate amino ast sgotAngela Ray Start: 94-79-9130Eyxgrovkmgh timeAngela RayStart: 97-63-7632Qdjpjrwsxhq time Lelia RayStart: 45-28-3732Htaytdnowtuxp metabolic panelAngela RayStart: 36-55-9603Jqr meds verified w/pt or reAngela RayStart: 46-43-3746Ruckn panel Lelia RayStart: 06-39-9460Dzbta panelAngela RayStart: 17-01-9467Fmzqcncqweo timeAngela RayStart: 20-80-7895Mylxvbtnxhi timeAngela RayStart: 10-25-2017 Comprehensive metabolic panelAngela RayStart: 37-68-2183Dmjdq panelAngela Ray Start: 26-21-6040Gctmc panelAngela RayStart: 64-98-7623Tztmbjmwg rspse spmtry pre&post-brncdilat admnAngela RayStart: 17-49-7539Qonexpupxivbbrvtfo 80 MG inj Lelia RayStart: 21-10-1089Arggnvvrsxy prophylactic/dx injection subq/imAngela RayStart: 92-75-0044Enbzzbxdpmfer acet inj NOSAngela RayStart: 71-61-0472Dcyao count complete auto&auto difrntl wbcAngela RayStart: 48-92-6975Bkrwckgl blood countAngela RayStart: 27-92-6296Ddsyckqvivqvf metabolic panelAngela RayStart: 03-09-2017 End: 74-58-7525Pj angiography chest w/contrast/noncontrastAngela RayStart: 57-22-3657NU angiography of chest with contrastAngela RayStart: 03-09-2017 Prothrombin timeAngela RayStart: 93-91-6352Cqrlcuxgtui timeAngela RayStart: 70-57-6325Cemji panelAngela RayStart: 65-94-9072Zvnrn panelAngela RayStart: 42-66-2976Oeylhqclqtq timeAngela RayStart: 90-48-0646Qvbshlaeyim timeAngela Ray Start: 88-61-3275Zpnhwirdbfhoo metabolic panelAngela RayStart: 58-05-3929Rozae panelAngela RayStart: 40-27-0124Fprvi panelAngela RayStart: 10-25-2016 Prothrombin timeAngela RayStart: 27-43-5357Fydjbvnbtic timeAngela RayStart: 87-25-4250Wnaws of thyroid stimulating hormone tshAngela RayStart: 08-20-2016 Blood count complete automatedAngela RayStart: 45-00-7433Hjihwxzuobwtg metabolic panelAngela RayStart: 87-70-7501Zyaweqsdqrd mean corpuscular volume determinationAngela RayStart: 36-78-2578Adswo panelAngela RayStart: 08-20-2016 Lipid panelAngela RayStart: 20-84-9149Gtrzycl stimulating hormone measurement Lelia RayStart: 31-32-6465Dirsppdwucm timeAngela RayStart: 12-15-2015 Prothrombin timeAngela RayStart: 66-80-6975Sxytl of thyroid stimulating hormone tshAngela RayStart: 28-33-9799Viztucjggzokk metabolic panelAngela RayStart: 51-91-7084Gmqer panelAngela RayStart: 81-21-3269Kabgz panelAngela RayStart: 27-36-6194Yureysp stimulating hormone measurementAngela RayStart: 12-16-2014 Prothrombin timeAngela RayStart: 19-52-6128Qgccjnsxjfa timeAngela RayStart: 14-51-7033Bfw meds verified w/pt or reAngela RayStart: 87-84-6296Hki immunize order/adminAngela RayStart: 17-51-1878Cjbqzxdpvxs timeAngela RayStart: 90-62-5280Okhvnqhroep timeAngela RayStart: 24-21-0529OVYMXWB NON-USERAngela Ray Start: 86-56-1769Ouewj of thyroid stimulating hormone tshAngela RayStart: 30-27-0588Lwoswkyy hepatitis A and B vaccinationAngela RayStart: 08-19-2014 Comprehensive metabolic panelAngela RayStart: 01-88-7734Ssgto panelAngela Ray Start: 97-90-5325Wscpd panelAngela RayStart: 54-56-1260Lhfdbxp stimulating hormone measurementAngela RayStart: 08-14-9894Suxtyrna Flow SheetAngela Ray Start: 84-17-0582Idvee of thyroid stimulating hormone tshAngela RayStart: 05-88-4366Rgwaf count complete automatedAngela RayStart: 63-33-8035Zhabqciyott of international normalized ratioAngela RayStart: 25-79-5344Vaobnhtpfjcmj metabolic panelAngela RayStart: 26-04-0393Zogqzbemjad mean corpuscular volume determinationAngela RayStart: 38-76-5544Qvmnq panelAngela RayStart: 09-21-2013 Lipid panelAngela RayStart: 06-96-3866Yaeuqrgdpph timeAngela RayStart: 08-63-9823Dpkwwii stimulating hormone measurementAngela RayStart: 05-10-2013 Blood count complete auto&auto difrntl wbcAngela RayStart: 26-84-1729Djwedzgzthq of international normalized ratioAngela RayStart: 48-21-8663Xighrska blood countAngela RayStart: 39-46-9920Mvowgbygtyros metabolic panelAngela RayStart: 47-69-2590Tylbiolljiv timeAngela Ray Plan of Treatment DateCare ActivityDetailAutrStart: 77-99-0789EITDFEKWL B (1 of 3 - Risk 3-dose series)HEPATITIS B (1 of 3 - Risk 3-dose series)[facility] 90-68-7809Pyyuhlvwd B Vaccine (1 of 3 - Risk 3-dose series)Hepatitis B Vaccine (1 of 3 - Risk 3-dose series)[facility]: 50-75-9470FNJCLPRE SCREEN DIABETES SCREENEast [facility] City Hospitaltart: 86-17-5998Sbsqmqsg ScreeningDiabetes ScreeningEast [facility] City Hospitaltart: 15-51-1660Ogdql count complete automatedCBC & PLATELET COUNT; [employer] Groupkaleida healthXiaoi Robert Start: 68-77-5567Dhalzjbwsbymf metabolic panelCMP [employer] [facility] start: 28-92-9702Jucat panelLipid panelSan JuanAlertMe [facility] Start: 05-18-3497Hjgxe dip stick/tablet rgnt auto w/o microscopyUrinalysis autoSan JuanAlertMe [facility] start: 90-92-6421Knwsntcugls timePROTIME/INR [16003T] [employer] [address] [employer] [facility] Start: 15-95-6879ZEYGAOSX SCREENDIABETES SCREEN [facility]: 10-56-1273Txejvjyzlkm timePROTIME/INR [95395I][address] [employer] [facility] Start: 66-21-7515Emrhxdom identified in Urine by CultureUrine [facility] Cent[facility]art: 49-41-6616Rgdyp [facility]tart: 39-83-5805Twdokeidjjm time PROTIME/INR [76223S][place] [employer] [facility] start: 08-44-9386Dqlih count complete automatedCBC and PLATELET COUNT; [employer] [facility] start: 87-54-8537Wjihnxtcrnsnv metabolic panel Comprehensive metabolic panelWilson Health Coapt Systems [facility] Start: 58-41-9432Ibkqq panelLipid panelWilson Memorial Hospital Jodange [facility] Start: 68-08-1300Qcmzm dip stick/tablet rgnt auto w/o microscopyUAEl [place] [employer] [facility] Start: 12-93-7468Lcbvqbpou vaccinationInfluenza Vaccine (Season Ended)[facility]: 02-18-2024 End: 46-60-3880PVZ panel - Blood by Automated countCOMPLETE BLOOD COUNT Lab Routine Crohn's disease of small intestine without complication (HCC) Expected: 02/18/2024, Expires: 05/19/2024[facility] ClinicComment on above:Expected: 02/18/2024, Expires: 05/19/2024Start: 02-18-2024 End: 08-25-0189Lvslonmmwtesn metabolic 2000 panel - Serum or PlasmaCOMPREHENSIVE METABOLIC PANEL Lab Routine Crohn's disease of small intestine without complication (HCC) Expected: 02/18/2024, Expires: 05/19/2024[facility] Work Phone: comment on above:Expected: 02/18/2024, Expires: 05/19/2024Start: 96-72-4292Qegxxufxrm Health ScreeningBehavioral Health ScreeningEast [facility] City Hospitaltart: 25-80-2911Rbead-19 Vaccine ( season) Covid-19 Vaccine ()[facility]: 29-35-1300Juhjfvxme vaccinationEast [facility] City Hospitaltart: 82-00-0416Dhoyj count complete automatedCBC & PLATELET COUNT; AUTOMATEDSan JuanDodreams [facility] [employer] [facility] Start: 93-37-8607Qkfyomvysnbfi metabolic panelCMP Brito [employer] [facility] [employer] [facility] Start: 04-68-0725Wqmms panelLipid panelSan JuanAlertMe [facility] Start: 51-35-8975Thwoc dip stick/tablet rgnt auto w/o microscopyUrinalysis CEINTSan JuanDevonWay [facility] Start: 69-70-5493Ieiga depression screening assessment DEPRESSION SCREENINGEast [facility] City Hospitaltart: 89-84-4325Dsixigpc Vaccine (2 of 2) Shingrix Vaccine (2 of 2)[facility]: 45-00-7375Jqcoj count complete automatedCBC & PLATELET COUNT; AUTOMATEDEl [place] Caspida [facility] Start: 95-37-2788Euxjddikfpwdq metabolic panelCMP Brito [facility] start: 67-04-2919Yddmx panelLipid panelTrihealth Mccullough-[facility]de [facility] start: 79-13-8932Vkeee dip stick/tablet rgnt auto w/o microscopyUrinalysis CEINTSan JuanDodreams [facility] Start: 16-04-5161HBNNTTRFXD ASSESSMENTDEPRESSION ASSESSMENTEast [facility] City Hospitaltart: 20-56-8024Fynoucenc vaccinationINFLUENZA (#1) [facility]tart: 05-03-2022 End: 15-86-5397YBH BY IFA WITH REFLEXKettering Health Miamisburg Work Phone: comment on above:Expected: 05/03/2022, Expires: 07/03/2022tart: 05-03-2022 End: 54-90-6575FNING TB SCREENKettering Health Miamisburg Work Phone: comment on above:Expected: 05/03/2022, Expires: 07/03/2022tart: 05-03-2022 End: 16-52-5840Llfalte hepatitis differentiation between hepatitis B and C virus panel - Serum or PlasmaKettering Health Miamisburg Work Phone: comment on above:Expected: 05/03/2022, Expires: 07/03/2022tart: 05-03-2022 End: 55-26-4021Lqiqiw citrullinated peptide IgG Ab [Units/volume] in Serum or PlasmaKettering Health Miamisburg Work Phone: commazc on above:Expected: 05/03/2022, Expires: 07/03/2022tart: 05-03-2022 End: 84-86-5750Jiidjnrwcet sedimentation rateKettering Health Miamisburg Work Phone: comwdbu on above:Expected: 05/03/2022, Expires: 07/03/2022tart: 05-03-2022 End: 77-10-7571MRAUA ANTICOAG PLCWilson Health Work Phone: comjbtk on above:Expected: 05/03/2022, Expires: 07/03/2022tart: hydroxy includes fractions if performedVitamin d 25 hydroxy panelSan JuanXiaoi Robert start: 46-43-4778Ogaor of thyroid stimulating hormone tshTSHBlanmammoth hospital foodjunky Start: 56-90-0519Nsoxi count complete automatedCBC & PLATELET COUNT; AUTOM[employer]Story[employer] start: 90-34-9518Zbcfnuxfaapow metabolic panelCMP Brito [employer] start: 30-56-8464Tsbyk panelLipid panelSan JuanAlertMe [facility] Start: 40-33-8155Edsyjjsvwht timeProtimeSan JuanAlertMe [facility] Start: 72-81-1073Fambpxkzcalyp rate rbc non-automated ESR non-autoSan JuanXiaoi Robert start: 98-13-8946Rnkys dip stick/tablet rgnt auto w/o microscopyUrinalysis autoSan JuanXiaoi Robert start: 97-97-8363Expkr count complete automatedCBC & PLATELET COUNT; CareHubsSan JuanXiaoi Robert start: 97-26-0450Bpjzphkqeoout metabolic panel Comprehensive metabolic panelTrihealth Mccullough-[facility] start: 17-23-5657Jffpc panelLipid panelTrihealth Mccullough-Hy[facility] Start: 46-67-3188Otlna dip stick/tablet rgnt auto w/o microscopyUAWilson Memorial Hospital Idomoo [facility] Start: 98-83-6575Wjzacoxhysc timePROTIME/INR [69040S] [facility] Jodange [facility] start: 45-10-2627Tuvlc count complete automatedCBC & PLATELET COUNT; AUTOMATEDTrihealth Mccullough-Hyde Memorial [facility] Start: 11-11-2163Jpjnmylgileye metabolic panelWilson Health Coapt Systems [facility] start: 74-77-3116Askxy panelLipid panelWilson Health [employer] [facility] start: 93-19-0049Kbywp dip stick/tablet rgnt auto w/o microscopyUAWilson Memorial Hospital Idomoo [facility] Start: 63-84-5297NOAKO-19 VACCINE (4 - Booster for Pfizer series)COVID-19 VACCINE (4 - Booster for Pfizer series)[facility] Start: 00-10-5032EHQVH-19 VACCINE (4 - Booster for Pfizer series)COVID-19 VACCINE (4 - Booster for Pfizer series)[facility]art: 24-62-9445UYYNK-19 VACCINE (4 - Pfizer series)COVID-19 VACCINE (4 - Pfizer series)[facility] Start: 07-99-4182IDKBZMUNXK ASSESSMENTDEPRESSION ASSESSMENTAdena Fayette Medical Center Start: 20-86-4436Tjcilofnazb timePROTIME/INR [63029W][employer] [facility] Start: 08-01-0956Vrjlioibbrx timePROTIME/INR [89784U] [employer] [facility] Start: 23-81-9514Tegurytspss timePROTIME/INR [30482S] [place] [employer] [facility] start: 63-60-3427Cpsxzyrhlje timePROTIME/INR [56063B] [facility] [employer] [facility] start: 63-13-2954Hpthn count complete automatedCBC & PLATELET COUNT; AUTOMATEDSan JuanVdolg [place] [facility] Start: 10-33-2019Xynfrlmmomqwp metabolic panel Comprehensive metabolic panelWilson Memorial Hospital Jodange [facility] start: 77-06-8919Ivkoj panelLipid panelWilson Memorial Hospital Jodange [facility] start: 51-09-2045Ofhfc dip stick/tablet rgnt auto w/o microscopyUAWilson Memorial Hospital Jodange [facility] start: 51-02-8087MH abdomen and pelvis; with and w/o contrastSan JuanAlertMe [facility] start: 11-18-5805Nsszz count complete auto&auto difrntl wbcCBC, PLATELET, DIFFERENTIAL, AUTOMATEDWilson Memorial Hospital Jodange [facility] Start: 83-33-2590Jqqtrtubszskb metabolic panel Comprehensive metabolic panelWilson Memorial Hospital Jodange [facility] start: 27-93-4637Tktpw panelLipid panelWilson Memorial Hospital Jodange [facility] Start: 85-80-1760Covjf dip stick/tablet rgnt auto w/o microscopyUrinalysis autoSan JuanAlertMe [facility] Start: 95-18-6898Bkliiyy bacterial quanttative colony count urineUA + cultureSan JuanAlertMe [facility] start: 07-76-1015Exwzeqfqkqz timePROTIME/INR [25260N] [place] [employer] [facility] Start: 71-58-5256BG Coag (PPP) [Time]PROTIME/INR [[id number]][employer] Start: 34-76-9989Kjsyn count complete automatedCBC & PLATELET COUNT; AUTOMATEDSan JuanAlertMe [facility] Start: 71-62-7364Gqgztevnuchxq metabolic panelCMP [employer] Start: 61-34-9952Aasol panelLipid panelSan JuanAlertMe [facility] Start: 85-54-1749Pcpnb dip stick/tablet rgnt auto w/o microscopyUrinalysis autoSan JuanAlertMe [facility] Start: 14-94-6318Ugrchnumytaxv metabolic panelComp [employer] Start: 69-18-9597Pjeit panelLipid panelSan JuanXiaoi Robert Start: 78-51-2428Kuidgbabwau time (PT) Coag time (PPP) PROTIME/INR [27527B][employer] Start: 04-39-8800KCU enzyme act/volSGPT/ALTStorytree Start: 43-14-1062Pjvfq metabolic panel calcium ionized CHEM 8 PANELStorytree Start: 64-29-6155Bnzkh panelLipid profileSan JuanXiaoi Robert Start: 49-89-4769Enigkpi mass concLipid profile BritoElli Start: 12-04-8290Aezqdcrjanh aspartate amino ast sgot SGOT/ASTStorytree Start: 14-94-8359Xfohynslulm time (PT) Coag time (PPP) PROTIME/INR [08743H][facility] Start: 16-85-5504RTRSGHSM VACCINE (1 of 2)SHINGRIX VACCINE (1 of 2)[facility]art: 66-74-2032madueajgb diverticulitis with perforation. Treated at [facility] Start: 62-34-7250Rziznpzdk A Vaccine (2 of 3 - Hep A Twinrix risk 3-dose series)Hepatitis A Vaccine (2 of 3 - Hep A Twinrix risk 3- dose series)[facility]: 25-17-4676Hfgbuyhgs B Vaccine (2 of 3 - Hep B Twinrix risk 3-dose series)Hepatitis B Vaccine (2 of 3 - Hep B Twinrix risk 3- dose series)[facility]: 59-02-6283ZDSODQLVP (FIT-DNA)COLOGUARD (FIT-DNA)[facility]: 85-11-6233ItelltenhzeRVZSWPEZHAXGrvfbnhzs Clinic Start: 88-74-7965AMHLTZFERM CANCER SCREENINGCOLORECTAL CANCER SCREENINGEast [facility] Hospitaltart: 37-44-9431JA COLONOGRAPHYCT COLONOGRAPHYEast [facility] City Hospitaltart: 11-24-8230XHGUWQLU SCREENDIABETES SCREENEast [facility] City Hospitaltart: 84-11-8005CPPAU OCCULT BLOODFECAL OCCULT BLOODEast Liverpool City Hospitaltart: 28-68-8703Dndkx 1996 panel - Serum or PlasmaLipid ScreeningEast Liverpool City Hospitaltart: 74-82-4541Bntwe panel Lipid ScreeningEast [facility] City Hospitaltart: 48-00-6838CQEDE SCREENLIPID SCREEN [facility]art: 67-76-8816Oxpkpqdpg for malignant neoplasm of colon [facility]art: 22-77-9129ZAHFNMNGSDBLVOWPHVXVMQNOHKWducwopzp Clinic Start: 14-11-8241VtsyixkntepLazmuttqc ClinicStart: 29-37-3337Fuaumbuwa for malignant neoplasm of breastMammogram ScreeningEast [facility] City Hospitaltart: 12-27-1997 HPV TESTINGHPV TESTINGEast [facility] City Hospitaltart: 89-90-2670Ligsnbnkf for malignant neoplasm of cervixHPV TestingEast [facility] City Hospitaltart: 49-02-5929KUN TESTINGPAP TESTINGEast [facility] City Hospitaltart: 11-14-0446Bxgzkbpdx for malignant neoplasm of cervixPap TestingEast Liverpool City Hospitaltart: 28-55-9193PJEYXIDHH A (1 of 2 - Risk 2- dose series)HEPATITIS A (1 of 2 - Risk 2-dose series)[facility]: 03-74-3611Ejgbulwqi A Vaccine (1 of 2 - Risk 2-dose series)Hepatitis A Vaccine (1 of 2 - Risk 2-dose series)[facility]: 18-46-7595Dupvu microalbumin profileEast Liverpool City Hospitaltart: 64-98-7999JWXQGOZVF C SCREENINGHEPATITIS C SCREENINGEast [facility] Hospitaltart: 03-07-4754KYB SCREENINGHIV SCREENINGWexner Medical Centerrt: 53-37-9767MPT screeningHIV ScreeningWexner Medical Centerrt: 42-03-9387ZRY (1 of 2 - Risk 2-dose series)MMR (1 of 2 - Risk 2-dose series) [facility]: 07-85-2628PKR Vaccine (1 of 2 - Risk 2-dose series)MMR Vaccine (1 of 2 - Risk 2-dose series)[facility]: 12-27-1977 Meningococcal B Vaccine: Consider Based On Risk (1 of 4 - Increased Risk) Meningococcal B Vaccine: Consider Based On Risk (1 of 4 - Increased Risk) [facility]: 43-73-1680JDNLAMOQXKBGQ B: Consider based on risk (1 of 4 - Increased Risk Bexsero 2-dose series)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: Consider based on risk (1 of 4 - Increased Risk Bexsero 2-dose series)[facility] 12-27-1977 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: Consider based on risk (1 of 4 - Increased Risk)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: Consider based on risk (1 of 4 - Increased Risk)[facility]: 84-69-4734GJQXEIUXZ A (1 of 2 - Risk 2-dose series)HEPATITIS A (1 of 2 - Risk 2- dose series)[facility]: 71-96-2013OLSZJQLRQ B (1 of 3 - 3-dose series)HEPATITIS B (1 of 3 - 3-dose series)[facility] End: 43-33-1217XSS W Auto Differential panel - BloodCBC + DIFF Lab Routine Pain in joint, multiple sites History of Coumadin therapy Every 3 months for24 Occurrences starting 05/03/2022 until 05/03/2023, [facility]: comment on above:Every 3 months for 24 Occurrences starting 05/03/2022 until 05/03/2023, 1 completed End: 45-76-0136Ujeqhhajor C3 [Mass/volume] in Serum or PlasmaC3 COMPLEMENT BLD Lab Routine Pain in joint, multiple sites History of Coumadin therapy Every 3 months for 24 Occurrences starting 05/03/2022 until 05/03/2023, 1 completed [facility] Work Phone: comment on above:Every 3 months for 24 Occurrences starting 05/03/2022 until 05/03/2023, 1 completed End: 67-67-6564Rkrukmqvjs C4 [Mass/volume] in Serum or PlasmaC4 COMPLEMENT BLD Lab Routine Pain in joint, multiple sites History of Coumadin therapy Every 3 months for 24 Occurrences starting 05/03/2022 until 05/03/2023, 1 completed [facility] Work Phone: comment on above:Every 3 months for 24 Occurrences starting 05/03/2022 until 05/03/2023, 1 completed End: 94-04-9323Ibsqydyovixgq metabolic 2000 panel - Serum or PlasmaCOMP METABOLIC PANEL Lab Routine Pain in joint, multiple sites History of Coumadin therapy 24 Occurrences starting 05/03/2022 until 02/16/2023, 1 completed [facility] Work Phone: comment on above:24 Occurrences starting 05/03/2022 until 02/16/2023, 1 completed End: 80-57-2177YAS double strand Ab [Units/volume] in Serum by ImmunoassayDNA AB DS + CONF BLD Lab Routine Pain in joint, multiple sites History of Coumadin therapy Every 3 months for 24 Occurrences starting 05/03/2022 until 05/03/2023 [facility] Work Phone: comment on above:Every 3 months for 24 Occurrences starting 05/03/2022 until 3DNA double strand Ab [Units/volume] in Serum by ImmunoassayDNA AB DS + CONF BLD Lab Routine Pain in joint, multiple sites History of Coumadin therapy 05/03/2022 2:03 PM [facility] Work Phone: End: 09-16-9898QgwectehvrsezzqhZSQE Cardiology Routine Pain in joint, multiple sites History of Coumadin therapy 1 Occurrences starting 05/03/[address] [place] [address] Work Phone: comment on above:1 Occurrences starting 05/03/2022 until 05/03/2023 End: 38-79-6684Wcriihnttk exam chest 2 viewsXR CHEST 2V FRONTAL/LAT Radiology Routine Pain in joint, multiple sites History of Coumadin therapy1 Occurrences starting 05/03/[address] [place] [address] Work Phone: comtqzi on above:1 Occurrences starting 05/03/2022 until 06/02/2023 End: 70-64-7886Osfzyvkyzt complete panel - UrineURINALYSIS, WITH MICROSCOPIC Lab Routine Pain in joint, multiple sites History of Coumadin therapy Every 3 months for 24 Occurrences starting 05/03/[address] [place] [address] Work Phone: comeons on above:Every 3 months for 24 Occurrences starting 05/03/2022 until 05/03/2023Urinalysis complete panel - UrineURINALYSIS, WITH MICROSCOPIC Lab Routine Pain in joint, multiple sites History of Coumadin therapy 05/03/2022 2:03 PM [facility] Work Phone: abdominal pain, ?need [facility] [place] [employer] [facility] Immunizations Immunization DateImmunizationNotesCare QeibfyigEuegrmhx58-84-8092idcbjbqdgwrb polysaccharide vaccine, 23 valentAngela [facility] CenterAlertMe [facility] 05-552541-95-1553oawnrz vaccine recombinantAngela [facility] [employer] [facility] [id number]-52, Pfizer, 30mcg/0.3mlAngela Be [facility] [id number]-75, Pfizer, 30mcg/0.3mlAngela [facility]03-22-2021COVID-19, Pfizer, 30mcg/0.3mlAngela [facility]11-25-2015influenza, seasonal, injectable; Translations: [FLU VACCINE 3 YRS & > IM][facility] [id number] ADMIN; Translations: [IMMUNIZATION ADMIN][facility] [id number] virus vaccine, unspecified formulationNurse 4 Work Phone: [facility] CenterJvfaku36-33-0030rvzgbvcrq A and hepatitis B vaccine; Translations: [IMMUNIZATION ADMIN][facility] [id number] virus vaccine, unspecified formulation; Translations: [FLU VACCINE 3 YRS & > IM][facility] 11866212-30-1647sdktlgdlj, seasonal, injectable; Translations: [FLU VACCINE 3 YRS & > IM][facility] Payers DatePayer CategoryPayerPolicy [id number]-[id number] [id number] 2.0.1.77892[id number] 2.0.1.666635.[id number] 2.840.1.836822.3.579.2.89766-90-4717Lpwgpwl [id number] 2.0.1.417003.3.57[id number] 2.0.1.302864.3.57[id number] 2.840.1.522601.3.57[id number] 2..1.067114.3.57[id number] 2..1.621236.3.57[id number] 2..1.546145.3.57[id number] 2..1.161144.3.57[id number] 2..1.120012.3.57[id number] 2..1.051065.3.57[id number] 2..1.449008.3.57[id number] 2..1.820647.3.57[id number] 2..1.788790.3.579.[id number] 2.8[id number] 2.840.1.242494.3.441Unknown [id number] 2.8[id number] 2.0.1.535172.3.579.2.531 Social History DateTypeDetailPlains Regional Medical CenterStart: 14-96-2522Dkdumzc if ever smokedStorytree Start: End: 67-39-3740Afrrs smokerEast [facility] City Hospitaltart: cup a dayStorytree Start: beer a weekStorytree Start: 11-01-2022 End: 03-07-7198Ekx [facility]igned At [facility]: 48-89-2415Todntot use and exposureSmokeless tobacco non-userEast [facility] City Hospitaltart: 66-31-0098Ixi Assigned At [facility] CenterNot on fileEast [facility] City Hospitaltart: 04-23-2022 End: 24-91-8842Wrczdxmi to SARS-CoV-2 (event)Not sureEast Liverpool City Hospitaltart: 06-20-2022 End: 65-56-3246Acmwxsoy to SARS-CoV-2 (event)Unable to assessAdena Fayette Medical Center Start: 11-01-2022 End: 19-07-8479Jhudxsn of Social functionAdena Fayette Medical CenterAdult Depression Screening Ftuqahonmh1Cauzsiacx ClinicStart: 70-52-7352XmsUjtdxi (finding) [facility]: 49-47-5321Mod Assigned At [facility] Clinical Notes 07-29-2021 to 08-02-2023 Note Date & HpqyMjgxUcmzwhps65-86-0252 Nurse Note* Natasha Walker, JOSE LUIS - 08/02/2023 11:35 AM EST AMBULATORY PATIENT EDUCATION NOTE TOPIC: entyvio READINESS [...] / FAMILY RESPONSE: Verbalizes understanding of: WORSENING CONDITION- Signs and symptoms of aworsening condition that warrant a call to the physician FOLLOW-UP PLAN: Patient instructed to call with any further issues Electronically Signed By: Natasha Walker RN Kimberly Cavazos Reason for therapy: IBD Ordering Physician: Supervising/Billing Physician: Pre-Medications Administered: No Medications Administered: Entyvio (See MAR) Dose #: 4 Start: 1049 AM / Stop: 1127AM Fevers in last 7 days: No / Rash: No Infusion tolerated well? Yes IV: See avatar Vital Signs: See Flow sheets Additional Notes if applicable: N/A documented in this encounterAdena Fayette Medical Center10-06-2023 Miscellaneous Notes* Telephone Encounter - Ann Marie Byrd RN - 07/01/2023 12:18 PM EDT Received patient FMLA paper work. It has been faxed back successfully to her employer. Ann Marie Byrd RN documented in this encounterAdena Fayette Medical Center09-13-2023 Nurse Note* Ria Reese RN - 06/08/2023 11:44 AM EDT AMBULATORY PATIENT EDUCATION NOTE TOPIC: IEntyvdyan READINESS TO LEARN INSTRUCTION PROVIDED TO: Patient, [...] / FAMILY RESPONSE: Verbalizes understanding of: WORSENING CONDITION- Signs and symptoms of aworsening condition that warrant a call to the physician FOLLOW-UP PLAN: Complete - No need for follow-up * Ria Reese RN - 06/08/2023 11:43 AM EDT Kimberly Cavazos Reason for therapy: IBD Ordering Physician: Darryl Supervising/Billing Physician: Cookie Pre-Medications Administered: No Medications Administered: Entyvio (See MAR) Dose #: 4 Start: 1056AM / Stop: 1130AM Fevers in last 7 days: No / Rash: No Infusion tolerated well? Yes IV: See avatar Vital Signs: See Flow sheets Additional Notes if applicable: N/A documented in this encounterAdena Fayette Medical Center07-19-2023 Nurse Note* Ranjana Espinoza RN - 04/13/2023 11:22 AM EDT AMBULATORY PATIENT EDUCATION NOTE TOPIC: entsuma READINESS TO LEARN INSTRUCTION PROVIDED TO: Patient, readness to learn accessed prior to procedure COGNITIVE ABILITY: Alert and oriented PTED MOTIVATION TO LEARN: Interested FAMILY SUPPORT: Unable to assess - Family not present IPATIENT LEARNS BEST BY: Individual Instruction FACTORS AFFECTING LEARNING: None PHYSICAL LIMITATIONS AFFECTING LEARNING: None LEARNING RESPONSE METHOD OF INSTRUCTION: Individual instruction PATIENT / FAMILY RESPONSE: Verbalizes understanding of: WORSENING CONDITION- Signs and symptoms of aworsening condition that warrant a call to the [...] By: Ranjana Espinoza RN documented in this encounterAdena Fayette Medical Center07-05-2023 Nurse Note* Ann Cobos RN - 03/30/2023 2:25 PM EDT AMBULATORY PATIENT EDUCATION NOTE TOPIC: Entyvio infusion [...] / FAMILY RESPONSE: Verbalizes understanding of: WORSENING CONDITION- Signs and symptoms of aworsening condition that warrant a call to the [...] Notes if applicable: N/A documented in this encounterAdena Fayette Medical Center06-19-2023 Nurse Note* Verito Wright RN - 03/14/2023 8:35 AM EDT AMBULATORY PATIENT EDUCATION NOTE TOPIC: Entyvio READINESS [...] / FAMILY RESPONSE: Verbalizes understanding of: WORSENING CONDITION- Signs and symptoms of aworsening condition that warrant a call to the physician FOLLOW-UP PLAN: Patient instructed to call with any further issues * Verito Wright RN - 03/14/2023 8:31 AM EDT Kimberly Cavazos Reason for therapy: IBD Ordering Physician: Darryl Supervising/Billing Physician: Darryl Pre-Medications Administered: No Medications Administered: Entyvio (See MAR) Dose #: 1 Start: 0756AM / Stop: 0834 AM Fevers in last 7 days: No / Rash: No Infusion tolerated well? Yes IV: See avatar Vital Signs: See Flow sheets Additional Notes if applicable: N/A documented in this encounterAdena Fayette Medical Center05-25-2023 NoteHNO ID: [id number] Author: Sae Craven MD Service: ? Author Type: Physician Type: Progress Notes Filed: 02/17/2023 10:28 AM Note Text: VIRTUAL VISIT FOLLOW UP Kimberly Cavazos [id number] has requested a video telemedicine for [...] OSH PATH from 2021: SLIDE(S), 6 SLIDES, [id number] A. Terminal ileum, biopsy: - Chronic, severely [...] boosters, HAV AND HBV (07/2014). I recommended Dvdbwko54 and Shingrix- order sent - Skin- I [...] which included preparing to see the patient, abzx-fw-txkk patient care, completing clinical documentation, obtaining and/or reviewing separately obtained history, counseling and educating the patient/family/caregiver, and ordering med (more content not included)...[place] [facility] Miscellaneous Notes* Telephone Encounter - Sae Craven MD - 11/27/2022 7:19 PM EST Rx sent via e-script Sae Craven MD * Telephone Encounter - Ann Marie Byrd RN - 11/26/2022 10:40 AM EST Requested Prescriptions Pending Prescriptions Disp Refills budesonide, [...] Ann Marie Byrd RN documented in this encounterAden[facility]02-[facility]23 NoteHNO ID: [id number] Author: Sae Craven MD Service: ? Author Type: Physician Type: Progress Notes Filed: 11/13/2022 3:27 PM Note Text: NAME: [facility] NO: [id number] REASON FOR VISIT 56 year old female with PMHx of HLD, HTN, obesity (BMI 35), SLE, ?Antiphospholipid syndrome, history of mini stroke on warfarin, diverticulitis, ovarian cancer 1990 s/p BL oophorectomy and hysterectomy, and Raynaud's, [...] mucosal wall). Ms. Cavazos is here from [place], [place]. She reports GI issues all of [...] or ETOH. Denies NSAIDs. Uses motrin rarely (JPA) Has FHx of CD in her mother [...] Rheumatic fever:No Gastrointestinal bleeding: (more content not included)...[facility]02-06-2023 History of Present illness Narrative* Sae Craven MD - 11/01/2022 8:45 AM EST NAME: [facility] NO: [id number] REASON FOR VISIT 56 year old female [...] includes Crohn's disease with her mother and coloncancer with her paternal grandfather. Colonoscopy 05/2022 showed [...] mucosal wall). Ms. Cavazos is here from [place], [place]. She reports GI issues all of her life, although worsened thispast year. Symptoms are chronic diarrhea up to 6 BMs a day, with rare small amounts of dark blood, alternating with several days of constipation. No hx of obstruction. Also notes chronic dull LLQ abdpain, worsens with eating and radiates to right [...] course of steroids by her PCP which improvedher symptoms significantly. Notably, she was never told she may have CD prior to 05/2022, despite findings of the 2014 colonoscopy. She also has another colonoscopy in her 20s which she reports was unremarkable. No smoking or ETOH. Denies NSAIDs. Uses motrin rarely (JPA) Has FHx of CD in her mother [...] population = 50. Five points is a clinicallymeaningful difference.) 04/29/2022 10/25/2022 Physical T-Score 32.4 34.9 [...] path normal. She had a CTE 06/2022 whichwas unremarkable, although CT A/P 08/2022 showed terminal ileitis. She notes significant improvement in symptoms with 1 week of steroids prescribed by PCP last fall. 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, consider repeat colonoscopy/imaging here if non-diagnostic - Trial of 3 months of Budesonide for symptoms, will check fecal calpro prior - Referral to communication center operator - RTC in 3 months virtually, may [...] alternating with constipation since childhood, LLQ abdominal pain,abdominal bloating and nausea since childhood. Colonoscopies in [...] others. Sae Craven MD documented in this encounterAdena [facility]02-03-2023 Miscellaneous Notes* Telephone Encounter - Ann Marie Byrd RN - 10/29/2022 1:06 PM EST Called patient in an attempt to retrieve outside records. Called both numbers listed in [employer], unable to leave a message. Ann Marie Byrd RN documented in this encounterAdena [facility] Center12-02-2022 Evaluation note* Encounter Date Diagnosis Assessment Notes Treatment Notes Treatment Clinical Notes Aug, Hematuria, unspecified type (ICD -10 - R31.9) I have concern today for kidney infection/stone, referred to ER for higher level of care Refurrl Other 10-05-2022 History of Present illness Narrative* Bandar Eddy MD - 06/30/2022 1:02 PM EDT [facility] [place] [facility] Department of Cardiovascular Medicine [...] cancer 1989 s/p BL oophorectomy and hysterectomy, Raynauds who presents to establish care forantiphospholipid syndrome per rheumatology recommendation. Patient was diagnosed with lupus and antiphospholipid syndrome after a syncopal episode in 2003. Patient reports having a mini stroke from a blood clot in my brain and was placed on warfarin. Happened at [facility] in [facility], do not have records of this. Has [...] patient. Shewas diagnosed with APS by a Restoration Officer in 2003, following an episode of stroke. [...] review them and let her know my xxmrehdybv9l). Until then, she should remain on warfarin. [...] above BANDAR EDDY M.D. documented in this encounterAdena Fayette [facility] Center09-12-2022 NoteProcedure: CT of the abdomen [...] 3. Mild atherosclerotic calcifications. Radiation Dose Estimate: CTDI(mGy):0.167002 / / / kVp:130.862910 / mAs:0.141049 / / / DLP(mGy- cm):4.614947Hnlw Part: Abdomen CTDI(mGy):0.833642 / / / kVp:130.067687 / mAs:0.387035 / / / DLP(mGy- cm):5.940096Lgrr Part: Abdomen CTDI(mGy):17.278013 / / / kVp:130.505420 / mAs:88.745444 / / / DLP(mGy- cm):911.057326Hivk Part: Abdomen Final Dictated by: Parth Garnica MD Dictated DT/TM: 06.07.2022 3:19 pm Signed by: Parth Garnica MD Signed (Electronic Signature): 06.07.2022 3:23 pm (If Report Is Signed, Electronically Signed in Other Vendor System)Doctors HospitalComment on above:Order Comment: CT 30 ml contrast picked up 05-12-2022 at 9:15 [id number] NoteFinAvera [facility] Procedure Note FSC ID: [id number] Indication for procedure: Patient is a 56-year-old female here for colonoscopy due to abdominal pain. Pre-operative Dx: Abdominal pain Post-operative Dx: Sigmoid diverticulosis Terminal ileal ulceration and stricture Operation: Colonoscopy with cold biopsies Surgeon: Javier Anesthesia: MISHA Clinton CRNA Findings: Sigmoid diverticulosis Terminal ileal ulceration and [...] ileocecal valve. Preparation was excellent with a [place] Prep score of 9. On insertion, a [...] signed by Joseph Herrera MD 06/07/22 10:37 [facility] 06-07-2022 NoteClinical Information Procedure: Colonoscopy Pre-operative diagnosis: [...] and descending colon biopsies: Normal colonic mucosa. -[id number] Ricardo Limon MD (Electronically signed by) Verified: 06/09/22 14:42Doctors HospitalComment on above:Performed By: #### SPR #### [facility] (DEFAULT) [address] [place], [place] [id number] NoteChief Complaint Patient presents for evaluation of [...] Ovarian cancer (1989) Procedure/Surgical History C. section (1989) Colonoscopy (12/10/2014, 08/17/2004, 06/12/2001) Total abdominal hysterectomy, [...] signed by Marzena Cordero PA-C 05/17/2022 07:25 [facility] 05-06-2022 NotePatient Education Materials Name: Kimberly Cavazos Current Date: 05/06/2022 10:22:33 Denae/[place] : 1965 The following sheet(s) are the Patient Education Leaflets for Kimberly Cavazosbeth Radiology Colonoscopy A camera attached to a [...] they can be restarted right away. ? [id number] [employer]. [address] [place] [address]. All rights reserved. This information is not intended as a substitute for professional medical care. Always follow your healthcare professional's instructions.[facility]08-[facility] History of Present illness Narrative* Kelsie Zuniga MD - 05/03/2022 12:00 PM EDT [facility] [place] Department of Rheumatic and Immunologic Diseases This [...] ago due to feeling well. 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 Patient has 4 grand children in [place] and visits often. Patient has previously had [...] staff May 03, 2022 documented in this encounterAdena Fayette Medical Center11-03-2021 Evaluation note* Encounter Date Diagnosis Assessment Notes Treatment Notes Treatment Clinical Notes Jul, Right otitis media, unspecified otitis media type (ICD-10 - H66.91) Jul,cute otitis externa of right ear, unspecified type (ICD-10 - H60.501) Use eardrops as prescribed. Take the amoxicillin as prescribed until gone. Take Tylenol Motrin as needed for aches pains or fevers. Follow-up with your family physician in 3 to 4 days for reevaluation of your elevated blood pressure Jul,levated blood pressure reading without diagnosis of hypertension (ICD-10 - R03.0) Refurrl Other Evaluation note* Diagnosis Pain in joint, multiple sites- Primary History of Coumadin therapy documented in this encounter [facility] note* Diagnosis Antiphospholipid syndrome (HCC)- Primary Primary hypercoagulable state History of arterial ischemic stroke Transient ischemic attack (TIA), and cerebral infarction without residual deficits Anticoagulant long-term use Long-term (current) use of anticoagulants documented in this encounter [facility] note* Diagnosis Ileitis- Primary Other and unspecified noninfectious gastroenteritis and colitis documented in this encounter [facility] note* Diagnosis Ileitis Other and unspecified noninfectious gastroenteritis and colitis documented in this encounter [facility] note* Diagnosis Crohn's disease of small intestine without complication (HCC)- Primary Regional enteritis of small intestine documented in this encounter [facility] note* Diagnosis Crohn's disease of small intestine without complication (HCC)- Primary Regional enteritis of small intestine documented in this encounter [facility] note* Diagnosis Crohn's disease of small intestine without complication (HCC)- Primary Regional enteritis of small intestine documented in this encounter [facility] note* Diagnosis Crohn's disease of small intestine without complication (HCC)- Primary Regional enteritis of small intestine documented in this encounter [facility] noteNo assessment information availableHarrison Community Hospital Work Phone: Hiswuen general Narrative - Reported* Type Description Date Medical History systemic lupus Medical HistoryfibromyalgiaMedical HistoryH/o CancerMedical HistoryA flutter Surgical Gbtzqydfimclpdhjlsm3839Qamfbzgy Historyc-section o4Kddjrlcvfvcuinw Historyinfection in aocnsxd7949 Refurrl Other Hiscpiw general Narrative - Reported* Type Description Date Medical History systemic lupus Medical HistoryfibromyalgiaMedical HistoryH/o CancerMedical HistoryA flutter Medical HistoryCrohns diseaseSurgical Biszynrnpmsnzcvgjmg2969Zpjdenia Historyc- section a1Esiiixdf HistorycolonoscopyHospitalization Historyinfection in stomach 2014 Refurrl Other Reason for referral (narrative)* Diagnostic Procedure Only (Routine) - ClosedSpecialtyDiagnoses / ProceduresReferred By Contact Referred To ContactXR IMAGING Diagnoses Pain in joint, multiple sites History of Coumadin therapy Procedures XR HAND GENERAL 3V PA/LAT/OBL BILATERAL RADEX HAND MINIMUM 3 VIEWS Kelsie Zuniga MD [address] [place] [address] Xr Imaging Referral IDStatusReasonStart DateExpiration DateVisits RequestedVisits [id number] Auto-Generated Referral / * Consult, Test, Treat (Routine) - AuthorizedSpecialtyDiagnoses / Procedures Referred By ContactReferred To ContactVascular Medicine Diagnoses Pain in joint, multiple sites History of Coumadin therapy Procedures CONSULT TO VASCULAR MEDICINE OFFICE/OUTPATIENT NEW HIGH MDM 60-74 MINUTES Kelsie Zuniga MD [address] [place] [address] Referral IDStatusHeatherStart DateExpiration DateVisits RequestedVisits [id number] PCP Requested Referral / * Outpatient Procedure (Routine) - Pending ReviewSpecialtyDiagnoses / Procedures Referred By ContactReferred To [facility] Diagnoses Pain in joint, multiple sites History of Coumadin therapy Procedures ECHO ECHO TTHRC R-T 2D W/WOM-MODE COMPL SPEC&COLR D Kelsie Zuniga MD [address] [place] [address] [facility] [place] [address] [place] [address] Referral IDStatusRadhikaasonStart DateExpiration DateVisits RequestedVisits [id number] Review Auto-Generated Referral 8/8/40377/8/805598 [facility] Reason for Referral SpecialtyDiagnoses / ProceduresReferred By ContactReferred To ContactNutrition Diagnoses Ileitis Procedures CONSULT TO NUTRITION THERAPY OFFICE/OUTPATIENT [facility] 60-74 MINUTES Sae Craven MD [address] [place] [address] Referral IDStatusReasonStart DateExpiration DateVisits RequestedVisits [id number] PCP Requested Referral Summary Purpose Family History No Family History Records Found Relationship Condition Age at Onset Recorded Date/T oleg father Leukemia Unknown motherArteritisUnknownHyperlipidemiaUnknownsisterDiabetes mellitusUnknownbrother EpilepsyUnknownfatherHistory of strokeUnknownDeceasedUnknownMalignant neoplasm UnknownmotherHypertensionUnknown Advance Directives No Advanced Directives Records Found Advance Directive Response Recorded Date/ Time Advance Directives No July 22, 2021 10:03am Medications Administered Section Medication OrderMAR ActionAction DateDoseRateSite vedolizumab 300 mg in NaCl 0.9% 250 mL (ENTYVIO) 300 mg, INTRAVENOUS, Administer over 30 Minutes, ONCE, 1 dose, On Tue03/14/23 at 0730, Approx TotalVolume: 280 mL After the infusion is complete flush with 30 mL of sterile 0.9% Sodium Chloride Injection. Refrigerate. EXP: (24 HR) New Bag/Syringe/Akrpjn6903/14/2023 7:56 AM [id number] mgMedication OrderMAR Action Action DateDoseRateSite sodium chloride 0.9 % (flush) 10-20 mL (BD POSIFLUSH) 10-20 mL, INTRAVENOUS, DIRECTED NEEDED, Starting on Tue03/30/23 at 1247, Until Tue03/31/23 at 0440, See Administration Instructions, If patient has a heparin allergy: IVADS not in use should be accessed and flushed once every 4 to 6 weeks with 10 mL of 0.9% NaCl. Upon de-access of Silva needle,when re-access is not indicated, ports will be flushed with 10 mL of 0.9% NaCl. Ports should be flushed with 20 mL of 0.9% NaCl after blood draws. Given03/30/2023 1:16 PM EDT10 mL vedolizumab 300 mg in NaCl 0.9% 250 mL (ENTYVIO) 300 mg, INTRAVENOUS, Administer over 30 Minutes, ONCE, 1 dose, On Tue03/30/23 at 1300, Approx Total Volume: 280 mL After the infusion is complete flush with 30 mL of sterile 0.9% Sodium Chloride Injection. Refrigerate. EXP: (24 HR) New Bag/Syringe/Jfabsf6703/30/2023 1:41 PM [id number] mgMedication OrderMAR Action Action DateDoseRateSite sodium chloride 0.9 % (flush) 10-20 mL [...] medication that are incompatible (i.e. with oxaliplatin). Given04/13/2023 9:45 AM EDT10 mL vedolizumab 300 mg in NaCl 0.9% 250 mL (ENTYVIO) 300 mg, INTRAVENOUS, Administer over 30 Minutes, ONCE, 1 dose, On Tue04/13/23 at 1000, Approx TotalVolume: 280 mL After the infusion is complete flush with 30 mL of sterile 0.9% Sodium Chloride Injection. Refrigerate. EXP: (24 HR) New Bag/Syringe/Udvnrb6604/13/2023 10:25 AM [id number] mg500 mL/hrMedication OrderMAR ActionAction DateDoseRateSite sodium chloride 0.9 % (flush) 10-20 mL (BD POSIFLUSH) 10-20 mL, INTRAVENOUS, NEEDED, Starting on Tue06/08/23 at 0953, Until Tue06/09/23 at 0439, See Administration Instructions, If no IVAD access, may place IV if needed for labs or possible treatment. Flush 10-20ml on IV start and as needed. D5W or LR may be used in place of NS for medication that are incompatible (i.e. with oxaliplatin). Given06/08/2023 10:05 AM EDT10 mL vedolizumab 300 mg in NaCl 0.9% 250 mL (ENTYVIO) 300 mg, INTRAVENOUS, Administer over 30 Minutes, ONCE, 1 dose, On Tue06/08/23 at 1000, Approx TotalVolume: 280 mL After the infusion is complete flush with 30 mL of sterile 0.9% Sodium Chloride Injection. Refrigerate. EXP: (24 HR) New Bag/Syringe/Gesyhs7506/08/2023 10:56 AM [id number] mg500 mL/hrMedication OrderMAR ActionAction DateDoseRateSite sodium chloride 0.9 % (flush) 10-20 mL [...] medication that are incompatible (i.e. with oxaliplatin). Given08/02/2023 9:52 AM EST10 mL sodium chloride 0.9 % (flush) 10-20 mL (BD POSIFLUSH) 10-20 mL, INTRAVENOUS, DIRECTED NEEDED, Starting on Tue08/02/23 at 0942, Until Tue08/03/23 [id number], See Administration Instructions, If patient has a heparin allergy: IVADS not in use should beaccessed and flushed once every 4 to 6 weeks with 10 mL of 0.9% NaCl. Upon de-access of Silva needle, when re-access is not indicated, ports will be flushed with 10 mL of 0.9% NaCl. Ports should be flushed with 20 mL of 0.9% NaCl after blood draws. Given08/02/2023 10:49 AM EST10 mL vedolizumab 300 mg in NaCl 0.9% 250 mL (ENTYVIO) 300 mg, INTRAVENOUS, Administer over 30 Minutes, ONCE, 1 dose, On Tue08/02/23 at 1000, Approx TotalVolume: 280 mL After the infusion is complete flush with 30 mL of sterile 0.9% Sodium Chloride Injection. Refrigerate. EXP: (24 HR) New Bag/Syringe/Qzmgal7308/02/2023 10:49 AM [id number] mg Additional Source Comments REASON FOR VISIT (unrecogniz ed section and content) ReasonCommentsConsultSpecialtyDiagnoses / ProceduresReferred By ContactReferred To ContactVascular Medicine Diagnoses Pain in joint, multiple sites History of Coumadin therapy Procedures CONSULT TO VASCULAR MEDICINE OFFICE/OUTPATIENT NEW HIGH MDM 60-74 MINUTES Kelsie Zuniga MD [address] [place] [address] Referral IDStatusReasonStart DateExpiration DateVisits RequestedVisits [id number] PCP Requested Referral /[id number] Coordinator - OtherReasonCommentsCrohns ReasonCommentsRefill RequestSpecialtyDiagnoses / ProceduresReferred By Contact Referred To Contact Diagnoses Crohn's disease of small intestine without complication (HCC) Procedures INJECTION, VEDOLIZUMAB Sae Craven MD [address] [place] [address] [facility] [address] [place] [address] Referral IDStatusReasonStirvona DateExpiration DateVisits RequestedVisits [id number]/29/[id number]/021619HqfjybNhvuadtiEGRD Paperwork Source Comments (unrecognize d section and content) In the event this informatio n is protected by the Federal Confidentiality of Alcohol and Drug Abuse Patient Records regulations: The Federal rules restrict any use of the information to criminally investigate or prosecute any alcohol or drug abuse patient.[facility] CenterIn the event this information is protected by the Federal Confidentiality of Alcohol and Drug Abuse Patient Records regulations: The Federal rules restrict any use of the information to criminally investigate or prosecute any alcohol or drug abuse patient.[facility] CenterIn the event this information is protected by the Federal Confidentiality of Alcohol and Drug Abuse Patient Records regulations: The Federal rules restrict any use of the information to criminally investigate or prosecute any alcohol or drug abuse patient.[facility] CenterIn the event this information is protected by the Federal Confidentiality of Alcohol and Drug Abuse Patient Records regulations: The Federal rules restrict any use of the information to criminally investigate or prosecute any alcohol or drug abuse patient.[facility] CenterIn the event this information is protected by the Federal Confidentiality of Alcohol and Drug Abuse Patient Records regulations: The Federal rules restrict any use of the information to criminally investigate or prosecute any alcohol or drug abuse patient.[facility] CenterIn the event this information is protected by the Federal Confidentiality of Alcohol and Drug Abuse Patient Records regulations: The Federal rules restrict any use of the information to criminally investigate or prosecute any alcohol or drug abuse patient.[facility] CenterIn the event this information is protected by the Federal Confidentiality of Alcohol and Drug Abuse Patient Records regulations: The Federal rules restrict any use of the information to criminally investigate or prosecute any alcohol or drug abuse patient.[facility] CenterIn the event this information is protected by the Federal Confidentiality of Alcohol and Drug Abuse Patient Records regulations: The Federal rules restrict any use of the information to criminally investigate or prosecute any alcohol or drug abuse patient.[facility] CenterIn the event this information is protected by the Federal Confidentiality of Alcohol and Drug Abuse Patient Records regulations: The Federal rules restrict any use of the information to criminally investigate or prosecute any alcohol or drug abuse patient.[facility] CenterIn the event this information is protected by the Federal Confidentiality of Alcohol and Drug Abuse Patient Records regulations: The Federal rules restrict any use of the information to criminally investigate or prosecute any alcohol or drug abuse patient.[facility] CenterIn the event this information is protected by the Federal Confidentiality of Alcohol and Drug Abuse Patient Records regulations: The Federal rules restrict any use of the information to criminally investigate or prosecute any alcohol or drug abuse patient.[facility] CenterIn the event this information is protected by the Federal Confidentiality of Alcohol and Drug Abuse Patient Records regulations: The Federal rules restrict any use of the information to criminally investigate or prosecute any alcohol or drug abuse patient.[facility] CenterIn the event this information is protected by the Federal Confidentiality of Alcohol and Drug Abuse Patient Records regulations: The Federal rules restrict any use of the information to criminally investigate or prosecute any alcohol or drug abuse patient.[facility] INFORMATION SOURCE (unrecogn ized section and content) DATE CREATED AUTHOR 12/22/2022 [facility] DATE CREATED AUTHOR AUTHOR'S ORGANIZ ATION 03/05/2023 [facility] DATE CREATED AUTHOR AUTHOR'S ORGANIZ ATION 08/03/2023 [facility] DATE CREATED AUTHOR AUTHOR'S ORGANIZ ATION 01/20/2025 [facility] Care Teams (unrecognized sec tion and content) Team Status: Inactive Member Role Status Dates Trell Washington DO Attending Provider Active S tart: January 17, 2025 End: January 17, 2025 Goals (unrecognized section and content) Goals may be documented in a n alternate section FOR RECORDS PERTAINING TO PATIENTS WHO ARE [...] BE BASED ON THE PRIMARY CLINICAL RECORDS. Contents [facility]. provides no warranty or guarantee of the accuracy or completeness of information in this document.
--- NOTE | 2025-07-24 14:46 | CT_ITS ---
The [address] [address] Patient Name: DANIEL COLE MRN: [id number] date: 1965 Sex: F Assigned Patient Location: ER Current Patient Location: ER Accession/Order Number: [id number] Exam Date: 07/24/2025 15:01 Report Date: 07/24/2025 16:13 At the request of: RIA ROSE MD Procedure: CT abdomen pelvis w con CT ABDOMEN AND PELVIS WITH INTRAVENOUS CONTRAST: CLINICAL HISTORY: low abd pain, possible diverticulitis COMPARISON: 01/17/2025 TECHNIQUE: Spiral images were obtained through the abdomen and pelvis following the administration of intravenous contrast. This CT exam was performed using one or more following dose reduction techniques: Automated exposure control, adjustment of the mA and/or kV according to patient size, or use of iterative reconstruction technique. FINDINGS: Lung Bases: [Hypoventilatory changes.] Organs:Liver, spleen, adrenals, kidneys, pancreas are unremarkable. Gallbladder unremarkable.[ GI: Mild to moderate retained stool.[Distal colonic diverticulosis noted. Involving the wall of the right colon, there is a 1.9 x 3.1 cm x 1.5 cm soft tissue density noted worrisome for possible polyp versus early neoplasm.. Evidence of sigmoid colonic diverticulitis with focal intramural abscess versus phlegmon 2.4 x 1.1 cm in size. No free air identified. Appendix is visualized. Pelvis:[Bladder collapsed. Uterus absent. No adnexal mass. Peritoneum/Retroperitoneum:No free air or free fluid. Subcentimeter retroperitoneal lymph nodes likely reactive. Aorta is nonaneurysmal.[ Abd wall/Bones:Multilevel facet arthropathy involving the spine. No suspicious osseous lesion.[ CT/CT abdomen pelvis w con IMPRESSION: Evidence of sigmoid colonic diverticulitis complicated by focal collection within the wall worrisome for wall phlegmon versus early intramural abscess. Questionable polypoid changes versus mass involving the right colon measuring 2 x 3 cm in size. Consider colonoscopy. Impression dictated by: Nadir Gold M.D. 07/24/2025 4:13 PM Dictation Location: [place] [address] Electronically authenticated by: [id number] Y Date: 07/24/2025 16:13
--- NOTE | 2025-07-24 14:47 | ED.GENADUL1 ---
HPI HPI - General Adult General Chief complaint: Abdominal Pain Stated complaint: ABDOMINAL PAIN Time Seen by Provider: 07/24/25 14:42 Source: patient Mode of arrival: walk-in Limitations: no limitations History of Present Illness HPI narrative: 59-year-old female presents to the emergency department for abdominal pain. She is complaining of pain in her low abdomen and into the left lower quadrant. She think she might have diverticulitis. She has had it before and it feels similar. The pain has been continuous and she has had for the last day or 2. No trauma or fever or constipation or diarrhea. No hematochezia. Related Data Home Medications ?Medication ?Instructions ?Recorded ?Confirmed doxepin 50 mg capsule 100 mg PO BEDTIME 06/10/23 05/22/24 lisinopril 20 mg tablet 20 mg PO DAILY 06/10/23 05/22/24 simvastatin 40 mg tablet 40 mg PO DAILY 06/10/23 05/22/24 vedolizumab 300 mg intravenous IV .q 8 weeks 06/10/23 solution (Entyvio) warfarin 5 mg tablet 2.5 mg PO DAILY 06/10/23 05/22/24 Previous Rx's ?Medication ?Instructions ?Recorded tramadol 50 mg tablet 50 mg PO Q8H PRN pain #14 tabs 05/22/24 Allergies Allergy/AdvReac Type Severity Reaction Status Date / Time Sulfa (Sulfonamide Allergy Severe Swelling Verified 01/17/25 12:37 Antibiotics) of Lip/Tongue/Throat codeine AdvReac Severe Hallucinati Verified 01/17/25 12:37 ng Opioid HPI Opioid Management Most Recent Opioid Data: Last Pain Scale 6 Today, 14:32 Review of Systems ROS Narrative A ten point review of systems is negative except as noted above. PFSH PFSH Social History Smoking status: Never smoker Little interest or pleasure in doing things: not at all Feeling down, depressed, or hopeless: not at all Exam Narrative Exam Narrative: Nurses note and vital signs reviewed General:The patient appears well and in no apparent distress.Patient is resting comfortably on cart. Skin:Warm, dry, no pallor noted.There is no rash noted. Head:Normocephalic, atraumatic Eye: Normal conjunctiva, no drainage Ears, Nose, Mouth, and Throat: oral mucosa is moist. Nares patent. Cardiovascular:Regular Rate and Rhythm Respiratory:Patient is in no distress, no accessory muscle use, lungs are clear to auscultation, no wheezing, rales or rhonchi Back:non-tender GI: Soft and nondistended. Tenderness present across lower abdomen including the left lower quadrant. No masses. Musculoskeletal: The patient has no evidence of calf tenderness, no pitting edema, symmetrical pulses noted bilaterally Neurological:A&O, normal speech Psychiatric:Cooperative Constitutional Vital Signs, click to edit/add: Last Vital Signs Temp 98.9 F 07/24/25 14:32 Pulse 83 07/24/25 14:32 Resp 18 07/24/25 14:32 BP 130/81 07/24/25 14:32 Pulse Ox 98 07/24/25 14:32 O2 Del Method Room Air 07/24/25 14:32 Course Vital Signs Vital signs: Vital Signs Temperature 98.9 F 07/24/25 14:32 Pulse Rate 83 07/24/25 14:32 Respiratory Rate 18 07/24/25 14:32 Blood Pressure 130/81 07/24/25 14:32 Pulse Oximetry 98 07/24/25 14:32 Oxygen Delivery Method Room Air 07/24/25 14:32 Temperature 98.9 F 07/24/25 14:32 Pulse Rate 83 07/24/25 14:32 Respiratory Rate 18 07/24/25 14:32 Blood Pressure 130/81 07/24/25 14:32 Pulse Oximetry 98 07/24/25 14:32 Oxygen Delivery Method Room Air 07/24/25 14:32 Medical Decision Making MDM Narrative Medical decision making narrative: The patient has acute diverticulitis with abscess versus phlegmon. Case is discussed with Dr. Kennedy, general surgery at [facility] and he agrees with the transfer to that hospital. The patient is agreeable and stable for transfer and the case will be discussed with the hospitalist there as well. She is on Coumadin and has taken Cipro many times in the past and never had any issues with her INR. She is given IV Cipro and Flagyl here. Treatment diagnosis and disposition were discussed with the patient. Differential Diagnosis Differential Diagnosis: Reticulitis, abscess, perforation, constipation Lab Data Lab results reviewed: Yes I reviewed the patient's lab results Labs: Lab Results 07/24/25 07/24/25 Range/Units 14:40 14:45 WBC 12.2 H (4.0-11.0) 10^3/uL RBC 4.29 (4.20-5.40) 10^6/uL Hgb 12.5 (12.0-16.0) g/dL Hct 37.7 (36.0-48.0) % MCV 87.9 (81.0-99.0) fL MCH 29.1 (26.7-34.0) pg MCHC 33.2 (29.9-35.2) g/dL RDW 13.7 (11.0-15.0) % Plt Count 221 (150-450) 10^3/uL MPV 11.9 (9.5-13.5) fL Neut % (Auto) 69.6 (43.0-75.0) % Lymph % (Auto) 20.3 L (20.5-60.0) % [place] % (Auto) 8.3 (1.7-12.0) % Eos % (Auto) 1.0 (0.9-7.0) % Baso % (Auto) 0.6 (0.2-2.0) % Neut # (Auto) 8.5 H (1.4-6.5) 10^3/uL Lymph # (Auto) 2.5 (1.2-3.8) 10^3/uL [place]undy # (Auto) 1.0 H (0.3-0.8) 10^3/uL Eos # (Auto) 0.1 (0.0-0.7) 10^3/uL Baso # (Auto) 0.1 (0.0-0.1) 10^3/uL Abs Immat Gran (auto) 0.03 (0.00-0.03) 10^3/uL Imm/Tot Granulo (auto) 0.2 (0.0-0.5) % Sodium 138 (136-145) mmol/L Potassium 3.4 L (3.5-5.1) mmol/L Chloride 102 (98-107) mmol/L Carbon Dioxide 29.9 (21.0-32.0) mmol/L Anion Gap 9.5 BUN 12.0 (7.0-18.0) mg/dL Creatinine 0.78 (0.55-1.02) mg/dL Est GFR ( Amer) >60 (>=60 mL/min/1.73m^2) Est GFR (Non-Af Amer) >60 (>=60 mL/min/1.73m^2) BUN/Creatinine Ratio 15.4 Glucose 93 (74-106) mg/dL Calcium 8.8 (8.5-10.1) mg/dL Urine Color Dk yellow (YELLOW) Urine Clarity Clear (CLEAR) Urine pH 5.0 (5.0-9.0) Ur Specific [place] >=1.030 A (1.005-1.025) Urine Protein 30 A (NEG/TRACE) mg/dL Urine Glucose (UA) Negative (NEGATIVE) mg/dL Urine Ketones Trace A (NEGATIVE) mg/dL Urine Occult Blood Negative (NEGATIVE) Urine Nitrite Negative (NEGATIVE) Urine Bilirubin Small A (NEGATIVE) Urine Urobilinogen 2.0 A (0.2-1.0) EU/dL Ur Leukocyte Esterase Small A (NEGATIVE) Urine RBC 2-5 A (0-2) #/HPF Urine WBC 2-5 A (NONE SEEN) #/HPF Ur Squamous Epith Cells Few A (NONE/RARE) #/LPF Urine Crystals None seen (None Seen) #/HPF Urine Bacteria Trace A (NONE SEEN) #/HPF Urine Casts Seen A (NONE SEEN) #/LPF Hyaline Casts Few Urine Mucus Trace A (NONE SEEN) Ur Culture Indicated? Yes-[facility] [place] Data CT scan - abdomen: Radiologist's impression: ITS Impressions Abdomen/Pelvis CT 07/24/25 14:46 IMPRESSION: Evidence of sigmoid colonic diverticulitis complicated by focal collection within the wall worrisome for wall phlegmon versus early intramural abscess. Questionable polypoid changes versus mass involving the right colon measuring 2 x 3 cm in size. Consider colonoscopy. Impression dictated by: Nadir Gold M.D. 07/24/2025 4:13 PM Dictation Location: [place] [address] Electronically authenticated by: [id number] Y Date: 07/24/2025 16:13 Discharge Plan Discharge Chief Complaint: Abdominal Pain Clinical Impression: Diverticulitis Patient Disposition: [facility] Time of Disposition Decision: 16:43 Discharge Location: [facility] Condition: Fair Mode of Transportation: EMS
[2025-07-24 14:56] LABS: Hematocrit 37.7 % (36.0-48.0); Hemoglobin 12.5 g/dL (12.0-16.0); Immature Granulocytes Abs Auto 0.03 10^3/uL (0.00-0.03); Immature Granulocytes Pct Auto 0.2 % (0.0-0.5); Lymphocytes Absolute Auto 2.5 10^3/uL (1.2-3.8); Mean Corpuscular HGB Conc 33.2 g/dL (29.9-35.2); Mean Corpuscular Hemoglobin 29.1 pg (26.7-34.0); Mean Corpuscular Volume 87.9 fL (81.0-99.0); Platelet Count 221 10^3/uL (150-450); Red Blood Count 4.29 10^6/uL (4.20-5.40); White Blood Count 12.2 10^3/uL (4.0-11.0)
[2025-07-24 15:00] LABS: Glucose Urine UA NEGATIVE (NEGATIVE)
[2025-07-24 15:08] LABS: Crystals Seen? None Seen #/HPF (None Seen)
[2025-07-24 15:09] LABS: Cast Seen? SEEN #/LPF (NONE SEEN); Urine Culture Indicated YES-FRMC
[2025-07-24 15:09] LABS: Anion Gap 9.5; Blood Urea Nitrogen 12.0 mg/dL (7.0-18.0); Calcium 8.8 mg/dL (8.5-10.1); Carbon Dioxide 29.9 mmol/L (21.0-32.0); Chloride 102 mmol/L (98-107); Estimated GFR (African America >60 (>=60 mL/min/1.73m^2); Estimated GFR (Non-African Ame >60 (>=60 mL/min/1.73m^2); Glucose 93 mg/dL (74-106); Potassium 3.4 mmol/L (3.5-5.1); Sodium 138 mmol/L (136-145)
[2025-07-24] MEDS: CIPROFLOXACIN IN 5 % DEXTROSE 400 MG/200 ML PREMIX 200 MG IV (16:52)
[2025-07-24 16:55] LABS: INR 2.78; Prothrombin Time 26.6 sec (9.0-11.6)
--- NOTE | 2025-07-24 17:25 | PC.NURSE ---
1713 - pt agreeable to transfer to [facility]. transfer forms completed
[2025-07-24] MEDS: METRONIDAZOLE/SODIUM CHLORIDE 500 MG/100 ML PREMIX 100 MG IV (17:58)
--- NOTE | 2025-07-24 18:40 | PC.NURSE ---
report called to JOSE LUIS Mariee, at [facility].
[2025-07-24] MEDS: MORPHINE SULFATE 4 MG/ML VIAL IV (18:59)
[2025-07-24 19:49] VITALS: BP 142/94; PULSE 90; O2SAT 96
== END 2025-07-24 19:53 | disposition short-term general hospital (02) ==
PROVIDERS: Emergency Provider Emergency Medicine; PCP Internal Medicine
DX: K57.32 Diverticulitis of large intestine without perforation or abscess without bleeding (principal); Z79.01 Long term (current) use of anticoagulants
CPT/HCPCS: 36415; 74177; 80048; 81001; 85025; 85610; 87086; 96365; 96367; 96375; 99285; J0744; J1836; J2270; J2405; Q9967

== ENCOUNTER 2025-07-30 08:39 | Outpatient (RCR) | payer BC, SELFPAY | END 2025-08-25 23:59 | disposition home or self-care (01) | LOC: MM 08:39 | PROVIDERS: PCP Internal Medicine; Visit Provider Internal Medicine | DX: Z51.81 Encounter for therapeutic drug level monitoring (principal); Z79.01 Long term (current) use of anticoagulants; I82.409 Acute embolism and thrombosis of unspecified deep veins of unspecified lower extremity | CPT/HCPCS: 85610; G0463 ==

== ENCOUNTER 2025-08-26 11:18 | Outpatient (RCR) | payer BC, SELFPAY | END 2025-09-25 13:07 | disposition home or self-care (01) | LOC: MM 11:18 | PROVIDERS: PCP Internal Medicine; Visit Provider Internal Medicine | DX: Z51.81 Encounter for therapeutic drug level monitoring (principal); Z79.01 Long term (current) use of anticoagulants; I82.409 Acute embolism and thrombosis of unspecified deep veins of unspecified lower extremity | CPT/HCPCS: 85610; G0463 ==